=== PATIENT | male | born 1955 | race Caucasian/White ===

== ENCOUNTER → 2016-11-04 | Outpatient (CLI) | payer OTHER ==
--- NOTE | 2016-11-04 07:26 | REP ---
Clinical: Pain. Technique: AP, lateral, bilateral oblique views of the right knee. Findings: Age-related degenerative changes include cortical irregularity to the femoral condyles along with increased sclerosis to the medial tibial surface with medial joint space narrowing. Lateral view demonstrates subtle spurring along the inferior margin of the posterior patella. No acute fracture dislocation. Impression: Mild arthritic degenerative changes. Signed by Tamir Ingram MD 11/04/2016 07:17 A
== END ==
LOC: M RAD 06:11
PROVIDERS: ATTEND Nurse Practitioner Family
DX: M17.9 Osteoarthritis of knee, unspecified (principal)

== ENCOUNTER → 2016-11-04 | Outpatient (REF) | payer OTHER ==
[2016-11-04 19:32] LABS: ANION GAP 10 MEQ/L (8-16); BLOOD UREA NITROGEN 14 MG/DL (7-18); CALCIUM LEVEL 8.8 MG/DL (8.8-10.2); CARBON DIOXIDE LEVEL 26 MEQ/L (21-32); CHLORIDE LEVEL 101 MEQ/L (98-107); CREATININE FOR GFR 0.76 MG/DL (0.70-1.30); GLOMERULAR FILTRATION RATE > 60.0 (>49); GLUCOSE, FASTING 383 MG/DL (80-110); POTASSIUM SERUM 4.1 MEQ/L (3.5-5.1); SODIUM LEVEL 137 MEQ/L (136-145)
== END ==
LOC: M SFHCPLAZ 14:50
PROVIDERS: ATTEND Nurse Practitioner Family
DX: I10 Essential (primary) hypertension (principal)

== ENCOUNTER → 2017-01-31 | Outpatient (REF) | payer OTHER ==
[2017-01-31 16:35] LABS: ALBUMIN 3.4 GM/DL (3.2-5.2); ALBUMIN/GLOBULIN RATIO 0.97 (1.00-1.93); ALKALINE PHOSPHATASE 100 U/L (45-117); ALT/SGPT 25 U/L (12-78); ANION GAP 10 MEQ/L (8-16); AST/SGOT 12 U/L (15-37); BILIRUBIN,TOTAL 0.6 MG/DL (0.2-1.0); BLOOD UREA NITROGEN 15 MG/DL (7-18); CALCIUM LEVEL 8.3 MG/DL (8.8-10.2); CARBON DIOXIDE LEVEL 24 MEQ/L (21-32); CHLORIDE LEVEL 100 MEQ/L (98-107); CREATININE FOR GFR 0.68 MG/DL (0.70-1.30); GLOMERULAR FILTRATION RATE > 60.0 (>49); GLUCOSE, FASTING 259 MG/DL (80-110); SODIUM LEVEL 134 MEQ/L (136-145); TOTAL PROTEIN 6.9 GM/DL (6.4-8.2)
== END ==
LOC: M SFHCPLAZ 14:08
PROVIDERS: ATTEND Nurse Practitioner Family
DX: E11.65 Type 2 diabetes mellitus with hyperglycemia (principal)

== ENCOUNTER → 2017-05-23 | Outpatient (CLI) | payer OTHER ==
[2017-05-23 14:18] LABS: ALBUMIN 3.1 GM/DL (3.2-5.2); ALBUMIN/GLOBULIN RATIO 0.86 (1.00-1.93); ALKALINE PHOSPHATASE 91 U/L (45-117); ALT/SGPT 22 U/L (12-78); ANION GAP 8 MEQ/L (8-16); AST/SGOT 8 U/L (15-37); BILIRUBIN,TOTAL 0.5 MG/DL (0.2-1.0); BLOOD UREA NITROGEN 18 MG/DL (7-18); CALCIUM LEVEL 8.9 MG/DL (8.8-10.2); CARBON DIOXIDE LEVEL 27 MEQ/L (21-32); CHLORIDE LEVEL 100 MEQ/L (98-107); GLOMERULAR FILTRATION RATE > 60.0 (>49); GLUCOSE, FASTING 255 MG/DL (80-110); POTASSIUM SERUM 4.2 MEQ/L (3.5-5.1); SODIUM LEVEL 135 MEQ/L (136-145); TOTAL PROTEIN 6.7 GM/DL (6.4-8.2)
== END ==
LOC: M WUC 11:16
PROVIDERS: ATTEND Nurse Practitioner Family
DX: E11.9 Type 2 diabetes mellitus without complications (principal)

== ENCOUNTER → 2017-11-23 | Outpatient (REF) | payer OTHER | LOC: M SFHCPLAZ 08:01 | DX: E11.65 Type 2 diabetes mellitus with hyperglycemia (principal); E78.2 Mixed hyperlipidemia ==

== ENCOUNTER 2018-01-17 08:43 | Inpatient (IN) | payer OTHER ==
[2018-01-17] MEDS: NS 1,000 ML IV ×2 (10:08→18:05)
[2018-01-17] MEDS: MORPHINE 4 MG/ML 1ML VIAL/SYRINGE (J2270) IV ×2 (10:08→15:42)
[2018-01-17] MEDS: ONDANSETRON 4MG/2ML VIAL (J2405) IV (10:09)
[2018-01-17 10:14] LABS: BASO % 0.2 % (0.0-1.0); HEMATOCRIT 43.3 % (42.0-52.0); HEMOGLOBIN 14.7 g/dl (13.5-17.5); IMMATURE GRANULOCYTE % 0.6 % (0-3.0); LYMPH % 4.9 % (24.0-44.0); MEAN CORPUSCULAR HEMOGLOBIN 27.6 pg (27.0-33.0); MEAN CORPUSCULAR HGB CONC 33.9 g/dl (32.0-36.5); MEAN CORPUSCULAR VOLUME 81.4 fl (80.0-96.0); MONO # 1.7 10^3/uL (0.0-0.8); MONO % 8.2 % (0.0-5.0); NEUTROPHILS # 17.8 10^3/uL (1.8-7.7); NEUTROPHILS % 86.1 % (36.0-66.0); PLATELET COUNT, AUTOMATED 251 10^3/uL (150-450); RED BLOOD COUNT 5.32 10^6/uL (4.30-6.10); RED CELL DISTRIBUTION WIDTH 13.2 % (11.5-14.5); WHITE BLOOD COUNT 20.7 10^3/uL (4.0-10.0)
[2018-01-17 10:34] LABS: ALBUMIN 2.4 GM/DL (3.2-5.2); ALBUMIN/GLOBULIN RATIO 0.62 (1.00-1.93); ALKALINE PHOSPHATASE 78 U/L (45-117); ALT/SGPT 14 U/L (12-78); ANION GAP 9 MEQ/L (8-16); AST/SGOT 17 U/L (7-37); BILIRUBIN,DIRECT 0.3 MG/DL (0.0-0.2); BILIRUBIN,TOTAL 0.9 MG/DL (0.2-1.0); BLOOD UREA NITROGEN 29 MG/DL (7-18); CALCIUM LEVEL 7.5 MG/DL (8.8-10.2); CARBON DIOXIDE LEVEL 24 MEQ/L (21-32); CHLORIDE LEVEL 97 MEQ/L (98-107); GLOMERULAR FILTRATION RATE > 60.0 (>49); GLUCOSE, FASTING 246 MG/DL (70-100); SODIUM LEVEL 130 MEQ/L (136-145); TOTAL PROTEIN 6.3 GM/DL (6.4-8.2)
[2018-01-17] MEDS ORDERED: ISOVUE-370 76% 100ML VIAL (Q9967) As Ordered (10:47)
[2018-01-17] MEDS: CEFTAROLINE FOSAMIL 600 MG in D5W MINI-BAG PLUS 50 ML IV (12:18)
[2018-01-17] MEDS ORDERED: PIPERACILLIN As Ordered (13:15)
[2018-01-17] MEDS ORDERED: TAZOBACTAM As Ordered (13:15)
[2018-01-17] MEDS: SODIUM CHLORIDE 0.9% 1000 ML IV (13:15)
[2018-01-17] MEDS ORDERED: ONDANSETRON 4MG/2ML VIAL (J2405) IV (14:30)
[2018-01-17] MEDS ORDERED: GLUCOSE 4 GM CHEW TABLET PO (14:45)
[2018-01-17] MEDS ORDERED: DEXTROSE 50% 50 ML SYRINGE IV (14:45)
[2018-01-17] MEDS ORDERED: GLUCAGON FOR INJ 1 MG VIAL (J1610) SC (14:45)
[2018-01-17 15:21] LABS: INR 1.49; PROTHROMBIN TIME 18.3 SECONDS (12.4-14.5)
[2018-01-17 15:26] LABS: APPEARANCE, URINE CLEAR (CLEAR); BACTERIA, URINE AUTO NEGATIVE (NEGATIVE); BILIRUBIN, URINE AUTO NEGATIVE (NEGATIVE); BLOOD, URINE BLOOD NEGATIVE (NEGATIVE); COLOR, URINE YELLOW (YELLOW); GLUCOSE, URINE (UA) AUTO 2+ mg/dL (NEGATIVE); KETONE, URINE AUTO TRACE mg/dL (NEGATIVE); LEUKOCYTE ESTERASE, URINE AUTO NEGATIVE (NEGATIVE); NITRITE, URINE AUTO NEGATIVE (NEGATIVE); PROTEIN, URINE AUTO 2+ mg/dL (NEGATIVE); RBC, URINE AUTO 3 /HPF (0-3); SPECIFIC GRAVITY URINE AUTO 1.054 (1.002-1.035); SQUAMOUS EPITHELIAL CELL UR AU 0 /HPF (0-6); UROBILINOGEN, URINE AUTO 0.2 mg/dL (0.0-2.0); WBC, URINE AUTO 1 /HPF (0-3)
[2018-01-17] MEDS: VANCOMYCIN HCL 1,000 MG, VIAL MATE ADAPTER 1 EACH in D5W 250 ML IV ×3 (15:41→22:58)
[2018-01-17] MEDS ORDERED: NICOTINE 14 MG/24 HR TRANSDERMAL TD (17:15)
[2018-01-17] MEDS: NICOTINE 14 MG/24 HR TRANSDERMAL TD (18:05)
[2018-01-17] MEDS: HumaLOG INSULIN (NovoLOG) PER UNIT SC ×2 (18:05→21:00)
[2018-01-17] MEDS: PIPERACILLIN/TAZOBACTAM SOD 3.375 GM in APPROPRIATE DILUENT 1 EA IV (19:47)
[2018-01-17] MEDS: LEVEMIR (INSULIN DETEMIR) 1 UNITS/0.01ML SC (21:00)
[2018-01-17] MEDS: ACETAMINOPHEN TAB 650MG DOSE (2X325MG) PO (21:17)
[2018-01-17] MEDS: SIMVASTATIN 40 MG TAB PO (21:17)
[2018-01-17 21:29] LABS: BEDSIDE GLUCOSE 182 MG/DL (80-115)
[2018-01-17] MEDS ORDERED: VANCOMYCIN 1000 MG/20 ML VIAL (J3370) As Ordered (22:40)
[2018-01-18] MEDS: PIPERACILLIN/TAZOBACTAM SOD 3.375 GM in APPROPRIATE DILUENT 1 EA IV ×4 (00:58→17:50)
[2018-01-18] MEDS: VANCOMYCIN HCL 1,000 MG, VIAL MATE ADAPTER 1 EACH in D5W 250 ML IV ×4 (04:32→23:17)
[2018-01-18] MEDS: MORPHINE 4 MG/ML 1ML VIAL/SYRINGE (J2270) IV ×2 (04:58→20:02)
[2018-01-18 06:23] LABS: BASO # 0.1 10^3/uL (0.0-0.2); BASO % 0.2 % (0.0-1.0); EOS % 0.1 % (0.0-3.0); HEMATOCRIT 37.9 % (42.0-52.0); IMMATURE GRANULOCYTE % 1.3 % (0-3.0); LYMPH # 0.9 10^3/uL (1.5-4.5); LYMPH % 3.7 % (24.0-44.0); MEAN CORPUSCULAR HGB CONC 34.3 g/dl (32.0-36.5); MEAN CORPUSCULAR VOLUME 81.7 fl (80.0-96.0); MONO % 9.9 % (0.0-5.0); NEUTROPHILS # 20.9 10^3/uL (1.8-7.7); NEUTROPHILS % 84.8 % (36.0-66.0); PLATELET COUNT, AUTOMATED 244 10^3/uL (150-450); RED BLOOD COUNT 4.64 10^6/uL (4.30-6.10); RED CELL DISTRIBUTION WIDTH 13.5 % (11.5-14.5); WHITE BLOOD COUNT 24.7 10^3/uL (4.0-10.0)
[2018-01-18 06:46] LABS: MONO # 2.4 10^3/uL (0.0-0.8); POSITIVE DIFF POS FLAG
[2018-01-18 06:54] LABS: ANION GAP 9 MEQ/L (8-16); BLOOD UREA NITROGEN 31 MG/DL (7-18); CARBON DIOXIDE LEVEL 22 MEQ/L (21-32); CHLORIDE LEVEL 101 MEQ/L (98-107); CREATININE FOR GFR 1.07 MG/DL (0.70-1.30); GLOMERULAR FILTRATION RATE > 60.0 (>49); GLUCOSE, FASTING 224 MG/DL (70-100); POTASSIUM SERUM 3.4 MEQ/L (3.5-5.1); SODIUM LEVEL 132 MEQ/L (136-145)
[2018-01-18] MEDS: NICOTINE 14 MG/24 HR TRANSDERMAL TD (07:50)
[2018-01-18] MEDS: LEVEMIR (INSULIN DETEMIR) 1 UNITS/0.01ML SC ×2 (07:51→21:05)
[2018-01-18] MEDS: HumaLOG INSULIN (NovoLOG) PER UNIT SC ×5 (07:51→21:06)
[2018-01-18] MEDS: MULTIVITAMINS/MINERALS THERAP 1 TAB PO (09:00)
[2018-01-18] MEDS: D5W/0.9% SODIUM CHLORIDE 1,000 ML IV ×2 (09:44→17:06)
[2018-01-18] MEDS: LIDOCAINE W/EPINEPHRINE 1% 20ML VIAL As Ordered (11:34)
[2018-01-18] MEDS: LIDOCAINE 1% SDV INJ 30 ML VIAL As Ordered (11:34)
[2018-01-18] MEDS: BUPIVACAINE HCL 0.25% 30 ML VIAL As Ordered (12:28)
[2018-01-18] MEDS: ZOSYN 3.375 GM VIAL (J2543) As Ordered (12:30)
[2018-01-18] MEDS ORDERED: ROCURONIUM BROMIDE 50 MG/5 ML VIAL As Ordered (12:39)
[2018-01-18] MEDS ORDERED: METOCLOPRAMIDE INJ 10MG/2ML VIAL (J2765) As Ordered (12:39)
[2018-01-18] MEDS ORDERED: PROPOFOL 200 MG/20 ML VIAL As Ordered (12:39)
[2018-01-18] MEDS ORDERED: ONDANSETRON 4MG/2ML VIAL (J2405) As Ordered (12:39)
[2018-01-18] MEDS ORDERED: LIDOCAINE 2% INJ 100 MG/5 ML SDV (FOR ANES.) As Ordered (12:39)
[2018-01-18] MEDS ORDERED: fentaNYL 250 MCG/5 ML INJECTION (J3010) As Ordered (12:39)
[2018-01-18] MEDS ORDERED: MIDAZOLAM INJ 2 MG/2 ML VIAL (J2250) As Ordered (12:39)
[2018-01-18] MEDS ORDERED: PHENYLephrine HCL 500 MCG/5 ML (100MCG/ML) SYRINGE (J2370) As Ordered ×2 (12:42)
[2018-01-18] MEDS ORDERED: SUGAMMADEX SODIUM 500 MG/5 ML VIAL (BRIDION) As Ordered (12:45)
[2018-01-18 13:17] LABS: BEDSIDE GLUCOSE 137 MG/DL (80-115)
[2018-01-18 13:17] LABS: BEDSIDE GLUCOSE 240 MG/DL (80-115)
[2018-01-18] MEDS ORDERED: PERCOCET 5MG/325MG TAB As Ordered ×2 (13:31→14:04)
[2018-01-18] MEDS ORDERED: fentaNYL 100 MCG/2 ML INJECTION (J3010) As Ordered (13:31)
[2018-01-18] MEDS ORDERED: HumaLOG INSULIN (NovoLOG) PER UNIT As Ordered (13:32)
[2018-01-18] MEDS: fentaNYL 100 MCG/2 ML INJECTION (J3010) IV ×4 (13:40→13:55)
[2018-01-18] MEDS: PERCOCET 5MG/325MG TAB PO ×2 (13:40→14:11)
[2018-01-18] MEDS ORDERED: HYDROmorphone HCL 1 MG/ML SYRINGE (J1170) IV (14:00)
[2018-01-18] MEDS: LR 1,000 ML IV (14:00)
[2018-01-18] MEDS ORDERED: ONDANSETRON 4MG/2ML VIAL (J2405) IV (14:00)
[2018-01-18 14:02] LABS: BEDSIDE GLUCOSE 253 MG/DL (80-115)
[2018-01-18 16:11] LABS: INR 1.28; PROTHROMBIN TIME 16.2 SECONDS (12.4-14.5)
[2018-01-18 16:22] LABS: VANCOMYCIN LEVEL TROUGH 17.4 UG/ML (10.0-20.0)
[2018-01-18 17:22] LABS: BEDSIDE GLUCOSE 188 MG/DL (80-115)
[2018-01-18] MEDS: metFORMIN 850 MG TAB PO (17:50)
[2018-01-18] MEDS: DOCUSATE SODIUM 100 MG CAP PO (21:05)
[2018-01-18] MEDS: OMEGA-3 1050MG CAPSULE PO (21:05)
[2018-01-18 21:09] LABS: BEDSIDE GLUCOSE 256 MG/DL (80-115)
[2018-01-19] MEDS: PIPERACILLIN/TAZOBACTAM SOD 3.375 GM in APPROPRIATE DILUENT 1 EA IV ×5 (00:24→23:38)
[2018-01-19] MEDS: D5W/0.9% SODIUM CHLORIDE 1,000 ML IV ×2 (00:25→08:58)
[2018-01-19] MEDS: VANCOMYCIN HCL 1,000 MG, VIAL MATE ADAPTER 1 EACH in D5W 250 ML IV ×2 (04:40→17:20)
[2018-01-19 06:45] LABS: BASO # 0.1 10^3/uL (0.0-0.2); BASO % 0.4 % (0.0-1.0); EOS # 0.1 10^3/uL (0.0-0.50); EOS % 0.6 % (0.0-3.0); HEMATOCRIT 37.3 % (42.0-52.0); HEMOGLOBIN 12.6 g/dl (13.5-17.5); IMMATURE GRANULOCYTE % 0.8 % (0-3.0); LYMPH # 1.1 10^3/uL (1.5-4.5); LYMPH % 5.3 % (24.0-44.0); MEAN CORPUSCULAR HEMOGLOBIN 27.8 pg (27.0-33.0); MEAN CORPUSCULAR HGB CONC 33.8 g/dl (32.0-36.5); MEAN CORPUSCULAR VOLUME 82.3 fl (80.0-96.0); NEUTROPHILS # 16.6 10^3/uL (1.8-7.7); NEUTROPHILS % 82.9 % (36.0-66.0); PLATELET COUNT, AUTOMATED 257 10^3/uL (150-450); RED BLOOD COUNT 4.53 10^6/uL (4.30-6.10); RED CELL DISTRIBUTION WIDTH 13.5 % (11.5-14.5)
[2018-01-19 07:21] LABS: ANION GAP 5 MEQ/L (8-16); BLOOD UREA NITROGEN 35 MG/DL (7-18); CALCIUM LEVEL 6.9 MG/DL (8.8-10.2); CARBON DIOXIDE LEVEL 23 MEQ/L (21-32); CHLORIDE LEVEL 101 MEQ/L (98-107); CREATININE FOR GFR 1.64 MG/DL (0.70-1.30); GLOMERULAR FILTRATION RATE 45.4 (>49); GLUCOSE, FASTING 238 MG/DL (70-100); MAGNESIUM LEVEL 1.9 MG/DL (1.8-2.4); POTASSIUM SERUM 3.6 MEQ/L (3.5-5.1); SODIUM LEVEL 129 MEQ/L (136-145)
[2018-01-19] MEDS: MULTIVITAMINS/MINERALS THERAP 1 TAB PO (08:55)
[2018-01-19] MEDS: SITagliptin 50 MG TAB (JANUVIA) PO (08:55)
[2018-01-19] MEDS: MORPHINE 4 MG/ML 1ML VIAL/SYRINGE (J2270) IV (08:55)
[2018-01-19] MEDS: OMEGA-3 1050MG CAPSULE PO ×2 (08:55→20:39)
[2018-01-19] MEDS: SENOKOT S TAB PO ×2 (08:55→20:39)
[2018-01-19] MEDS: DOCUSATE SODIUM 100 MG CAP PO ×2 (08:55→20:39)
[2018-01-19] MEDS: metFORMIN 850 MG TAB PO (08:56)
[2018-01-19] MEDS: POTASSIUM CHLORIDE 10 MEQ SR TABLET PO (08:56)
[2018-01-19] MEDS: ENOXAPARIN 40 MG/0.4 ML SYRINGE (J1650) SC (08:56)
[2018-01-19] MEDS: NICOTINE 14 MG/24 HR TRANSDERMAL TD (08:57)
[2018-01-19] MEDS: LEVEMIR (INSULIN DETEMIR) 1 UNITS/0.01ML SC ×2 (08:57→20:39)
[2018-01-19] MEDS: MIRALAX *UNIT DOSE* 17GM PACKET PO ×2 (08:57→20:42)
[2018-01-19] MEDS: HumaLOG INSULIN (NovoLOG) PER UNIT SC ×4 (08:58→21:00)
[2018-01-19] MEDS ORDERED: NORCO, ANEXSIA 5/325MG TABLET (HYDROcodone/ACETAMINOPHEN) PO (09:15)
[2018-01-19 10:42] LABS: VANCOMYCIN LEVEL TROUGH 25.6 UG/ML (10.0-20.0)
[2018-01-19 12:56] LABS: BEDSIDE GLUCOSE 215 MG/DL (80-115)
[2018-01-19] MEDS: NS 1,000 ML IV ×2 (12:57→23:39)
[2018-01-19 15:28] LABS: INR 1.22; PROTHROMBIN TIME 15.7 SECONDS (12.4-14.5)
[2018-01-19] MEDS: NORCO, ANEXSIA 5/325MG TABLET (HYDROcodone/ACETAMINOPHEN) PO (17:21)
[2018-01-19 17:38] LABS: BEDSIDE GLUCOSE 163 MG/DL (80-115)
[2018-01-19] MEDS: SIMVASTATIN 40 MG TAB PO (20:39)
[2018-01-19 21:06] LABS: BEDSIDE GLUCOSE 192 MG/DL (80-115)
[2018-01-20] MEDS ORDERED: FUROSEMIDE 20 MG/2 ML VIAL (J1940) As Ordered (04:49)
[2018-01-20] MEDS: FUROSEMIDE 20 MG/2 ML VIAL (J1940) IV (04:50)
[2018-01-20] MEDS: MORPHINE 4 MG/ML 1ML VIAL/SYRINGE (J2270) IV ×4 (06:37→22:11)
[2018-01-20] MEDS: VANCOMYCIN HCL 1,000 MG, VIAL MATE ADAPTER 1 EACH in D5W 250 ML IV ×2 (06:53→18:07)
[2018-01-20 06:54] LABS: ANION GAP 8 MEQ/L (8-16); BLOOD UREA NITROGEN 26 MG/DL (7-18); CALCIUM LEVEL 7.3 MG/DL (8.8-10.2); CARBON DIOXIDE LEVEL 22 MEQ/L (21-32); CHLORIDE LEVEL 106 MEQ/L (98-107); CREATININE FOR GFR 1.36 MG/DL (0.70-1.30); GLOMERULAR FILTRATION RATE 56.3 (>49); GLUCOSE, FASTING 192 MG/DL (70-100); MAGNESIUM LEVEL 2.1 MG/DL (1.8-2.4); POTASSIUM SERUM 3.6 MEQ/L (3.5-5.1); SODIUM LEVEL 136 MEQ/L (136-145); VANCOMYCIN LEVEL TROUGH 18.5 UG/ML (10.0-20.0)
[2018-01-20 06:56] LABS: BASO # 0.1 10^3/uL (0.0-0.2); BASO % 0.6 % (0.0-1.0); EOS # 0.2 10^3/uL (0.0-0.50); EOS % 0.9 % (0.0-3.0); HEMATOCRIT 37.8 % (42.0-52.0); HEMOGLOBIN 12.6 g/dl (13.5-17.5); IMMATURE GRANULOCYTE % 1.1 % (0-3.0); LYMPH # 0.9 10^3/uL (1.5-4.5); MEAN CORPUSCULAR HEMOGLOBIN 27.2 pg (27.0-33.0); MEAN CORPUSCULAR HGB CONC 33.3 g/dl (32.0-36.5); MEAN CORPUSCULAR VOLUME 81.6 fl (80.0-96.0); MONO # 1.6 10^3/uL (0.0-0.8); MONO % 8.5 % (0.0-5.0); NEUTROPHILS # 15.5 10^3/uL (1.8-7.7); NEUTROPHILS % 83.9 % (36.0-66.0); PLATELET COUNT, AUTOMATED 300 10^3/uL (150-450); RED BLOOD COUNT 4.63 10^6/uL (4.30-6.10); RED CELL DISTRIBUTION WIDTH 13.6 % (11.5-14.5); WHITE BLOOD COUNT 18.5 10^3/uL (4.0-10.0)
[2018-01-20] MEDS: MIRALAX *UNIT DOSE* 17GM PACKET PO ×2 (09:00→20:26)
[2018-01-20] MEDS: PIPERACILLIN/TAZOBACTAM SOD 3.375 GM in APPROPRIATE DILUENT 1 EA IV ×3 (09:23→19:30)
[2018-01-20] MEDS: ENOXAPARIN 40 MG/0.4 ML SYRINGE (J1650) SC (09:24)
[2018-01-20] MEDS: NICOTINE 14 MG/24 HR TRANSDERMAL TD (09:25)
[2018-01-20] MEDS: LEVEMIR (INSULIN DETEMIR) 1 UNITS/0.01ML SC ×2 (09:27→20:26)
[2018-01-20] MEDS: HumaLOG INSULIN (NovoLOG) PER UNIT SC ×4 (09:27→21:00)
[2018-01-20] MEDS: MULTIVITAMINS/MINERALS THERAP 1 TAB PO (09:28)
[2018-01-20] MEDS: SENOKOT S TAB PO ×2 (09:28→20:25)
[2018-01-20] MEDS: OMEGA-3 1050MG CAPSULE PO ×2 (09:28→20:25)
[2018-01-20] MEDS: DOCUSATE SODIUM 100 MG CAP PO ×2 (09:28→20:25)
[2018-01-20] MEDS: POTASSIUM CHLORIDE 10 MEQ SR TABLET PO (09:29)
[2018-01-20] MEDS: ALBUTEROL SULFATE 2.5 MG/0.5 ML INH NEB SOLN NEB (11:38)
[2018-01-20 12:22] LABS: BEDSIDE GLUCOSE 214 MG/DL (80-115)
[2018-01-20 12:48] LABS: ANION GAP 7 MEQ/L (8-16); BLOOD UREA NITROGEN 26 MG/DL (7-18); CALCIUM LEVEL 7.1 MG/DL (8.8-10.2); CARBON DIOXIDE LEVEL 25 MEQ/L (21-32); CHLORIDE LEVEL 106 MEQ/L (98-107); CREATININE FOR GFR 1.34 MG/DL (0.70-1.30); GLOMERULAR FILTRATION RATE 57.3 (>49); GLUCOSE, FASTING 201 MG/DL (70-100); MAGNESIUM LEVEL 2.3 MG/DL (1.8-2.4); NT-PRO BNP 677 PG/ML (<125); PHOSPHORUS LEVEL 2.4 MG/DL (2.5-4.9); POTASSIUM SERUM 4.1 MEQ/L (3.5-5.1); SODIUM LEVEL 138 MEQ/L (136-145); TROPONIN I < 0.02 NG/ML (< 0.10)
[2018-01-20] MEDS: BISACODYL 10 MG SUPP PR (15:49)
[2018-01-21] MEDS: SENNA 8.6 MG TAB (SENOKOT) PO (00:09)
[2018-01-21] MEDS: PIPERACILLIN/TAZOBACTAM SOD 3.375 GM in APPROPRIATE DILUENT 1 EA IV ×5 (00:09→23:57)
[2018-01-21] MEDS: FLEET ENEMA PR (00:09)
[2018-01-21] MEDS: ALBUTEROL SULFATE 2.5 MG/0.5 ML INH NEB SOLN NEB (01:24)
[2018-01-21] MEDS: MORPHINE 4 MG/ML 1ML VIAL/SYRINGE (J2270) IV (05:14)
[2018-01-21] MEDS: VANCOMYCIN HCL 1,000 MG, VIAL MATE ADAPTER 1 EACH in D5W 250 ML IV ×2 (05:14→17:20)
[2018-01-21 05:40] LABS: BASO # 0.1 10^3/uL (0.0-0.2); BASO % 0.6 % (0.0-1.0); EOS # 0.2 10^3/uL (0.0-0.50); EOS % 1.2 % (0.0-3.0); HEMATOCRIT 38.6 % (42.0-52.0); HEMOGLOBIN 12.8 g/dl (13.5-17.5); IMMATURE GRANULOCYTE % 1.1 % (0-3.0); LYMPH % 6.1 % (24.0-44.0); MEAN CORPUSCULAR HEMOGLOBIN 27.4 pg (27.0-33.0); MEAN CORPUSCULAR HGB CONC 33.2 g/dl (32.0-36.5); MEAN CORPUSCULAR VOLUME 82.7 fl (80.0-96.0); MONO # 1.7 10^3/uL (0.0-0.8); MONO % 11.2 % (0.0-5.0); NEUTROPHILS # 12.4 10^3/uL (1.8-7.7); NEUTROPHILS % 79.8 % (36.0-66.0); PLATELET COUNT, AUTOMATED 298 10^3/uL (150-450); RED BLOOD COUNT 4.67 10^6/uL (4.30-6.10); RED CELL DISTRIBUTION WIDTH 13.7 % (11.5-14.5); WHITE BLOOD COUNT 15.6 10^3/uL (4.0-10.0)
[2018-01-21 05:58] LABS: ANION GAP 7 MEQ/L (8-16); BLOOD UREA NITROGEN 21 MG/DL (7-18); CALCIUM LEVEL 7.5 MG/DL (8.8-10.2); CARBON DIOXIDE LEVEL 26 MEQ/L (21-32); CHLORIDE LEVEL 105 MEQ/L (98-107); CREATININE FOR GFR 1.27 MG/DL (0.70-1.30); GLOMERULAR FILTRATION RATE > 60.0 (>49); GLUCOSE, FASTING 209 MG/DL (70-100); MAGNESIUM LEVEL 2.3 MG/DL (1.8-2.4); SODIUM LEVEL 138 MEQ/L (136-145)
[2018-01-21] MEDS: NICOTINE 14 MG/24 HR TRANSDERMAL TD (08:28)
[2018-01-21] MEDS: SENOKOT S TAB PO ×3 (08:29→21:42)
[2018-01-21] MEDS: DOCUSATE SODIUM 100 MG CAP PO ×2 (08:29→21:43)
[2018-01-21] MEDS: POTASSIUM CHLORIDE 10 MEQ SR TABLET PO (08:29)
[2018-01-21] MEDS: MULTIVITAMINS/MINERALS THERAP 1 TAB PO (08:29)
[2018-01-21] MEDS: OMEGA-3 1050MG CAPSULE PO ×2 (08:29→21:43)
[2018-01-21] MEDS: HumaLOG INSULIN (NovoLOG) PER UNIT SC ×4 (08:30→21:00)
[2018-01-21] MEDS: LEVEMIR (INSULIN DETEMIR) 1 UNITS/0.01ML SC ×2 (08:31→21:43)
[2018-01-21] MEDS: MIRALAX *UNIT DOSE* 17GM PACKET PO ×2 (08:32→21:42)
[2018-01-21] MEDS: BISACODYL 10 MG SUPP PR (08:32)
[2018-01-21] MEDS: ENOXAPARIN 40 MG/0.4 ML SYRINGE (J1650) SC (08:32)
[2018-01-21] MEDS: TORSEMIDE 20 MG TAB PO (15:59)
[2018-01-21] MEDS: SIMVASTATIN 40 MG TAB PO (21:42)
[2018-01-21] MEDS: ENOXAPARIN 150 MG/ML SYR (J1650) SC (21:44)
[2018-01-22] MEDS: MORPHINE 4 MG/ML 1ML VIAL/SYRINGE (J2270) IV ×2 (02:57→15:33)
[2018-01-22 04:10] LABS: BASO # 0.1 10^3/uL (0.0-0.2); EOS # 0.2 10^3/uL (0.0-0.50); EOS % 1.7 % (0.0-3.0); HEMATOCRIT 37.7 % (42.0-52.0); HEMOGLOBIN 12.7 g/dl (13.5-17.5); IMMATURE GRANULOCYTE % 2.1 % (0-3.0); LYMPH # 1.2 10^3/uL (1.5-4.5); LYMPH % 8.6 % (24.0-44.0); MEAN CORPUSCULAR HEMOGLOBIN 27.8 pg (27.0-33.0); MEAN CORPUSCULAR HGB CONC 33.7 g/dl (32.0-36.5); MEAN CORPUSCULAR VOLUME 82.5 fl (80.0-96.0); MONO # 1.7 10^3/uL (0.0-0.8); MONO % 12.3 % (0.0-5.0); NEUTROPHILS # 10.2 10^3/uL (1.8-7.7); NEUTROPHILS % 74.3 % (36.0-66.0); PLATELET COUNT, AUTOMATED 309 10^3/uL (150-450); RED BLOOD COUNT 4.57 10^6/uL (4.30-6.10); RED CELL DISTRIBUTION WIDTH 13.7 % (11.5-14.5); WHITE BLOOD COUNT 13.8 10^3/uL (4.0-10.0)
[2018-01-22 04:35] LABS: ANION GAP 5 MEQ/L (8-16); BLOOD UREA NITROGEN 17 MG/DL (7-18); CALCIUM LEVEL 7.4 MG/DL (8.8-10.2); CARBON DIOXIDE LEVEL 27 MEQ/L (21-32); CHLORIDE LEVEL 106 MEQ/L (98-107); GLOMERULAR FILTRATION RATE > 60.0 (>49); GLUCOSE, FASTING 189 MG/DL (70-100); MAGNESIUM LEVEL 2.2 MG/DL (1.8-2.4); SODIUM LEVEL 138 MEQ/L (136-145); VANCOMYCIN LEVEL TROUGH 15.5 UG/ML (10.0-20.0)
[2018-01-22] MEDS: VANCOMYCIN HCL 1,000 MG, VIAL MATE ADAPTER 1 EACH in D5W 250 ML IV (04:55)
[2018-01-22] MEDS: PIPERACILLIN/TAZOBACTAM SOD 3.375 GM in APPROPRIATE DILUENT 1 EA IV ×3 (06:23→23:31)
[2018-01-22] MEDS: OMEGA-3 1050MG CAPSULE PO ×2 (08:51→22:33)
[2018-01-22] MEDS: NICOTINE 14 MG/24 HR TRANSDERMAL TD (08:51)
[2018-01-22] MEDS: HumaLOG INSULIN (NovoLOG) PER UNIT SC ×4 (08:53→22:08)
[2018-01-22] MEDS: LEVEMIR (INSULIN DETEMIR) 1 UNITS/0.01ML SC ×2 (08:54→22:33)
[2018-01-22] MEDS: SENOKOT S TAB PO ×3 (08:55→22:33)
[2018-01-22] MEDS: TORSEMIDE 20 MG TAB PO (08:55)
[2018-01-22] MEDS: DOCUSATE SODIUM 100 MG CAP PO (08:55)
[2018-01-22] MEDS: MULTIVITAMINS/MINERALS THERAP 1 TAB PO (08:55)
[2018-01-22] MEDS: BISACODYL 10 MG SUPP PR (08:56)
[2018-01-22] MEDS: MIRALAX *UNIT DOSE* 17GM PACKET PO ×2 (08:56→22:31)
[2018-01-22] MEDS: POTASSIUM CHLORIDE 10 MEQ SR TABLET PO (08:56)
[2018-01-22 11:51] LABS: BEDSIDE GLUCOSE 188 MG/DL (80-115)
[2018-01-22 11:51] LABS: BEDSIDE GLUCOSE 185 MG/DL (80-115)
[2018-01-22 11:52] LABS: BEDSIDE GLUCOSE 179 MG/DL (80-115)
[2018-01-22 11:52] LABS: BEDSIDE GLUCOSE 184 MG/DL (80-115)
[2018-01-22 11:52] LABS: BEDSIDE GLUCOSE 192 MG/DL (80-115)
[2018-01-22 11:52] LABS: BEDSIDE GLUCOSE 200 MG/DL (80-115)
[2018-01-22] MEDS ORDERED: BISACODYL ENEMA 10 MG/30 ML PR (18:30)
[2018-01-22] MEDS ORDERED: AUGMENTIN 875 MG TAB PO (21:00)
[2018-01-22] MEDS: ENOXAPARIN 150 MG/ML SYR (J1650) SC (22:34)
[2018-01-23 00:05] LABS: BEDSIDE GLUCOSE 129 MG/DL (80-115)
[2018-01-23 00:05] LABS: BEDSIDE GLUCOSE 114 MG/DL (80-115)
[2018-01-23] MEDS: MORPHINE 4 MG/ML 1ML VIAL/SYRINGE (J2270) IV (03:00)
[2018-01-23 05:54] LABS: BASO # 0.2 10^3/uL (0.0-0.2); BASO % 1.3 % (0.0-1.0); EOS # 0.3 10^3/uL (0.0-0.50); EOS % 1.9 % (0.0-3.0); HEMATOCRIT 39.9 % (42.0-52.0); HEMOGLOBIN 13.3 g/dl (13.5-17.5); IMMATURE GRANULOCYTE % 3.4 % (0-3.0); LYMPH # 1.3 10^3/uL (1.5-4.5); LYMPH % 9.5 % (24.0-44.0); MEAN CORPUSCULAR HEMOGLOBIN 27.5 pg (27.0-33.0); MEAN CORPUSCULAR HGB CONC 33.3 g/dl (32.0-36.5); MEAN CORPUSCULAR VOLUME 82.6 fl (80.0-96.0); MONO # 1.6 10^3/uL (0.0-0.8); MONO % 11.6 % (0.0-5.0); NEUTROPHILS # 10.2 10^3/uL (1.8-7.7); NEUTROPHILS % 72.3 % (36.0-66.0); PLATELET COUNT, AUTOMATED 312 10^3/uL (150-450); RED BLOOD COUNT 4.83 10^6/uL (4.30-6.10); RED CELL DISTRIBUTION WIDTH 13.5 % (11.5-14.5); WHITE BLOOD COUNT 14.1 10^3/uL (4.0-10.0)
[2018-01-23 06:10] LABS: ANION GAP 6 MEQ/L (8-16); BLOOD UREA NITROGEN 14 MG/DL (7-18); CALCIUM LEVEL 7.8 MG/DL (8.8-10.2); CARBON DIOXIDE LEVEL 29 MEQ/L (21-32); CHLORIDE LEVEL 104 MEQ/L (98-107); CREATININE FOR GFR 1.11 MG/DL (0.70-1.30); GLOMERULAR FILTRATION RATE > 60.0 (>49); GLUCOSE, FASTING 155 MG/DL (70-100); MAGNESIUM LEVEL 1.9 MG/DL (1.8-2.4); SODIUM LEVEL 139 MEQ/L (136-145)
[2018-01-23] MEDS: PIPERACILLIN/TAZOBACTAM SOD 3.375 GM in APPROPRIATE DILUENT 1 EA IV ×3 (06:24→18:02)
[2018-01-23 07:06] LABS: C REACTIVE PROTEIN QUANTITATIV 9.26 MG/DL (0.00-0.30)
[2018-01-23] MEDS: HumaLOG INSULIN (NovoLOG) PER UNIT SC ×4 (07:55→20:44)
[2018-01-23] MEDS: NICOTINE 14 MG/24 HR TRANSDERMAL TD (10:21)
[2018-01-23] MEDS: SENOKOT S TAB PO ×3 (10:21→21:08)
[2018-01-23] MEDS: POTASSIUM CHLORIDE 10 MEQ SR TABLET PO (10:21)
[2018-01-23] MEDS: OMEGA-3 1050MG CAPSULE PO ×2 (10:22→21:08)
[2018-01-23] MEDS: TORSEMIDE 20 MG TAB PO (10:22)
[2018-01-23] MEDS: MULTIVITAMINS/MINERALS THERAP 1 TAB PO (10:22)
[2018-01-23] MEDS: MIRALAX *UNIT DOSE* 17GM PACKET PO (10:22)
[2018-01-23] MEDS: LEVEMIR (INSULIN DETEMIR) 1 UNITS/0.01ML SC ×2 (10:23→21:09)
[2018-01-23] MEDS: BISACODYL 10 MG SUPP PR ×2 (10:23→14:12)
[2018-01-23 11:53] LABS: BEDSIDE GLUCOSE 246 MG/DL (80-115)
[2018-01-23] MEDS: BISACODYL 5 MG TAB PO (13:14)
[2018-01-23] MEDS: MAGNESIUM CITRATE 300 ML BTL PO (13:15)
[2018-01-23] MEDS: RIVAROXABAN 20 MG TAB (XARELTO) PO (18:03)
[2018-01-23] MEDS: NORCO, ANEXSIA 5/325MG TABLET (HYDROcodone/ACETAMINOPHEN) PO (18:04)
[2018-01-23] MEDS: SIMVASTATIN 40 MG TAB PO (21:08)
[2018-01-24] MEDS: PIPERACILLIN/TAZOBACTAM SOD 3.375 GM in APPROPRIATE DILUENT 1 EA IV ×5 (00:49→23:04)
[2018-01-24] MEDS: MORPHINE 4 MG/ML 1ML VIAL/SYRINGE (J2270) IV ×2 (06:06→22:08)
[2018-01-24 06:25] LABS: BASO # 0.2 10^3/uL (0.0-0.2); BASO % 1.4 % (0.0-1.0); EOS # 0.3 10^3/uL (0.0-0.50); EOS % 1.9 % (0.0-3.0); HEMATOCRIT 41.5 % (42.0-52.0); HEMOGLOBIN 13.9 g/dl (13.5-17.5); IMMATURE GRANULOCYTE % 4.4 % (0-3.0); LYMPH # 1.2 10^3/uL (1.5-4.5); LYMPH % 7.7 % (24.0-44.0); MEAN CORPUSCULAR HEMOGLOBIN 27.2 pg (27.0-33.0); MEAN CORPUSCULAR HGB CONC 33.5 g/dl (32.0-36.5); MEAN CORPUSCULAR VOLUME 81.2 fl (80.0-96.0); MONO # 1.4 10^3/uL (0.0-0.8); NEUTROPHILS # 12.2 10^3/uL (1.8-7.7); NEUTROPHILS % 75.6 % (36.0-66.0); PLATELET COUNT, AUTOMATED 316 10^3/uL (150-450); RED BLOOD COUNT 5.11 10^6/uL (4.30-6.10); RED CELL DISTRIBUTION WIDTH 13.3 % (11.5-14.5); WHITE BLOOD COUNT 16.1 10^3/uL (4.0-10.0)
[2018-01-24 06:46] LABS: ANION GAP 5 MEQ/L (8-16); BLOOD UREA NITROGEN 16 MG/DL (7-18); CALCIUM LEVEL 8.2 MG/DL (8.8-10.2); CARBON DIOXIDE LEVEL 30 MEQ/L (21-32); CHLORIDE LEVEL 103 MEQ/L (98-107); GLOMERULAR FILTRATION RATE > 60.0 (>49); GLUCOSE, FASTING 158 MG/DL (70-100); MAGNESIUM LEVEL 2.2 MG/DL (1.8-2.4); POTASSIUM SERUM 4.1 MEQ/L (3.5-5.1); SODIUM LEVEL 138 MEQ/L (136-145)
[2018-01-24] MEDS: MULTIVITAMINS/MINERALS THERAP 1 TAB PO (08:18)
[2018-01-24] MEDS: TORSEMIDE 20 MG TAB PO (08:18)
[2018-01-24] MEDS: HumaLOG INSULIN (NovoLOG) PER UNIT SC ×4 (08:18→22:02)
[2018-01-24] MEDS: OMEGA-3 1050MG CAPSULE PO ×2 (08:18→22:00)
[2018-01-24] MEDS: LEVEMIR (INSULIN DETEMIR) 1 UNITS/0.01ML SC ×2 (08:18→22:01)
[2018-01-24] MEDS: POTASSIUM CHLORIDE 10 MEQ SR TABLET PO (08:19)
[2018-01-24] MEDS: NICOTINE 14 MG/24 HR TRANSDERMAL TD (08:19)
[2018-01-24] MEDS: BISACODYL 10 MG SUPP PR (08:19)
[2018-01-24] MEDS: SENOKOT S TAB PO ×3 (08:19→22:00)
[2018-01-24 08:25] LABS: BEDSIDE GLUCOSE 175 MG/DL (80-115)
[2018-01-24 08:25] LABS: BEDSIDE GLUCOSE 183 MG/DL (80-115)
[2018-01-24] MEDS: RIVAROXABAN 20 MG TAB (XARELTO) PO (18:02)
[2018-01-24 20:46] LABS: BEDSIDE GLUCOSE 243 MG/DL (80-115)
[2018-01-24 20:47] LABS: BEDSIDE GLUCOSE 275 MG/DL (80-115)
[2018-01-24 20:47] LABS: BEDSIDE GLUCOSE 254 MG/DL (80-115)
[2018-01-24] MEDS: ALBUTEROL SULFATE 2.5 MG/0.5 ML INH NEB SOLN NEB (21:52)
[2018-01-25] MEDS: PIPERACILLIN/TAZOBACTAM SOD 3.375 GM in APPROPRIATE DILUENT 1 EA IV ×3 (05:09→17:18)
[2018-01-25 06:24] LABS: BEDSIDE GLUCOSE 226 MG/DL (80-115)
[2018-01-25 08:22] LABS: BASO # 0.2 10^3/uL (0.0-0.2); BASO % 1.2 % (0.0-1.0); EOS # 0.3 10^3/uL (0.0-0.50); EOS % 1.8 % (0.0-3.0); HEMATOCRIT 38.2 % (42.0-52.0); HEMOGLOBIN 12.7 g/dl (13.5-17.5); LYMPH # 1.3 10^3/uL (1.5-4.5); LYMPH % 8.5 % (24.0-44.0); MEAN CORPUSCULAR HEMOGLOBIN 27.5 pg (27.0-33.0); MEAN CORPUSCULAR HGB CONC 33.2 g/dl (32.0-36.5); MEAN CORPUSCULAR VOLUME 82.7 fl (80.0-96.0); MONO # 1.3 10^3/uL (0.0-0.8); MONO % 8.1 % (0.0-5.0); NEUTROPHILS # 11.8 10^3/uL (1.8-7.7); NEUTROPHILS % 76.4 % (36.0-66.0); PLATELET COUNT, AUTOMATED 282 10^3/uL (150-450); RED BLOOD COUNT 4.62 10^6/uL (4.30-6.10); RED CELL DISTRIBUTION WIDTH 13.5 % (11.5-14.5); WHITE BLOOD COUNT 15.4 10^3/uL (4.0-10.0)
[2018-01-25] MEDS: POTASSIUM CHLORIDE 10 MEQ SR TABLET PO (08:34)
[2018-01-25] MEDS: HumaLOG INSULIN (NovoLOG) PER UNIT SC ×4 (08:34→21:55)
[2018-01-25] MEDS: SENOKOT S TAB PO ×3 (08:35→21:54)
[2018-01-25] MEDS: LEVEMIR (INSULIN DETEMIR) 1 UNITS/0.01ML SC ×2 (08:35→21:55)
[2018-01-25] MEDS: OMEGA-3 1050MG CAPSULE PO ×2 (08:35→21:54)
[2018-01-25] MEDS: NICOTINE 14 MG/24 HR TRANSDERMAL TD (08:35)
[2018-01-25] MEDS: MULTIVITAMINS/MINERALS THERAP 1 TAB PO (08:35)
[2018-01-25] MEDS: BISACODYL 10 MG SUPP PR (08:36)
[2018-01-25] MEDS: TORSEMIDE 20 MG TAB PO (08:36)
[2018-01-25] MEDS: NORCO, ANEXSIA 5/325MG TABLET (HYDROcodone/ACETAMINOPHEN) PO ×3 (08:37→21:55)
[2018-01-25 08:43] LABS: ANION GAP 8 MEQ/L (8-16); BLOOD UREA NITROGEN 16 MG/DL (7-18); C REACTIVE PROTEIN QUANTITATIV 5.29 MG/DL (0.00-0.30); CALCIUM LEVEL 7.8 MG/DL (8.8-10.2); CARBON DIOXIDE LEVEL 29 MEQ/L (21-32); CHLORIDE LEVEL 103 MEQ/L (98-107); GLOMERULAR FILTRATION RATE > 60.0 (>49); GLUCOSE, FASTING 183 MG/DL (70-100); POTASSIUM SERUM 4.2 MEQ/L (3.5-5.1); SODIUM LEVEL 140 MEQ/L (136-145)
[2018-01-25] MEDS: ALBUTEROL SULFATE 2.5 MG/0.5 ML INH NEB SOLN NEB ×3 (08:55→20:36)
[2018-01-25 12:29] LABS: BEDSIDE GLUCOSE 232 MG/DL (80-115)
[2018-01-25 16:55] LABS: BEDSIDE GLUCOSE 348 MG/DL (80-115)
[2018-01-25] MEDS: RIVAROXABAN 20 MG TAB (XARELTO) PO (17:18)
[2018-01-25 20:53] LABS: BEDSIDE GLUCOSE 272 MG/DL (80-115)
[2018-01-25] MEDS: SIMVASTATIN 40 MG TAB PO (21:54)
[2018-01-26] MEDS: PIPERACILLIN/TAZOBACTAM SOD 3.375 GM in APPROPRIATE DILUENT 1 EA IV ×3 (00:04→13:06)
[2018-01-26] MEDS: FLEET OIL RETENTION ENEMA PR (03:43)
[2018-01-26] MEDS: ALBUTEROL SULFATE 2.5 MG/0.5 ML INH NEB SOLN NEB ×2 (04:22→09:47)
[2018-01-26 06:38] LABS: BEDSIDE GLUCOSE 234 MG/DL (80-115)
[2018-01-26] MEDS: HumaLOG INSULIN (NovoLOG) PER UNIT SC ×2 (08:44→13:06)
[2018-01-26] MEDS: TORSEMIDE 20 MG TAB PO (08:45)
[2018-01-26] MEDS: OMEGA-3 1050MG CAPSULE PO (08:46)
[2018-01-26] MEDS: MULTIVITAMINS/MINERALS THERAP 1 TAB PO (08:46)
[2018-01-26] MEDS: LEVEMIR (INSULIN DETEMIR) 1 UNITS/0.01ML SC (08:46)
[2018-01-26] MEDS: SENOKOT S TAB PO (08:46)
[2018-01-26] MEDS: POTASSIUM CHLORIDE 10 MEQ SR TABLET PO (08:46)
[2018-01-26] MEDS: NICOTINE 14 MG/24 HR TRANSDERMAL TD (08:47)
[2018-01-26] MEDS: BISACODYL 10 MG SUPP PR (09:00)
[2018-01-26 12:37] LABS: BEDSIDE GLUCOSE 201 MG/DL (80-115)
== END 2018-01-26 14:15 | disposition home health service (06) | DRG 571 ==
LOC: M ED 08:43 → M ED INP 14:29 → M MSPAV 17:15
PROC: 0JBC0ZZ Excision of Pelvic Region Subcutaneous Tissue and Fascia, Open Approach (ICD-10-PCS; principal; 2018-01-18 12:07)
DX: L02.214 Cutaneous abscess of groin (principal); D68.2 Hereditary deficiency of other clotting factors; Z68.41 Body mass index [BMI] 40.0-44.9, adult; N17.9 Acute kidney failure, unspecified; L03.314 Cellulitis of groin; E11.9 Type 2 diabetes mellitus without complications; I50.9 Heart failure, unspecified; F17.210 Nicotine dependence, cigarettes, uncomplicated; E66.01 Morbid (severe) obesity due to excess calories; K59.00 Constipation, unspecified; E78.5 Hyperlipidemia, unspecified; Z86.718 Personal history of other venous thrombosis and embolism; Z79.01 Long term (current) use of anticoagulants; Z79.4 Long term (current) use of insulin; Z79.899 Other long term (current) drug therapy; Z88.1 Allergy status to other antibiotic agents

== ENCOUNTER → 2018-01-30 | Outpatient (CLI) | payer OTHER | LOC: M LAB 16:14 | DX: R19.7 Diarrhea, unspecified (principal) | CPT/HCPCS: 87493 ==

== ENCOUNTER → 2018-03-01 | Outpatient (REF) | payer OTHER ==
[2018-03-01 16:30] LABS: ALBUMIN 3.1 GM/DL (3.2-5.2); ALBUMIN/GLOBULIN RATIO 0.74 (1.00-1.93); ALKALINE PHOSPHATASE 88 U/L (45-117); ALT/SGPT 16 U/L (12-78); ANION GAP 7 MEQ/L (8-16); AST/SGOT 9 U/L (7-37); BILIRUBIN,TOTAL 0.4 MG/DL (0.2-1.0); BLOOD UREA NITROGEN 21 MG/DL (7-18); CALCIUM LEVEL 8.5 MG/DL (8.8-10.2); CARBON DIOXIDE LEVEL 27 MEQ/L (21-32); CHLORIDE LEVEL 105 MEQ/L (98-107); CHOLESTEROL LEVEL 137 MG/DL (<200); CHOLESTEROL RISK RATIO 3.341 (<5); CREATININE FOR GFR 1.07 MG/DL (0.70-1.30); GLOMERULAR FILTRATION RATE > 60.0 (>49); GLUCOSE, FASTING 195 MG/DL (70-100); HDL CHOLESTEROL 41 MG/DL (>40); NON-HDL-C 96 MG/DL; POTASSIUM SERUM 4.5 MEQ/L (3.5-5.1); SODIUM LEVEL 139 MEQ/L (136-145); TOTAL PROTEIN 7.3 GM/DL (6.4-8.2); TRIGLYCERIDES LEVEL 95 MG/DL (<150)
[2018-03-01 17:20] LABS: ESTIMATED AVERAGE GLUCOSE 197 MG/DL (60-110); HEMOGLOBIN A1c 8.5 %
[2018-03-01 19:25] LABS: CREATININE, URINE 61.5 MG/DL; MAU/CREAT RATIO 2894.3 MCG/MG (0.0-30.0)
== END ==
LOC: M SFHCPLAZ 12:17
DX: I10 Essential (primary) hypertension (principal); E11.65 Type 2 diabetes mellitus with hyperglycemia; E78.2 Mixed hyperlipidemia

== ENCOUNTER → 2018-04-26 | Outpatient (REF) | payer OTHER ==
[2018-04-26 14:32] LABS: COMPLEMENT C4 24.7 MG/DL (10-40)
[2018-04-26 14:32] LABS: COMPLEMENT C3 112 MG/DL (90-180)
[2018-04-26 14:36] LABS: CREATININE,RANDOM URINE 40.2 MG/DL
[2018-04-27 10:47] LABS: HEPATITIS B SURFACE ANTIGEN NEGATIVE (NEGATIVE)
[2018-04-27 12:02] LABS: HEPATITIS B SURFACE ANTIBODY NEGATIVE (POSITIVE)
[2018-04-30 14:51] LABS: ALBUMIN 3.28 GM/DL (3.29-5.55); ALBUMIN % 46.8 % (55.8-66.1); ALPHA-1-GLOBULINS 0.35 GM/DL (0.17-0.41); ALPHA-2-GLOBULINS 0.97 GM/DL (0.42-0.99); ALPHA-2-GLOBULINS % 13.9 % (7.1-11.8); BETA-1-GLOBULINS 0.53 GM/DL (0.28-0.60); BETA-1-GLOBULINS % 7.6 % (4.7-7.2); BETA-2-GLOBULINS 0.53 GM/DL (0.19-0.55); BETA-2-GLOBULINS % 7.6 % (3.2-6.5); GAMMA GLOBULIN % 19.1 % (11.1-18.8)
[2018-04-30 14:52] LABS: GAMMA GLOBULINS 1.34 GM/DL (0.65-1.58)
[2018-04-30 14:57] LABS: URINE VOLUME RANDOM ML
[2018-05-02 15:05] LABS: UPEP INTERPRETATION NO M-SPIKE NOTED
[2018-05-03 00:20] LABS: ANCA-ATYPICAL <1:20 titer (Neg:<1:20); ANTI DOUBLE STRAND-DNA AB 1 IU/mL (0-9); ANTINUCLEAR ANTIBODIES DIRECT Negative (Negative); CYTOPLASMIC NEUTROP AB ANCA-C <1:20 titer (Neg:<1:20); FREE KAPPA LIGHT CHAINS SERUM 81.8 mg/L (3.3-19.4); FREE LAMBDA LIGHT CHAINS SERUM 54.9 mg/L (5.7-26.3); KAPPA/LAMBDA RATIO SERUM 1.49 (0.26-1.65); PERINUCLEAR AB ANCA-P <1:20 titer (Neg:<1:20)
== END ==
LOC: M LAB REF 13:25
DX: R80.1 Persistent proteinuria, unspecified (principal)

== ENCOUNTER 2018-07-25 06:35 | Day surgery (SDC) | payer OTHER ==
[2018-07-25] MEDS: NS 1,000 ML IV (07:00)
[2018-07-25] MEDS ORDERED: PROPOFOL 200 MG/20 ML VIAL As Ordered (07:03)
== END 2018-07-25 08:37 | disposition home or self-care (01) ==
LOC: M OPP 06:35
DX: Z12.11 Encounter for screening for malignant neoplasm of colon (principal); D12.5 Benign neoplasm of sigmoid colon; K64.8 Other hemorrhoids; K57.30 Diverticulosis of large intestine without perforation or abscess without bleeding; K59.00 Constipation, unspecified; I12.9 Hypertensive chronic kidney disease with stage 1 through stage 4 chronic kidney disease, or unspecified chronic kidney disease; E78.5 Hyperlipidemia, unspecified; R01.1 Cardiac murmur, unspecified; D68.51 Activated protein C resistance; E11.9 Type 2 diabetes mellitus without complications; K21.9 Gastro-esophageal reflux disease without esophagitis; R12 Heartburn; Z86.718 Personal history of other venous thrombosis and embolism; M19.90 Unspecified osteoarthritis, unspecified site; M54.89 Other dorsalgia; M54.2 Cervicalgia; J45.909 Unspecified asthma, uncomplicated; R06.83 Snoring; N18.9 Chronic kidney disease, unspecified; E66.9 Obesity, unspecified; F17.210 Nicotine dependence, cigarettes, uncomplicated; Z88.1 Allergy status to other antibiotic agents; Z79.899 Other long term (current) drug therapy; Z79.4 Long term (current) use of insulin; Z79.01 Long term (current) use of anticoagulants
CPT/HCPCS: 45380

== ENCOUNTER → 2018-07-27 | Outpatient (REF) | payer OTHER ==
[2018-07-27 13:52] LABS: TOTAL PROTEIN,RANDOM URINE 351.1 MG/DL (0.0-12.0)
[2018-07-27 13:52] LABS: CREATININE,RANDOM URINE 25.3 MG/DL
[2018-07-27 13:57] LABS: FERRITIN 55 NG/ML (26-388); IRON (FE) 51 UG/DL (65-175); PERCENT SATURATION 16.6 % (19.7-50.0); TOTAL IRON BINDING CAPACITY 308 UG/DL (250-450)
== END ==
LOC: M LAB REF 12:47
DX: R80.9 Proteinuria, unspecified (principal); D63.1 Anemia in chronic kidney disease
CPT/HCPCS: 83550

== ENCOUNTER → 2018-09-18 | Outpatient (REF) | payer OTHER | LOC: M SFHCPLAZ 18:51 | DX: L02.416 Cutaneous abscess of left lower limb (principal) | CPT/HCPCS: 87186 ==

== ENCOUNTER → 2018-12-06 | Outpatient (REF) | payer OTHER ==
[~2018-12-06] MED LIST: AMOX875T2 PO; COLA100C5 PO; ENTR1TAB4; FISH100049 PO; FURO20TA2 PO; HYDR-2808 PO; INSULANT SC; INVO100T; JANU100T PO; LISI20TA3 PO; METF850T4 PO; NICO14PA TD; OMEP40CA2 PO; SIMV40TA2 PO; SPIR-10 PO; TRUL0.5I; VITMTA PO; XARE20TA PO
[2018-12-06 19:06] LABS: BACTERIA, URINE AUTO NEGATIVE (NEGATIVE); MUCUS, URINE SMALL (NEGATIVE); RBC, URINE AUTO 7 /HPF (0-3); SQUAMOUS EPITHELIAL CELL UR AU 0 /HPF (0-6); WBC, URINE AUTO 0 /HPF (0-3)
== END ==
LOC: M LAB REF 17:09
PROVIDERS: ATTEND Internal Medicine Nephrology
DX: R31.29 Other microscopic hematuria (principal)

== ENCOUNTER → 2019-04-05 | Outpatient (REF) | payer OTHER ==
[2019-04-05 15:21] LABS: CREATININE 24 HOUR, URINE 2584.2 MG/24HR (950-2500); CREATININE, URINE 47.9 MG/DL; TOTAL PROTEIN 24 HOUR URINE 30422.4 MG/24HR (50-150); URINE TOTAL PROTEIN 563.9 MG/DL (0-12)
== END ==
LOC: M LAB REF 13:17
PROVIDERS: ATTEND Internal Medicine Nephrology
DX: E11.22 Type 2 diabetes mellitus with diabetic chronic kidney disease (principal)

== ENCOUNTER → 2019-05-13 | Outpatient (CLI) | payer MEDICARE, OTHER ==
[~2019-05-13] MED LIST changes: +JARD1TAB3 PO; +KEFL250C11 PO; +METO1TAB7 PO; +TRES1INJ SC; +[UNRECOGNIZED DRUG - CODE] PO
--- NOTE | 2019-05-13 12:09 | REP ---
Clinical: Proteinuria. Technique: Real time aguilar scale and color evaluation using curved array transducer. Findings: The bladder is incompletely evaluated although wall thickening to approximately 10 mm is suggested and may warrant cystoscopy for further investigation. The right kidney is normal in reniform shape and echogenicity without hydronephrosis, nephrolithiasis, or significant mass lesion. A 2.5 cm exophytic simple cyst noted along the upper pole along with 1.7 cm simple peripelvic cyst. The left kidney is normal in reniform shape and echogenicity without hydronephrosis, nephrolithiasis, or significant mass lesion and measures 16.1 x 8.4 x 8.6 cm. A 2.0 cm exophytic simple cyst suggested along the posterior midpole cortex. Impression: Somewhat limited examination due to body habitus. Kidneys demonstrate suspected simple cysts without hydronephrosis. Bladder wall thickening is suggested. These findings appear relatively similar to CT examination dated 01/17/2018. Electronically Signed by Tamir Ingarm MD 05/13/2019 12:00 P
== END ==
LOC: M RAD 10:58
PROVIDERS: ATTEND Internal Medicine Hematology & Oncology
DX: R80.9 Proteinuria, unspecified (principal)

== ENCOUNTER → 2019-06-20 | Outpatient (REF) | payer MEDICARE, OTHER ==
[~2019-06-20] MED LIST changes: +ACET1TAB55 PO; +ALDA25TA2 PO; +AMBI5TAB PO; +AMLO10TA5 PO; +APAP325T4 PO; +DILA2TAB6 PO; -ENTR1TAB4; +ENTR1TAB4 PO; +FISH1CAP26 PO; +FURO40TA2 PO; +GABA-1171 PO; +GLUC1000 PO; +HEPA500011 SQ; +HYDR-3910 PO; +HYDR25TA PO; +INSUDET SC; +INSUHUMDS SC; +ISOS10TA PO; +ISOS1TAB13 PO; +LEVA12INH INH; +LISI20TA20 PO; -LISI20TA3 PO; +MERO1INJ IV; +METF-415 PO; +METO1TAB33 PO; +MUCI600T31 PO; -OMEP40CA2 PO; +OMEP40CA97 PO; +PANT-23 PO; +PANT40TA3 PO; +PEG1POW PO; +PRED10TA2 PO; +PRED5TA PO; +SIMV20TA22 PO; -SIMV40TA2 PO; +SIMV40TA20 PO; +VANI1CRE5 TOP; +VITA100054 PO
[2019-06-20 13:52] LABS: INR 1.34; PARTIAL THROMBOPLASTIN TIME 33.8 SECONDS (25.0-38.4); PROTHROMBIN TIME 16.3 SECONDS (11.8-14.0)
== END ==
LOC: M LAB REF 12:48
PROVIDERS: ATTEND Internal Medicine Nephrology
DX: R31.9 Hematuria, unspecified (principal)

== ENCOUNTER 2019-09-04 09:21 | Inpatient (IN) | payer MEDICARE, OTHER ==
[~2019-09-04] VITALS: Ht 185.4 cm; Wt 168.2 kg
[~2019-09-04 09:21] MED LIST changes: -SIMV40TA2 PO; +SIMV40TA20 PO
[2019-09-04 13:10] VITALS: BP 134/80
[2019-09-04 14:02] LABS: BASO # 0.1 10^3/uL (0.0-0.2); BASO % 0.7 % (0.0-1.0); EOS # 0.1 10^3/uL (0.0-0.5); EOS % 0.7 % (0.0-3.0); HEMATOCRIT 44.9 % (42.0-52.0); HEMOGLOBIN 14.4 g/dl (13.5-17.5); LYMPH # 1.3 10^3/uL (1.5-5.0); LYMPH % 11.3 % (24.0-44.0); MEAN CORPUSCULAR HEMOGLOBIN 27.2 pg (27.0-33.0); MEAN CORPUSCULAR HGB CONC 32.1 g/dl (32.0-36.5); MEAN CORPUSCULAR VOLUME 84.9 fl (80.0-96.0); MONO # 1.1 10^3/uL (0.0-0.8); NEUTROPHILS # 9.1 10^3/uL (1.5-8.5); PLATELET COUNT, AUTOMATED 272 10^3/uL (150-450); RED BLOOD COUNT 5.29 10^6/uL (4.30-6.10); WHITE BLOOD COUNT 11.7 10^3/uL (4.0-10.0)
--- NOTE | 2019-09-04 14:08 | CR.PDOC ---
General Date of Consultation: Sep 04, [address] Dsouza. HPI: 64 year old M who states he has had a sore on the medial aspect of the right foot at the base of the great toe for approximately the past month. The patient states he got new shoes approximately 1 month ago. He states he put them on and went into town and when he got home he had a blister on his foot that subsequently broke open and the skin sloughed off. The wound has continued to worsen and he was seen at his primary care provider's office on 08/30/19 with urgent referral placed to Dr. Sterling, wound management. The patient was seen at wound management and recommended for admission for vascular evaluation. The patient's direct admission was facilitated through the hospitalist service today. The patient states he has pain on the dorsal aspect of the right foot. Otherwise he is not complaining of pain. States he's had no swelling in lower extremities. No recent illnesses. He is on Xarelto for history of left lower extremity DVT. Denies any fevers, chills, weakness, fatigue, Headache, Chest Pain, Shortness of breath, cough, palpitations, abdominal pain, N/V/D or changes in bowel or bladder habits. Past medical history Diabetes Peripheral neuropathy Hypertension Dyslipidemia Allergic rhinitis Factor V Leiden heterozygote, on chronic anticoagulation, Xarelto. History of DVT with chronic left lower extremity edema Diabetic retinopathy Tobacco use Chronic systolic and diastolic heart failure Chronic back pain/degenerative disc disease Obesity monoclonal gammopathy, light chains. Following with hematology, Dr. Pierre. Past surgical history Tonsillectomy Cholecystectomy Colonoscopy Right groin abscess SOCHX: Tobacco use: One pack per day FAMHX: Father from lymphoma. Mother from complications from CVA. ROS: As noted in HPI, otherwise 11pt ROS of systems reviewed and unremarkable. PE: Admission vital signs are pending. GEN: 64 yo M, appears stated age. No acute distress. Alert and oriented x 3. Pleasant. Sitting in a recliner. HEENT: Normocephalic, atraumatic. Moist mucous membranes. Dentition fair. CHEST: Regular rate and rhythm, +S1, +S2 LUNGS: Clear to auscultation bilaterally. No wheezes, rales, or rhonchi. ABD: Round, protuberant soft, non-tender, non-distended. +Bowel sounds throughout. EXT: Pulses are not palpable bilaterally. There is erythema diffusely of the right foot extending to the mid pretibial area. There is a 4.5 x 3 cm open wound noted at the medial aspect of the right foot at the base of the right toe. Bloody drainage is noted. There is also maceration of the skin between the first and second toes as well as between the fourth and fifth toes with dark discoloration at the base of the fourth toe. The great toe is diffusely dark in color. Poor capillary refill of the toes. A faint monophasic DP pulses able to be obtained on the right, monophasic PT is noted. The left foot with Biphasic PT, monophasic DP. There are no wounds noted on the left foot. No discoloration of the left foot. NEURO: Alert and oriented x 3. Cranial nerves III-XII are intact. No focal deficits appreciated. Admission laboratory studies are pending. Blood cultures and wound cultures pending. Admission x-ray of the right foot is pending. A&P: 1. Right foot wound Admission vital signs are pending. Admission labs are pending at this time. Admission x-ray of the right foot is pending at this time. I do not see any previous arterial studies of bilateral lower extremities. The patient is noted to have monophasic pulses bilaterally. Would recommend continued wound care as per Dr. Sterling. The patient follows with Dr. Tenorio as an outpatient for podiatry treatment. Request bilateral lower extremity arterial ultrasound to further assess. Further recommendations from Dr. Dsouza pending these results. Possibly consider arteriogram of right lower extremity pending results. 2, history of left lower extremity DVT/ Factor V Leiden heterozygote on chronic anticoagulation. The patient is currently on Xarelto, last dose is reportedly 09/03/19 at 2000 hrs. 3. Obesity. BMI is 50.18. Complicates care. 4. Chronic low back pain/degenerative disc disease. Patient states he has chronic low back pain and has difficulty lying flat for long periods of time. Thank you for your consultation. We will continue to follow along with you. Vital Signs/I&O Admission vital signs are pending. Laboratory Data Labs 24H Admission labs are pending at this time. Laboratory Tests 2 09/04/19 13:29: Bedside Glucose (Misc Panel) 185H 09/04/19 13:30: CBC/BMP Microbiology Microbiology 09/04/19 Blood Culture, Received Pending 09/04/19 Blood Culture, Received Pending Allergies Coded Allergies: erythromycin base (Verified Adverse Reaction, Mild, N/V, 09/04/19) Home Medications Scheduled Empagliflozin (Jardiance) 25 Mg Tablet, 25 MG PO DAILY, (Reported) Furosemide (Furosemide) 40 Mg Tablet, 40 MG PO DAILY, (Reported) Insulin Degludec (Tresiba Flextouch U-200) 200 Unit/1 Ml Insuln.pen, 96 UNIT SC DAILY, (Reported) Metoprolol Succinate (Metoprolol Succinate) 50 Mg Tab.er.24h, 50 MG PO DAILY, (Reported) Multivitamins (Thera M Plus Tablet) 1 Tab Tab, 1 TAB PO DAILY, (Reported) [place]-3 Fatty Acids/Fish Oil (Fish Oil 1,000 mg Softgel) 1 Each Capsule, 1 EACH PO 3XW, (Reported) Rivaroxaban (Xarelto) 20 Mg Tab, 20 MG PO QHS, (Reported) Sacubitril/Valsartan (Entresto 97 mg-103 mg Tablet) 1 Tab Tab, 1 TAB PO BID, (Reported) Simvastatin (Simvastatin) 40 Mg Tab, 40 MG PO DAILY, (Reported) Spironolactone (Spironolactone) 25 Mg Tab, 25 MG PO DAILY, (Reported) Scheduled PRN Docusate Sodium (Colace) 100 Mg Cap, 100 MG PO BID PRN for CONSTIPATION, (Reported) Jeannie Yang Sep 04, 2019 14:08
[2019-09-04 14:12] LABS: INR 1.22; PROTHROMBIN TIME 15.1 SECONDS (11.8-14.0)
[2019-09-04 14:22] LABS: HEMOGLOBIN A1c 8.6 %
[2019-09-04 14:29] LABS: ALT/SGPT 13 U/L (12-78); BILIRUBIN,TOTAL 0.5 MG/DL (0.2-1.0); BLOOD UREA NITROGEN 22 MG/DL (7-18); C REACTIVE PROTEIN QUANTITATIV 5.96 MG/DL (0.00-0.30); CALCIUM LEVEL 7.7 MG/DL (8.8-10.2); CARBON DIOXIDE LEVEL 26 MEQ/L (21-32); CHLORIDE LEVEL 102 MEQ/L (98-107); CREATININE FOR GFR 1.25 MG/DL (0.70-1.30); GLOMERULAR FILTRATION RATE > 60.0 (>49); GLUCOSE, FASTING 182 MG/DL (70-100); NT-PRO BNP 617 PG/ML (<125); POTASSIUM SERUM 4.6 MEQ/L (3.5-5.1); SODIUM LEVEL 135 MEQ/L (136-145); TOTAL PROTEIN 6.7 GM/DL (6.4-8.2)
[2019-09-04 14:38] LABS: ERYTHROCYTE SEDIMENTATION RATE 43 mm/hr (0-20)
--- NOTE | 2019-09-04 16:05 | REP ---
Bilateral lower extremity arterial Doppler ultrasound: History: Foot wound. Findings: Ankle brachial indices could not be accomplished due to lower extremity pain. Exam is inhibited by a shadowing from calcifications and severe soft tissue edema bilaterally. In general there is increased flow throughout the left leg. The proximal anterior tibial and the proximal posterior tibial arteries could not be seen due to edema in the left lower extremity. Biphasic and triphasic waveforms are noted in the left lower extremity. In general monophasic waveforms are noted on the right distal to the proximal superficial femoral artery segment. The right proximal femoral artery stenosis is suspected. Velocity chart right lower extremity arteries: CF A 100 cm/S Profunda 94 Proximal SFA 289 Mid SFA 55 Distal SFA 38 Popliteal 36 Proximal AT A 29 Tibioperoneal trunk 52 Proximal ACCOUNTS PAYABLE SPECIALIST 48 Distal ACCOUNTS PAYABLE SPECIALIST 21 Distal AT A 47 Velocity chart left lower extremity arteries: CF A 220 cm/S Profunda 53 Proximal SFA 156 Mid SFA 132 Distal SFA 83 Popliteal 99 Proximal AT A not seen Tibioperoneal trunk 59 Proximal ACCOUNTS PAYABLE SPECIALIST not seen Distal ACCOUNTS PAYABLE SPECIALIST 91 Distal AT A 47 Electronically Signed by Bar Ulrich MD 09/04/2019 03:56 P
--- NOTE | 2019-09-04 16:16 | REP ---
Four views right foot: 09/04/2019. Indication: Right foot ulcerative lesion. Comparison: None. Findings: Soft tissue erosive changes are noted involving the great toe most pronounced at the MTP joint with erosive changes of the distal first metatarsal medially. There is also questionable erosion of the distal phalanx as well. There is no evidence of acute fracture. No subluxation or dislocation is detected. Please note that the artifact on the images is the technical issue for which radiology IT is aware. Impression: Right great toe ulceration and minimal erosion of the distal first metatarsal. Possible distal phalanx erosion as well as described. Electronically Signed by Ko Kunz DO 09/04/2019 04:07 P
--- NOTE | 2019-09-04 17:43 | HPEPDOC ---
[facility] Medical History & Physical Date of Admission Sep 04, 2019 Date of Service: Sep 04, 2019 History and Physical CHIEF COMPLAINT: RLE infection HISTORY OF PRESENT ILLNESS: Patient is a 59yoM with PMH of history of left lower extremity DVT with a known history of factor V Leiden currently on xarelto, current smoker of one pack per day, history of monoclonal gammopathy light chains followed by Dr. Pierre, hematology, insulin-dependent diabetes complicated by diabetic retinopathy, HTN, HLD, chronic systolic and diastolic heart failure, chronic back pain with DJD, morbid obesity with a BMI of 48.9 , presented as a direct admission due to septic presentation secondary to dorsal right foot. She reports getting his shoes approximately a month ago. He subsequently had a blister which ruptured and was positive for skin sloughing. This wound had worsened and upon evaluation with his primary care physician on 08/30/2019, was sent to Dr. Goodman office for wound management, where he underwent wound debridement and cultures were taken 09/04/19. With evaluation, patient is recommended for vascular evaluation and direct admission. He denies any fevers, chills, chest pain, shortness of breath, nausea, vomiting, abdominal pain, on average, lower extremity pain is a 6, he takes Aleve and which reduces the pain to 4/10. Labs ordered include close eye ptosis of 11.7 with a neutrophil percentage of 78, ESR 43, CRP 5.96, pending pro-calcitonin, lactic acid of 1.1, A1c is 8.6 with a glucose of 200, creatinine 1.25, GFR greater than 60, TSH 0.89, proBNP 617. Right foot x-ray reveals right hallux ulceration with minimal erosion of the distal wrist metatarsal, possible erosion on the distal phalanx. Bilateral lower extremity arterial Doppler was limited due to pain and shadowing from calcifications and severe soft tissue edema, with suspicion of stenosis of the right proximal femoral artery, monophasic waves present from the right distal to proximal superficial femoral artery. Left lower extremity had increased flow in comparison. ROS: 10 point review of systems are negative except per above. PMH: See above. PSH: see above, tonsillectomy, cholecystectomy, colonoscopy, right groin abscess Family Hx: Reviewed with patient and noncontributory to current hospitalization Social History: 1PPD tobacco use, denies alcohol and illicits. 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 GENERAL: No distress, pleasant, obese male in no acute distress HEENT: Normocephalic, atraumatic, moist mucous membranes, Mallampati score 4 NECK: Supple CARDIOVASCULAR EXAMINATION: S1, S2 RESPIRATORY EXAMINATION: CTAB ABDOMINAL EXAMINATION: Soft, nontender, nondistended, positive bowel sounds EXTREMITIES: 1+ edema, R lower extremity wrapped SKIN: No rash NEUROLOGICAL EXAMINATION: Alert and oriented 3, no focal deficits PSYCHIATRIC EXAMINATION: Calm and cooperative, appropriate affect, has capacity Patient is a 59yoM with PMH of history of left lower extremity DVT with a known history of factor V Leiden currently on xarelto, current smoker of one pack per day, history of monoclonal gammopathy light chains followed by Dr. Pierre, hematology, insulin-dependent diabetes complicated by diabetic retinopathy, HTN, HLD, chronic systolic and diastolic heart failure, chronic back pain with DJD, morbid obesity with a BMI of 48.9 , presented as a direct admission for RLE infection and vasculopathy. #RLE cellulitis and osteomyelitis: Follow-up cultures, start antibiotics, surgical consult, ID consult, wound care with Dr. Sterling, spoke with vascular surgery, cardiac risk index class II, clear for surgery NPO after lucita akfast 09/05 #left lower extremity DVT with a known history of factor V Leiden: Hold rivaroxaban, start heparin for DVT prophylaxis, NS 30cc/hr #tobacco use: nicotine patch, educated on smoking cessation #history of monoclonal gammopathy light chains followed by Dr. Pierre, monitor #insulin-dependent diabetes complicated by diabetic retinopathy: ISS, Dm management, goal glu 70-250/300 #HTN: cont home meds #HLD: cont home meds #chronic systolic and diastolic heart failure: cont home meds #chronic back pain with DJD: cont home meds #morbid obesity with a BMI of 48.9: advise weight loss, outpt management DVT ppx: SCD, heparin Full code Vital Signs Vital Signs Date Time Temp Pulse Resp B/P (MAP) Pulse Ox O2 Delivery O2 Flow Rate FiO2 09/04/19 13:10 97.1 87 19 134/80 (98) 95 Room Air Laboratory Data Labs 24H Laboratory Tests 2 09/04/19 13:29: Bedside Glucose (Misc Panel) 185H 09/04/19 13:30: Immature Granulocyte % (Auto) 0.3, Neutrophils (%) (Auto) 78.0H, Lymphocytes (%) (Auto) 11.3L, Monocytes (%) (Auto) 9.0H, Eosinophils (%) (Auto) 0.7, Basophils (%) (Auto) 0.7, Neutrophils # (Auto) 9.1H, Lymphocytes # (Auto) 1.3L, Monocytes # (Auto) 1.1H, Eosinophils # (Auto) 0.1, Basophils # (Auto) 0.1, Nucleated Red Blood Cells % (auto) 0.0, Erythrocyte Sedimentation Rate 43H, Prothrombin Time 15.1H, Prothromb Time International Ratio 1.22, Activated Partial Thromboplast Time 30.0, Anion Gap 7L, Glomerular Filtration Rate > 60.0, Estimated Mean Plasm a Glucose 200H, Hemoglobin A1c 8.6, Lactic Acid Level 1.1, Calcium Level 7.7L, Magnesium Level 2.0, Total Bilirubin 0.5, Aspartate Amino Transf (AST/SGOT) 10, Alanine Aminotransferase (ALT/SGPT) 13, Alkaline Phosphatase 80, C-Reactive Protein, Quantitative 5.96H, EE-Fpj-W-Type Natriuretic Peptide 617H, Total Protein 6.7, Albumin 2.0L, Albumin/Globulin Ratio 0.43L, Thyroid Stimulating Hormone (TSH) 0.890 09/04/19 16:58: Bedside Glucose (Misc Panel) 111 CBC/BMP Laboratory Tests 09/04/19 13:30 Microbiology Microbiology 09/04/19 Blood Culture, Received Pending 09/04/19 Blood Culture, Received Pending Home Medications Scheduled Empagliflozin (Jardiance) 25 Mg Tablet, 25 MG PO DAILY Furosemide (Furosemide) 40 Mg Tablet, 40 MG PO DAILY Insulin Degludec (Tresiba Flextouch U-200) 200 Unit/1 Ml Insuln.pen, 96 UNIT SC DAILY Metoprolol Succinate (Metoprolol Succinate) 50 Mg Tab.er.24h, 50 MG PO DAILY Multivitamins (Thera M Plus Tablet) 1 Tab Tab, 1 TAB PO DAILY [place]-3 Fatty Acids/Fish Oil (Fish Oil 1,000 mg Softgel) 1 Each Capsule, 1 EACH PO 3XW Rivaroxaban (Xarelto) 20 Mg Tab, 20 MG PO QHS Sacubitril/Valsartan (Entresto 97 mg-103 mg Tablet) 1 Tab Tab, 1 TAB PO BID Simvastatin (Simvastatin) 40 Mg Tab, 40 MG PO DAILY Spironolactone (Spironolactone) 25 Mg Tab, 25 MG PO DAILY Scheduled PRN Docusate Sodium (Colace) 100 Mg Cap, 100 MG PO BID PRN for CONSTIPATION Allergies Coded Allergies: erythromycin base (Verified Adverse Reaction, Mild, N/V, 09/04/19) A-FIB/CHADSVASC A-FIB History Current/History of A-Fib/PAF?: No WILLIE APPIAH MD Sep 04, 2019 17:43
[2019-09-04] MEDS: HumaLOG INSULIN (NovoLOG) PER UNIT SC SCH (18:00)
[2019-09-04] MEDS ORDERED: DEXTROSE 50% 50 ML SYRINGE IV PRN (18:15)
[2019-09-04] MEDS ORDERED: GLUCOSE 4 GM CHEW TABLET PO PRN (18:15)
[2019-09-04] MEDS ORDERED: GLUCAGON FOR INJ 1 MG VIAL (J1610) SC PRN (18:15)
--- NOTE | 2019-09-04 18:26 | IPNPDOC ---
Date Seen The patient was seen on 09/04/19. Progress Note Patient seen and examined regarding right lower extremity arterial insufficiency and nonhealing right foot gangrene status post debridement. Please see Jeannie MADSEN full consult note. The patient was admitted to the hospitalist service at the request of Dr. Talbot in order that we might attempt revascularization of the right leg to help with wound healing. This is an extremely challenging patient. He is a heavy smoker and his room has a strong smell of tobacco, he is morbidly obese at 370 pounds-- but thankfully this is just barely under the weight limit for our angio suite table. He has stage II renal insufficiency, diabetes, congestive heart failure, COPD, hypercoagulable state with heterozygous factor V leiden, and end-stage right lower extremity vascular disease. I have reviewed his arterial duplex from today. On the left lower extremity, the patient has mild SFA and tibial insufficiency, but overall pretty good flow all the way to the foot. However, on the right lower extremity, the patient has severe arterial insufficiency. It is difficult to see exactly how much stenosis he has in the popliteal and tibials due to calcified shadowing with plaque, but he definitely has a very tight near occlusive stenosis at the origin of the right superficial femoral artery. It appears he also has some diffuse lack of flow throughout the SFA distal to this. This may be due to stenosis versus trickle flow through the origin. I think it is important that we try to give him a revascularization option endovascular. To say he is high risk for open surgery is an understatement. His cardiopulmonary risk factors are high along with his other comorbidities, but his obesity is one of the biggest impediments to a successful open revascularization. If we can avoid having to do open surgery we would definitely like to do so. I discussed with the patient that he is at risk for limb loss. This is a very important reality for him to understand. He has made very poor lifestyle choices that have caught up with him, and we will do our best to revascularize, but we cannot promise limb salvage. After this discussion, the patient swears he is going to quit smoking if we are able to save his leg. I told him he needs to quit smoking whether we can save his leg or not so he can save the rest of his body. It is important that he quit smoking starting today, as his quality of life on a go forward basis desperately depends on it. This was a very serious conversation we had tonight, and the patient expressed understanding. We discussed the risks benefits and alternatives to an arteriogram, including the higher risk in this particular patient of cardiopulmonary failure with any type of sedation, the higher risk of contrast- induced nephropathy due to renal insufficiency and our limited ability to hydrate him camryn-procedure due to CHF. The patient understands the risks and is agreeable to proceed. Informed consent was obtained. Our plan will be to add the patient on for tomorrow. Unfortunately, this will be late in the afternoon or early evening. He can have something small to eat before 6 AM, but then nothing by mouth. It is okay for him to take his morning medications with a sip of water. We should continue to hold the Xarelto and would recommend heparin subcutaneous 3 times a day for DVT prophylaxis. He held his Xarelto today, and we'll hold it again tomorrow, with the awareness that he is factor V Leiden and we do not want to hold the anticoagulation longer than necessary due to increased risk of DVT with his hypercoagulable state. We will gently hydrate him with normal saline overnight for renal protection, 30 mL an hour or so we do not overload him in light of his congestive heart failure. Our hospitalist team is kindly trying to optimize his blood glucose and his antibiotic coverage for his right foot gangrene. They plan to consult infectious disease for assistance with antibiotics, Dr. Sterling for assistance with his wound care on the right foot, and possibly our podiatry colleagues if needed. Further recommendations to follow as appropriate. VS, I&O, 24H, Fishbone Vital Signs/I&O Vital Signs Date Time Temp Pulse Resp B/P (MAP) Pulse Ox O2 Delivery O2 Flow Rate FiO2 09/04/19 13:10 97.1 87 19 134/80 (98) 95 Room Air Laboratory Data 24H LABS Laboratory Tests 2 09/04/19 13:29: Bedside Glucose (Misc Panel) 185H 09/04/19 13:30: Immature Granulocyte % (Auto) 0.3, Neutrophils (%) (Auto) 78.0H, Lymphocytes (%) (Auto) 11.3L, Monocytes (%) (Auto) 9.0H, Eosinophils (%) (Auto) 0.7, Basophils (%) (Auto) 0.7, Neutrophils # (Auto) 9.1H, Lymphocytes # (Auto) 1.3L, Monocytes # (Auto) 1.1H, Eosinophils # (Auto) 0.1, Basophils # (Auto) 0.1, Nucleated Red Blood Cells % (auto) 0.0, Erythrocyte Sedimentation Rate 43H, Prothrombin Time 15.1H, Prothromb Time International Ratio 1.22, Activated Partial Thromboplast Time 30.0, Anion Gap 7L, Glomerular Filtration Rate > 60.0, Estimated Mean Plasma Glucose 200H, Hemoglobin A1c 8.6, Lactic Acid Level 1.1, Calcium Level 7.7L, Magnesium Level 2.0, Total Bilirubin 0.5, Aspartate Amino Transf (AST/SGOT) 10, Alanine Aminotransferase (ALT/SGPT) 13, Alkaline Phosphatase 80, C-Reactive Protein, Quantitative 5.96H, HK-Cvn-V-Type Natriuretic Peptide 617H, Total Protein 6.7, Albumin 2.0L, Albumin/Globulin Ratio 0.43L, Thyroid Stimulating Hormone (TSH) 0.890 09/04/19 16:58: Bedside Glucose (Misc Panel) 111 CBC/BMP Laboratory Tests 09/04/19 13:30 Microbiology Microbiology 09/04/19 Blood Culture, Received Pending 09/04/19 Blood Culture, Received Pending BERNADINE MÉNDEZ MD Sep 04, 2019 18:26
[2019-09-04] MEDS ORDERED: ACETAMINOPHEN TAB 650MG DOSE (2X325MG) PO PRN (18:30)
[2019-09-04] MEDS: NS 1,000 ML IV SCH (18:42)
[2019-09-04] MEDS ORDERED: zolPIDEM TARTRATE 5 MG TAB PO PRN (20:00)
[2019-09-04] MEDS ORDERED: PILL CUTTER 1 EACH XX PRN (20:00)
[2019-09-04] MEDS: HEPARIN SOD (PORCINE) 5000 UNITS/ML VIAL SQ SCH (20:21)
[2019-09-04] MEDS: ceFAZolin SOD 2 GM in IV 1 EA IV SCH (20:21)
[2019-09-04] MEDS: ENTRESTO 97-103MG TABLET (SACUBITRIL/VALSARTAN) PO SCH (20:21)
[2019-09-04 22:00] VITALS: BP 147/75
[2019-09-05] VITALS (7 sets, daily range): BP systolic 133–170; BP diastolic 63–72
[2019-09-05] MEDS: ceFAZolin SOD 2 GM in IV 1 EA IV SCH ×3 (04:16→20:48)
[2019-09-05 05:59] LABS: HEMOGLOBIN 12.5 g/dl (13.5-17.5); MEAN CORPUSCULAR HEMOGLOBIN 27.2 pg (27.0-33.0); MEAN CORPUSCULAR HGB CONC 32.1 g/dl (32.0-36.5); MEAN CORPUSCULAR VOLUME 84.8 fl (80.0-96.0); PLATELET COUNT, AUTOMATED 240 10^3/uL (150-450); WHITE BLOOD COUNT 11.3 10^3/uL (4.0-10.0)
[2019-09-05] MEDS: HumaLOG INSULIN (NovoLOG) PER UNIT SC SCH ×4 (06:00→17:22)
[2019-09-05] MEDS: HEPARIN SOD (PORCINE) 5000 UNITS/ML VIAL SQ SCH ×3 (06:08→21:02)
[2019-09-05] MEDS: IBUPROFEN 600 MG TAB PO PRN ×2 (06:09→22:31)
[2019-09-05 06:25] LABS: CALCIUM LEVEL 7.6 MG/DL (8.8-10.2); CREATININE FOR GFR 1.3 MG/DL (0.70-1.30); POTASSIUM SERUM 3.9 MEQ/L (3.5-5.1)
--- NOTE | 2019-09-05 07:43 | IPNPDOC ---
Date Seen The patient was seen on 09/05/19. Progress Note SUBJECTIVE: No overnight events. OBJECTIVE PHYSICAL EXAMINATION: VITAL SIGNS: Please see below. GENERAL: No distress, pleasant, obese male in no acute distress HEENT: Normocephalic, atraumatic, moist mucous membranes, Mallampati score 4 NECK: Supple CARDIOVASCULAR EXAMINATION: S1, S2 RESPIRATORY EXAMINATION: CTAB ABDOMINAL EXAMINATION: Soft, nontender, nondistended, positive bowel sounds EXTREMITIES: 1+ edema, R lower extremity wrapped SKIN: No rash NEUROLOGICAL EXAMINATION: Alert and oriented 3, no focal deficits PSYCHIATRIC EXAMINATION: Calm and cooperative, appropriate affect, has capacity LABORATORY DATA, IMAGING STUDIES, MICROBIOLOGY: Please see below. Patient is a 59yoM with PMH of history of left lower extremity DVT with a known history of factor V Leiden currently on xarelto, current smoker of one pack per day, history of monoclonal gammopathy light chains followed by Dr. Pierre, hematology, insulin-dependent diabetes complicated by diabetic retinopathy, HTN, HLD, chronic systolic and diastolic heart failure, chronic back pain with DJD, morbid obesity with a BMI of 48.9, presented as a direct admission for RLE in fection/gangrene, and vasculopathy. #RLE cellulitis and osteomyelitis: Follow-up cultures, start antibiotics, surgical consult, d/w ID, discussed wound care with Dr. Sterling, spoke with vascular surgery, cardiac risk index class II, clear for surgery NPO after breakfast 09/05 #left lower extremity DVT with a known history of factor V Leiden: Hold rivaroxaban, start heparin for DVT prophylaxis, NS 30cc/hr #tobacco use: nicotine patch, educated on smoking cessation #history of monoclonal gammopathy light chains followed by Dr. Pierre, monitor #insulin-dependent diabetes complicated by diabetic retinopathy: ISS, Dm management, goal glu 70-250/300 #HTN: cont home meds #HLD: cont home meds #chronic systolic and diastolic heart failure: cont home meds #chronic back pain with DJD: cont home meds #morbid obesity with a BMI of 48.9: advise weight loss, outpt management DVT ppx: SCD, heparin Full code VS, I&O, 24H, Fishbone Vital Signs/I&O Vital Signs Date Time Temp Pulse Resp B/P (MAP) Pulse Ox O2 Delivery O2 Flow Rate FiO2 09/05/19 06:00 98.6 82 20 140/63 (88) 96 09/04/19 13:10 Room Air I&O- Last 24 Hours up to 6 AM 09/05/19 06:00 Intake Total 1460 ml Output Total 1000 ml Balance 460 ml Laboratory Data 24H LABS Laboratory Tests 2 09/04/19 13:29: Bedside Glucose (Misc Panel) 185H 09/04/19 13:30: Immature Granulocyte % (Auto) 0.3, Neutrophils (%) (Auto) 78.0H, Lymphocytes (%) (Auto) 11.3L, Monocytes (%) (Auto) 9.0H, Eosinophils (%) (Auto) 0.7, Basophils (%) (Auto) 0.7, Neutrophils # (Auto) 9.1H, Lymphocytes # (Auto) 1.3L, Monocytes # (Auto) 1.1H, Eosinophils # (Auto) 0.1, Basophils # (Auto) 0.1, Nucleated Red Blood Cells % (auto) 0.0, Erythrocyte Sedimentation Rate 43H, Prothrombin Time 15.1H, Prothromb Time International Ratio 1.22, Activated Partial Thromboplast Time 30.0, Anion Gap 7L, Glomerular Filtration Rate > 60.0, Estimated Mean Plasma Glucose 200H, Hemoglobin A1c 8.6, Lactic Acid Level 1.1, Calcium Level 7.7L, Magnesium Level 2.0, Total Bilirubin 0.5, Aspartate Amino Transf (AST/SGOT) 10, Alanine Aminotransferase (ALT/SGPT) 13, Alkaline Phosphatase 80, C-Reactive Protein, Quantitative 5.96H, FE-Ohj-S-Type Natriuretic Peptide 617H, Total Protein 6.7, Albumin 2.0L, Albumin/Globulin Ratio 0.43L, Thyroid Stimulating Hormone (TSH) 0.890 09/04/19 16:58: Bedside Glucose (Misc Panel) 111 09/05/19 00:04: Bedside Glucose (Misc Panel) 110 09/05/19 05:27: Nucleated Red Blood Cells % (auto) 0.0, Anion Gap 7L, Glomerular Filtration Rate 59.0, Calcium Level 7.6L 09/05/19 05:37: Bedside Glucose (Misc Panel) 103 CBC/BMP Laboratory Tests 09/04/19 13:30 09/05/19 05:27 Microbiology Microbiology 09/04/19 Blood Culture, Received Pending 09/04/19 Blood Culture, Received Pending WILLIE APPIAH MD Sep 05, 2019 07:43
[2019-09-05] MEDS: MULTIVITAMINS/MINERALS THERAP 1 TAB PO SCH (08:56)
[2019-09-05] MEDS: ENTRESTO 97-103MG TABLET (SACUBITRIL/VALSARTAN) PO SCH ×2 (08:56→20:47)
[2019-09-05] MEDS: FUROSEMIDE 40 MG TAB PO SCH (08:56)
[2019-09-05] MEDS: SIMVASTATIN 40 MG TAB PO SCH (08:56)
[2019-09-05] MEDS: SPIRONOLACTONE 25 MG TAB PO SCH (08:57)
[2019-09-05] MEDS: METOPROLOL SUCC (TopROL XL) 50MG **XL** TAB PO SCH (08:57)
[2019-09-05] MEDS ORDERED: NICOTINE 21MG/24HR 1 EA TRANSDERMAL TD SCH (09:00)
[2019-09-05] MEDS: LEVEMIR (INSULIN DETEMIR) 1 UNITS/0.01ML SC SCH (09:00)
--- NOTE | 2019-09-05 12:20 | IPNPDOC ---
Text Note Date of Service The patient was seen on 09/05/19. NOTE Vascular surgery. Dr. Dsouza Patient seen and examined regarding right lower extremity arterial insufficiency and nonhealing right foot gangrene status post debridement. Arterial ultrasound has been reviewed as per Dr. Dsouza. On the left lower extremity, the patient has mild SFA and tibial insufficiency, but overall good flow all the way to the foot. In the right lower extremity, the patient is noted to have severe arterial insufficiency with plan for angiogram this afternoon as per Dr Dsouza. As previously discussed plan is to attempt endovascular re vascularization as the patient is noted to have multiple comorbidities, the patient would be high risk for any open procedure. The patient remains nothing by mouth. Continue to hold the Xarelto and would recommend heparin subcutaneous 3 times a day for DVT prophylaxis. Pt with factor V Leiden and we do not want to hold the anticoagulation longer than necessary due to increased risk of DVT with his hypercoagulable state. Continue gentle hydration, normal saline 30 mL an hour, avoid fluid overload in patient with history of congestive heart failure. Continue antibiotic coverage as per hospitalist for his right foot gangrene. Consults pending for infectious disease for assistance with antibiotics, Dr. Sterling for assistance with his wound care on the right foot, Possibly consider podiatry colleagues if needed. Smoking cessation has been strongly advised. Further recommendations to follow as appropriate. VS,Fishbone, I+O VS, Fishbone, I+O Laboratory Tests 09/04/19 13:30 09/05/19 05:27 Vital Signs Date Time Temp Pulse Resp B/P (MAP) Pulse Ox O2 Delivery O2 Flow Rate FiO2 09/05/19 08:57 80 113/62 09/05/19 06:00 98.6 20 96 09/04/19 13:10 Room Air I&O- Last 24 Hours up to 6 AM 09/05/19 06:00 Intake Total 1460 ml Output Total 1000 ml Balance 460 ml Jeannie Yang Sep 05, 2019 12:20
[2019-09-05] MEDS: HYDROmorphone 2 MG TAB PO PRN ×2 (15:55→20:47)
[2019-09-05] MEDS ORDERED: LIDOCAINE 1% MDV 20ML VIAL As Ordered ONE (16:43)
[2019-09-05] MEDS ORDERED: ISOVUE-300 61% 50ML VIAL (Q9967) As Ordered ONE ×3 (16:43→19:01)
[2019-09-05] MEDS ORDERED: fentaNYL 100 MCG/2 ML INJECTION (J3010) As Ordered ONE ×2 (16:49→18:42)
[2019-09-05] MEDS ORDERED: diphenhydrAMINE INJ 50MG/ML VIAL (J1200) As Ordered ONE (16:49)
[2019-09-05] MEDS ORDERED: HEPARIN 1,000 UNITS/ML 10ML VIAL (FOR RADIOLOGY& DIALYSIS ONLY) As Ordered ONE (16:50)
[2019-09-05] MEDS ORDERED: MIDAZOLAM INJ 2 MG/2 ML VIAL (J2250) As Ordered ONE (16:50)
[2019-09-05] MEDS: NS 1,000 ML IV SCH (17:22)
[2019-09-05] MEDS ORDERED: NITROGLYCERIN IN D5W 25MG/250ML (100MCG/ML) As Ordered ONE (17:49)
--- NOTE | 2019-09-05 20:57 | ROOPDOC ---
[facility] Report Of Operation Report of Operation DATE OF PROCEDURE: 09/05/19 PREPROCEDURE DIAGNOSES: Atherosclerosis the tonto apache vessels with nonhealing wound right foot. POSTPROCEDURE DIAGNOSES: Same. PROCEDURE: 1. Ultrasound-guided access left common femoral artery 2. Aortoiliofemoral arteriogram and right lower extremity runoff with selection of right common femoral artery, superficial femoral artery, anterior tibial artery. 3. Angioplasty origin right superficial femoral artery with 6 x 100 Ovid balloon 4. Angioplasty right posterior tibial artery with 3 x 220 Rickey balloon 5. Angioplasty right peroneal artery with 3 x 220 Rickey balloon 6. Repeat angioplasty of right posterior tibial artery with 3 x 220 Rickey balloon 7. Angioplasty right anterior tibial artery with 3 x 220 Rickey balloon 8. Completion arteriograms 9. Mynx closure of left common femoral artery SURGEON: Bernadine Dsouza MD ANESTHESIA: Local anesthesia 7 mL lidocaine. Monitored intravenous conscious sedation was supervised by Dr. Dsouza. The patient was independently monitored by a registered nurse and the department of radiology using automated blood pressure, EKG, and pulse oximetry. The detailed sedation record is permanently housed in the hospital information system. The following is a brief sedation record: Start time 17:24, stop time 19:50, fentanyl 150 g IV, Versed 2 mg IV, heparin 8000 units IV. CONTRAST: 102 mL Isovue-300 INDICATION FOR PROCEDURE: Mr. Boyce is a 64-year-old patient with extensive medical issues including congestive heart failure, COPD, chronic back pain, tobacco abuse, factor V laden hypercoagulable state, diabetes poorly controlled, morbid obesity, renal insufficiency, peripheral vascular disease who developed gangrene of the right foot recently debrided by Dr. Sterling, who subsequently admitted the patient for medical management and vascular surgery evaluation. The patient and I had a lengthy discussion about his extensive comorbidities and the significantly increased risks associated with even a minimally invasive endovascular procedure to try and revascularize his right lower extremity and give him enough blood flow to help with wound healing. After a lengthy discussion the patient was agreeable to proceed and informed consent was obtained. INTERPRETATION: 1. There is good flow through the aortoiliac segments. The iliac vessels are bit tortuous but widely patent. No significant stenosis is noted although they are calcified. 2. The right common femoral artery is widely patent with good flow into a widely patent profunda. The origin of the SFA has a 70% focal stenosis, but the rest of the superficial femoral artery is calcified but widely patent. There is also good flow through the popliteal artery. 3. The main issue and the patient's perfusion is below the knee. The distal popliteal artery has no direct in-line flow to the posterior tibial artery, peroneal artery, or anterior tibial artery. There is proximal occlusion of all 3 vessels from their origin to mid calf. There are extensive chronic collaterals around the occlusions down to the vessels distally indicating that this occlusion of the tibials proximally has been present for an extended period of time. Limited runoff to the foot was noted. 4. After angioplasty of the origin of the superficial femoral artery, there was widely patent flow with no dissection embolization or extravasation and less than 10% residual stenosis. This provided dramatic improvement in the patient inflow to the right lower extremity. 5. Regarding the patient's outflow, we struggled to provide in-line flow. After angioplasty of the posterior tibial artery twice the peroneal artery and anterior tibial artery once, all for three-minute inflations, we did improve flow to the right lower extremity, but the stenoses at the origin repeatedly recurred due to severe heavy plaque and chronic vascular damage. Despite this, there was a marked improvement in flow after angioplasty of each of the tibial vessels compared to her original arteriogram. No extravasation or embolization was noted. There were 3 vessel runoff to the foot, as the distal tibials are all open from the mid calf to the foot, but proximally the flow is still somewhat limited despite improvement from angioplasty. REPORT OF OPERATION: The patient was brought to the angiographic suite in stable condition and placed supine on the fluoroscopic table. He immediately began complaining of back pain and trouble breathing. I explained to him that we would have to stop the procedure if he was not comfortable enough to tolerate it or if he felt he could not breathe. He did have a bit of concern about tolerating procedure but he said he would be able to do so. I assured him we would try to make him as comfortable as possible. His oxygen saturations remained good throughout the case. He did complain of his back pain continuously, but he did make it through the entire procedure. His bilateral groins were prepped and draped in a sterile fashion. Due to extreme obesity, before prepping with ChloraPrep prep, we did wash his groins and camryn-area with Hibiclens, and then carefully rinsed and dried. He was then prepped in our usual sterile fashion with ChloraPrep and draped. A timeout was performed sedation was administered without complication. Local anesthesia was administered to the skin and subcutaneous tissue over the left common femoral artery and a microneedle was used to access the artery under ultrasound guidance. A wire was passed through this access and the needle was removed. A glide sheath was placed and through this access the Glidewire was advanced into the order under fluoroscopic guidance. The sheath was exchanged for 6 [place] each with which flushed with saline. Following this, an Omni flushed catheter was advanced into the distal aorta and in aortoiliofemoral arteriogram was performed. See interpretation above. We then went up and over the bifurcation with Omni flushed catheter in the Glidewire and selected the right common femoral artery and an arteriogram was performed. Please see interpretation above. We then navigated R wire into the superficial femoral artery and exchange the sheath for a 70 cm 6 [place] sheath. We advanced the tip to the common femoral artery and then through this access over the Glidewire we angioplasty the proximal superficial femoral artery with a 6 x 100 Ovid balloon for three-minute inflation. Following this, there was widely patent flow through superficial femoral artery with no extravasation embolization or dissection. No stent was required. Less than 10% residual stenosis remained. This dramatically improved the patient's inflow. Next, we advanced the sheath with a dilator into the mid SFA. The sheath was again flushed with saline. We turned our attention to the tibial vessels. The patient was hypertensive during the case at this point, with systolic blood pressure 200 mmHg, and thus I obtained nitroglycerin to administer intra-arterial through the right lower extremity. I felt this would help with our tibial outflow with increased vasodilation as well as help with his blood pressure. We utilize our Glidewire and a glide cath to access the posterior tibial artery. It took a while to cross through the occlusion, but eventually we were able to cross it and we exchanged for an O18 Glidewire. A 3 x 220 Rickey balloon was advanced over the wire and angioplasty of the entire posterior tibial was performed for three-minute inflations. Following this there was widely patent inflow through to the foot. We then spent a considerable amount of time, close to 30 minutes ac cessing the peroneal artery. This was also very challenging. Eventually we were able to cross through to the ankle and angioplastied again with a 3 x 220 Rickey balloon for three-minute inflation across the proximal occlusion. Following this, there was widely patent flow through the peroneal artery but limited flow through the posterior tibial artery. Unfortunately, I felt the po sterior tibial artery was more important than the peroneal and therefore we again spent some time accessing the posterior tibial artery and crossed through to the tonto apache vessel patent below and angioplastied a second time for three- minute inflation and also angioplasty all the way down across the ankle as well. Following this, there was excellent flow through the posterior tibial artery. We noted that there was about half a centimeter of the anterior tibial artery patent at the origin. Unfortunately, it was surrounded by an extensive network of collaterals. In the process of trying to access that tiny patent origin of the AT, we struggled to stay out of the collaterals. Eventually, I was able to get into the anterior tibial artery itself, confirm this with an arteriogram, and then utilized a torque device to gently spin the wire down through the occlusion. This was extremely challenging because it was difficult to keep the wire from buckling out back into the popliteal artery. Eventually, I was able to cross into the distal anterior tibial artery and confirmed with a quick contrast injection that we were in the true lumen. We then performed several angioplasties across the origin of the anterior tibial artery to improve flow across the chronic total occlusion. Initially, we had great flow through the anterior tibial artery but the flow through the posterior tibial artery looked a little worse for wear at that point. I thought it might be worth trying to go down and cross the posterior tibial one more time for angioplasty, but unfortunately we spent 20 minutes trying to do so and the wire seemed to only be able to select various collaterals. The anterior tibial artery had some proximal areas of reocclusion during this process as well. I think that there is heavy plaque in these small vessels that is resistant to angioplasty. On our completion imaging there was still somewhat limited flow through the origin of all 3 vessels, however it was definitely improved from preprocedure, with excellent 3 vessel runoff to the foot through the tonto apache proximal vessels as well as collaterals that are chronic. We had angioplastied multiple times across all of the origins for three-minute inflations with 3 x 220 Rickey balloon, and I felt we had improved flow as much as possible with his chronic dense plaque in these small vessels. I did not want to give additional contrast due to the patient's renal insufficiency and limited ability for hydration due to congestive heart failure. He had been as patient as he could be for this lengthy endovascular procedure, but that is a substantial amount of time to attempt a revascularization in the interventional suite. We had maximized our efforts by that point. Hopefully we have improved his flow enough to help with healing of his foot. We exchanged the sheath for short 6 [place] sheath over the wire and flushed the sheath with saline. A mynx closure device was deployed with good hemostasis and pressure was held for 20 minutes. The patient was then taken back to his hospital room in stable condition. ESTIMATED BLOOD LOSS: Approximately 6 mL. COMPLICATIONS: None. PLAN: No nicotine patches or other nicotine replacement products for the patient. He needs all vasodilation that he can get to help with wound healing, and the chronic vasoconstriction associated with nicotine patches is extremely detrimental to his perfusion. Resume diabetic diet. Resume Xarelto tomorrow. An algesia when necessary. Local wound care as instructed by Dr. Sterling. BERNADINE DSOUZA MD Sep 05, 2019 20:57
[2019-09-06 00:48] VITALS: BP 115/46
[2019-09-06] MEDS: ceFAZolin SOD 2 GM in IV 1 EA IV SCH (03:41)
[2019-09-06 06:00] VITALS: BP 113/54
[2019-09-06] MEDS: HEPARIN SOD (PORCINE) 5000 UNITS/ML VIAL SQ SCH ×3 (06:12→21:25)
[2019-09-06 06:16] LABS: HEMATOCRIT 37.4 % (42.0-52.0); HEMOGLOBIN 12.2 g/dl (13.5-17.5); MEAN CORPUSCULAR HEMOGLOBIN 27.8 pg (27.0-33.0); MEAN CORPUSCULAR HGB CONC 32.6 g/dl (32.0-36.5); MEAN CORPUSCULAR VOLUME 85.2 fl (80.0-96.0); PLATELET COUNT, AUTOMATED 241 10^3/uL (150-450); RED BLOOD COUNT 4.39 10^6/uL (4.30-6.10); WHITE BLOOD COUNT 13.2 10^3/uL (4.0-10.0)
[2019-09-06 06:40] LABS: CALCIUM LEVEL 7.4 MG/DL (8.8-10.2); CREATININE FOR GFR 1.41 MG/DL (0.70-1.30); GLOMERULAR FILTRATION RATE 53.7 (>49); POTASSIUM SERUM 3.5 MEQ/L (3.5-5.1)
[2019-09-06] MEDS: HumaLOG INSULIN (NovoLOG) PER UNIT SC SCH ×5 (07:30→21:00)
--- NOTE | 2019-09-06 07:51 | IPNPDOC ---
Date Seen The patient was seen on 09/06/19. Progress Note Pt seen and examined POD #1 s/p lengthy endovascular procedure to try to restore flow to the RLE. Inflow improved with R SFA origin angioplasty, and tibial flow somewhat improved with inline flow through the R PT artery, and partially successful angioplasty of the origins of the R AT and peroneal. 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 The PT signal is strong and biphasic, the AT still monophasic. His wounds are R medial lower calf venous ulcer, R medialposterior heel, R medial aspect of the first metatarsal head. Wound cleaned and redressed per Dr Sterling's orders for wound care and the heel protector boot was reapplied. The calf ulcer is small and should heal, the heel is stable for now but still worrisome, the medial 1st metatarsal wound is necrotic, debrided bone exposed, foul smelling, with surrounding cellulitis--however, there was some bleeding from the wound overnight, and this is likely to to increase perfusion which we are honestly happy to see. The wounds are all in the angiosome of the PT artery, so it is great that this is the tibial of the three that we were able to do the best revascularization. However, his tibial disease proximally is severe, chronic, and resistant to intervention. Additional attempt for endovascular re-intervention should be approached with caution, as hydration is limited due to CHF and Cr is up a bit this admission from admit 1.2 to 1.4 today. Pt is still at risk for limb loss. Will see what Dr Franco with ID can offer regarding gangrene R foot and ongoing infection, and I would also consult podiatry as he will likely need more than just local wound care and dressing changes to try to heal the 1st metatarsal head wound- unclear if he gets every amputation of the first toe if he will have enough perfusion to heal, but I am hopeful the restored flow through the posterior tibial will help with this. No nicotine supplementation- pt needs all the perfusion he can get to help with healing. Tight glucose control is imperative. High protein diet recommended to help with healing. Would restart Xarelto- he takes it at night but I would really like him to be on full anticoagulation again this morning. Further recommendations to follow. VS, I&O, 24H, Fishbone Vital Signs/I&O Vital Signs Date Time Temp Pulse Resp B/P (MAP) Pulse Ox O2 Delivery O2 Flow Rate FiO2 09/06/19 06:00 96.8 75 18 113/54 (73) 96 Room Air 09/05/19 19:32 4 I&O- Last 24 Hours up to 6 AM 09/06/19 06:00 Intake Total 950 ml Output Total 250 ml Balance 700 ml Laboratory Data 24H LABS Laboratory Tests 2 09/05/19 11:28: Bedside Glucose (Misc Panel) 154H 09/05/19 20:30: Bedside Glucose (Misc Panel) 66L 09/06/19 00:34: Bedside Glucose (Misc Panel) 100 09/06/19 05:33: Nucleated Red Blood Cells % (auto) 0.0, Anion Gap 5L, Glomerular Filtration Rate 53.7, Calcium Level 7.4L CBC/BMP Laboratory Tests 09/06/19 05:33 Microbiology Microbiology 09/04/19 Blood Culture - Preliminary, Resulted No growth after 24 hours . All specim... 09/04/19 Blood Culture - Preliminary, Resulted No growth after 24 hours . All specim... BERNADINE MÉNDEZ MD Sep 06, 2019 07:51
[2019-09-06] MEDS ORDERED: RIVAROXABAN 15 MG TAB (XARELTO) PO SCH (08:00)
--- NOTE | 2019-09-06 08:42 | IPNPDOC ---
Date Seen The patient was seen on 09/06/19. Progress Note SUBJECTIVE: Patient's pain is controlled, postop day 1 (09/05/19) status post angioplasty of the LLE by Dr. Dsouza. . Discussed plan with vascular surgeon, podiatry and infectious disease. Antibiotics to Zosyn and vancomycin. OBJECTIVE PHYSICAL EXAMINATION: VITAL SIGNS: Please see below. GENERAL: No distress, pleasant, obese male in no acute distress HEENT: Normocephalic, atraumatic, moist mucous membranes, Mallampati score 4 NECK: Supple CARDIOVASCULAR EXAMINATION: S1, S2 RESPIRATORY EXAMINATION: CTAB ABDOMINAL EXAMINATION: Soft, nontender, nondistended, positive bowel sounds EXTREMITIES: 1+ edema, R lower extremity: Exposed bone and necrotic/odorous lesion on the hallux side of his right foot, capillary refill less than 3 seconds, however, palpable pulses Not detected SKIN: No rash NEUROLOGICAL EXAMINATION: Alert and oriented 3, no focal deficits PSYCHIATRIC EXAMINATION: Calm and cooperative, appropriate affect, has capacity LABORATORY DATA, IMAGING STUDIES, MICROBIOLOGY: Please see below. DVT prophylaxis ordered?: Heparin ASSESSMENT AND PLAN: Patient is a 59yoM with PMH of history of left lower extremity DVT with a known history of factor V Leiden currently on xarelto, current smoker of one pack per day, history of monoclonal gammopathy light chains followed by Dr. Pierre, hematology, insulin-dependent diabetes complicated by diabetic retinopathy, HTN, HLD, chronic systolic and diastolic heart failure, chronic back pain with DJD, morbid obesity with a BMI of 48.9, presented as a direct admission for RLE infection/gangrene, and vasculopathy. #RLE cellulitis and osteomyelitis: Postop day 1 status post angioplasty, discussed with vascular surgeon, patient will likely need amputation, consult to podiatry, plan for amputation on Sunday 09/09, continue heparin for DVT prophylaxis, discussed case with ID, optimize antibiotic coverage #HIWOT: Likely secondary to pain meds and procedure, to be careful on IV hydration due to history of CHF, change pain medications, patient's shortness of breath worsens, we'll consider CT angiogram chest is VQ scan, currently not tachycardic #left lower extremity DVT with a known history of factor V Leiden: Hold rivaroxaban, heparin for DVT prophylaxis, dc IV fluids due to shortness of breath, administered lasix #tobacco use: nicotine patch, educated on smoking cessation #history of monoclonal gammopathy light chains followed by Dr. Pierre, monitor #insulin-dependent diabetes complicated by diabetic retinopathy: ISS, Dm management, goal glu 70-250/300, continue insulin sliding scale, hold long- acting insulin due to low glucose levels #HTN: cont home meds #HLD: cont home meds #chronic systolic and diastolic heart failure: cont home meds #chronic back pain with DJD: cont home meds #morbid obesity with a BMI of 48.9: advise weight loss, outpt management DVT ppx: SCD, heparin Full code Disposition: Rehabilitation VS, I&O, 24H, Fishbone Vital Signs/I&O Vital Signs Date Time Temp Pulse Resp B/P (MAP) Pulse Ox O2 Delivery O2 Flow Rate FiO2 09/06/19 06:00 96.8 75 18 113/54 (73) 96 Room Air 09/05/19 19:32 4 I&O- Last 24 Hours up to 6 AM 09/06/19 06:00 Intake Total 950 ml Output Total 250 ml Balance 700 ml Laboratory Data 24H LABS Laboratory Tests 2 09/05/19 11:28: Bedside Glucose (Misc Panel) 154H 09/05/19 20:30: Bedside Glucose (Misc Panel) 66L 09/06/19 00:34: Bedside Glucose (Misc Panel) 100 09/06/19 05:33: Nucleated Red Blood Cells % (auto) 0.0, Anion Gap 5L, Glomerular Filtration Rate 53.7, Calcium Level 7.4L CBC/BMP Laboratory Tests 09/06/19 05:33 Microbiology Microbiology 09/04/19 Blood Culture - Preliminary, Resulted No growth after 24 hours . All specim... 09/04/19 Blood Culture - Preliminary, Resulted No growth after 24 hours . All specim... WILLIE APPIAH MD Sep 06, 2019 08:42
[2019-09-06] MEDS: LEVEMIR (INSULIN DETEMIR) 1 UNITS/0.01ML SC SCH (09:00)
[2019-09-06] MEDS: SIMVASTATIN 40 MG TAB PO SCH (09:11)
[2019-09-06] MEDS: MULTIVITAMINS/MINERALS THERAP 1 TAB PO SCH (09:11)
[2019-09-06] MEDS: FUROSEMIDE 40 MG TAB PO SCH (09:12)
[2019-09-06] MEDS: METOPROLOL SUCC (TopROL XL) 50MG **XL** TAB PO SCH (09:20)
[2019-09-06] MEDS: SPIRONOLACTONE 25 MG TAB PO SCH (09:22)
[2019-09-06] MEDS: ENTRESTO 97-103MG TABLET (SACUBITRIL/VALSARTAN) PO SCH ×2 (09:23→21:25)
[2019-09-06 10:00] VITALS: BP 124/66
[2019-09-06] MEDS ORDERED: MEROPENEM INJ 2 GM in NS 100 ML IV SCH ×2 (10:15→12:00)
--- NOTE | 2019-09-06 12:51 | PHACANCOPD ---
PHARMACY VANCOMYCIN DOSING Pt Demographics Demographics Patient Age:64 , Weight:168.200 , Gender: male Adjusted Body Weight Date: 09/06/19, Adjusted Body Weight: Kg Events Past 24 Hours Events Past 24 Hours: YES: Change in CrCl, Elevation in WBC; NO: Dialysis, Diuretic Therapy, Fever, Pending Diagnostics, Pending Procedures, Other Vancomycin Vancomycin Target Ranges: 15-20 mcg/ml Vancomycin Load Y/N: Yes Load Dose Date Time Vancomycin Load Dose: 2G Date: 09/06 Time: 1300 Vancomycin Dose Date: 09/06/19. Current Vancomycin Dose: Intermittent Dosing?: No Labs Labs Vital Signs Label Value Date Time Patient Temperature 97.7 degrees F 09/06/19 1000 Temperature Source Temporal 09/06/19 1000 Patient Temperature 96.8 degrees F 09/06/19 0600 Temperature Source Temporal 09/06/19 0600 Patient Temperature 99.6 degrees F 09/06/19 0048 Temperature Source Temporal 09/06/19 0048 Item Value Date Time White Blood Count 13.2 10^3/uL H 09/06/19 0533 White Blood Count 11.3 10^3/uL H 09/05/19 0527 White Blood Count 11.7 10^3/uL H 09/04/19 1330 Creatinine 1.41 MG/DL H 09/06/19 0533 Creatinine 1.30 MG/DL 09/05/19 0527 Creatinine 1.25 MG/DL 09/04/19 1330 Micro Microbiology 09/04/19 Blood Culture - Preliminary, Resulted No growth after 24 hours . All specim... 09/04/19 Blood Culture - Preliminary, Resulted No growth after 24 hours . All specim... Creatinine Clearance Date:09/06/19. Creatinine Clearance: . Assessment and Plan Maintaining Current Dose?: Yes Reason for dose change: No Dose Change Pharmacist Note Pharmacist Note Date: 09/06/19. Pharmacist note: Pt. is a 64 year old male started on Vancomycin and Meropenem for osteo/wound infection. Of note the patient weighs 168kg. I have loaded the patient with Vanco 2G IV x1 at 1300 followed by Vanco 1G IV Q12H per the last consult. The patient's SCr is trending up at the moment and should be monitored.I have ordered a trough before 4th dose. We will continue to monitor and adjust dose as needed. DARNELL GODDARD PHARMACY Sep 06, 2019 12:51
[2019-09-06] MEDS: MEROPENEM INJ 1 GM in IV 1 EA IV SCH ×2 (12:59→21:25)
[2019-09-06] MEDS: VANCOMYCIN HCL 1,000 MG, VIAL MATE ADAPTER 1 EACH in D5W 250 ML IV SCH ×3 (13:56→22:15)
[2019-09-06 14:00] VITALS: BP 150/84
[2019-09-06] MEDS: ACETAMINOPHEN TAB 650MG DOSE (2X325MG) PO PRN (14:59)
[2019-09-06] MEDS ORDERED: FUROSEMIDE 40 MG/4 ML VIAL (J1940) IV ONE (15:00)
--- NOTE | 2019-09-06 16:55 | CR ---
DATE OF CONSULTATION: 09/05/2019 ADVANCED WOUND CARE CONSULTATION VIA TELEMEDICINE REASON FOR CONSULTATION: Treatment of ischemic right great toe. CONSULTATION REQUESTED BY: Dr. Marissa Fuller HISTORY: 64-year-old morbidly obese, diabetic male who smokes heavily, has been treated in the recent past by another office for an ischemic wound involving the right great toe. The patient has advanced neuropathy and his last hemoglobin A1c was 7.5. According to the patient, he was told to soak his toe twice a day in Epsom salts and then cover the wound with Silvadene. The patient was initially seen 48 hours ago in our clinic with an advanced, ischemic wet gangrenous right great toe. The wound was extensively debrided removing all of the eschar and nonviable tissue revealing underlying periosteum and bone. The outer cortex of the exposed bone was then excised using a rongeur. Bleeding cancellous bone was noted which was the intention of the debridement. A wound culture was then obtained. A Hydrofera Blue dressing was then applied. At this point it was discussed with the patient and his the need for hospitalization and a vascular workup. I spoke with Dr. Dsouza, our vascular surgeon, indicating that the patient had an ZOYA of 0.4, which is consistent with critical limb ischemia and places the patient at a high risk for potential limb loss The patient was therefore admitted the following day as there were no beds available on 09/03/2019. A vascular consult was obtained and Dr. Dsouza has scheduled the patient for an arteriogram and possible angioplasty if applicable on today, 09/05/2019. The patient is aware that he may lose his right great toe but no surgery is to be performed until he is revascularized. When seen on 09/03/2019 in our clinic, the medial aspect of his right great toe showed a black eschar measuring 4.1 cm. x 2.8 cm. with a wound depth of 0.1 cm. There was purulent material draining from the eschar, which was completely removed. In comparison, when seen today on telemedicine, the wound is slightly enlarged with ischemic changes involving the periwound on the distal portion of the wound from the 5 o'clock to the 7 o'clock position. This wound now measures 4.5 cm x 3.1 cm with a depth of 0.2 cm. There is palpable bone involving the wound base. As mentioned, the patient is at high risk for loss of the great toe, however, it would be prudent to see if revascularization can be obtained and what the result of this would be as the toe may still potentially salvageable. The patient also has a fissure involving the right heel, which was also debrided. This is superficial however heel float boot was recommended to offload his heel as well, along with diabetic control and coverage with any appropriate antibiotic. In our clinic, we did a wound culture and a bone biopsy. Therefore a CT scan or an MRI is not indicated to rule out osteomyelitis.. Both of these results are on E-Clinical and E-Clinical should be accessed to obtain the results as they may not be on the hospital labs and pathology report. Dressing changes at this time with Hydrofera blue to the wound, loosely secured with a Kerlix and/or Mike. Heel float boots are indicated and should be utilized. MTDD
--- NOTE | 2019-09-06 17:48 | REP ---
PORTABLE CHEST: Two AP portable views of the chest are performed and compared to prior study 01/24/2018 as well as other prior exams. There is diffuse interstitial fibrosis which appears unchanged. Heart is upper limits of normal in size. Mediastinal silhouette is unchanged. IMPRESSION: Stable chronic changes without evidence of acute infiltrate. Electronically Signed by Elpidio Mckeon MD 09/09/2019 10:13 A
[2019-09-06 18:00] VITALS: BP 102/52
[2019-09-06 22:00] VITALS: BP 106/59
[2019-09-07 02:00] VITALS: BP 123/62
[2019-09-07] MEDS: MEROPENEM INJ 1 GM in IV 1 EA IV SCH ×3 (04:03→20:44)
[2019-09-07] MEDS: HEPARIN SOD (PORCINE) 5000 UNITS/ML VIAL SQ SCH ×3 (05:18→20:45)
[2019-09-07 06:00] VITALS: BP 115/69
[2019-09-07 06:08] LABS: HEMOGLOBIN 11.6 g/dl (13.5-17.5); MEAN CORPUSCULAR HEMOGLOBIN 26.8 pg (27.0-33.0); MEAN CORPUSCULAR HGB CONC 31.4 g/dl (32.0-36.5); MEAN CORPUSCULAR VOLUME 85.5 fl (80.0-96.0); PLATELET COUNT, AUTOMATED 240 10^3/uL (150-450); RED BLOOD COUNT 4.33 10^6/uL (4.30-6.10); WHITE BLOOD COUNT 15.7 10^3/uL (4.0-10.0)
[2019-09-07 06:25] LABS: CALCIUM LEVEL 7.7 MG/DL (8.8-10.2); CREATININE FOR GFR 1.65 MG/DL (0.70-1.30); GLOMERULAR FILTRATION RATE 44.8 (>49); POTASSIUM SERUM 3.9 MEQ/L (3.5-5.1)
[2019-09-07] MEDS ORDERED: RIVAROXABAN 20 MG TAB (XARELTO) PO SCH (08:00)
--- NOTE | 2019-09-07 08:32 | CR ---
DATE OF CONSULTATION: 09/06/2019 REQUESTING PHYSICIAN: Dr. Alvarez REASON FOR CONSULTATION: Evaluation of right foot diabetic ulcer with necrosis. HISTORY OF PRESENT ILLNESS: Mr. Boyce is a 59-year-old gentleman with diabetic foot ulcers that developed about 1 month ago when he got some new shoes. The patient was seen by his primary care provider about a week ago and was referred to Dr. Sterling on 09/03/2019. He had debridement and wound culture was sent out. The patient was advised to go to the hospital for IV antibiotics and vascular evaluation through direct admission. He denied having any fever, chills, chest pain, shortness of breath, nausea, vomiting, or diarrhea. No abdominal pain. He had some lower extremity pain, 6/10, for which he took Aleve. He was seen in consultation by Dr. Dsouza, who had done an angiogram and angioplasty to his right lower extremity last night. He was started on IV cefazolin on admission. PAST MEDICAL HISTORY: Significant for: 1. Diabetes with diabetic neuropathy. 2. Hypertension. 3. Dyslipidemia. 4. Allergic rhinitis. 5. Factor V Leiden heterozygote on Xarelto anticoagulation. 6. History of deep vein thrombosis (DVT) of the left lower extremity with chronic edema. 7. Diabetic retinopathy. 8. Tobacco abuse. 9. Chronic systolic and diastolic heart failure. 10. Degenerative disc disease of the lumbar spine. 11. Obesity. 12. Monoclonal gammopathy, followed by Dr. Pierre. PAST SURGICAL HISTORY: 1. Tonsillectomy. 2. Cholecystectomy. 3. Colonoscopy. 4. Right groin abscess incision and drainage. SOCIAL HISTORY: He smokes one pack of cigarettes a day. He is a FULL CODE. ALLERGIES: ERYTHROMYCIN. MEDICATIONS: - Xarelto 15 mg daily - insulin sliding scale - Cefazolin 2 gram intravenous every 8 hours - torsemide 40 mg daily - metoprolol 50 mg by mouth daily - multivitamin one tablet daily - Zocor 40 mg by mouth daily - aldactone 25 mg by mouth daily - Entresto one tablet by mouth twice a day - Zolpidem 2.5 mg by mouth at night as needed - Colace 100 mg by mouth as needed - Dilaudid as needed LABORATORIES: White count on admission was 11.7, today was 13.2. Hemoglobin 12.2, hematocrit 37.4, platelets 241, ESR 43. Sodium 135, potassium 3.5, chloride 104, bicarbonate 26, BUN 28, creatinine 1.4, glucose 93, calcium 7.4, TSH 0.89, C-reactive protein 5.96, BNP 617, PT 15.1, INR 1.22, PTT 30. Blood cultures two sets are no growth after 24 hours. Would culture outpatient has Proteus and Staphylococcus aureus. Susceptibilities are still pending. Arterial studies show right distal to proximal superficial femoral artery stenosis suspected. Review of Dr. Dsouza note shows that the patient had angiogram and angioplasty last night. He had angioplasty done to his right posterior tibial artery, peroneal artery and anterior tibial artery. PHYSICAL EXAMINATION: He is a healthy-looking gentleman in no acute distress. Temperature 97.7, pulse 83, respirations 18, blood pressure 124/66, oxygen saturation 95% on room air. HEART: Normal S1, S2. No murmurs, rubs or gallops. ABDOMEN: Obese. Soft, nontender. No hepatosplenomegaly. LUNGS: Diminished breath sounds at the bases but clear. BACK: No costovertebral angle or lumbosacral tenderness. EXTREMITIES: Left leg has trace edema. Right leg has +1 pitting edema with diminished pulses bilaterally. I could not appreciate dorsalis pedis or posterior tibialis pulses. Right foot has necrotic ulcer at first metatarsophalangeal joint. First MTP joint ulcer measures about 4 x 3 cm with necrotic base, foul smelling. Between the first and the second toe there is an ulceration in the web space with black eschar. Between the fourth and fifth toe there is an ulceration with a black eschar measuring about 1 cm. The heel has a longitudinal ulcer with a necrotic base measuring about 3 cm x 0.5 cm. There is no purulence. There is mild erythema around that wound. IMPRESSION: This is a 64-year-old gentleman with insulin-dependent diabetes, peripheral vascular disease, admitted with necrotic diabetic foot ulcer with poor circulation. The patient underwent angioplasty today. He needs to have surgical intervention with podiatry for debridement of those ulcers and possibly a ray amputation of the first toe versus just removal of the head of the metatarsal. PLAN: Consult Dr. Tenorio for evaluation. The patient will also be scheduled for surgical intervention and toe amputation Discontinue IV cefazolin. The patient needs anaerobic coverage and has Proteus and staph aureus on his wound culture. We will switch him to IV meropenem and vancomycin,susceptibility is still pending. Case has been discussed with Dr. Tenorio, who has seen the patient in consultation and Dr. Alvarez, hospitalist. [place]
[2019-09-07] MEDS: DOCUSATE SODIUM 100 MG CAP PO PRN (08:53)
[2019-09-07] MEDS: LEVEMIR (INSULIN DETEMIR) 1 UNITS/0.01ML SC SCH (08:54)
[2019-09-07] MEDS: SPIRONOLACTONE 25 MG TAB PO SCH (08:54)
[2019-09-07] MEDS: SIMVASTATIN 40 MG TAB PO SCH (08:54)
[2019-09-07] MEDS: FUROSEMIDE 40 MG TAB PO SCH (08:54)
[2019-09-07] MEDS: MULTIVITAMINS/MINERALS THERAP 1 TAB PO SCH (08:54)
[2019-09-07] MEDS: ENTRESTO 97-103MG TABLET (SACUBITRIL/VALSARTAN) PO SCH ×2 (08:54→20:45)
[2019-09-07] MEDS: HumaLOG INSULIN (NovoLOG) PER UNIT SC SCH ×4 (08:55→21:01)
--- NOTE | 2019-09-07 08:55 | IPN ---
DATE: 09/06/2019 CHIEF COMPLAINT: The patient is seen for evaluation of an ulceration on his right lower extremity. The patient states that he recently had some vascular intervention of his right side to increase blood flow. The patient states that approximately 2 months ago he noticed a blister on his foot, it has gotten worse over the last few weeks with skin sloughing. He went to Dr. Sterling's office for wound management and underwent debridement and cultures. He is seen now for evaluation. MEDICATIONS: - Jardiance 25 mg daily - furosemide 40 mg daily - insulin - metoprolol 50 mg daily - Xarelto 20 mg by mouth at night - Entresto 97 mg one tablet by mouth twice a day - simvastatin 40 mg daily - spironolactone 25 mg daily ALLERGIES: ERYTHROMYCIN PHYSICAL EXAMINATION: Reveals an alert, well oriented 59-year-old male who is in no acute distress. Evaluation of his foot, his left foot displays no ulcerations. His right foot reveals an ulceration present on the medial surface down to the first metatarsal head, which is easily visible. The ulcer measures 5 cm x 3.5 cm straight to bone. The skin is lichenified with no elastic recoil. Pedal pulses cannot be palpated. The hallux itself is not ulcerated. ASSESSMENT: 1. Osteomyelitis with stage IV ulceration of the right foot. PLAN: We discussed with the patient a first ray amputation. We discussed trying to salvage as much of his foot as possible and fillet the hallux for flap advancement. His questions were answered. We discussed with the patient doing this on Monday. The patient is presently on Xarelto, we will stop this for 2 days prior to the surgery. His questions were answered.
[2019-09-07] MEDS: METOPROLOL SUCC (TopROL XL) 50MG **XL** TAB PO SCH (08:57)
[2019-09-07 10:00] VITALS: BP 135/53
[2019-09-07] MEDS ORDERED: methylPREDNISolone INJ 125 MG/2 ML VIAL (J2930) IV ONE (10:00)
[2019-09-07] MEDS ORDERED: FUROSEMIDE 20 MG/2 ML VIAL (J1940) IV ONE (10:00)
[2019-09-07] MEDS ORDERED: LEVALBUTEROL 1.25 MG/0.5 ML CONCENTRATE NEB INH PRN (10:00)
[2019-09-07] MEDS: VANCOMYCIN HCL 1,000 MG, VIAL MATE ADAPTER 1 EACH in D5W 250 ML IV SCH (10:22)
[2019-09-07] MEDS: guaiFENesin ER 600 MG TAB PO SCH ×2 (10:22→20:44)
--- NOTE | 2019-09-07 11:15 | REP ---
REASON FOR EXAM: Pain and swelling with poor vascularity. Assess for infection. The lack of intravenous gadolinium administration decreases the sensitivity of the exam. There is T2 hypersignal seen throughout the plantar soft tissues deep to the plantar aponeurosis. There is no abnormal peritendinous fluid surrounding any of the plantar tendons. There is diffuse T2 hypersignal seen in the anterior subcutaneous tissues. All imaged flexor and extensor tendons appear to be intact and with normal appearing low signal throughout. There is no joint effusion. There is no evidence of mass. The marrow signal is within normal limits with slight T2 hyper signal seen in the medial aspect of the head of the 1st metatarsal which is nonspecific. IMPRESSION: 1. There is diffuse plantar subcutaneous edema, as describe above, of uncertain etiology. This needs clinical correlation and followup if necessary. 2. There is mild edema in the marrow of the head of the 1st metatarsal as described above. The etiology of this is uncertain and followup is recommended with clinical correlation. 3. Other findings as described above. If necessary obtain followup gadolinium enhanced exam. Electronically Signed by Deuce Malcolm DO 09/07/2019 12:22 P
[2019-09-07 14:00] VITALS: BP 123/45
--- NOTE | 2019-09-07 14:29 | IPNPDOC ---
Date Seen The patient was seen on 09/07/19. Progress Note SUBJECTIVE: Patient's pain is controlled, postop day 2 (09/05/19) status post angioplasty of the LLE by Dr. Dsouza. Patient requests for nicotine patch due to nicotine withdrawal, discussed with vascular surgeon, hold off on nicotine due to worsening vasoconstriction, okay to use Ativan prn. Discussed plan with vascular surgeon, podiatry and infectious disease. Plan on R hallux amputation on 09/09/2019. Antibiotics to Zosyn and vancomycin. Complains of cough, white to clear sputum, chest x-ray does not reveal any infiltrates, BNP was slightly elevated at 753, IVF dc, Cr 1.65. OBJECTIVE PHYSICAL EXAMINATION: VITAL SIGNS: Please see below. GENERAL: No distress, pleasant, obese male in no acute distress HEENT: Normocephalic, atraumatic, moist mucous membranes, Mallampati score 4 NECK: Supple CARDIOVASCULAR EXAMINATION: S1, S2 RESPIRATORY EXAMINATION: Diminished, patient coughing ABDOMINAL EXAMINATION: Soft, nontender, nondistended, positive bowel sounds EXTREMITIES: 1+ edema, R lower extremity: Exposed bone and necrotic/odorous lesion on the hallux side of his right foot, capillary refill less than 3 seconds, however, palpable pulses Not detected SKIN: No rash NEUROLOGICAL EXAMINATION: Alert and oriented 3, no focal deficits PSYCHIATRIC EXAMINATION: Calm and cooperative, appropriate affect, has capacity LABORATORY DATA, IMAGING STUDIES, MICROBIOLOGY: Please see below. DVT prophylaxis ordered?: Heparin ASSESSMENT AND PLAN: Patient is a 59yoM with PMH of history of left lower extremity DVT with a known history of factor V Leiden currently on xarelto, current smoker of one pack per day, history of monoclonal gammopathy light chains followed by Dr. Pierre, hematology, insulin-dependent diabetes complicated by diabetic retinopathy, HTN, HLD, chronic systolic and diastolic heart failure, chronic back pain with DJD, morbid obesity with a BMI of 48.9, presented as a direct admission for RLE infection/gangrene, and vasculopathy. #RLE osteomyelitis: Postop day 2 status post angioplasty, discussed with vascular surgeon, and podiatry, plan for amputation on Sunday 09/09, continue heparin for DVT prophylaxis, discussed case with ID, optimize antibiotic coverage meropenem and vanco (cx 09/04 growing proteus mirabilis and staph aureus), hold xarelto for surgery, will f/u with podiatry with restart on xarelto #SOB, consider COPD exacerbation versus CHF exacerbation, start patient on steroids, and diuretics. Continue to monitor with neb treatments and symptomatic treatment. #HIWOT: Likely secondary to pain meds and procedure, to be careful on IV hydration due to history of CHF, change pain medications, patient's shortness of breath worsens, we'll consider CT angiogram chest is VQ scan, currently not tachycardic #left lower extremity DVT with a known history of factor V Leiden: Hold rivaroxaban, heparin for DVT prophylaxis, dc IV fluids due to shortness of breath, administered lasix #tobacco use: dc nicotine patch, educated on smoking cessation, ativan prn #history of monoclonal gammopathy light chains followed by Dr. Pierre, monitor #insulin-dependent diabetes complicated by diabetic retinopathy: ISS, Dm management, goal glu 70-250/300, continue insulin sliding scale, hold long- acting insulin due to low glucose levels #HTN: cont home meds #HLD: cont home meds #chronic systolic and diastolic heart failure: cont home meds #chronic back pain with DJD: cont home meds #morbid obesity with a BMI of 48.9: advise weight loss, outpt management DVT ppx: SCD, heparin Full code Disposition: R hallux amputation with Dr. Tenorio 09/09, Rehabilitation VS, I&O, 24H, Fishbone Vital Signs/I&O Vital Signs Date Time Temp Pulse Resp B/P (MAP) Pulse Ox O2 Delivery O2 Flow Rate FiO2 09/07/19 10:00 97.6 83 18 135/53 (80) 96 Room Air 09/06/19 14:00 3.0 I&O- Last 24 Hours up to 6 AM 09/07/19 06:00 Intake Total 2100 ml Output Total 1470 ml Balance 630 ml Laboratory Data 24H LABS Laboratory Tests 2 09/06/19 15:52: PB-Cqc-O-Type Natriuretic Peptide 753H 09/06/19 16:28: Bedside Glucose (Misc Panel) 136H 09/06/19 21:34: Bedside Glucose (Misc Panel) 225H 09/07/19 05:27: Nucleated Red Blood Cells % (auto) 0.0, Anion Gap 9, Glomerular Filtration Rate 44.8L, Calcium Level 7.7L 09/07/19 11:27: Bedside Glucose (Misc Panel) 269H CBC/BMP Laboratory Tests 09/07/19 05:27 Microbiology Microbiology 09/06/19 Blood Culture, Received Pending 09/04/19 Blood Culture - Preliminary, Resulted No Growth after 72 hours. All specime... 09/04/19 Blood Culture - Preliminary, Resulted No Growth after 72 hours. All specime... WILLIE APPIAH MD Sep 07, 2019 14:29
[2019-09-07] MEDS ORDERED: LORazepam 2 MG/ML VIAL (J2060) IV PRN (14:30)
[2019-09-07] MEDS: MIRALAX *UNIT DOSE* 17GM PACKET PO SCH (15:00)
[2019-09-07] MEDS: methylPREDNISolone INJ 40 MG/1 ML VIAL (J2920) IV SCH ×2 (15:00→21:36)
[2019-09-07 18:00] VITALS: BP 115/62
[2019-09-07] MEDS: IPRATROPIUM 0.5MG/ALBUTEROL 2.5MG INH SOL UD 3ML (DUONEB)(J7620) NEB PRN (19:47)
--- NOTE | 2019-09-07 21:47 | PHACANCOPD ---
PHARMACY VANCOMYCIN DOSING Pt Demographics Demographics Patient Age:64 , Weight:168.200 , Gender: male Adjusted Body Weight Date: 09/06/19, Adjusted Body Weight: Kg Events Past 24 Hours Events Past 24 Hours: NO: Dialysis, Diuretic Therapy, Change in CrCl, Fever, Elevation in WBC, Pending Diagnostics, Pending Procedures, Other Vancomycin Vancomycin Target Ranges: 15-20 mcg/ml Vancomycin Load Y/N: Yes Load Dose Date Time Vancomycin Load Dose: 2G Date: 09/06 Time: 1300 Vancomycin Dose Date: 09/07/19. Current Vancomycin Dose: [1000mg q18h] Intermittent Dosing?: No Labs Labs Item Value Date Time White Blood Count 15.7 10^3/uL H 09/07/19526 Glomerular Filtration Rate 44.8 L 09/07/19526 Creatinine 1.65 MG/DL H 09/07/19526 Blood Urea Nitrogen 39 MG/DL H 09/07/19526 Vancomycin Level Trough 23.4 UG/ML H 09/07/192040 Vital Signs Label Value Date Time Patient Temperature 98.0 degrees F 09/07/19 1800 Temperature Source Oral 09/07/19 1800 Micro Microbiology 09/06/19 Blood Culture - Preliminary, Resulted No growth after 24 hours . All specim... 09/04/19 Blood Culture - Preliminary, Resulted No Growth after 72 hours. All specime... 09/04/19 Blood Culture - Preliminary, Resulted No Growth after 72 hours. All specime... Creatinine Clearance Date:09/07/19. Creatinine Clearance: [~50]. Pending Labs Trough 11- @2100 Assessment and Plan Maintaining Current Dose?: No Reason for dose change: Trough too high Pharmacist Note Pharmacist Note Date: 09/07/19. Pharmacist note: Trough of 23.4 is above target range. Dosing reduced to 1000mg q18h. Will continue to monitor and make adjustments as needed. DIDIER TERAN PHARMACY Sep 07, 2019 21:47
[2019-09-07 22:00] VITALS: BP 142/72
[2019-09-08] MEDS: VANCOMYCIN HCL 1,000 MG, VIAL MATE ADAPTER 1 EACH in D5W 250 ML IV SCH ×2 (03:37→22:17)
[2019-09-08] MEDS: MEROPENEM INJ 1 GM in IV 1 EA IV SCH ×3 (04:46→20:03)
[2019-09-08] MEDS: HEPARIN SOD (PORCINE) 5000 UNITS/ML VIAL SQ SCH ×3 (05:24→20:04)
[2019-09-08] MEDS: methylPREDNISolone INJ 40 MG/1 ML VIAL (J2920) IV SCH (05:41)
[2019-09-08 06:00] VITALS: BP 118/49
[2019-09-08 06:43] LABS: HEMATOCRIT 36.2 % (42.0-52.0); HEMOGLOBIN 11.9 g/dl (13.5-17.5); MEAN CORPUSCULAR HEMOGLOBIN 27.4 pg (27.0-33.0); MEAN CORPUSCULAR HGB CONC 32.9 g/dl (32.0-36.5); MEAN CORPUSCULAR VOLUME 83.4 fl (80.0-96.0); PLATELET COUNT, AUTOMATED 260 10^3/uL (150-450); RED BLOOD COUNT 4.34 10^6/uL (4.30-6.10); WHITE BLOOD COUNT 15.1 10^3/uL (4.0-10.0)
[2019-09-08 07:03] LABS: CALCIUM LEVEL 7.4 MG/DL (8.8-10.2); CREATININE FOR GFR 1.7 MG/DL (0.70-1.30); GLOMERULAR FILTRATION RATE 43.3 (>49); POTASSIUM SERUM 4.4 MEQ/L (3.5-5.1)
--- NOTE | 2019-09-08 08:15 | IPNPDOC ---
Date Seen The patient was seen on 09/08/19. Progress Note SUBJECTIVE: Patient's pain is controlled, postop day 3 (09/05/19) status post angioplasty of the LLE by Dr. Dsouza. Patient requests for nicotine patch due to nicotine withdrawal, discussed with vascular surgeon, hold off on nicotine due to worsening vasoconstriction, okay to use Ativan prn. Discussed plan with vascular surgeon, podiatry and infectious disease. Plan on R hallux amputation on 09/09/2019. Antibiotics to Zosyn and vancomycin. Resume IVF for gentle hydration, Cr increasing. taper steroids for COPD exacerbation, increase insulin, continue diuretics for CHF. Pain controlled. OBJECTIVE PHYSICAL EXAMINATION: VITAL SIGNS: Please see below. GENERAL: No distress, pleasant, obese male in no acute distress HEENT: Normocephalic, atraumatic, moist mucous membranes, Mallampati score 4 NECK: Supple CARDIOVASCULAR EXAMINATION: S1, S2 RESPIRATORY EXAMINATION: Diminished, patient coughing ABDOMINAL EXAMINATION: Soft, nontender, nondistended, positive bowel sounds EXTREMITIES: 1+ edema, R lower extremity: Exposed bone and necrotic/odorous lesion on the hallux side of his right foot, capillary refill less than 3 seconds, however, palpable pulses Not detected SKIN: No rash NEUROLOGICAL EXAMINATION: Alert and oriented 3, no focal deficits PSYCHIATRIC EXAMINATION: Calm and cooperative, appropriate affect, has capacity LABORATORY DATA, IMAGING STUDIES, MICROBIOLOGY: Please see below. DVT prophylaxis ordered?: Heparin ASSESSMENT AND PLAN: Patient is a 59yoM with PMH of history of left lower extremity DVT with a known history of factor V Leiden currently on xarelto, current smoker of one pack per day, history of monoclonal gammopathy light chains followed by Dr. Pierre, hematology, insulin-dependent diabetes complicated by diabetic retinopathy, HTN, HLD, chronic systolic and diastolic heart failure, chronic back pain with DJD, morbid obesity with a BMI of 48.9, presented as a direct admission for RLE infection/gangrene, and vasculopathy. #RLE osteomyelitis: Postop day 3 (09/05/19) status post angioplasty, discussed with vascular surgeon, and podiatry, plan for amputation on Sunday 09/09, continue heparin for DVT prophylaxis, discussed case with ID, optimize antibiotic coverage meropenem and vanco (cx 09/04 growing proteus mirabilis and staph aureus), hold xarelto for surgery, will f/u with podiatry with restart on xarelto #SOB, consider COPD exacerbation versus CHF exacerbation, start patient on steroids, and diuretics. Continue to monitor with neb treatments and symptomatic treatment. #HIWOT: Likely secondary to pain meds and procedure, to be careful on IV hydration due to history of CHF, change pain medications, patient's shortness of breath worsens, we'll consider CT angiogram chest is VQ scan, currently not tachycardic #insulin-dependent diabetes complicated by diabetic retinopathy: increased ISS and increase long-acting, Dm management, goal glu 70-250/300, hold long-acting insulin due to low glucose levels #left lower extremity DVT with a known history of factor V Leiden: Hold rivaroxaban, heparin for DVT prophylaxis, dc IV fluids due to shortness of breath, administered lasix #tobacco use: dc nicotine patch, educated on smoking cessation, ativan prn #history of monoclonal gammopathy light chains followed by Dr. Pierre, monitor #HTN: cont home meds #HLD: cont home meds #chronic systolic and diastolic heart failure: cont home meds #chronic back pain with DJD: cont home meds #morbid obesity with a BMI of 48.9: advise weight loss, outpt management DVT ppx: SCD, heparin Full code Disposition: R hallux amputation with Dr. Tenorio 09/09, Rehabilitation VS, I&O, 24H, [facility] Vital Signs/I&O Vital Signs Date Time Temp Pulse Resp B/P (MAP) Pulse Ox O2 Delivery O2 Flow Rate FiO2 09/08/19 06:00 97.9 76 22 118/49 (72) 93 Room Air 09/06/19 14:00 3.0 I&O- Last 24 Hours up to 6 AM 09/08/19 06:00 Intake Total 2230 ml Output Total 2600 ml Balance -370 ml Laboratory Data 24H LABS Laboratory Tests 2 09/07/19 11:27: Bedside Glucose (Misc Panel) 269H 09/07/19 17:09: Bedside Glucose (Misc Panel) 246H 09/07/19 20:41: Vancomycin Level Trough 23.4H 09/07/19 20:43: Bedside Glucose (Misc Panel) 328H 09/08/19 06:22: Nucleated Red Blood Cells % (auto) 0.0, Anion Gap 8, Glomerular Filtration Rate 43.3L, Calcium Level 7.4L CBC/BMP Laboratory Tests 09/08/19 06:22 Microbiology Microbiology 09/06/19 Blood Culture - Preliminary, Resulted No growth after 24 hours . All specim... 09/04/19 Blood Culture - Preliminary, Resulted No Growth after 72 hours. All specime... 09/04/19 Blood Culture - Preliminary, Resulted No Growth after 72 hours. All specime... WILLIE APPIAH MD Sep 08, 2019 08:15
[2019-09-08] MEDS: guaiFENesin ER 600 MG TAB PO SCH ×2 (08:23→20:03)
[2019-09-08] MEDS: SIMVASTATIN 40 MG TAB PO SCH (08:23)
[2019-09-08] MEDS: LEVEMIR (INSULIN DETEMIR) 1 UNITS/0.01ML SC SCH (08:23)
[2019-09-08] MEDS: SPIRONOLACTONE 25 MG TAB PO SCH ×2 (08:23→09:15)
[2019-09-08] MEDS: MULTIVITAMINS/MINERALS THERAP 1 TAB PO SCH (08:23)
[2019-09-08] MEDS: FUROSEMIDE 40 MG TAB PO SCH ×2 (08:24→09:15)
[2019-09-08] MEDS: METOPROLOL SUCC (TopROL XL) 50MG **XL** TAB PO SCH (08:24)
[2019-09-08] MEDS: DOCUSATE SODIUM 100 MG CAP PO PRN (08:27)
[2019-09-08] MEDS: MIRALAX *UNIT DOSE* 17GM PACKET PO SCH (08:27)
[2019-09-08] MEDS: ENTRESTO 97-103MG TABLET (SACUBITRIL/VALSARTAN) PO SCH ×2 (08:28→20:03)
[2019-09-08] MEDS: HumaLOG INSULIN (NovoLOG) PER UNIT SC SCH ×4 (08:42→22:17)
[2019-09-08] MEDS: NS 1,000 ML IV SCH (08:42)
[2019-09-08 14:00] VITALS: BP 120/60
[2019-09-08] MEDS ORDERED: VANICREAM MOISTURIZING SKIN CREAM 113GM TUBE TOP PRN (16:30)
[2019-09-08] MEDS: IPRATROPIUM 0.5MG/ALBUTEROL 2.5MG INH SOL UD 3ML (DUONEB)(J7620) NEB PRN (20:29)
[2019-09-08] MEDS ORDERED: HumaLOG INSULIN (NovoLOG) PER UNIT SC SCH (21:00)
[2019-09-08 22:00] VITALS: BP 162/76
--- NOTE | 2019-09-08 22:39 | PHACANCOPD ---
PHARMACY VANCOMYCIN DOSING Pt Demographics Demographics Patient Age:64 , Weight:168.200 , Gender: male Adjusted Body Weight Date: 09/06/19, Adjusted Body Weight: Kg Events Past 24 Hours Events Past 24 Hours: NO: Dialysis, Diuretic Therapy, Change in CrCl, Fever, Elevation in WBC, Pending Diagnostics, Pending Procedures, Other Vancomycin Vancomycin Target Ranges: 15-20 mcg/ml Vancomycin Load Y/N: Yes Load Dose Date Time Vancomycin Load Dose: 2G Date: 09/06 Time: 1300 Vancomycin Dose Date: 09/08/19. Current Vancomycin Dose: [1000mg q18h] Intermittent Dosing?: No Labs Labs Item Value Date Time White Blood Count 15.1 10^3/uL H 09/08/1922 Glomerular Filtration Rate 43.3 L 09/08/19621 Creatinine 1.70 MG/DL H 09/08/19621 Blood Urea Nitrogen 44 MG/DL H 09/08/19621 Vancomycin Level Trough 18.3 UG/ML 09/08/192116 Vital Signs Label Value Date Time Patient Temperature 98.0 degrees F 09/08/19 1400 Temperature Source Oral 09/08/19 1400 Micro Microbiology 09/06/19 Blood Culture - Preliminary, Resulted No Growth after 48 hours. All Specime... 09/04/19 Blood Culture - Preliminary, Resulted No Growth after 72 hours. All specime... 09/04/19 Blood Culture - Preliminary, Resulted No Growth after 72 hours. All specime... Creatinine Clearance Date:09/07/19. Creatinine Clearance: [~50]. Assessment and Plan Maintaining Current Dose?: Yes Reason for dose change: No Dose Change Pharmacist Note Pharmacist Note Date: 09/08/19. Pharmacist note: Trough of 23.4 is within target range. Will continue current dosing. Will continue to monitor and make adjustments as needed. DIDIER TERAN PHARMACY Sep 08, 2019 22:39
[2019-09-09] VITALS (7 sets, daily range): BP systolic 134–166; BP diastolic 61–79
[2019-09-09] MEDS: HEPARIN SOD (PORCINE) 5000 UNITS/ML VIAL SQ SCH ×3 (00:07→20:13)
[2019-09-09] MEDS: MEROPENEM INJ 1 GM in IV 1 EA IV SCH ×3 (04:02→20:13)
[2019-09-09] MEDS: HumaLOG INSULIN (NovoLOG) PER UNIT SC SCH ×4 (07:30→21:00)
[2019-09-09 08:22] LABS: CALCIUM LEVEL 7.6 MG/DL (8.8-10.2); CREATININE FOR GFR 1.29 MG/DL (0.70-1.30); GLOMERULAR FILTRATION RATE 59.5 (>49); POTASSIUM SERUM 4.4 MEQ/L (3.5-5.1)
[2019-09-09 08:31] LABS: HEMATOCRIT 38.5 % (42.0-52.0); HEMOGLOBIN 12.1 g/dl (13.5-17.5); MEAN CORPUSCULAR HEMOGLOBIN 27.1 pg (27.0-33.0); MEAN CORPUSCULAR HGB CONC 31.4 g/dl (32.0-36.5); MEAN CORPUSCULAR VOLUME 86.3 fl (80.0-96.0); PLATELET COUNT, AUTOMATED 301 10^3/uL (150-450); RED BLOOD COUNT 4.46 10^6/uL (4.30-6.10); WHITE BLOOD COUNT 15.9 10^3/uL (4.0-10.0)
[2019-09-09] MEDS: MIRALAX *UNIT DOSE* 17GM PACKET PO SCH (09:00)
[2019-09-09] MEDS ORDERED: LEVEMIR (INSULIN DETEMIR) 1 UNITS/0.01ML SC SCH ×2 (09:00)
[2019-09-09] MEDS: predniSONE 10 MG TAB PO SCH (10:32)
[2019-09-09] MEDS: SIMVASTATIN 40 MG TAB PO SCH (10:33)
[2019-09-09] MEDS: FUROSEMIDE 40 MG TAB PO SCH (10:36)
[2019-09-09] MEDS: guaiFENesin ER 600 MG TAB PO SCH ×2 (10:36→20:13)
[2019-09-09] MEDS: ENTRESTO 97-103MG TABLET (SACUBITRIL/VALSARTAN) PO SCH ×2 (10:36→20:14)
[2019-09-09] MEDS: METOPROLOL SUCC (TopROL XL) 50MG **XL** TAB PO SCH (10:36)
[2019-09-09] MEDS: SPIRONOLACTONE 25 MG TAB PO SCH (10:36)
[2019-09-09] MEDS: ACETAMINOPHEN TAB 650MG DOSE (2X325MG) PO PRN (10:37)
[2019-09-09] MEDS: MULTIVITAMINS/MINERALS THERAP 1 TAB PO SCH (10:37)
[2019-09-09 10:58] LABS: VANCOMYCIN RANDOM 18.2 UG/ML
[2019-09-09] MEDS ORDERED: LEVEMIR (INSULIN DETEMIR) 1 UNITS/0.01ML SC ONE (11:15)
--- NOTE | 2019-09-09 12:17 | IPNPDOC ---
Date Seen The patient was seen on 09/09/19. Progress Note SUBJECTIVE: -Has overnight apneic episodes requiring oxygen, reports headache this morning -Patient's pain is controlled, postop day 4 (09/05/19) status post angioplasty of the LLE by Dr. Dsouza. -Plan on R hallux amputation on 09/09/2019 -taper steroids for COPD exacerbation, increase insulin, continue diuretics for CHF. Pain controlled. OBJECTIVE PHYSICAL EXAMINATION: VITAL SIGNS: Please see below. GENERAL: No distress, pleasant, obese male in no acute distress HEENT: Normocephalic, atraumatic, moist mucous membranes, Mallampati score 4 NECK: Supple CARDIOVASCULAR EXAMINATION: S1, S2 RESPIRATORY EXAMINATION: Diminished, patient coughing ABDOMINAL EXAMINATION: Soft, nontender, nondistended, positive bowel sounds EXTREMITIES: 1+ edema, R lower extremity: Exposed bone and necrotic/odorous lesion on the hallux side of his right foot, capillary refill less than 3 seconds, however, palpable pulses Not detected SKIN: No rash NEUROLOGICAL EXAMINATION: Alert and oriented 3, no focal deficits PSYCHIATRIC EXAMINATION: Calm and cooperative, appropriate affect, has capacity LABORATORY DATA, IMAGING STUDIES, MICROBIOLOGY: Please see below. DVT prophylaxis ordered?: Heparin ASSESSMENT AND PLAN: Patient is a 59yoM with PMH of history of left lower extremity DVT with a known history of factor V Leiden currently on xarelto, curr ent smoker of one pack per day, history of monoclonal gammopathy light chains followed by Dr. Pierre, hematology, insulin-dependent diabetes complicated by diabetic retinopathy, HTN, HLD, chronic systolic and diastolic heart failure, chronic back pain with DJD, morbid obesity with a BMI of 48.9, presented as a direct admission for RLE infection/gangrene, and vasculopathy. #RLE osteomyelitis: Postop day 4 (09/05/19) status post angioplasty, discussed with vascular surgeon, Dr. Dsouza, and podiatry, plan for amputation on Sunday 09/09, continue heparin for DVT prophylaxis, discussed case with ID, Dr. Franco, optimize antibiotic coverage meropenem and vanco (cx 09/04 growing proteus mirabilis and staph aureus), hold xarelto for surgery, will f/u with podiatry, Dr. Tenorio, on when to restart home xarelto #SOB, consider COPD exacerbation versus CHF exacerbation, start patient on steroids, and diuretics. Continue to monitor with neb treatments and symptomatic treatment. #HIWOT: improved with IV hydration NS 30cc/hr #insulin-dependent diabetes complicated by diabetic retinopathy: increased ISS and increase long-acting, Dm management, goal glu 70-250/300, hold long-acting insulin prn due to low glucose levels #Apnea episodes, discussed with Dr. Wilde, pulm, obtain baseline ABG, follow-up with EV questionnaire, and scheduled for outpatient sleep study upon DC #left lower extremity DVT with a known history of factor V Leiden: Hold rivaroxaban, heparin for DVT prophylaxis, dc IV fluids due to shortness of breath, administered lasix #tobacco use: no nicotine patch d/t worsening VC, educated on smoking cessation, ativan prn #history of monoclonal gammopathy light chains followed by Dr. Pierre, monitor #HTN: cont home meds #HLD: cont home meds #chronic systolic and diastolic heart failure: cont home meds #chronic back pain with DJD: cont home meds #morbid obesity with a BMI of 48.9: advise weight loss, outpt management DVT ppx: SCD, heparin Full code Disposition: R hallux amputation with Dr. Tenorio 09/09, Rehabilitation [facility], I&O, [facility] Vital Signs/I&O Vital Signs Date Time Temp Pulse Resp B/P (MAP) Pulse Ox O2 Delivery O2 Flow Rate FiO2 09/09/19 10:36 66 164/69 09/09/19 06:00 97.8 18 98 Room Air 09/06/19 14:00 3.0 I&O- Last 24 Hours up to 6 AM 09/09/19 05:59 Intake Total 1940 ml Output Total 2525 ml Balance -585 ml Laboratory Data 24H LABS Laboratory Tests 2 09/08/19 16:14: Bedside Glucose (Misc Panel) 336H 09/08/19 21:17: Vancomycin Level Trough 18.3 09/08/19 21:44: Bedside Glucose (Misc Panel) 295H 09/09/19 06:33: Nucleated Red Blood Cells % (auto) 0.0, Anion Gap 8, Glomerular Filtration Rate 59.5, Calcium Level 7.6L, Random Vancomycin Level 18.2 09/09/19 11:36: Bedside Glucose (Misc Panel) 80 09/09/19 11:39: Bedside Glucose (Misc Panel) 85 CBC/BMP Laboratory Tests 09/09/19 06:33 Microbiology Microbiology 09/06/19 Blood Culture - Preliminary, Resulted No Growth after 48 hours. All Specime... 09/04/19 Blood Culture - Preliminary, Resulted No Growth after 72 hours. All specime... 09/04/19 Blood Culture - Preliminary, Resulted No Growth after 72 hours. All specime... WILLIE APPIAH MD Sep 09, 2019 12:17
[2019-09-09 16:30] LABS: ABG BASE EXCESS -0.8 (-2.0-2.0); ABG O2 SATURATION 97.8 % (95.0-99.0); ABG PARTIAL PRESSURE CO2 45.8 mmHg (35.0-45.0); ABG STANDARD HCO3 23.8 MEQ/L (22.0-26.0); ABG TOTAL CO2 26.4 MEQ/L (23.0-31.0); ABG pH (ARTERIAL) 7.355 UNITS (7.350-7.450)
[2019-09-09] MEDS ORDERED: fentaNYL 100 MCG/2 ML INJECTION (J3010) As Ordered ONE (17:04)
[2019-09-09] MEDS ORDERED: MIDAZOLAM INJ 2 MG/2 ML VIAL (J2250) As Ordered ONE (17:05)
[2019-09-09] MEDS ORDERED: LIDOCAINE 2% INJ 100 MG/5 ML SDV (FOR ANES.) As Ordered ONE (17:06)
[2019-09-09] MEDS: NS 1,000 ML IV SCH (17:16)
[2019-09-09] MEDS ORDERED: BUPIVACAINE HCL 0.5% 30 ML VIAL As Ordered ONE (17:27)
[2019-09-09] MEDS ORDERED: LIDOCAINE 2% MDV 20 ML VIAL As Ordered ONE (17:27)
[2019-09-09] MEDS ORDERED: KETAMINE HCL 200 MG/20 ML VIAL As Ordered ONE (17:28)
[2019-09-09] MEDS ORDERED: GENTAMICIN SULF INJ 80MG/2ML VIAL (J1580) As Ordered ONE (17:36)
[2019-09-09] MEDS ORDERED: ONDANSETRON 4MG/2ML VIAL (J2405) IV PRN (19:30)
[2019-09-09] MEDS ORDERED: oxyCODONE 5MG TAB PO PRN (19:30)
[2019-09-09] MEDS ORDERED: LR 1,000 ML IV SCH (19:30)
--- NOTE | 2019-09-09 19:35 | REP ---
Clinical: Postoperative baseline examination. Technique: AP, lateral, oblique views of the right foot. Findings: The patient is status post partial amputation through the mid first metatarsal shaft. Overlying postsurgical changes to the soft tissues noted. Impression: Status post partial surgical amputation through the first metatarsal bone. Electronically Signed by Tamir Ingram MD 09/09/2019 07:27 P
[2019-09-09] MEDS: HYDROmorphone 2 MG TAB PO PRN (23:00)
[2019-09-10] VITALS (7 sets, daily range): BP systolic 139–149; BP diastolic 60–83
[2019-09-10] MEDS: HEPARIN SOD (PORCINE) 5000 UNITS/ML VIAL SQ SCH ×2 (04:26→13:19)
[2019-09-10] MEDS: MEROPENEM INJ 1 GM in IV 1 EA IV SCH ×2 (04:26→12:57)
[2019-09-10 06:06] LABS: HEMATOCRIT 40.4 % (42.0-52.0); HEMOGLOBIN 12.5 g/dl (13.5-17.5); MEAN CORPUSCULAR HEMOGLOBIN 26.5 pg (27.0-33.0); MEAN CORPUSCULAR HGB CONC 30.9 g/dl (32.0-36.5); MEAN CORPUSCULAR VOLUME 85.8 fl (80.0-96.0); PLATELET COUNT, AUTOMATED 298 10^3/uL (150-450); RED BLOOD COUNT 4.71 10^6/uL (4.30-6.10); WHITE BLOOD COUNT 10.8 10^3/uL (4.0-10.0)
[2019-09-10 06:31] LABS: BLOOD UREA NITROGEN 42 MG/DL (7-18); CALCIUM LEVEL 7.4 MG/DL (8.8-10.2); CARBON DIOXIDE LEVEL 26 MEQ/L (21-32); CHLORIDE LEVEL 107 MEQ/L (98-107); CREATININE FOR GFR 1.03 MG/DL (0.70-1.30); GLOMERULAR FILTRATION RATE > 60.0 (>49); GLUCOSE, FASTING 159 MG/DL (70-100); POTASSIUM SERUM 4.5 MEQ/L (3.5-5.1); SODIUM LEVEL 138 MEQ/L (136-145)
[2019-09-10] MEDS: HumaLOG INSULIN (NovoLOG) PER UNIT SC SCH ×3 (08:29→17:46)
[2019-09-10] MEDS ORDERED: LEVEMIR (INSULIN DETEMIR) 1 UNITS/0.01ML SC SCH ×2 (09:00)
[2019-09-10] MEDS: MIRALAX *UNIT DOSE* 17GM PACKET PO SCH (09:00)
[2019-09-10] MEDS: SPIRONOLACTONE 25 MG TAB PO SCH (10:21)
[2019-09-10] MEDS: guaiFENesin ER 600 MG TAB PO SCH (10:21)
[2019-09-10] MEDS: MULTIVITAMINS/MINERALS THERAP 1 TAB PO SCH (10:22)
[2019-09-10] MEDS: predniSONE 10 MG TAB PO SCH (10:22)
[2019-09-10] MEDS: ENTRESTO 97-103MG TABLET (SACUBITRIL/VALSARTAN) PO SCH (10:23)
[2019-09-10] MEDS: METOPROLOL SUCC (TopROL XL) 50MG **XL** TAB PO SCH (10:23)
[2019-09-10] MEDS: FUROSEMIDE 40 MG TAB PO SCH (10:24)
[2019-09-10] MEDS: SIMVASTATIN 40 MG TAB PO SCH (10:24)
[2019-09-10] MEDS ORDERED: HYDROmorphone 2 MG TAB PO ONE (12:00)
[2019-09-10] MEDS ORDERED: MUCI600T31 PO (14:58)
[2019-09-10] MEDS ORDERED: LEVA12INH INH (14:58)
[2019-09-10] MEDS ORDERED: PEG1POW PO (14:58)
[2019-09-10] MEDS ORDERED: ACET1TAB55 PO (14:58)
[2019-09-10] MEDS ORDERED: DILA2TAB6 PO (14:58)
[2019-09-10] MEDS ORDERED: VANI1CRE5 TOP (14:58)
[2019-09-10] MEDS ORDERED: MERO1INJ IV (14:58)
[2019-09-10] MEDS ORDERED: INSUHUMDS SC ×2 (14:58)
[2019-09-10] MEDS ORDERED: HEPA500011 SQ (14:58)
[2019-09-10] MEDS ORDERED: AMBI5TAB PO (14:58)
[2019-09-10] MEDS ORDERED: INSUDET SC (14:58)
[2019-09-10] MEDS ORDERED: PRED10TA2 PO (15:00)
[2019-09-10] MEDS: NS 1,000 ML IV SCH (17:45)
--- NOTE | 2019-09-11 07:37 | RO ---
DATE OF PROCEDURE: 09/09/2019 PREOPERATIVE DIAGNOSIS: Osteomyelitis right first metatarsal with stage IV infected ulcer. POSTOPERATIVE DIAGNOSIS: Osteomyelitis right first metatarsal with stage IV infected ulcer. PROCEDURE: First ray amputation with flap closure right foot. SURGEON: GIOVANNY Burgos ASSISTANT: None. ANESTHESIA: Local MAC HEMOSTASIS: None. ESTIMATED BLOOD LOSS: 20 mL. IRRIGATION: 3 liters of dilute gentamicin solution with the low pressure pulse lavage system. DRAINS UTILIZED: 1/4-inch iodoform gauze. DESCRIPTION OF OPERATION: On 09/09/2019 this 64-year-old male was taken from his hospital room to the operating room and placed on the operating room table in supine position. Following the induction of IV sedation, local and regional anesthesia, the right lower extremity was prepped and draped in the usual aseptic manner. Attention was directed to the patient's right foot where there was noted to be a large stage IV ulceration with necrotic wound margins and necrosis of bone, first metatarsal. The hallux appeared viable. At this time, a rectangular was placed fully encompassing this ulceration. The incision was then lengthened on the proximal and distal arm to include the medial nail fold. A square incision was then placed around the nail removing the nail margins. The toe was then filleted out at the distal and proximal phalanx. Utilizing a Hohmann retractor, osteotomy was performed at the proximal first metatarsal in a slightly biased position, dorsally and medially and the first metatarsal and sesamoids were removed. All bleeders as encountered were electrocoagulated. The extensor tendons and flexor tendons were then cut in line with the proximal incision. The wound was then copiously lavage with 3 liters of dilute gentamicin solution with the low pressure pulse lavage system. Electrocautery was utilized to Bovie any remaining bleeders. The wound hallux flap was then rotated in a proximal direction. Unfortunately, the ulcer was of such a large size that total flap closure could not be obtained and a defect was noted, 1.5 cm from distal to proximal and 3 cm from dorsal to plantar. This was packed with 1/4-inch iodoform gauze. #3-0 nylon suture was then utilized in a simple interrupted position. A small dog ear was noted dorsally, which was removed to create good proximal closure. The hallux flap was viable with minimal tension. Dressing was applied consisting of Adaptic, 4 x 4's, 4 x 4 splints and Kerlix. We discussed with the patient postoperatively to decrease weight, but may put weight on his heel for pivot and transfer. The patient, having apparently tolerated the surgical procedure well, was taken from the OR to the recovery room for further monitoring by the anesthesia department. DALTON
--- NOTE | 2019-09-11 14:03 | IPN ---
DATE: 09/10/2019 Xavier is going to acute rehab today. He denies any fever or chills. No nausea, vomiting or diarrhea. He has a cough mostly productive of whitish phlegm. He has been afebrile. Temperature is 96.3, pulse 77, respirations 16, blood pressure 147/71, O2 sat 93% on room air. Heart: Normal S1-S2. No murmurs. Lungs: Diminished breath sounds but clear. Abdomen: Morbidly obese, soft, nontender. Extremities: +1 pitting edema. Right leg had a ray amputation of the first toe with a skin flap from the toe to cover the metatarsal head. There is an open wound that still measures about 3 cm x 2 cm around the mid medial foot. There is a drain in place. The flap has a slightly dusky color. There is no evidence of necrosis. No tenderness. He has an ulcer on the fourth toe laterally and the fifth toe medially measuring about 2 x 1 cm each that have been cleaned. There is no purulent discharge. There is another crack of the heel measuring about 3 cm with skin necrosis. That ulcer probed down to 1/2 cm. There is no purulence. Foot MRI was done without contrast showed marrow edema at the first metatarsal head from osteomyelitis and there is soft tissue edema diffusely in the plantar soft tissues, no joint effusion. LABORATORY DATA: White count 10.8, hemoglobin 12.5, hematocrit 40.4, platelets 298. Sodium 138, potassium 4.5, chloride 107, bicarb 26, BUN 42, creatinine 1.03, glucose 159, calcium 7.4. Intraoperative cultures are still pending, aerobic and anaerobic. Gram stain had moderate red cells, no organisms seen. Blood cultures from 09/04 are negative after five days. IMPRESSION: 1. Acute osteomyelitis with necrosis of the right big toe status post ray amputation. Outpatient patient cultures were positive for Staphylococcus Aureus, methicillin-sensitive Staphylococcus aureus (MSSA) and Proteus, patient is on IV meropenem status post ray amputation with skin flap. Vancomycin was discontinued. He will remain on IV meropenem until intraoperative cultures are available. 2. Peripheral vascular disease status post angioplasty. The patient has ischemic ulcer between his fourth toe and fifth toe and the heel at this point they do not look infected. 3. Acute kidney injury has resolved, creatinine 1.03. 4. Chronic obstructive pulmonary disease (COPD) exacerbation on prednisone 40 mg, tapering down. PLAN: Continue IV meropenem. The patient is being transferred to acute rehab. The case was discussed with Dr. Tenorio who had done the surgery yesterday. The patient should be offloading off the foot. I am not sure how much acute rehab he will benefit from. The case needs to be discussed between Dr. Silveira and Dr. Tenorio, who wants the patient to offload until the skin graft takes.
--- NOTE | 2019-09-12 21:01 | DSES ---
DATE OF ADMISSION: 09/04/2019 DATE OF DISCHARGE: 09/10/2019 CONSULTANTS DURING THIS ADMISSION: Infectious disease specialist, Dr. Wily Franco; vascular surgeon, Dr. Aleah Dsouza; wound care surgeon, Dr. Dyllan Sterling; surveillance specialist, Dr. Dyllan Tenorio. PROCEDURES DURING THIS ADMISSION: First ray amputation of the toe, right foot, 09/09/2019. Partially successful angioplasty of the origins of the right anterior tibial (AT) and peroneal artery. PRIMARY DISCHARGE DIAGNOSES: 1. Gangrene of the right foot with chronic 1st metatarsal head wound due to poor perfusion and peripheral arterial disease. 2. Necrotic diabetic foot ulcer with poor circulation status post amputation of the 1st toe on the right with wound culture showing Proteus and Staphylococcus aureus infection. 3. Advanced ischemic wet gangrenous right great toe. 4. Chronic obstructive pulmonary disease (COPD) exacerbation. 5. Congestive heart failure (CHF) exacerbation, diastolic dysfunction. 6. Acute kidney injury. 7. Insulin dependent diabetes with diabetic retinopathy. 8. Obstructive sleep apnea. 9. Left lower extremity deep venous thrombosis (DVT) with known history of Factor V Leiden on chronic anticoagulation with rivaroxaban which had been held due to recent amputation. 10. History of monoclonal gammopathy light chain followed by Dr. Amee Pierre. 11. Hypertension. 12. Hyperlipidemia. 13. Chronic back pain with degenerative joint disease. 14. Morbid obesity with body mass index (BMI) of 48.9. Patient is discharged to the acute rehabilitation unit to continue all medical therapy. DISCHARGE MEDICATIONS: - acetaminophen 650 every 4 hours - emollient base one topically three times a day for dry skin - Mucinex 600 twice a day - heparin subcutaneous every 8 hours - hydromorphone 0.5 every 4 hours as needed for pain - Levemir insulin 60 units daily - Lispro sliding scale before food and nightly - Xopenex 125 every 2 hours as needed - meropenem 1 gram IV every 8 hours - prednisone taper - polyethylene glycol - Ambien 2.5 nightly as needed - Colace 100 twice a day - Jardiance 25 daily - Lasix 40 daily - metoprolol 50 daily - multivitamin one tablet daily - omeprazole one tablet three times weekly - Entresto one tablet twice a day - simvastatin 40 mg daily - spironolactone 25 mg daily HOSPITAL COURSE: This is a 64-year-old male sent by Dr. Sterling for right toe gangrene for IV antibiotics and amputation with revascularization. Dr. Dsouza was consulted. Patient underwent ultrasound guided left common femoral artery access with aortoiliofemoral arteriogram and right lower extremity runoff with selection of right common femoral artery, superficial femoral artery, and anterior tibial artery. Patient underwent angioplasty of the right posterior tibial artery with a 3 x 220 Rickey balloon right peroneal artery, repeat angioplasty of the right posterior tibial artery, angioplasty right anterior tibial artery, completion of arteriogram and Mynx closure of the left common femoral artery on 09/05/2019. He was initially started on intravenous cephazolin every 8 hours changed over to meropenem and vancomycin for broader spectrum coverage. Dr. Wily Franco was consulted. Previous wound culture from Dr. Sterling's office grew Proteus and Staphylococcus aureus. Patient was kept on meropenem. White count decreased from a peak of 11.7 to 10.6 currently. He remains without any fevers. Dr. Tenorio was consulted and patient underwent amputation of the 1st toe on the right with irrigation, 3 liters of dilute gentamicin solution with low pressure pulse lavage system with flap closure of the right foot. Patient's insulin was adjusted due to episodes of hypoglycemia to 72, stable currently at 60 units daily. Patient is transferred to acute rehabilitation unit to be followed by the medical team. LABORATORY DATA: On discharge: White count 10.6, hemoglobin 13, hematocrit 41, platelet count 302, sodium 141, potassium 4.5, chloride 110, bicarbonate 29, BUN 37, creatinine 0.96, glucose of 67. Wound culture Proteus and Staphylococcus aureus. Blood cultures negative on 09/04/2019, no growth after 5 days. IMAGING STUDIES: Foot MRI 09/06/2019, mild edema on the 1st metatarsal correlates with clinical exam. Diffuse plantar subcutaneous edema of uncertain etiology. TIME SPENT ON DISCHARGE: 30 minutes
== END 2019-09-10 17:57 | DRG 253 ==
LOC: M MSPAV 12:52
PROVIDERS: ADMIT General Practice; ATTEND General Practice
PROC: 047 Lower Arteries, Dilation (ICD-10-PCS; 2019-09-05)
PROC: 047T3D1 Dilation of Right Peroneal Artery with Intraluminal Device, using Drug-Coated Balloon, Percutaneous Approach (ICD-10-PCS; 2019-09-05)
PROC: 047P3D1 Dilation of Right Anterior Tibial Artery with Intraluminal Device, using Drug-Coated Balloon, Percutaneous Approach (ICD-10-PCS; 2019-09-05)
PROC: B40FYZZ Plain Radiography of Right Lower Extremity Arteries using Other Contrast (ICD-10-PCS; 2019-09-05)
PROC: 047K3D1 Dilation of Right Femoral Artery with Intraluminal Device, using Drug-Coated Balloon, Percutaneous Approach (ICD-10-PCS; principal; 2019-09-05 16:30)
PROC: 0Y6P0Z0 Detachment at Right 1st Toe, Complete, Open Approach (ICD-10-PCS; 2019-09-09)
DX: E11.52 Type 2 diabetes mellitus with diabetic peripheral angiopathy with gangrene (principal); D68.2 Hereditary deficiency of other clotting factors; I50.42 Chronic combined systolic (congestive) and diastolic (congestive) heart failure; Z68.42 Body mass index [BMI] 45.0-49.9, adult; L03.115 Cellulitis of right lower limb; I13.0 Hypertensive heart and chronic kidney disease with heart failure and stage 1 through stage 4 chronic kidney disease, or unspecified chronic kidney disease; N17.9 Acute kidney failure, unspecified; M86.171 Other acute osteomyelitis, right ankle and foot; J44.1 Chronic obstructive pulmonary disease with (acute) exacerbation; I70.261 Atherosclerosis of native arteries of extremities with gangrene, right leg; E11.69 Type 2 diabetes mellitus with other specified complication; Y92.009 Unspecified place in unspecified non-institutional (private) residence as the place of occurrence of the external cause; T14.8XXA Other injury of unspecified body region, initial encounter; F17.210 Nicotine dependence, cigarettes, uncomplicated; E11.22 Type 2 diabetes mellitus with diabetic chronic kidney disease; N18.2 Chronic kidney disease, stage 2 (mild); D47.2 Monoclonal gammopathy; E11.319 Type 2 diabetes mellitus with unspecified diabetic retinopathy without macular edema; E11.65 Type 2 diabetes mellitus with hyperglycemia; B96.4 Proteus (mirabilis) (morganii) as the cause of diseases classified elsewhere; B95.61 Methicillin susceptible Staphylococcus aureus infection as the cause of diseases classified elsewhere; M51.36 Other intervertebral disc degeneration, lumbar region; E11.21 Type 2 diabetes mellitus with diabetic nephropathy; G47.33 Obstructive sleep apnea (adult) (pediatric); L97.514 Non-pressure chronic ulcer of other part of right foot with necrosis of bone; M54.5 Low back pain; E11.42 Type 2 diabetes mellitus with diabetic polyneuropathy; E78.5 Hyperlipidemia, unspecified; E66.01 Morbid (severe) obesity due to excess calories; Z79.01 Long term (current) use of anticoagulants; Z86.718 Personal history of other venous thrombosis and embolism; Z79.4 Long term (current) use of insulin; Z79.899 Other long term (current) drug therapy; Z88.1 Allergy status to other antibiotic agents

== ENCOUNTER → 2019-09-04 | Outpatient (REF) | payer MEDICARE, OTHER ==
[~2019-09-04] MED LIST changes: -ACET1TAB55 PO; -ALDA25TA2 PO; -AMBI5TAB PO; -AMLO10TA5 PO; -APAP325T4 PO; -DILA2TAB6 PO; -FISH1CAP26 PO; -GABA-1171 PO; -GLUC1000 PO; -HEPA500011 SQ; -HYDR-3910 PO; -HYDR25TA PO; -INSUDET SC; -INSUHUMDS SC; -ISOS10TA PO; -ISOS1TAB13 PO; -LEVA12INH INH; -MERO1INJ IV; -METF-415 PO; -METO1TAB33 PO; -MUCI600T31 PO; -PANT-23 PO; -PANT40TA3 PO; -PEG1POW PO; -PRED10TA2 PO; -PRED5TA PO; -SIMV20TA22 PO; +SIMV40TA2 PO; -SIMV40TA20 PO; -VANI1CRE5 TOP; -VITA100054 PO
== END ==
LOC: M SFHCPLAZ 12:36
PROVIDERS: ATTEND Surgery
DX: T14.8XXA Other injury of unspecified body region, initial encounter (principal); W18.30XA Fall on same level, unspecified, initial encounter; Y92.009 Unspecified place in unspecified non-institutional (private) residence as the place of occurrence of the external cause

== ENCOUNTER 2019-09-10 16:21 | Inpatient (IN) | payer MEDICARE, OTHER ==
[~2019-09-10] VITALS: Ht 185.4 cm; Wt 178.8 kg
[~2019-09-10 16:21] MED LIST changes: +ACET1TAB55 PO; +AMBI5TAB PO; +DILA2TAB6 PO; +HEPA500011 SQ; +INSUDET SC; +INSUHUMDS SC; +LEVA12INH INH; +MERO1INJ IV; +MUCI600T31 PO; +PEG1POW PO; +PRED10TA2 PO; +VANI1CRE5 TOP
[2019-09-10 18:00] VITALS: BP 142/78
[2019-09-10] MEDS ORDERED: MOM 30ML SUSPENSION UDC PO PRN (19:15)
[2019-09-10] MEDS ORDERED: GLUCOSE 4 GM CHEW TABLET PO PRN (19:15)
[2019-09-10] MEDS ORDERED: GLUCAGON FOR INJ 1 MG VIAL (J1610) SC PRN (19:15)
[2019-09-10] MEDS ORDERED: HEPARIN SOD (PORCINE) 5000 UNITS/ML VIAL SC SCH (19:15)
[2019-09-10] MEDS ORDERED: LEVALBUTEROL 1.25 MG/0.5 ML CONCENTRATE NEB INH PRN (19:15)
[2019-09-10] MEDS ORDERED: DEXTROSE 50% 50 ML SYRINGE IV PRN (19:15)
[2019-09-10 20:00] VITALS: BP 140/62
[2019-09-10] MEDS: RIVAROXABAN 20 MG TAB (XARELTO) PO SCH (21:20)
[2019-09-10] MEDS: PANTOPRAZOLE 40MG TAB (PROTONIX) PO SCH (21:20)
[2019-09-10] MEDS: guaiFENesin ER 600 MG TAB PO SCH (21:20)
[2019-09-10] MEDS: DOCUSATE SODIUM 100 MG CAP PO SCH (21:21)
[2019-09-10] MEDS: SENNA 8.6 MG TAB (SENOKOT) PO SCH (21:21)
[2019-09-10] MEDS: ENTRESTO 97-103MG TABLET (SACUBITRIL/VALSARTAN) PO SCH (21:22)
[2019-09-10] MEDS: HYDROmorphone 2 MG TAB PO PRN (21:25)
[2019-09-10] MEDS: zolPIDEM TARTRATE 5 MG TAB PO SCH (21:26)
[2019-09-10] MEDS: VANICREAM MOISTURIZING SKIN CREAM 113GM TUBE TOP SCH (21:34)
[2019-09-10] MEDS: MEROPENEM INJ 1 GM in IV 1 EA IV SCH (21:34)
[2019-09-10] MEDS: HumaLOG INSULIN (NovoLOG) PER UNIT SC SCH (22:31)
[2019-09-11] MEDS ORDERED: SLF 3 ML SYR IV PRN (01:30)
[2019-09-11] MEDS: MEROPENEM INJ 1 GM in IV 1 EA IV SCH ×3 (05:12→21:16)
[2019-09-11] MEDS: SLF 3 ML SYR IV SCH ×3 (05:13→21:18)
[2019-09-11 06:00] VITALS: BP 150/82
[2019-09-11 06:59] LABS: BASO # 0.1 10^3/uL (0.0-0.2); BASO % 0.6 % (0.0-1.0); EOS # 0.1 10^3/uL (0.0-0.5); EOS % 0.7 % (0.0-3.0); HEMATOCRIT 41.6 % (42.0-52.0); LYMPH # 1.5 10^3/uL (1.5-5.0); LYMPH % 13.9 % (24.0-44.0); MEAN CORPUSCULAR HEMOGLOBIN 26.9 pg (27.0-33.0); MEAN CORPUSCULAR HGB CONC 31.3 g/dl (32.0-36.5); MONO # 1.2 10^3/uL (0.0-0.8); MONO % 10.8 % (0.0-5.0); NEUTROPHILS # 7.7 10^3/uL (1.5-8.5); PLATELET COUNT, AUTOMATED 302 10^3/uL (150-450); RED BLOOD COUNT 4.84 10^6/uL (4.30-6.10); WHITE BLOOD COUNT 10.6 10^3/uL (4.0-10.0)
[2019-09-11 07:30] LABS: ALBUMIN 1.7 GM/DL (3.2-5.2); ALT/SGPT 19 U/L (12-78); BILIRUBIN,TOTAL 0.2 MG/DL (0.2-1.0); BLOOD UREA NITROGEN 37 MG/DL (7-18); CALCIUM LEVEL 7.7 MG/DL (8.8-10.2); CARBON DIOXIDE LEVEL 29 MEQ/L (21-32); CHLORIDE LEVEL 110 MEQ/L (98-107); CREATININE FOR GFR 0.96 MG/DL (0.70-1.30); GLOMERULAR FILTRATION RATE > 60.0 (>49); GLUCOSE, FASTING 67 MG/DL (70-100); POTASSIUM SERUM 4.5 MEQ/L (3.5-5.1); SODIUM LEVEL 141 MEQ/L (136-145); TOTAL PROTEIN 6.5 GM/DL (6.4-8.2)
[2019-09-11] MEDS: HumaLOG INSULIN (NovoLOG) PER UNIT SC SCH ×4 (07:30→21:16)
[2019-09-11] MEDS: MULTIVITAMINS/MINERALS THERAP 1 TAB PO SCH (08:20)
[2019-09-11] MEDS: SPIRONOLACTONE 25 MG TAB PO SCH (08:20)
[2019-09-11] MEDS: FUROSEMIDE 40 MG TAB PO SCH (08:20)
[2019-09-11] MEDS: OMEGA-3 1000MG CAPSULE PO SCH (08:20)
[2019-09-11] MEDS: PANTOPRAZOLE 40MG TAB (PROTONIX) PO SCH ×2 (08:20→21:17)
[2019-09-11] MEDS: guaiFENesin ER 600 MG TAB PO SCH ×2 (08:20→21:17)
[2019-09-11] MEDS: SIMVASTATIN 40 MG TAB PO SCH (08:20)
[2019-09-11] MEDS: ENTRESTO 97-103MG TABLET (SACUBITRIL/VALSARTAN) PO SCH ×2 (08:21→21:17)
[2019-09-11] MEDS: DOCUSATE SODIUM 100 MG CAP PO SCH ×2 (08:21→21:17)
[2019-09-11] MEDS: predniSONE 10 MG TAB PO SCH (08:21)
[2019-09-11] MEDS: VANICREAM MOISTURIZING SKIN CREAM 113GM TUBE TOP SCH ×2 (08:23→21:17)
[2019-09-11] MEDS ORDERED: LEVEMIR (INSULIN DETEMIR) 1 UNITS/0.01ML SC SCH (09:00)
[2019-09-11] MEDS ORDERED: METOPROLOL SUCC (TopROL XL) 50MG **XL** TAB PO SCH (09:00)
[2019-09-11 14:00] VITALS: BP 176/79
[2019-09-11] MEDS: HYDROmorphone 2 MG TAB PO PRN (14:24)
--- NOTE | 2019-09-11 16:11 | IPN ---
DATE: 09/10/2019 The patient complains of 6 out of 10 pain at the right lower extremity at the foot. He was told that he could bear weight on his heel. He states that the small pill that he has been given is not adequate. Noted to have Dilaudid as needed for pain. The patient has had no fever. No chills. White count is decreasing. No other complaints. The patient complains of increased bleeding in the foot with multiple dressing changes into the night, but hemoglobin and hematocrit remained stable at 12 hemoglobin and 40 hematocrit. PHYSICAL EXAMINATION: VITAL SIGNS: Temperature 96.7, pulse 74, respiratory rate 16, blood pressure 149/83, 95% on room air. GENERAL: The patient is an obese male, thick neck, unable to assess for jugular venous distention (JVD). No thyromegaly or cervical lymphadenopathy. LUNGS: Clear to auscultation. No wheezing or rales. HEART: S1, S2. Sinus. ABDOMEN: Obese, soft, nontender. EXTREMITIES: Right lower extremity is bandaged with 1+ pitting edema. LABORATORY DATA: White count 10, hemoglobin 12.5, hematocrit 40, platelet count 298. Sodium 138, potassium 4.5, chloride 107, BUN 42, creatinine 1.03, glucose of 159. ASSESSMENT AND PLAN: This is a 64-year-old obese male with Body Mass Index (BMI) of 48.9, history of deep vein thrombosis (DVT), factor V Leiden heterozygote, diabetes, hypertension, dyslipidemia, allergic rhinitis, diabetic retinopathy, peripheral arterial disease with monoclonal gammopathy, seen by Dr. Pierre, who presented to the emergency room with nonhealing foot ulcer, seen by Dr. Sterling on 09/03/2019, status post debridement. The patient had an angiogram and angioplasty of the right lower extremity, was started on IV cefazolin. CURRENT ISSUES: 1. Peripheral vascular disease with necrotic diabetic foot ulcer, status post angioplasty and debridement of the ulcers. On IV meropenem and vancomycin. Cultures are still pending. The patient had a first ray amputation of the right toe by Dr. Tenorio on 09/09/2019. Postoperative management per podiatry. 2. Chronic obstructive pulmonary disease (COPD) exacerbation. On tapering dose of prednisone, nebulizer treatments. 3. Hypertension. On metoprolol, valsartan, Entresto. 4. Congestive heart failure (CHF). On Entresto, Lasix and spironolactone. 5. Bowel regimen with MiraLAX. 6. Type 2 diabetes. On Levemir insulin, consistent carbohydrate diet, hypoglycemic protocol, insulin sliding scale with coverage. Stable with a glucose of 119 to 165. MTDD
--- NOTE | 2019-09-11 17:14 | HPE ---
DATE OF ADMISSION: 09/11/2019 The patient has been admitted to acute rehabilitation unit with known history of right toe gangrene, status post ray amputation of the first toe. HISTORY OF PRESENT ILLNESS: This is a 64-year-old male admitted to the medical service from 09/04 to 09/10/2019 due to peripheral vascular disease, status post angioplasty by vascular surgery and ray amputation by podiatry due to wet gangrene of the right big toe due to chronic diabetic foot infection. Despite debridement as an outpatient, Dr. Sterling recommended the patient to come into the hospital for intravenous antibiotics, revascularization and possible amputation due to the nonhealing nature of his right foot wet gangrene, particularly the right first big toe. The patient's oral anticoagulation was held due to planned revascularization. He has a known history of factor V Leiden hypercoagulable state and was placed on heparin. He underwent, on 09/05/2019, ultrasound guided angioplasty of the right superficial femoral artery, right posterior tibial artery, right perineal artery, and repeat angioplasty of right posterior tibial artery, right anterior tibial artery completion arteriogram with Mynx closure of left common femoral artery. He was initially started on intravenous Unasyn, but was changed to vancomycin and meropenem. Cultures from outpatient with Dr. Sterling grew out Staphylococcus aureus and Proteus. Dr. Wily Franco was consulted, who agreed with continued meropenem use. Due to severe gangrenous toe, the patient underwent a first ray amputation with flap closure of the right foot due to osteomyelitis of the right first metatarsal with stage IV infected ulcer. He also underwent irrigation with 3 liters of diluted gentamicin solution with low pressure pulse lavage system by Dr. Tenorio. Postoperatively, he did develop episodes of low glucose, for which is long- acting insulin was adjusted to 60 units daily. The patient continued to have shortness of breath and was initially found to be in chronic obstructive pulmonary disease (COPD) exacerbation and was treated with steroids, nebulizer treatments, as well as diuresis for possible congestive heart failure (CHF) exacerbation. The patient was then discharged from the medical floor and currently admitted to the acute rehabilitation unit, managed by Dr. Selena Silveira with continued medical consultation. PAST MEDICAL HISTORY: 1. Osteomyelitis of the right first metatarsal with stage IV infected ulcer. 2. Peripheral vascular disease, status post angioplasty by Dr. Dsouza of the right superficial femoral, right posterior tibial, right peroneal, right posterior tibial and right anterior tibial arteries with Mynx closure of the left common femoral artery. 3. Dyslipidemia. 4. Diabetes with diabetic neuropathy. 5. Hypertension. 6. Allergic rhinitis. 7. Factor V Leiden mutation on Xarelto. 8. History of deep vein thrombosis (DVT) in the left lower extremity with chronic edema. 9. Diabetic retinopathy. 10. Tobacco abuse. 11. Chronic systolic and diastolic heart failure on Entresto. 12. Degenerative joint disease of the lumbar spine. 13. Monoclonal gammopathy followed by Dr. Pierre. 14. Obesity. PAST SURGICAL HISTORY: 1. Right ray amputation of the first metatarsal on the right. 2. Angioplasty, as mentioned previously. 3. Cholecystectomy. 4. Colonoscopy . 5. Right groin abscess incision and drainage. SOCIAL HISTORY: Continues to smoke one pack per day. FULL CODE. 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 Lives at home with his . FAMILY HISTORY: Noncontributory. ALLERGIES: ERYTHROMYCIN. ACTIVE MEDICATIONS: In the hospital: - Xopenex - Levemir - prednisone - metoprolol - multivitamin - fish oil - Lasix - Zocor - spironolactone - insulin sliding scale - Protonix - Colace - Senokot - meropenem - Mucinex - emollient cream - Ambien - Entresto - Xarelto - milk of magnesia - Tylenol - Dilaudid - hypoglycemic protocol REVIEW OF SYSTEMS: No new complaints. As per history of present illness. PHYSICAL EXAMINATION: VITAL SIGNS: Temperature 96.6, pulse 66, respiratory rate 17, blood pressure 150/82, 95% on 2 liters nasal cannula. GENERAL: The patient is awake, alert, oriented times three. Answering questions appropriately. HEENT: No jugular venous distention (JVD) or thyromegaly. Moist mucous membranes. Appears stated age. LUNGS: Clear to auscultation. No wheezing or rales. HEART: S1, S2. Sinus rhythm. ABDOMEN: Soft, nontender. Positive bowel sounds. Obese abdomen. EXTREMITIES: 1+ pitting edema. Right lower extremity bandaged, blood-tinged. LABORATORY DATA: White count 10.6, hemoglobin 13, hematocrit 41, platelet count 302. Sodium 141, potassium 4.5, chloride 110, bicarbonate 29, BUN 37, creatinine 0.96, glucose 67, calcium 7.7. ASSESSMENT AND PLAN: This is a 64-year-old male with chronic medical problems with osteomyelitis of the first metatarsal, wet gangrene status post first ray amputation of the first metatarsal on the right foot, status post revascularization of the right lower extremity, currently still on intravenous antibiotics. ACTIVE ISSUES: 1. Gangrene, status post first ray amputation with flap closure of the first metatarsal due to a stage IV infected ulcer. Managed by Dr. Tenorio and Dr. Wily Franco, still on intravenous meropenem. Afebrile with decreasing white count, pain control and bowel regimen. 2. Chronic obstructive pulmonary disease (COPD) exacerbation. Improved currently on tapering dose of prednisone. 3. Acute kidney injury, resolved. 4. Congestive heart failure (CHF) exacerbation, resolved. Systolic and diastolic dysfunction, currently euvolemic on his home dose of Entresto and Lasix. 5. Hypertension. Continued on home medications. 6. Hyperlipidemia. On home medications. 7. Type 2 diabetes. Currently on lower dose of his long-acting insulin due to episodes of hypoglycemia. 8. Morbid obesity. Body Mass Index (BMI) is 48, complicating his care. [facility]
--- NOTE | 2019-09-11 17:30 | HPEPDOC ---
Compliance Auditor Note DATE OF ADMISSION: 09-10-19 SOURCE OF ADMISSION INFORMATION: [facility] records and patient CHIEF COMPLAINT: s/p right first ray amputation in setting of osteomyelitis and peripheral polyneuropathy HISTORY OF PRESENT ILLNESS: 64M pmh morbid obesity, diastolic CHF, COPD, monoclonal gammopathy light chains followed by Dr. Harmon, chronic low back pain tobacco use, factor V Leiden with hx of LLE DVT, poorly controlled DM with peripheral polyneuropathy, CKD, PVD with gangrene of his right toe that was debrided by podiatry admitted directly for vascular surgical evaluation. He was seen seen by vascular surgery who on 09-06-19 performed a right aortofemoral arteriogram with angioplasty of the right superficial femoral artery, posterior tibial artery, anterior tibial artery, and peroneal artery. He underwent a right sided 1st ray amputation on 09-09-19 for osteomyelitis of the right first metatarsal with flap closure. He was also evaluated by infectious disease who recommended IV Meropenem and Vancomycin for +proteus and staph aureus wound culture. He later presented with worsening shortness of breath thought to be due to either a COPD exacerbation or CHF exacerbation so was placed on oral steroids. His Xarelto was held prior to his amputation and he was maintained on prophylactic heparin. He was evaluated by therapy and deemed medically appropriate for discharge to ARU with new deficits in mobility and ADL management. REVIEW OF SYSTEMS: The following is a completed review of systems and has been reviewed. Review of systems otherwise unremarkable. PAIN: Patient self reports no pain EYES: No recent vision changes EARS, NOSE, & THROAT: No throat pain, or dysphagia, or rhinorrhea CARDIOVASCULAR: Denies chest pain or palpitations PULMONARY: Denies shortness of breath GASTROINTESTINAL: Denies constipation/diarrhea GENITOURINARY: denies dysuria MUSCULOSKELETAL: low back pain (not at present) NEUROLOGICAL:peripheral polyneuropathy HEMATOLOGICAL: +hypercoagulable SKIN: right 2st ray amputation PSYCHIATRIC: Unremarkable All other review of systems found to be negative. PAST MEDICAL HISTORY: as per HPI PAST SURGICAL HISTORY: Cholecystectomy, tonsillectomy ALLERGIES: Please see below. MEDICATIONS: Please see below. SOCIAL HISTORY: 1ppd smoker, no etoh/illicit drugs use DIET: low salt, consistent carb, fluid restrict PHYSICAL EXAMINATION: VITAL SIGNS: Please see below. GENERAL: Pleasant and cooperative. No acute distress. morbidly obese HEENT: PERRL. Extraocular movements intact. Clear conjunctiva CARDIOVASCULAR: Regular rate and rhythm. No murmurs, rubs, or gallops LUNGS: Clear to auscultation bilaterally. No wheezes. No rhonchi ABDOMEN: Soft, nontender, nondistended. Positive bowel sounds. Normal active bowel sounds NEUROLOGICAL: Alert and oriented times three. Cranial nerves II through XII gr ossly intact. Sensation diminished to light touch left LE in stocking pattern EXTREMITIES: 5\5 strength bilateral upper extremities. 5-\5 strength right hip flexion/knee extension (limited due to recent sugery), 5-/5 strength in left hip flexors, knee extensors, ankle DF, 4/5 EHL extension (+) edema LLE (-) Deepa's bilat SKIN: hyperpigmentation and scaling skin bilat calves, right foot surgical wound with medial deep area with visualized osseous structures and granulation tissue (no foul odor or drainage), flap dull and purple LABORATORY DATA: Please see below. IMAGING: Imaging documentation personally reviewed by record FUNCTIONAL STATUS: Premorbid: Independent with all activities of daily life as well as mobility On Admission: Contact Guard with heel down 50 feet with RW and for assistance for bathing, upper body dressing, bed chair and wheelchair transfers, toilet transfers, ambulation. GOALS: Modified independent with ambulation household distances maintaining NWB to the RLE (this may change depending on how wound heals), functional transfers, toileting, bathing, dressing, assess for DME needs, medical optimization ASSESSMENT:64-year-old M with past medical history of PVD and peripheral polyneuropathy who presents status post right first ray amputation in setting of osteomyelitis. PLAN: 1. Rehab: PT- advance gait training NWB to RLE, forefoot offloaded ordered, c/u to wear surgical shoe for protection -OT advance ADl management, strengthen bilat UE, teach scapular stabilization exercises 2. Neuro: hx of poorly controlled DM with peripheral polyneuropathy with gait impairment -c/u good gylcemic control 3. cardiac: hx of grade 1 diastolic CHF on 2018 ECHO, c/u spironolactone, and fluid restrict to 1800cc, daily weights -HTN c/u Metoprolol , medicine consulted to assist in management HLD- statin 4. Resp: hx of COPD c/u oral steroids and Xopenex, monitor for infection -Guaifenesin ordered 5. Endo: pmh DM c/u levemir and ISS, adjust prn 5. Vasc: hx of factor V Leiden deficiency with hx of LLE DVT, will restart home XArelto 20mg daily dosing 6. GI ppx: Protonix BID while on prednisone 7. ID: ostemyelitis of 1st metatarsal s/p resection, intra-op cultures pending, Dr. Franco consulted, recs appreciated 8. DVT ppx: on therapeutic Xarelto 9. Skin: surgical site care per Dr. Tenorio who has been consulted 10. Pain: Dilaudid prn and Tylenol 11. Dispo: TBD POST ADMISSION PHYSICIAN EVALUATION: Medical and functional status: Description of medical status, medical assessm ent: As above. Rehabilitation diagnosis and current and prior cold morbid medical conditions as above. Risk of complications and plans to mitigate them as above. Description of functional status current status is as above. Prior status as above. Status compared to preadmission: There are no clinically significant differences between the patient's current status and the information described on the preadmission screening document. Treatment plan anticipated: Treatment plan is as described above. Required disciplines including physical therapy, occupational therapy, others as noted above Intensity of services: 3 hours a day, 6 days a week. Special considerations: There are no specific special or safety considerations that would likely preclude immediate implementation of an intensive rehabi litation program or subsequently influence the plan of care ATTESTATION: Considering all the information above, it is my best judgment that this patient requires intensive rehabilitation therapy as described above and an inpatient hospital environment due to the complexity of nursing, medical, and rehabilitation needs required by the patient. Furthermore, this patient can reasonably be expected to participate in an benefit from an inpatient rehabilitation stay with an interdisciplinary team approach to the delivery of rehabilitation care under the direction and supervision of andry john PROGNOSIS: Good ESTIMATED LENGTH OF STAY:12-14 days. PROJECTED DISCHARGE DESTINATION: Home with family support and any durable medical equipment required to increase functional safety and mobility TIME SPENT COUNSELING AND COORDINATING INITIAL CARE: Greater than 70 minutes. Vital Signs Vital Sign - Last 24 Hours 09/10/19 09/10/19 09/10/19 09/10/19 18:00 20:00 21:25 21:30 Temp 98.4 98.1 Pulse 75 74 Resp 18 17 18 B/P (MAP) 142/78 (99) 140/62 (88) Pulse Ox 94 93 O2 Delivery Room Air Room Air O2 Flow Rate 2.0 09/10/19 09/11/19 09/11/19 09/11/19 22:31 06:00 08:21 14:00 Temp 96.6 97.4 Pulse 66 66 73 Resp 18 17 18 B/P (MAP) 150/82 (104) 150/82 176/79 (111) Pulse Ox 95 96 O2 Delivery Nasal Cannula Room Air O2 Flow Rate 2.0 09/11/19 14:24 Resp 18 Laboratory Data CBC/BMP Laboratory Tests 09/11/19 06:37 Labs 24H Laboratory Tests 2 09/11/19 06:16: Bedside Glucose (Misc Panel) 72L 09/11/19 06:37: Immature Granulocyte % (Auto) 1.0, Neutrophils (%) (Auto) 73.0H, Lymphocytes (%) (Auto) 13.9L, Monocytes (%) (Auto) 10.8H, Eosinophils (%) (Auto) 0.7, Basophils (%) (Auto) 0.6, Neutrophils # (Auto) 7.7, Lymphocytes # (Auto) 1.5, Monocytes # (Auto) 1.2H, Eosinophils # (Auto) 0.1, Basophils # (Auto) 0.1, Nucleated Red Blood Cells % (auto) 0.0, Anion Gap 2L, Glomerular Filtration Rate > 60.0, Calcium Level 7.7L, Total Bilirubin 0.2, Aspartate Amino Transf (AST/SGOT) 14, Alanine Aminotransferase (ALT/SGPT) 19, Alkaline Phosphatase 69, Total Protein 6.5, Albumin 1.7L, Albumin/Globulin Ratio 0.35L 09/11/19 11:36: Bedside Glucose (Misc Panel) 108 09/11/19 16:18: Bedside Glucose (Misc Panel) 204H FSBS Laboratory Tests Test 09/11/19 06:16 09/11/19 11:36 09/11/19 16:18 Range/Units Bedside Glucose (Misc Panel) 72 108 204 80-115 MG/DL Home Medications Scheduled Empagliflozin (Jardiance) 25 Mg Tablet, 25 MG PO DAILY, (Reported) Furosemide (Furosemide) 40 Mg Tablet, 40 MG PO DAILY, (Reported) Guaifenesin (Mucinex) 600 Mg Tab.er.12h, 600 MG PO BID Heparin Sodium,Porcine (Heparin Sodium) 5,000 Unit/1 Ml Vial, 5,000 UNITS SQ Q8H Insulin Detemir (Levemir) 100 Unit/1 Ml Vial, 60 UNITS SC DAILY Insulin Human Lispro (Humalog) 100 Unit/1 Ml Vial, 0 UNITS SC AC Insulin Human Lispro (Humalog) 100 Unit/1 Ml Vial, 0 UNITS SC QHS Meropenem (Meropenem) 1 Gm Vial, 1 GM IV Q8H Metoprolol Succinate (Metoprolol Succinate) 50 Mg Tab.er.24h, 50 MG PO DAILY, (Reported) Multivitamins (Thera M Plus Tablet) 1 Tab Tab, 1 TAB PO DAILY, (Reported) [place]-3 Fatty Acids/Fish Oil (Fish Oil 1,000 mg Softgel) 1 Each Capsule, 1 EACH PO 3XW, (Reported) Polyethylene Glycol 3350 (Polyethylene Glycol 3350) 17 Gm Powd.pack, 1 PKT PO DAILY Prednisone (Prednisone) 10 Mg Tablet, 10 MG PO TAPER Take 4 tabs daily x 3 days, then 3 tabs daily x 3 days, then 2 tabs daily x 3 days, then 1 tab daily x 3 days and stop Sacubitril/Valsartan (Entresto 97 mg-103 mg Tablet) 1 Tab Tab, 1 TAB PO BID, (Reported) Simvastatin (Simvastatin) 40 Mg Tab, 40 MG PO DAILY, (Reported) Spironolactone (Spironolactone) 25 Mg Tab, 25 MG PO DAILY, (Reported) Scheduled PRN Acetaminophen (Acetaminophen) 325 Mg Tablet, 650 MG PO Q4H PRN for PAIN OR FEVER, pain 1-7 Docusate Sodium (Colace) 100 Mg Cap, 100 MG PO BID PRN for CONSTIPATION, (Reported) Emollient Base (Vanicream) 453 Gm Cream..g., 1 DOSE TOP TIDP PRN for DRY SKIN Hydromorphone HCl (Dilaudid) 2 Mg Tablet, 0.5 MG PO Q4HP PRN for MODERATE/SEVERE PAIN (PS 8-10) Levalbuterol Hydrochloride (Xopenex Concentrate) 1.25 Mg/0.5 Ml Vial.neb, 1.25 MG INH Q2HP PRN for SOB/WHEEZING Zolpidem Tartrate (Ambien) 5 Mg Tablet, 2.5 MG PO QHS PRN for insomnia Allergies Coded Allergies: erythromycin base (Verified Adverse Reaction, Mild, N/V, 09/04/19) A-FIB/CHADSVASC A-FIB History Current/History of A-Fib/PAF?: No Current PO Anticoag Therapy: Yes CHANELLE CASEY MD Sep 11, 2019 17:30
--- NOTE | 2019-09-11 17:35 | IPNPDOC ---
PM&R Progress Note DATE OF SERVICE: Sep 11, 2019 [employer] Instructor Progress Note Subjective: Patient reports therapy is going well and he understands the importance of maintaining NWB to ensure his wound heals. He is wondering why he is on a fluid restriction. He denies fevers, chills, or worsening pain. REVIEW OF SYSTEMS: The following is a completed review of systems and has been reviewed. Review of systems otherwise unremarkable. PAIN: Patient self reports no pain EYES: No recent vision changes EARS, NOSE, & THROAT: No throat pain, or dysphagia, or rhinorrhea CARDIOVASCULAR: Denies chest pain or palpitations PULMONARY: Denies shortness of breath, + cough GASTROINTESTINAL: Denies constipation/diarrhea GENITOURINARY: denies dysuria MUSCULOSKELETAL: low back pain (not at present) NEUROLOGICAL:peripheral polyneuropathy HEMATOLOGICAL: +hypercoagulable SKIN: right 2st ray amputation PSYCHIATRIC: Unremarkable All other review of systems found to be negative. PHYSICAL EXAMINATION: VITAL SIGNS: Please see below. GENERAL: Pleasant and cooperative. No acute distress. morbidly obese HEENT: PERRL. Extraocular movements intact. Clear conjunctiva CARDIOVASCULAR: Regular rate and rhythm. No murmurs, rubs, or gallops LUNGS: Clear to auscultation bilaterally. No wheezes. No rhonchi ABDOMEN: Soft, nontender, nondistended. Positive bowel sounds. Normal active bowel sounds NEUROLOGICAL: Alert and oriented times three. Cranial nerves II through XII grossly intact. Sensation diminished to light touch left LE in stocking pattern EXTREMITIES: 5\5 strength bilateral upper extremities. 5-\5 strength right hip flexion/knee extension (limited due to recent sugery), 5-/5 strength in left hip flexors, knee extensors, ankle DF, 4/5 EHL extension (+) edema LLE (-) Deepa's bilat SKIN: hyperpigmentation and scaling skin bilat calves, right foot surgical wound with medial deep area with visualized osseous structures and granulation tissue (no foul odor or drainage), flap dull and purple -unstageble ulcer (black) on right heel and 4-5th interdigital space (present on admission) ASSESSMENT:64-year-old M with past medical history of PVD and peripheral polyneuropathy who presents status post right first ray amputation in setting of osteomyelitis. PLAN: 1. Rehab: PT- advance gait training NWB to RLE, forefoot offloaded ordered, c/u to wear surgical shoe for protection -OT advance ADl management, strengthen bilat UE, teach scapular stabilization exercises 2. Neuro: hx of poorly controlled DM with peripheral polyneuropathy with gait impairment -c/u good gylcemic control 3. cardiac: hx of grade 1 diastolic CHF on 2018 ECHO, c/u spironolactone, and fluid restrict to 1800cc, daily weights -HTN c/u Metoprolol , medicine consulted to assist in management HLD- statin 4. Resp: hx of COPD c/u oral steroids and Xopenex, monitor for infection -Guaifenesin ordered 5. Endo: pmh DM c/u levemir and ISS, adjust prn 5. Vasc: hx of factor V Leiden deficiency with hx of LLE DVT, c/u XArelto 20mg daily 6. GI ppx: Protonix BID while on prednisone 7. ID: ostemyelitis of 1st metatarsal s/p resection, intra-op cultures pending, Dr. Franco consulted, recs appreciated 8. DVT ppx: on therapeutic Xarelto 9. Skin: surgical site care per Dr. Tenorio who has been consulted, c/u heel float to RLE 10. Pain: Dilaudid prn and Tylenol 11. Dispo: TBD Allergies Coded Allergies: erythromycin base (Verified Adverse Reaction, Mild, N/V, 09/04/19) Vital Signs Vital Signs Date Time Temp Pulse Resp B/P (MAP) Pulse Ox O2 Delivery O2 Flow Rate FiO2 09/11/19 14:24 18 09/11/19 14:00 97.4 73 176/79 (111) 96 Room Air 09/11/19 06:00 2.0 Laboratory Data CBC/BMP Laboratory Tests 09/11/19 06:37 Labs 24H Laboratory Tests 2 09/11/19 06:16: Bedside Glucose (Misc Panel) 72L 09/11/19 06:37: Immature Granulocyte % (Auto) 1.0, Neutrophils (%) (Auto) 73.0H, Lymphocytes (%) (Auto) 13.9L, Monocytes (%) (Auto) 10.8H, Eosinophils (%) (Auto) 0.7, Basophils (%) (Auto) 0.6, Neutrophils # (Auto) 7.7, Lymphocytes # (Auto) 1.5, Monocytes # (Auto) 1.2H, Eosinophils # (Auto) 0.1, Basophils # (Auto) 0.1, Nucleated Red Blood Cells % (auto) 0.0, Anion Gap 2L, Glomerular Filtration Rate > 60.0, Calcium Level 7.7L, Total Bilirubin 0.2, Aspartate Amino Transf (AST/SGOT) 14, Alanine Aminotransferase (ALT/SGPT) 19, Alkaline Phosphatase 69, Total Protein 6.5, Albumin 1.7L, Albumin/Globulin Ratio 0.35L 09/11/19 11:36: Bedside Glucose (Misc Panel) 108 09/11/19 16:18: Bedside Glucose (Misc Panel) 204H Current Medications Current Medications Current Medications Medications (Trade) Dose Ordered Sig/Jolene Route PRN Reason Start Time Stop Time Status Last Admin Dose Admin Acetaminophen (Tylenol Tab) 650 mg Q4HP PRN PO MILD PAIN (PS 1-4) 09/10/19 19:15 Dextrose (Dextrose 50%) 25 ml ASDIRECTED PRN IV SEE LABEL COMMENTS 09/10/19 19:15 Docusate Sodium (Colace) 100 mg BID PO 09/10/19 21:00 09/11/19 08:21 Emollient Cream (Vanicream) apply to dry skin BID TOP 09/10/19 21:00 09/11/19 08:23 Fish Oil ([place]-3 (1000mg)) 1 cap DAILY PO 09/11/19 09:00 09/11/19 08:20 Furosemide (Lasix) 40 mg DAILY PO 09/11/19 09:00 09/11/19 08:20 Glucagon (Glucagon) 1 mg ASDIRECTED PRN SC SEE LABEL COMMENTS 09/10/19 19:15 Glucose (Glucose) 16 GM ASDIRECTED PRN PO SEE LABEL COMMENTS 09/10/19 19:15 Guaifenesin (Mucinex Tab Er) 600 mg BID PO 09/10/19 21:00 09/11/19 08:20 Heparin Sodium (Porcine) (Heparin) 5,000 units Q8H SC 09/10/19 19:15 09/10/19 19:21 DC Hydromorphone HCl (Dilaudid) 0.5 mg Q4HP PRN PO MODERATE/SEVERE PAIN (PS 5-10) 09/10/19 19:15 09/11/19 14:24 Insulin Detemir (Levemir Insulin) 40 units DAILY SC 09/12/19 09:00 Insulin Detemir (Levemir Insulin) 60 units DAILY SC 09/11/19 09:00 09/11/19 16:04 DC Insulin Human Lispro (HumaLOG INSULIN) SEE PROTOCOL TABLE AC SC 09/11/19 07:30 09/11/19 12:59 Insulin Human Lispro (HumaLOG INSULIN) SEE PROTOCOL TABLE QHS SC 09/10/19 21:00 09/10/19 22:31 Levalbuterol HCl (Xopenex Neb) 1.25 mg Q2HP PRN INH SOB/WHEEZING 09/10/19 19:15 09/10/19 20:05 DC Levalbuterol HCl (Xopenex Neb) 1.25 mg RTID INH 09/11/19 20:00 Magnesium Hydroxide (Milk Of Magnesia) 30 ml DAILYPRN PRN PO CONSTIPATION 09/10/19 19:15 Meropenem 1 gm/IV Miscellaneous Supplies 50 ml @ 100 mls/hr Q8H IV 09/10/19 21:00 09/24/19 20:59 09/11/19 12:59 Metoprolol Succinate (TopROL XL) 50 mg DAILY PO 09/11/19 09:00 09/11/19 16:05 DC 09/11/19 08:21 Metoprolol Succinate (TopROL XL) 75 mg DAILY PO 09/12/19 09:00 Multivitamins (Theragram-M) 1 tab DAILY PO 09/11/19 09:00 09/11/19 08:20 Pantoprazole Sodium (Protonix) 40 mg BID PO 09/10/19 21:00 09/11/19 08:20 Prednisone (Deltasone) 30 mg DAILY PO 09/11/19 09:00 09/11/19 08:21 Rivaroxaban (Xarelto) 20 mg DAILY@18 PO 09/10/19 20:00 09/10/19 21:20 Sacubitril/ Valsartan (Entresto 97-103 Mg) 1 tab BID PO 09/10/19 21:00 09/11/19 08:21 Senna (Senokot) 1 tab QHS PO 09/10/19 21:00 09/10/19 21:21 Simvastatin (Zocor) 40 mg DAILY PO 09/11/19 09:00 09/11/19 08:20 Sodium Chloride (Saline Lock Flush) 2 ml ASDIRECTED PRN IV SEE LABEL COMMENTS 09/11/19 01:30 Sodium Chloride (Saline Lock Flush) 2 ml SLF IV 09/11/19 06:00 09/11/19 13:00 Spironolactone (Aldactone) 25 mg QAM PO 09/11/19 09:00 09/11/19 08:20 Zolpidem Tartrate (Ambien) 2.5 mg QHS PO 09/10/19 21:00 09/10/19 21:26 CHANELLE CASEY MD Sep 11, 2019 17:35
[2019-09-11] MEDS: RIVAROXABAN 20 MG TAB (XARELTO) PO SCH (18:16)
[2019-09-11 20:12] VITALS: BP 168/70
[2019-09-11] MEDS: LEVALBUTEROL 1.25 MG/0.5 ML CONCENTRATE NEB INH SCH (20:18)
[2019-09-11] MEDS: MIRALAX *UNIT DOSE* 17GM PACKET PO PRN (21:15)
[2019-09-11] MEDS: LEVEMIR (INSULIN DETEMIR) 1 UNITS/0.01ML SC SCH (21:16)
[2019-09-11] MEDS: zolPIDEM TARTRATE 5 MG TAB PO SCH (21:16)
[2019-09-11] MEDS: SENNA 8.6 MG TAB (SENOKOT) PO SCH (21:16)
[2019-09-12] MEDS: HYDROmorphone 2 MG TAB PO PRN ×2 (05:07→11:20)
[2019-09-12] MEDS: MEROPENEM INJ 1 GM in IV 1 EA IV SCH ×3 (05:07→21:37)
[2019-09-12] MEDS: SLF 3 ML SYR IV SCH ×3 (05:13→21:37)
[2019-09-12 05:56] LABS: BASO # 0.1 10^3/uL (0.0-0.2); BASO % 0.7 % (0.0-1.0); EOS # 0.2 10^3/uL (0.0-0.5); HEMATOCRIT 40.9 % (42.0-52.0); HEMOGLOBIN 12.9 g/dl (13.5-17.5); LYMPH # 1.6 10^3/uL (1.5-5.0); LYMPH % 15.7 % (24.0-44.0); MEAN CORPUSCULAR HEMOGLOBIN 26.6 pg (27.0-33.0); MEAN CORPUSCULAR HGB CONC 31.5 g/dl (32.0-36.5); MEAN CORPUSCULAR VOLUME 84.3 fl (80.0-96.0); MONO # 1.1 10^3/uL (0.0-0.8); MONO % 10.8 % (0.0-5.0); NEUTROPHILS % 68.8 % (36.0-66.0); PLATELET COUNT, AUTOMATED 301 10^3/uL (150-450); RED BLOOD COUNT 4.85 10^6/uL (4.30-6.10); WHITE BLOOD COUNT 10.1 10^3/uL (4.0-10.0)
[2019-09-12 06:00] VITALS: BP 157/71
[2019-09-12 06:19] LABS: BLOOD UREA NITROGEN 32 MG/DL (7-18); CALCIUM LEVEL 7.9 MG/DL (8.8-10.2); CARBON DIOXIDE LEVEL 28 MEQ/L (21-32); CHLORIDE LEVEL 105 MEQ/L (98-107); CREATININE FOR GFR 0.91 MG/DL (0.70-1.30); GLOMERULAR FILTRATION RATE > 60.0 (>49); GLUCOSE, FASTING 149 MG/DL (70-100); POTASSIUM SERUM 4.2 MEQ/L (3.5-5.1); SODIUM LEVEL 138 MEQ/L (136-145)
[2019-09-12] MEDS: LEVALBUTEROL 1.25 MG/0.5 ML CONCENTRATE NEB INH SCH ×3 (07:34→20:00)
[2019-09-12] MEDS: predniSONE 10 MG TAB PO SCH (08:14)
[2019-09-12] MEDS: HumaLOG INSULIN (NovoLOG) PER UNIT SC SCH ×4 (08:14→21:36)
[2019-09-12] MEDS: FUROSEMIDE 40 MG TAB PO SCH (08:15)
[2019-09-12] MEDS: SIMVASTATIN 40 MG TAB PO SCH (08:15)
[2019-09-12] MEDS: ENTRESTO 97-103MG TABLET (SACUBITRIL/VALSARTAN) PO SCH ×2 (08:15→21:36)
[2019-09-12] MEDS: OMEGA-3 1000MG CAPSULE PO SCH (08:15)
[2019-09-12] MEDS: DOCUSATE SODIUM 100 MG CAP PO SCH ×2 (08:15→21:35)
[2019-09-12] MEDS: PANTOPRAZOLE 40MG TAB (PROTONIX) PO SCH ×2 (08:15→21:36)
[2019-09-12] MEDS: MULTIVITAMINS/MINERALS THERAP 1 TAB PO SCH (08:15)
[2019-09-12] MEDS: SPIRONOLACTONE 25 MG TAB PO SCH (08:15)
[2019-09-12] MEDS: guaiFENesin ER 600 MG TAB PO SCH ×2 (08:15→21:36)
[2019-09-12] MEDS: METOPROLOL SUCC *XL* 25MG TAB (TopROL *XL*) PO SCH (08:17)
[2019-09-12] MEDS: VANICREAM MOISTURIZING SKIN CREAM 113GM TUBE TOP SCH ×2 (08:24→21:37)
[2019-09-12] MEDS ORDERED: LEVEMIR (INSULIN DETEMIR) 1 UNITS/0.01ML SC SCH (09:00)
--- NOTE | 2019-09-12 13:26 | IPN ---
DATE OF VISIT: 09/11/2019 CHIEF COMPLAINT: Patient seen at bedside for evaluation of his right foot. PHYSICAL EXAM: Bandage was removed today and the packing was removed from the proximal wound. The flap displays a somewhat cyanotic appearance. However, it is warm to the touch. There is some delay capillary filling time. The stitches are coapted and maintained. There is no purulent discharge. There is minimal erythema around the incision margin. X-rays were reviewed and reveal resection at the proximal first metatarsal of the first ray. His wound cultures are pending. ASSESSMENT: Status post first ray resection with partial flap closure right foot. PLAN: The patient is to offload his foot with a IPOs type shoe to offload the forefoot, place weight on heel. Orders written to cleanse wound with Vashe followed by Drawtex in the proximal wound and a sterile dressing twice a day. His questions were answered.
[2019-09-12 14:00] VITALS: BP 173/81
[2019-09-12 14:33] VITALS: BP 140/72
[2019-09-12] MEDS: RIVAROXABAN 20 MG TAB (XARELTO) PO SCH (17:22)
[2019-09-12 20:00] VITALS: BP 188/76
[2019-09-12 21:30] VITALS: BP 170/80
[2019-09-12] MEDS: zolPIDEM TARTRATE 5 MG TAB PO SCH (21:36)
[2019-09-12] MEDS: SENNA 8.6 MG TAB (SENOKOT) PO SCH (21:36)
[2019-09-12] MEDS: LEVEMIR (INSULIN DETEMIR) 1 UNITS/0.01ML SC SCH (21:36)
[2019-09-13] MEDS: HYDROmorphone 2 MG TAB PO PRN ×3 (00:40→15:07)
[2019-09-13] MEDS: MEROPENEM INJ 1 GM in IV 1 EA IV SCH ×3 (05:20→21:29)
[2019-09-13 06:06] VITALS: BP 180/80
[2019-09-13] MEDS: SLF 3 ML SYR IV SCH ×3 (06:06→22:00)
[2019-09-13] MEDS: LEVALBUTEROL 1.25 MG/0.5 ML CONCENTRATE NEB INH SCH ×3 (08:00→19:36)
[2019-09-13] MEDS: PANTOPRAZOLE 40MG TAB (PROTONIX) PO SCH ×2 (08:19→21:30)
[2019-09-13] MEDS: MULTIVITAMINS/MINERALS THERAP 1 TAB PO SCH (08:19)
[2019-09-13] MEDS: guaiFENesin ER 600 MG TAB PO SCH ×2 (08:24→21:30)
[2019-09-13] MEDS: SIMVASTATIN 40 MG TAB PO SCH (08:24)
[2019-09-13] MEDS: ENTRESTO 97-103MG TABLET (SACUBITRIL/VALSARTAN) PO SCH ×2 (08:24→21:30)
[2019-09-13] MEDS: METOPROLOL SUCC *XL* 25MG TAB (TopROL *XL*) PO SCH (08:24)
[2019-09-13] MEDS: DOCUSATE SODIUM 100 MG CAP PO SCH ×2 (08:25→21:30)
[2019-09-13] MEDS: OMEGA-3 1000MG CAPSULE PO SCH (08:25)
[2019-09-13] MEDS: FUROSEMIDE 40 MG TAB PO SCH (08:25)
[2019-09-13] MEDS: SPIRONOLACTONE 25 MG TAB PO SCH (08:25)
[2019-09-13] MEDS: predniSONE 10 MG TAB PO SCH (08:25)
[2019-09-13] MEDS: HumaLOG INSULIN (NovoLOG) PER UNIT SC SCH ×4 (08:26→21:30)
[2019-09-13] MEDS: MIRALAX *UNIT DOSE* 17GM PACKET PO PRN (08:38)
[2019-09-13] MEDS: VANICREAM MOISTURIZING SKIN CREAM 113GM TUBE TOP SCH ×2 (12:51→21:31)
[2019-09-13 14:00] VITALS: BP 178/80
[2019-09-13] MEDS: LEVEMIR (INSULIN DETEMIR) 1 UNITS/0.01ML SC SCH (14:50)
[2019-09-13] MEDS: RIVAROXABAN 20 MG TAB (XARELTO) PO SCH (17:27)
[2019-09-13 21:07] VITALS: BP 122/58
[2019-09-13] MEDS: SENNA 8.6 MG TAB (SENOKOT) PO SCH (21:30)
[2019-09-13] MEDS: zolPIDEM TARTRATE 5 MG TAB PO SCH (21:30)
[2019-09-14] MEDS: HYDROmorphone 2 MG TAB PO PRN ×2 (04:08→16:04)
[2019-09-14] MEDS: MEROPENEM INJ 1 GM in IV 1 EA IV SCH ×3 (04:47→21:31)
[2019-09-14 05:30] VITALS: BP 150/63
[2019-09-14] MEDS: SLF 3 ML SYR IV SCH ×3 (06:27→21:30)
[2019-09-14] MEDS: HumaLOG INSULIN (NovoLOG) PER UNIT SC SCH ×4 (07:45→21:31)
[2019-09-14] MEDS: LEVALBUTEROL 1.25 MG/0.5 ML CONCENTRATE NEB INH SCH ×3 (07:51→19:41)
[2019-09-14] MEDS: FUROSEMIDE 40 MG TAB PO SCH (08:21)
[2019-09-14] MEDS: OMEGA-3 1000MG CAPSULE PO SCH (08:21)
[2019-09-14] MEDS: DOCUSATE SODIUM 100 MG CAP PO SCH ×2 (08:21→21:32)
[2019-09-14] MEDS: PANTOPRAZOLE 40MG TAB (PROTONIX) PO SCH ×2 (08:21→21:32)
[2019-09-14] MEDS: guaiFENesin ER 600 MG TAB PO SCH ×2 (08:21→21:32)
[2019-09-14] MEDS: MULTIVITAMINS/MINERALS THERAP 1 TAB PO SCH (08:21)
[2019-09-14] MEDS: predniSONE 10 MG TAB PO SCH (08:22)
[2019-09-14] MEDS: SPIRONOLACTONE 25 MG TAB PO SCH (08:22)
[2019-09-14] MEDS: METOPROLOL SUCC (TopROL XL) 100MG *XL* TAB PO SCH (08:22)
[2019-09-14] MEDS: SIMVASTATIN 40 MG TAB PO SCH (08:22)
[2019-09-14] MEDS: ENTRESTO 97-103MG TABLET (SACUBITRIL/VALSARTAN) PO SCH ×2 (08:22→21:33)
[2019-09-14] MEDS: VANICREAM MOISTURIZING SKIN CREAM 113GM TUBE TOP SCH ×2 (08:23→21:33)
[2019-09-14] MEDS: LEVEMIR (INSULIN DETEMIR) 1 UNITS/0.01ML SC SCH (08:23)
[2019-09-14] MEDS: amLODIPine 5 MG TAB PO SCH ×2 (13:00→21:32)
[2019-09-14 14:00] VITALS: BP 138/62
[2019-09-14] MEDS: RIVAROXABAN 20 MG TAB (XARELTO) PO SCH (17:09)
[2019-09-14 19:20] VITALS: BP 136/54
[2019-09-14] MEDS ORDERED: LEVEMIR (INSULIN DETEMIR) 1 UNITS/0.01ML SC ONE (21:00)
[2019-09-14] MEDS ORDERED: HumaLOG INSULIN (NovoLOG) PER UNIT SC ONE (21:00)
[2019-09-14] MEDS: zolPIDEM TARTRATE 5 MG TAB PO SCH (21:32)
[2019-09-14] MEDS: SENNA 8.6 MG TAB (SENOKOT) PO SCH (21:33)
[2019-09-15] MEDS: HYDROmorphone 2 MG TAB PO PRN ×2 (04:03→14:41)
[2019-09-15] MEDS: MEROPENEM INJ 1 GM in IV 1 EA IV SCH ×3 (04:51→21:56)
[2019-09-15 06:05] VITALS: BP 150/62
[2019-09-15] MEDS: SLF 3 ML SYR IV SCH ×3 (06:13→21:57)
[2019-09-15] MEDS: HumaLOG INSULIN (NovoLOG) PER UNIT SC SCH ×4 (07:27→21:56)
[2019-09-15] MEDS: MULTIVITAMINS/MINERALS THERAP 1 TAB PO SCH (07:28)
[2019-09-15] MEDS: DOCUSATE SODIUM 100 MG CAP PO SCH ×2 (07:28→21:56)
[2019-09-15] MEDS: guaiFENesin ER 600 MG TAB PO SCH ×2 (07:28→21:55)
[2019-09-15] MEDS: OMEGA-3 1000MG CAPSULE PO SCH (07:28)
[2019-09-15] MEDS: FUROSEMIDE 40 MG TAB PO SCH (07:28)
[2019-09-15] MEDS: ENTRESTO 97-103MG TABLET (SACUBITRIL/VALSARTAN) PO SCH ×2 (07:29→21:55)
[2019-09-15] MEDS: predniSONE 10 MG TAB PO SCH (07:29)
[2019-09-15] MEDS: PANTOPRAZOLE 40MG TAB (PROTONIX) PO SCH ×2 (07:29→21:55)
[2019-09-15] MEDS: SIMVASTATIN 40 MG TAB PO SCH (07:29)
[2019-09-15] MEDS: METOPROLOL SUCC (TopROL XL) 100MG *XL* TAB PO SCH (07:29)
[2019-09-15] MEDS: SPIRONOLACTONE 25 MG TAB PO SCH (07:30)
[2019-09-15] MEDS: VANICREAM MOISTURIZING SKIN CREAM 113GM TUBE TOP SCH ×2 (07:30→21:57)
[2019-09-15] MEDS: amLODIPine 5 MG TAB PO SCH ×2 (07:37→21:56)
[2019-09-15] MEDS: LEVALBUTEROL 1.25 MG/0.5 ML CONCENTRATE NEB INH SCH ×3 (07:46→19:06)
[2019-09-15] MEDS ORDERED: LEVEMIR (INSULIN DETEMIR) 1 UNITS/0.01ML SC SCH ×2 (09:00)
--- NOTE | 2019-09-15 13:58 | IPN ---
DATE OF SERVICE: 09/15/2019 Despite pressure 140-150, the patient denies chest pain, pressure, tightness, headache, changes in vision, shortness of breath. Insulin is increased for better glycemic control. Glucose of 315, 326. No significant discharge in the right foot. Vital signs: Temperature 98, pulse 68, respiratory rate 18, blood pressure 150/62, 98% on room air. Generally, awake, alert, oriented times three, answering questions appropriately. Anicteric sclerae. No jaundice. No jugular venous distention (JVD), cervical lymphadenopathy, or thyromegaly. Lungs are clear to auscultation. No wheezing, rales, or rhonchi. Heart: S1, S2, sinus rhythm. Abdomen: Is obese, soft, nontender, nondistended. Positive bowel sounds. Extremities: Right foot 1st ray amputation. 1+ edema bilaterally. ASSESSMENT AND PLAN: A 64-year-old with osteomyelitis of the 1st metatarsal with gangrene, status post 1st ray amputation, 1st metatarsal right foot, revascularization right lower extremity. IMPRESSION: 1. Osteomyelitis, gangrene, 1st ray amputation with flap closure, 1st metatarsal due to stage IV infected ulcer. Wound management postoperatively per Dr. Tenorio, per Dr. Franco, on intravenous (IV) meropenem. Afebrile, currently on bowel regimen and pain control. 2. Chronic obstructive pulmonary disease (COPD) exacerbation. The patient on a tapering dose of prednisone. COPD is improved. Nebulizer treatment. 3. Acute kidney injury, resolved. 4. Congestive heart failure (CHF) exacerbation. Euvolemic. Continued on home dose of Entresto. 5. Type 2 diabetes. On increased dose of Levemir. Currently 190-326. Titrate for better glycemic control. 6. Hypertension. Currently on Norvasc 5 mg twice a day, Lasix, Entresto, and spironolactone. MTDD
[2019-09-15 14:00] VITALS: BP 152/78
[2019-09-15] MEDS ORDERED: HumaLOG INSULIN (NovoLOG) PER UNIT SC STA (16:40)
[2019-09-15] MEDS: RIVAROXABAN 20 MG TAB (XARELTO) PO SCH (17:02)
[2019-09-15 20:00] VITALS: BP 151/86
[2019-09-15] MEDS: zolPIDEM TARTRATE 5 MG TAB PO SCH (21:55)
[2019-09-15] MEDS: SENNA 8.6 MG TAB (SENOKOT) PO SCH (21:55)
[2019-09-16] MEDS: MEROPENEM INJ 1 GM in IV 1 EA IV SCH ×2 (05:20→13:10)
[2019-09-16] MEDS: SLF 3 ML SYR IV SCH ×3 (05:21→22:00)
[2019-09-16] MEDS: HYDROmorphone 2 MG TAB PO PRN (05:21)
[2019-09-16 06:00] VITALS: BP 147/79
[2019-09-16] MEDS: LEVALBUTEROL 1.25 MG/0.5 ML CONCENTRATE NEB INH SCH ×3 (07:30→20:16)
[2019-09-16] MEDS: SPIRONOLACTONE 25 MG TAB PO SCH (08:33)
[2019-09-16] MEDS: HumaLOG INSULIN (NovoLOG) PER UNIT SC SCH ×4 (08:33→22:27)
[2019-09-16] MEDS: guaiFENesin ER 600 MG TAB PO SCH ×2 (08:34→22:26)
[2019-09-16] MEDS: OMEGA-3 1000MG CAPSULE PO SCH (08:34)
[2019-09-16] MEDS: DOCUSATE SODIUM 100 MG CAP PO SCH ×2 (08:34→22:26)
[2019-09-16] MEDS: ENTRESTO 97-103MG TABLET (SACUBITRIL/VALSARTAN) PO SCH ×2 (08:34→22:26)
[2019-09-16] MEDS: predniSONE 10 MG TAB PO SCH (08:34)
[2019-09-16] MEDS: MULTIVITAMINS/MINERALS THERAP 1 TAB PO SCH (08:34)
[2019-09-16] MEDS: PANTOPRAZOLE 40MG TAB (PROTONIX) PO SCH ×2 (08:34→22:26)
[2019-09-16] MEDS: METOPROLOL SUCC (TopROL XL) 100MG *XL* TAB PO SCH (08:35)
[2019-09-16] MEDS: FUROSEMIDE 40 MG TAB PO SCH (08:35)
[2019-09-16] MEDS: LEVEMIR (INSULIN DETEMIR) 1 UNITS/0.01ML SC SCH (08:36)
[2019-09-16] MEDS: VANICREAM MOISTURIZING SKIN CREAM 113GM TUBE TOP SCH ×2 (08:36→22:28)
[2019-09-16] MEDS ORDERED: LEVEMIR (INSULIN DETEMIR) 1 UNITS/0.01ML SC SCH (09:00)
[2019-09-16] MEDS: ISOSORBIDE DIN (ISORDIL) 10 MG TAB PO SCH ×3 (10:00→17:29)
[2019-09-16 10:12] LABS: BASO # 0.1 10^3/uL (0.0-0.2); BASO % 0.7 % (0.0-1.0); EOS # 0.2 10^3/uL (0.0-0.5); EOS % 1.8 % (0.0-3.0); HEMOGLOBIN 13.4 g/dl (13.5-17.5); LYMPH # 2.1 10^3/uL (1.5-5.0); MEAN CORPUSCULAR HEMOGLOBIN 26.5 pg (27.0-33.0); MEAN CORPUSCULAR HGB CONC 31.2 g/dl (32.0-36.5); MEAN CORPUSCULAR VOLUME 85.1 fl (80.0-96.0); MONO # 0.8 10^3/uL (0.0-0.8); MONO % 7.7 % (0.0-5.0); NEUTROPHILS # 7.1 10^3/uL (1.5-8.5); NEUTROPHILS % 67.9 % (36.0-66.0); PLATELET COUNT, AUTOMATED 265 10^3/uL (150-450); RED BLOOD COUNT 5.05 10^6/uL (4.30-6.10); WHITE BLOOD COUNT 10.4 10^3/uL (4.0-10.0)
[2019-09-16 10:30] LABS: HEMOGLOBIN A1c 8.6 %
[2019-09-16 10:47] LABS: ALBUMIN 2.1 GM/DL (3.2-5.2); ALT/SGPT 25 U/L (12-78); BILIRUBIN,TOTAL 0.3 MG/DL (0.2-1.0); BLOOD UREA NITROGEN 36 MG/DL (7-18); C REACTIVE PROTEIN QUANTITATIV 0.36 MG/DL (0.00-0.30); CARBON DIOXIDE LEVEL 28 MEQ/L (21-32); CHLORIDE LEVEL 103 MEQ/L (98-107); CREATININE FOR GFR 1.07 MG/DL (0.70-1.30); GLOMERULAR FILTRATION RATE > 60.0 (>49); GLUCOSE, FASTING 214 MG/DL (70-100); POTASSIUM SERUM 4.9 MEQ/L (3.5-5.1); SODIUM LEVEL 138 MEQ/L (136-145); TOTAL PROTEIN 6.3 GM/DL (6.4-8.2)
[2019-09-16 11:16] LABS: ERYTHROCYTE SEDIMENTATION RATE 29 mm/hr (0-20)
--- NOTE | 2019-09-16 12:02 | IPNPDOC ---
PM&R Progress Note DATE OF SERVICE: Sep 16, 2019 Database Dba Progress Note Subjective: Patient reports he is unhappy with his diet stating he wants to eat sausage and degroot. He is worried about his surgical site and encouraged to maintain NWB to the RLE and work on upper body strengthening. REVIEW OF SYSTEMS: The following is a completed review of systems and has been reviewed. Review of systems otherwise unremarkable. PAIN: Patient self reports no pain EYES: No recent vision changes EARS, NOSE, & THROAT: No throat pain, or dysphagia, or rhinorrhea CARDIOVASCULAR: Denies chest pain or palpitations PULMONARY: Denies shortness of breath, + cough (improving) GASTROINTESTINAL: Denies constipation/diarrhea GENITOURINARY: denies dysuria MUSCULOSKELETAL: low back pain (not at present) NEUROLOGICAL:peripheral polyneuropathy HEMATOLOGICAL: +hypercoagulable SKIN: right 2st ray amputation PSYCHIATRIC: Unremarkable All other review of systems found to be negative. PHYSICAL EXAMINATION: VITAL SIGNS: Please see below. GENERAL: Pleasant and cooperative. No acute distress. morbidly obese HEENT: PERRL. Extraocular movements intact. Clear conjunctiva CARDIOVASCULAR: Regular rate and rhythm. No murmurs, rubs, or gallops LUNGS: Clear to auscultation bilaterally. No wheezes. No rhonchi ABDOMEN: Soft, nontender, nondistended. Positive bowel sounds. Normal active bowel sounds NEUROLOGICAL: Alert and oriented times three. Cranial nerves II through XII grossly intact. Sensation diminished to light touch left LE in stocking pattern EXTREMITIES: 5\5 strength bilateral upper extremities. 5-\5 strength right hip flexion/knee extension (limited due to recent sugery), 5-/5 strength in left hip flexors, knee extensors, ankle DF, 4/5 EHL extension (+) edema LLE (-) Deepa's bilat SKIN: hyperpigmentation and scaling skin bilat calves, right foot surgical wound with medial deep area with visualized osseous structures and granulation tissue with exudate, flap appears necrotic -unstageble ulcer (black) on right heel and 4-5th interdigital space (present on admission) ASSESSMENT:64-year-old M with past medical history of PVD and peripheral polyneuropathy who presents status post right first ray amputation in setting of osteomyelitis. PLAN: 1. Rehab: PT- advance gait training NWB to RLE, forefoot offloader to put weight through to prevent losses of balance only while wound heals -OT advance ADl management, strengthen bilat UE, teach scapular stabilization exercises 2. Neuro: hx of poorly controlled DM with peripheral polyneuropathy with gait impairment -aim for good gylcemic control 3. cardiac: hx of grade 1 diastolic CHF on 2018 ECHO, c/u spironolactone, and fluid restrict to 1800cc, daily weights -HTN c/u Metoprolol , medicine consulted to assist in management, recs appreciated HLD- statin 4. Resp: hx of COPD c/u oral steroids (will start to taper) and Xopenex, monitor for infection -c/u Guaifenesin, cough improving 5. Endo: pmh DM c/u levemir and ISS, adjust prn 5. Vasc: hx of factor V Leiden deficiency with hx of LLE DVT, c/u XArelto 20mg daily 6. GI ppx: Protonix BID while on prednisone 7. ID: osteomyelitis of 1st metatarsal s/p resection, intra-op cultures pending, Dr. Franco consulted, recs appreciated, c/u IV Meropenem 8. DVT ppx: on therapeutic Xarelto 9. Skin: surgical site care per Dr. Tenorio who has been consulted, c/u heel float to RLE 10. Pain: Dilaudid prn and Tylenol 11. Dispo: TBD Allergies Coded Allergies: erythromycin base (Verified Adverse Reaction, Mild, N/V, 09/04/19) Vital Signs Vital Signs Date Time Temp Pulse Resp B/P (MAP) Pulse Ox O2 Delivery O2 Flow Rate FiO2 09/16/19 09:00 2.0 09/16/19 08:35 68 147/79 09/16/19 06:15 18 09/16/19 06:00 97.5 97 Nasal Cannula Laboratory Data CBC/BMP Laboratory Tests 09/16/19 09:30 Labs 24H Laboratory Tests 2 09/15/19 16:29: Bedside Glucose (Misc Panel) 329H 09/15/19 19:29: Bedside Glucose (Misc Panel) 335H 09/15/19 23:05: Bedside Glucose (Misc Panel) 244H 09/16/19 05:20: Bedside Glucose (Misc Panel) 178H 09/16/19 09:30: Immature Granulocyte % (Auto) 1.9, Neutrophils (%) (Auto) 67.9H, Lymphocytes (%) (Auto) 20.0L, Monocytes (%) (Auto) 7.7H, Eosinophils (%) (Auto) 1.8, Basophils (%) (Auto) 0.7, Neutrophils # (Auto) 7.1, Lymphocytes # (Auto) 2.1, Monocytes # (Auto) 0.8, Eosinophils # (Auto) 0.2, Basophils # (Auto) 0.1, Nucleated Red Blood Cells % (auto) 0.0, Erythrocyte Sedimentation Rate 29H, Anion Gap 7L, Glomerular Filtration Rate > 60.0, Estimated Mean Plasma Glucose 200H, Hemoglobin A1c 8.6, Calcium Level 8.0L, Magnesium Level 2.0, Total Bilirubin 0.3, Aspartate Amino Transf (AST/SGOT) 17, Alanine Aminotransferase (ALT/SGPT) 25, Alkaline Phosphatase 94, C-Reactive Protein, Quantitative 0.36H, Total Protein 6.3L, Albumin 2.1L, Albumin/Globulin Ratio 0.50L 09/16/19 11:25: Bedside Glucose (Misc Panel) 183H Current Medications Current Medications Current Medications Medications (Trade) Dose Ordered Sig/Jolene Route PRN Reason Start Time Stop Time Status Last Admin Dose Admin Acetaminophen (Tylenol Tab) 650 mg Q4HP PRN PO MILD PAIN (PS 1-4) 09/10/19 19:15 Amlodipine Besylate (Norvasc) 5 mg BID PO 09/14/19 13:00 09/16/19 07:48 DC 09/15/19 21:56 Amlodipine Besylate (Norvasc) 10 mg QHS PO 09/16/19 21:00 Dextrose (Dextrose 50%) 25 ml ASDIRECTED PRN IV SEE LABEL COMMENTS 09/10/19 19:15 Docusate Sodium (Colace) 100 mg BID PO 09/10/19 21:00 09/16/19 08:34 Emollient Cream (Vanicream) apply to dry skin BID TOP 09/10/19 21:00 09/16/19 08:36 Fish Oil (Hampton-3 (1000mg)) 1 cap DAILY PO 09/11/19 09:00 09/16/19 08:34 Furosemide (Lasix) 40 mg DAILY PO 09/11/19 09:00 09/16/19 08:35 Glucagon (Glucagon) 1 mg ASDIRECTED PRN SC SEE LABEL COMMENTS 09/10/19 19:15 Glucose (Glucose) 16 GM ASDIRECTED PRN PO SEE LABEL COMMENTS 09/10/19 19:15 Guaifenesin (Mucinex Tab Er) 600 mg BID PO 09/10/19 21:00 09/16/19 08:34 Heparin Sodium (Porcine) (Heparin) 5,000 units Q8H SC 09/10/19 19:15 09/10/19 19:21 DC Hydromorphone HCl (Dilaudid) 0.5 mg Q4HP PRN PO MODERATE/SEVERE PAIN (PS 5-10) 09/10/19 19:15 09/16/19 05:21 Insulin Detemir (Levemir Insulin) 10 units QHS NM 09/11/19 21:00 09/13/19 13:48 DC 09/12/19 21:36 Insulin Detemir (Levemir Insulin) 15 units DAILY NM 09/13/19 09:00 09/14/19 13:04 DC Insulin Detemir (Levemir Insulin) 15 units DAILY NM 09/15/19 09:00 09/15/19 23:48 DC 09/15/19 07:27 Insulin Detemir (Levemir Insulin) 16 units DAILY NM 09/16/19 09:00 09/16/19 07:47 DC Insulin Detemir (Levemir Insulin) 18 units DAILY NM 09/16/19 09:00 Insulin Detemir (Levemir Insulin) 20 units DAILY NM 09/15/19 09:00 09/14/19 12:58 DC Insulin Detemir (Levemir Insulin) 40 units DAILY NM 09/12/19 09:00 09/11/19 17:34 DC Insulin Detemir (Levemir Insulin) 60 units DAILY SC 09/11/19 09:00 09/11/19 16:04 DC Insulin Human Lispro (HumaLOG INSULIN) 16 units STAT STAT NM 09/15/19 16:40 09/15/19 16:42 DC 09/15/19 17:02 Insulin Human Lispro (HumaLOG INSULIN) SEE PROTOCOL TABLE AC NM 09/11/19 07:30 09/16/19 08:33 Insulin Human Lispro (HumaLOG INSULIN) SEE PROTOCOL TABLE QHS NM 09/10/19 21:00 09/15/19 21:56 Isosorbide Dinitrate (Isordil) 10 mg TID@07,12,17 PO 09/16/19 09:00 Levalbuterol HCl (Xopenex Neb) 1.25 mg Q2HP PRN INH SOB/WHEEZING 09/10/19 19:15 09/10/19 20:05 DC Levalbuterol HCl (Xopenex Neb) 1.25 mg RTID INH 09/11/19 20:00 09/16/19 07:30 Magnesium Hydroxide (Milk Of Magnesia) 30 ml DAILYPRN PRN PO CONSTIPATION 09/10/19 19:15 Meropenem 1 gm/IV Miscellaneous Supplies 50 ml @ 100 mls/hr Q8H IV 09/10/19 21:00 09/24/19 20:59 09/16/19 05:20 Metoprolol Succinate (TopROL XL) 50 mg DAILY PO 09/11/19 09:00 09/11/19 16:05 DC 09/11/19 08:21 Metoprolol Succinate (TopROL XL) 75 mg DAILY PO 09/12/19 09:00 09/13/19 13:48 DC 09/13/19 08:24 Metoprolol Succinate (TopROL XL) 100 mg DAILY PO 09/14/19 09:00 09/16/19 08:35 Multivitamins (Theragram-M) 1 tab DAILY PO 09/11/19 09:00 09/16/19 08:34 Pantoprazole Sodium (Protonix) 40 mg BID PO 09/10/19 21:00 09/16/19 08:34 Polyethylene Glycol (Miralax) 1 pkt DAILYPRN PRN PO CONSTIPATION 09/11/19 20:15 09/13/19 08:38 Prednisone (Deltasone) 20 mg DAILY PO 09/18/19 09:00 Prednisone (Deltasone) 20 mg DAILY PO 09/19/19 09:00 09/16/19 10:59 DC Prednisone (Deltasone) 30 mg DAILY PO 09/11/19 09:00 09/17/19 10:00 09/16/19 08:34 Rivaroxaban (Xarelto) 20 mg DAILY@18 PO 09/10/19 20:00 09/15/19 17:02 Sacubitril/ Valsartan (Entresto 97-103 Mg) 1 tab BID PO 09/10/19 21:00 09/16/19 08:34 Senna (Senokot) 1 tab QHS PO 09/10/19 21:00 09/15/19 21:55 Simvastatin (Zocor) 20 mg QHS PO 09/16/19 21:00 Simvastatin (Zocor) 40 mg DAILY PO 09/11/19 09:00 09/16/19 08:36 DC 09/15/19 07:29 Sodium Chloride (Saline Lock Flush) 2 ml ASDIRECTED PRN IV SEE LABEL COMMENTS 09/11/19 01:30 Sodium Chloride (Saline Lock Flush) 2 ml SLF IV 09/11/19 06:00 09/16/19 05:21 Spironolactone (Aldactone) 25 mg QAM PO 09/11/19 09:00 09/16/19 08:33 Zolpidem Tartrate (Ambien) 2.5 mg QHS PO 09/10/19 21:00 09/15/19 21:55 CHANELLE CASEY MD Sep 16, 2019 12:02
[2019-09-16 14:00] VITALS: BP 146/74
[2019-09-16] MEDS: RIVAROXABAN 20 MG TAB (XARELTO) PO SCH (17:27)
--- NOTE | 2019-09-16 17:51 | IPN ---
DATE: 09/16/2019 Mr. Boyce seems to be doing well except that he is concerned about skin necrosis of the flap. He has no nausea, vomiting, diarrhea, abdominal pain, fever or chills. He has been and walking, doing physical therapy. PHYSICAL EXAMINATION: Temperature is 97.5, pulse 68, respirations 18, blood pressure 147/79, oxygen saturation 97% on two liters nasal cannula. HEART: Normal S1, S2. No murmurs. LUNGS: Few expiratory wheezes bilaterally, diminished. ABDOMEN: Morbidly obese, soft, nontender. EXTREMITIES: Trace edema, right foot with necrotic flap on the right big toe status post ray amputation. The wound is open mid foot has nice granulation tissue with serosanguineous drainage. There is an ischemic ulcer between the fourth and fifth toe that is now dry gangrenous. The ulcer measures about 2 cm each side. He has also a heel ulcer measuring about 3 cm with black eschar, slightly tender to touch and some serosanguineous discharge. LABORATORY DATA: White count 10.4, hemoglobin 13.4, hematocrit 43, platelets 265, 70% neutrophils, 20% lymphocytes, 8% monocytes. ESR 29. Hemoglobin A1c 8.6. Sodium 138, potassium 4.9, chloride 103, bicarbonate 28, BUN 36, creatinine 1.07, glucose 214, CRP 0.36. Wound culture had Proteus mirabilis, Staphylococcus aureus, Enterococcus faecalis, and anaerobic culture was final negative. MEDICATIONS: - prednisone 30 mg daily - meropenem 1 gram IV every eight hours since 09/04/2019, currently on day number 14 of IV antibiotics IMPRESSION: 1. Acute osteomyelitis with gangrene of the right toe status post ray amputation. 2. Peripheral vascular disease with ischemic ulcer of the fourth and fifth toe. Fourth and fifth toe healing better status post angioplasty. 3. Pressure ulcer of the right heel. 4. Necrosis of skin flap, right toe but no evidence of infection. PLAN: We will discontinue IV meropenem and switch him to oral antibiotics. Enterococcus (E) faecalis is resistant to tetracycline. Therefore, we will switch him to levofloxacin that should cover Proteus, E. faecalis and Staphylococcus aureus. I will call the laboratory for susceptibility on Staphylococcus aureus before switching to quinolones.
--- NOTE | 2019-09-16 19:29 | IPN ---
DATE: 09/16/2019 CHIEF COMPLAINT: The patient is seen today at 5:43 p.m. for evaluation of surgical amputation of the first ray with creation of a hallux flap to cover his wound on the right foot. PHYSICAL EXAMINATION: The open area, which is covered with Drawtex, shows good granulation tissue and no purulent discharge. There is no surrounding erythema. The flap covering the distal aspect of the ray amputation site is dark in color; however, it is somewhat soft to palpation; however, there is no fluid under the flap site and no signs of infection of the flap itself. The patient's laboratory studies were reviewed and revealing a sed rate of 29, C-reactive protein of 0.36. Mycobacteriology of Proteus mirabilis, Staphylococcus aureus and Enterococcus faecalis, presently on imipenem and can be switched to oral antibiotics. We will have infectious disease order this for the patient. Discussed with the patient local wound care consisting of Drawtex to the open wound followed by a foam dressing covering the distal flap. He can off load this with an ipos shoe. We discussed with the patient if the flap becomes infected or fluid is under the flap itself this could be debrided and switched to a wound vac. However, as long as the graft is not infected, healing rate could be increased by allowing the graft to be use as a dressing.. If we do switch to a wound vac, would recommend a white and black foam composite with a dorsal bridge on the lower leg. His questions were answered. [place]
[2019-09-16 20:00] VITALS: BP 157/58
[2019-09-16] MEDS: SENNA 8.6 MG TAB (SENOKOT) PO SCH (22:26)
[2019-09-16] MEDS: SIMVASTATIN 20 MG TAB PO SCH (22:27)
[2019-09-16] MEDS: amLODIPine 10 MG TAB PO SCH (22:27)
[2019-09-16] MEDS: zolPIDEM TARTRATE 5 MG TAB PO SCH (22:28)
[2019-09-17] MEDS: SLF 3 ML SYR IV SCH (06:00)
[2019-09-17] MEDS: LevoFLOXacin 500 MG TABLET PO SCH (06:53)
[2019-09-17] MEDS: ISOSORBIDE DIN (ISORDIL) 10 MG TAB PO SCH ×3 (06:53→18:02)
[2019-09-17 06:54] VITALS: BP 168/64
[2019-09-17] MEDS: LEVALBUTEROL 1.25 MG/0.5 ML CONCENTRATE NEB INH SCH ×3 (07:29→19:36)
[2019-09-17] MEDS: HumaLOG INSULIN (NovoLOG) PER UNIT SC SCH ×4 (08:24→20:45)
[2019-09-17] MEDS: LEVEMIR (INSULIN DETEMIR) 1 UNITS/0.01ML SC SCH ×2 (08:25→20:45)
[2019-09-17] MEDS: ENTRESTO 97-103MG TABLET (SACUBITRIL/VALSARTAN) PO SCH ×2 (08:25→20:44)
[2019-09-17] MEDS: OMEGA-3 1000MG CAPSULE PO SCH (08:25)
[2019-09-17] MEDS: FUROSEMIDE 40 MG TAB PO SCH (08:25)
[2019-09-17] MEDS: DOCUSATE SODIUM 100 MG CAP PO SCH ×2 (08:25→20:44)
[2019-09-17] MEDS: guaiFENesin ER 600 MG TAB PO SCH ×2 (08:25→20:44)
[2019-09-17] MEDS: MULTIVITAMINS/MINERALS THERAP 1 TAB PO SCH (08:25)
[2019-09-17] MEDS: PANTOPRAZOLE 40MG TAB (PROTONIX) PO SCH ×2 (08:25→20:44)
[2019-09-17] MEDS: predniSONE 10 MG TAB PO SCH (08:26)
[2019-09-17] MEDS: METOPROLOL SUCC (TopROL XL) 100MG *XL* TAB PO SCH (08:26)
[2019-09-17] MEDS: SPIRONOLACTONE 25 MG TAB PO SCH (08:26)
[2019-09-17] MEDS: VANICREAM MOISTURIZING SKIN CREAM 113GM TUBE TOP SCH ×2 (08:27→20:45)
[2019-09-17] MEDS: HYDROmorphone 2 MG TAB PO PRN (12:17)
--- NOTE | 2019-09-17 12:36 | IPNPDOC ---
PM&R Progress Note DATE OF SERVICE: Sep 17, 2019 Travel Specialist Progress Note Subjective: Patient reports he is starting to enjoy therapy and feels he is getting stronger. He reports a shooting pain in his right foot that happens several times a day. REVIEW OF SYSTEMS: The following is a completed review of systems and has been reviewed. Review of systems otherwise unremarkable. PAIN: Patient self reports no pain EYES: No recent vision changes EARS, NOSE, & THROAT: No throat pain, or dysphagia, or rhinorrhea CARDIOVASCULAR: Denies chest pain or palpitations PULMONARY: Denies shortness of breath, + cough (improving) GASTROINTESTINAL: Denies constipation/diarrhea GENITOURINARY: denies dysuria MUSCULOSKELETAL: low back pain (not at present) NEUROLOGICAL:peripheral polyneuropathy HEMATOLOGICAL: +hypercoagulable SKIN: right 2st ray amputation PSYCHIATRIC: Unremarkable All other review of systems found to be negative. PHYSICAL EXAMINATION: VITAL SIGNS: Please see below. GENERAL: Pleasant and cooperative. No acute distress. morbidly obese HEENT: PERRL. Extraocular movements intact. Clear conjunctiva CARDIOVASCULAR: Regular rate and rhythm. No murmurs, rubs, or gallops LUNGS: Clear to auscultation bilaterally. No wheezes. No rhonchi ABDOMEN: Soft, nontender, nondistended. Positive bowel sounds. Normal active bowel sounds NEUROLOGICAL: Alert and oriented times three. Cranial nerves II through XII grossly intact. Sensation diminished to light touch left LE in stocking pattern EXTREMITIES: 5\5 strength bilateral upper extremities. 5-\5 strength right hip flexion/knee extension (limited due to recent sugery), 5-/5 strength in left hip flexors, knee extensors, ankle DF, 4/5 EHL extension (+) edema LLE (-) Deepa's bilat SKIN: hyperpigmentation and scaling skin bilat calves, right foot surgical wound with medial deep area with visualized osseous structures and granulation tissue with adipose tissue, flap appears necrotic, but dry -unstageble ulcer (black) on right heel and 4-5th interdigital space (present on admission) ASSESSMENT:64-year-old M with past medical history of PVD and peripheral polyneuropathy who presents status post right first ray amputation in setting of osteomyelitis. PLAN: 1. Rehab: PT- advance gait training to short distance while using forefoot offloader-wound healing well -OT advance ADL management, strengthen bilat UE, teach scapular stabilization exercises 2. Neuro: hx of poorly controlled DM with peripheral polyneuropathy with gait impairment -aim for good gylcemic control 3. cardiac: hx of grade 1 diastolic CHF on 2018 ECHO, c/u spironolactone, and fluid restrict to 1800cc, daily weights -HTN c/u Metoprolol , medicine consulted to assist in management, recs appreciated HLD- statin 4. Resp: hx of COPD c/u oral steroids (tapering) and Xopenex, monitor for infection -c/u Guaifenesin, cough improving 5. Endo: pmh DM c/u levemir and ISS, adjust prn 5. Vasc: hx of factor V Leiden deficiency with hx of LLE DVT, c/u Xarelto 20mg daily 6. GI ppx: Protonix BID while on prednisone 7. ID: osteomyelitis of 1st metatarsal s/p resection, intra-op cultures pending, Dr. Franco consulted, recs appreciated, ESR/CRP low, foot does not appear to be infected, s/p IV Meropenem, c/u Levofloxacin 8. DVT ppx: on therapeutic Xarelto 9. Skin: surgical site care per Dr. Tenorio who has been consulted-recs appreciated, c/u heel float to RLE 10. Pain: Dilaudid prn and Tylenol, will start Gabapentin for neuropathic pain 11. Dispo: TBD Allergies Coded Allergies: erythromycin base (Verified Adverse Reaction, Mild, N/V, 09/04/19) Vital Signs Vital Signs Date Time Temp Pulse Resp B/P (MAP) Pulse Ox O2 Delivery O2 Flow Rate FiO2 09/17/19 12:17 166/74 09/17/19 12:17 18 09/17/19 09:00 2.0 09/17/19 08:26 76 09/17/19 06:54 98.0 98 Room Air Laboratory Data Labs 24H Laboratory Tests 2 09/16/19 16:45: Bedside Glucose (Misc Panel) 352H 09/16/19 20:06: Bedside Glucose (Misc Panel) 325H 09/17/19 06:52: Bedside Glucose (Misc Panel) 214H 09/17/19 11:58: Bedside Glucose (Misc Panel) 241H Current Medications Current Medications Current Medications Medications (Trade) Dose Ordered Sig/Jolene Route PRN Reason Start Time Stop Time Status Last Admin Dose Admin Acetaminophen (Tylenol Tab) 650 mg Q4HP PRN PO MILD PAIN (PS 1-4) 09/10/19 19:15 Amlodipine Besylate (Norvasc) 5 mg BID PO 09/14/19 13:00 09/16/19 07:48 DC 09/15/19 21:56 Amlodipine Besylate (Norvasc) 10 mg QHS PO 09/16/19 21:00 09/16/19 22:27 Dextrose (Dextrose 50%) 25 ml ASDIRECTED PRN IV SEE LABEL COMMENTS 09/10/19 19:15 Docusate Sodium (Colace) 100 mg BID PO 09/10/19 21:00 09/17/19 08:25 Emollient Cream (Vanicream) apply to dry skin BID TOP 09/10/19 21:00 09/17/19 08:27 Fish Oil ([place]-3 (1000mg)) 1 cap DAILY PO 09/11/19 09:00 09/17/19 08:25 Furosemide (Lasix) 40 mg DAILY PO 09/11/19 09:00 09/17/19 08:25 Glucagon (Glucagon) 1 mg ASDIRECTED PRN SC SEE LABEL COMMENTS 09/10/19 19:15 Glucose (Glucose) 16 GM ASDIRECTED PRN PO SEE LABEL COMMENTS 09/10/19 19:15 Guaifenesin (Mucinex Tab Er) 600 mg BID PO 09/10/19 21:00 09/17/19 08:25 Heparin Sodium (Porcine) (Heparin) 5,000 units Q8H SC 09/10/19 19:15 09/10/19 19:21 DC Hydromorphone HCl (Dilaudid) 0.5 mg Q4HP PRN PO MODERATE/SEVERE PAIN (PS 5-10) 09/10/19 19:15 09/17/19 12:17 Insulin Detemir (Levemir Insulin) 5 units QHS SC 09/17/19 21:00 Insulin Detemir (Levemir Insulin) 10 units QHS SC 09/11/19 21:00 09/13/19 13:48 DC 09/12/19 21:36 Insulin Detemir (Levemir Insulin) 15 units DAILY SC 09/13/19 09:00 09/14/19 13:04 DC Insulin Detemir (Levemir Insulin) 15 units DAILY [place] 09/15/19 09:00 09/15/19 23:48 DC 09/15/19 07:27 Insulin Detemir (Levemir Insulin) 16 units DAILY [place] 09/16/19 09:00 09/16/19 07:47 DC Insulin Detemir (Levemir Insulin) 18 units DAILY [place] 09/16/19 09:00 09/17/19 08:25 Insulin Detemir (Levemir Insulin) 20 units DAILY [place] 09/15/19 09:00 09/14/19 12:58 DC Insulin Detemir (Levemir Insulin) 40 units DAILY [place] 09/12/19 09:00 09/11/19 17:34 DC Insulin Detemir (Levemir Insulin) 60 units DAILY [place] 09/11/19 09:00 09/11/19 16:04 DC Insulin Human Lispro (HumaLOG INSULIN) 16 units STAT STAT [place] 09/15/19 16:40 09/15/19 16:42 DC 09/15/19 17:02 Insulin Human Lispro (HumaLOG INSULIN) SEE PROTOCOL TABLE AC [place] 09/11/19 07:30 09/17/19 12:17 Insulin Human Lispro (HumaLOG INSULIN) SEE PROTOCOL TABLE QHS [place] 09/10/19 21:00 09/16/19 22:27 Isosorbide Dinitrate (Isordil) 10 mg TID@07,12,17 PO 09/16/19 09:00 09/17/19 12:17 Levalbuterol HCl (Xopenex Neb) 1.25 mg Q2HP PRN INH SOB/WHEEZING 09/10/19 19:15 09/10/19 20:05 DC Levalbuterol HCl (Xopenex Neb) 1.25 mg RTID INH 09/11/19 20:00 09/17/19 07:29 Levofloxacin (Levaquin) 500 mg DAILY@06 PO 09/17/19 06:00 09/17/19 06:53 Magnesium Hydroxide (Milk Of Magnesia) 30 ml DAILYPRN PRN PO CONSTIPATION 09/10/19 19:15 Meropenem 1 gm/IV Miscellaneous Supplies 50 ml @ 100 mls/hr Q8H IV 09/10/19 21:00 09/16/19 17:37 DC 09/16/19 13:10 Metoprolol Succinate (TopROL XL) 50 mg DAILY PO 09/11/19 09:00 09/11/19 16:05 DC 09/11/19 08:21 Metoprolol Succinate (TopROL XL) 75 mg DAILY PO 09/12/19 09:00 09/13/19 13:48 DC 09/13/19 08:24 Metoprolol Succinate (TopROL XL) 100 mg DAILY PO 09/14/19 09:00 09/17/19 08:26 Multivitamins (Theragram-M) 1 tab DAILY PO 09/11/19 09:00 09/17/19 08:25 Pantoprazole Sodium (Protonix) 40 mg BID PO 09/10/19 21:00 09/17/19 08:25 Polyethylene Glycol (Miralax) 1 pkt DAILYPRN PRN PO CONSTIPATION 09/11/19 20:15 09/13/19 08:38 Prednisone (Deltasone) 20 mg DAILY PO 09/18/19 09:00 Prednisone (Deltasone) 20 mg DAILY PO 09/19/19 09:00 09/16/19 10:59 DC Prednisone (Deltasone) 30 mg DAILY PO 09/11/19 09:00 09/17/19 10:00 DC 09/17/19 08:26 Rivaroxaban (Xarelto) 20 mg DAILY@18 PO 09/10/19 20:00 09/16/19 17:27 Sacubitril/ Valsartan (Entresto 97-103 Mg) 1 tab BID PO 09/10/19 21:00 09/17/19 08:25 Senna (Senokot) 1 tab QHS PO 09/10/19 21:00 09/16/19 22:26 Simvastatin (Zocor) 20 mg QHS PO 09/16/19 21:00 09/16/19 22:27 Simvastatin (Zocor) 40 mg DAILY PO 09/11/19 09:00 09/16/19 08:36 DC 09/15/19 07:29 Sodium Chloride (Saline Lock Flush) 2 ml ASDIRECTED PRN IV SEE LABEL COMMENTS 09/11/19 01:30 Sodium Chloride (Saline Lock Flush) 2 ml SLF IV 09/11/19 06:00 09/16/19 13:11 Spironolactone (Aldactone) 25 mg QAM PO 09/11/19 09:00 09/17/19 08:26 Zolpidem Tartrate (Ambien) 2.5 mg QHS PO 09/10/19 21:00 09/16/19 22:28 CHANELLE CASEY MD Sep 17, 2019 12:36
[2019-09-17] MEDS: GABAPENTIN 100 MG CAP PO SCH ×3 (12:38→20:44)
[2019-09-17] MEDS: RIVAROXABAN 20 MG TAB (XARELTO) PO SCH (18:02)
[2019-09-17 20:00] VITALS: BP 144/70
[2019-09-17] MEDS: zolPIDEM TARTRATE 5 MG TAB PO SCH (20:44)
[2019-09-17] MEDS: SIMVASTATIN 20 MG TAB PO SCH (20:44)
[2019-09-17] MEDS: amLODIPine 10 MG TAB PO SCH (20:44)
[2019-09-17] MEDS: SENNA 8.6 MG TAB (SENOKOT) PO SCH (20:45)
[2019-09-18 06:00] VITALS: BP 145/65
[2019-09-18] MEDS: LevoFLOXacin 500 MG TABLET PO SCH (06:11)
[2019-09-18] MEDS: ISOSORBIDE DIN (ISORDIL) 10 MG TAB PO SCH ×3 (06:12→17:30)
[2019-09-18] MEDS: LEVALBUTEROL 1.25 MG/0.5 ML CONCENTRATE NEB INH SCH ×3 (07:29→20:20)
[2019-09-18] MEDS: ENTRESTO 97-103MG TABLET (SACUBITRIL/VALSARTAN) PO SCH ×2 (10:09→21:03)
[2019-09-18] MEDS: DOCUSATE SODIUM 100 MG CAP PO SCH ×2 (10:09→21:00)
[2019-09-18] MEDS: GABAPENTIN 100 MG CAP PO SCH ×3 (10:09→21:03)
[2019-09-18] MEDS: OMEGA-3 1000MG CAPSULE PO SCH (10:10)
[2019-09-18] MEDS: METOPROLOL SUCC (TopROL XL) 100MG *XL* TAB PO SCH (10:10)
[2019-09-18] MEDS: PANTOPRAZOLE 40MG TAB (PROTONIX) PO SCH ×2 (10:10→21:03)
[2019-09-18] MEDS: predniSONE 20 MG TAB PO SCH (10:10)
[2019-09-18] MEDS: FUROSEMIDE 40 MG TAB PO SCH (10:10)
[2019-09-18] MEDS: MULTIVITAMINS/MINERALS THERAP 1 TAB PO SCH (10:10)
[2019-09-18] MEDS: LEVEMIR (INSULIN DETEMIR) 1 UNITS/0.01ML SC SCH ×2 (10:11→21:04)
[2019-09-18] MEDS: guaiFENesin ER 600 MG TAB PO SCH ×2 (10:11→21:03)
[2019-09-18] MEDS: SPIRONOLACTONE 25 MG TAB PO SCH (10:11)
[2019-09-18] MEDS: VANICREAM MOISTURIZING SKIN CREAM 113GM TUBE TOP SCH ×2 (10:12→21:04)
[2019-09-18] MEDS: HumaLOG INSULIN (NovoLOG) PER UNIT SC SCH ×4 (10:12→21:04)
[2019-09-18 14:00] VITALS: BP 153/67
[2019-09-18] MEDS: RIVAROXABAN 20 MG TAB (XARELTO) PO SCH (17:30)
--- NOTE | 2019-09-18 18:51 | IPNPDOC ---
PM&R Progress Note DATE OF SERVICE: Sep 18, 2019 [employer] [facility] [employer] Progress Note Subjective: Patient reports he is in good spirits and enjoying therapy. REVIEW OF SYSTEMS: The following is a completed review of systems and has been reviewed. Review of systems otherwise unremarkable. PAIN: Patient self reports no pain EYES: No recent vision changes EARS, NOSE, & THROAT: No throat pain, or dysphagia, or rhinorrhea CARDIOVASCULAR: Denies chest pain or palpitations PULMONARY: Denies shortness of breath, + cough (improving) GASTROINTESTINAL: Denies constipation/diarrhea GENITOURINARY: denies dysuria MUSCULOSKELETAL: low back pain (not at present) NEUROLOGICAL:peripheral polyneuropathy HEMATOLOGICAL: +hypercoagulable SKIN: right 2st ray amputation PSYCHIATRIC: Unremarkable All other review of systems found to be negative. PHYSICAL EXAMINATION: VITAL SIGNS: Please see below. GENERAL: Pleasant and cooperative. No acute distress. morbidly obese HEENT: PERRL. Extraocular movements intact. Clear conjunctiva CARDIOVASCULAR: Regular rate and rhythm. No murmurs, rubs, or gallops LUNGS: Clear to auscultation bilaterally. No wheezes. No rhonchi ABDOMEN: Soft, nontender, nondistended. Positive bowel sounds. Normal active b owel sounds NEUROLOGICAL: Alert and oriented times three. Cranial nerves II through XII grossly intact. Sensation diminished to light touch left LE in stocking pattern EXTREMITIES: 5\5 strength bilateral upper extremities. 5-\5 strength right hip flexion/knee extension (limited due to recent sugery), 5-/5 strength in left hip flexors, knee extensors, ankle DF, 4/5 EHL extension (+) edema LLE (-) Deepa's bilat SKIN: hyperpigmentation and scaling skin bilat calves, right foot surgical wound with medial deep area with visualized osseous structures and granulation tissue with adipose tissue, flap appears necrotic and wet with camryn-wound maceration, right mid-foot more edematous -unstageble ulcer (black) on right heel and 4-5th interdigital space (present o n admission) macerated ASSESSMENT:64-year-old M with past medical history of PVD and peripheral polyneuropathy who presents status post right first ray amputation in setting of osteomyelitis. PLAN: 1. Rehab: PT- advance mobility from wheelchair level, goal is Mod-I for discharge, orders to staff reiterated for NWB to protect his wound and encourage healing, walking even short distances is causing wound breakdown and increasing risk of infection -OT advance ADL management, strengthen bilat UE, teach scapular stabilization exercises 2. Neuro: hx of poorly controlled DM with peripheral polyneuropathy with gait impairment -aim for good gylcemic control- 3. cardiac: hx of grade 1 diastolic CHF on 2018 ECHO, c/u spironolactone, and fluid restrict to 1800cc, daily weights -HTN c/u Metoprolol , medicine consulted to assist in management, recs appreciated HLD- statin 4. Resp: hx of COPD c/u oral steroids (tapering) and Xopenex, monitor for infection -c/u Guaifenesin, cough improving 5. Endo: pmh DM c/u levemir and ISS, adjust prn 5. Vasc: hx of factor V Leiden deficiency with hx of LLE DVT, c/u Xarelto 20mg daily 6. GI ppx: Protonix BID while on prednisone 7. ID: osteomyelitis of 1st metatarsal s/p resection, intra-op cultures pending, Dr. Franco consulted, recs appreciated, ESR/CRP low, s/p IV Meropenem, c/u Levofloxacin 8. DVT ppx: on therapeutic Xarelto 9. Skin: surgical site care adjusted today due to worsening maceration of periwound area and flap and worsening edema near surgical site, goal to keep i nterdigit ulcers dry and camryn-surgical site, orders to staff reiterated for NWB to protect his wound and encourage healing, c/u heel float to RLE 10. Pain: Dilaudid prn and Tylenol, c/u Gabapentin for neuropathic pain 11. Dispo: 09-24-19 to home, progressing towards goals Allergies Coded Allergies: erythromycin base (Verified Adverse Reaction, Mild, N/V, 09/04/19) Vital Signs Vital Signs Date Time Temp Pulse Resp B/P (MAP) Pulse Ox O2 Delivery O2 Flow Rate FiO2 09/18/19 17:30 153/67 09/18/19 14:00 97.1 78 18 95 Room Air 09/18/19 06:00 2.0 Laboratory Data Labs 24H Laboratory Tests 2 09/17/19 19:35: Bedside Glucose (Misc Panel) 344H 09/18/19 05:57: Bedside Glucose (Misc Panel) 203H 09/18/19 11:31: Bedside Glucose (Misc Panel) 213H 09/18/19 16:45: Bedside Glucose (Misc Panel) 174H Current Medications Current Medications Current Medications Medications (Trade) Dose Ordered Sig/Jolene Route PRN Reason Start Time Stop Time Status Last Admin Dose Admin Acetaminophen (Tylenol Tab) 650 mg Q4HP PRN PO MILD PAIN (PS 1-4) 09/10/19 19:15 Amlodipine Besylate (Norvasc) 5 mg BID PO 09/14/19 13:00 09/16/19 07:48 DC 09/15/19 21:56 Amlodipine Besylate (Norvasc) 10 mg QHS PO 09/16/19 21:00 09/17/19 20:44 Dextrose (Dextrose 50%) 25 ml ASDIRECTED PRN IV SEE LABEL COMMENTS 09/10/19 19:15 Docusate Sodium (Colace) 100 mg BID PO 09/10/19 21:00 09/18/19 10:09 Emollient Cream (Vanicream) apply to dry skin BID TOP 09/10/19 21:00 09/18/19 10:12 Fish Oil ([place]-3 (1000mg)) 1 cap DAILY PO 09/11/19 09:00 09/18/19 10:10 Furosemide (Lasix) 40 mg DAILY PO 09/11/19 09:00 09/18/19 10:10 Gabapentin (Neurontin) 100 mg TID PO 09/17/19 09:00 09/18/19 17:30 Glucagon (Glucagon) 1 mg ASDIRECTED PRN SC SEE LABEL COMMENTS 09/10/19 19:15 Glucose (Glucose) 16 GM ASDIRECTED PRN PO SEE LABEL COMMENTS 09/10/19 19:15 Guaifenesin (Mucinex Tab Er) 600 mg BID PO 09/10/19 21:00 09/18/19 10:11 Heparin Sodium (Porcine) (Heparin) 5,000 units Q8H SC 09/10/19 19:15 09/10/19 19:21 DC Hydromorphone HCl (Dilaudid) 0.5 mg Q4HP PRN PO MODERATE/SEVERE PAIN (PS 5-10) 09/10/19 19:15 09/17/19 12:17 Insulin Detemir (Levemir Insulin) 5 units QHS [place] 09/17/19 21:00 09/17/19 20:45 Insulin [facility] ([facility]) [facility] 09/11/[facility] 21:00 09/13/19 13:48 DC 09/12/19 21:36 Insulin Detemir (Levemir Insulin) 15 units DAILY [place] 09/13/19 09:00 09/14/19 13:04 DC Insulin Detemir (Levemir Insulin) 15 units DAILY [place] 09/15/19 09:00 09/15/19 23:48 DC 09/15/19 07:27 Insulin Detemir (Levemir Insulin) 16 units DAILY ND 09/16/19 09:00 09/16/19 07:47 DC Insulin Detemir (Levemir Insulin) 18 units DAILY ND 09/16/19 09:00 09/17/19 18:44 CO 09/17/19 08:25 Insulin Detemir (Levemir Insulin) 20 units DAILY ND 09/15/19 09:00 09/14/19 12:58 DC Insulin Detemir (Levemir Insulin) 20 units DAILY ND 09/18/19 09:00 09/18/19 10:11 Insulin Detemir (Levemir Insulin) 40 units DAILY ND 09/12/19 09:00 09/11/19 17:34 DC Insulin Detemir (Levemir Insulin) 60 units DAILY ND 09/11/19 09:00 09/11/19 16:04 DC Insulin Human Lispro (HumaLOG INSULIN) 16 units STAT STAT [place] 09/15/19 16:40 09/15/19 16:42 DC 09/15/19 17:02 Insulin Human Lispro (HumaLOG INSULIN) SEE PROTOCOL TABLE AC ND 09/11/19 07:30 09/18/19 17:30 Insulin Human Lispro (HumaLOG INSULIN) [facility]OCOL [facility] 09/10/19 21:00 09/17/19 20:45 Isosorbide Dinitrate (Isordil) 10 mg TID@07,12,17 PO 09/16/19 09:00 09/18/19 17:30 Levalbuterol HCl (Xopenex Neb) 1.25 mg Q2HP PRN INH SOB/WHEEZING 09/10/19 19:15 09/10/19 20:05 DC Levalbuterol HCl (Xopenex Neb) 1.25 mg RTID INH 09/11/19 20:00 09/17/19 19:36 Levofloxacin (Levaquin) 500 mg DAILY@06 PO 09/17/19 06:00 09/18/19 06:11 Magnesium Hydroxide (Milk Of Magnesia) 30 ml DAILYPRN PRN PO CONSTIPATION 09/10/19 19:15 Meropenem 1 gm/IV Miscellaneous Supplies 50 ml @ 100 mls/hr Q8H IV 09/10/19 21:00 09/16/19 17:37 DC 09/16/19 13:10 Metoprolol Succinate (TopROL XL) 50 mg DAILY PO 09/11/19 09:00 09/11/19 16:05 DC 09/11/19 08:21 Metoprolol Succinate (TopROL XL) 75 mg DAILY PO 09/12/19 09:00 09/13/19 13:48 DC 09/13/19 08:24 Metoprolol Succinate (TopROL XL) 100 mg DAILY PO 09/14/19 09:00 09/18/19 10:10 Multivitamins (Theragram-M) 1 tab DAILY PO 09/11/19 09:00 09/18/19 10:10 Pantoprazole Sodium (Protonix) 40 mg BID PO 09/10/19 21:00 09/18/19 10:10 Polyethylene Glycol (Miralax) 1 pkt DAILYPRN PRN PO CONSTIPATION 09/11/19 20:15 09/13/19 08:38 Prednisone (Deltasone) 20 mg DAILY PO 09/18/19 09:00 09/18/19 10:10 Prednisone (Deltasone) 20 mg DAILY PO 09/19/19 09:00 09/16/19 10:59 DC Prednisone (Deltasone) 30 mg DAILY PO 09/11/19 09:00 09/17/19 10:00 DC 09/17/19 08:26 Rivaroxaban (Xarelto) 20 mg DAILY@18 PO 09/10/19 20:00 09/18/19 17:30 Sacubitril/ Valsartan (Entresto 97-103 Mg) 1 tab BID PO 09/10/19 21:00 09/18/19 10:09 Senna (Senokot) 1 tab QHS PO 09/10/19 21:00 09/17/19 20:45 Simvastatin (Zocor) 20 mg QHS PO 09/16/19 21:00 09/17/19 20:44 Simvastatin (Zocor) 40 mg DAILY PO 09/11/19 09:00 09/16/19 08:36 DC 09/15/19 07:29 Sodium Chloride (Saline Lock Flush) 2 ml ASDIRECTED PRN IV SEE LABEL COMMENTS 09/11/19 01:30 Cancel Sodium Chloride (Saline Lock Flush) 2 ml SLF IV 09/11/19 06:00 09/17/19 12:36 DC 09/16/19 13:11 Spironolactone (Aldactone) 25 mg QAM PO 09/11/19 09:00 09/18/19 10:11 Zolpidem Tartrate (Ambien) 2.5 mg QHS PO 09/10/19 21:00 09/17/19 20:44 CHANELLE CASEY MD Sep 18, 2019 18:51
[2019-09-18 19:55] VITALS: BP_SYST 152; BP_SYST 186; BP_DIAS 60; BP_DIAS 81
[2019-09-18] MEDS: SENNA 8.6 MG TAB (SENOKOT) PO SCH (21:00)
[2019-09-18] MEDS: amLODIPine 10 MG TAB PO SCH (21:03)
[2019-09-18] MEDS: SIMVASTATIN 20 MG TAB PO SCH (21:03)
[2019-09-18] MEDS: zolPIDEM TARTRATE 5 MG TAB PO SCH (21:03)
[2019-09-19 05:30] VITALS: BP 150/60
[2019-09-19] MEDS: ISOSORBIDE DIN (ISORDIL) 10 MG TAB PO SCH ×3 (06:22→17:29)
[2019-09-19] MEDS: LevoFLOXacin 500 MG TABLET PO SCH (06:22)
[2019-09-19 07:03] LABS: BASO # 0.1 10^3/uL (0.0-0.2); BASO % 0.5 % (0.0-1.0); EOS # 0.1 10^3/uL (0.0-0.5); EOS % 1.3 % (0.0-3.0); HEMATOCRIT 38.4 % (42.0-52.0); HEMOGLOBIN 12.1 g/dl (13.5-17.5); LYMPH # 2.2 10^3/uL (1.5-5.0); LYMPH % 20.2 % (24.0-44.0); MEAN CORPUSCULAR HEMOGLOBIN 26.7 pg (27.0-33.0); MEAN CORPUSCULAR HGB CONC 31.5 g/dl (32.0-36.5); MEAN CORPUSCULAR VOLUME 84.8 fl (80.0-96.0); MONO # 0.7 10^3/uL (0.0-0.8); MONO % 6.8 % (0.0-5.0); NEUTROPHILS # 7.7 10^3/uL (1.5-8.5); PLATELET COUNT, AUTOMATED 229 10^3/uL (150-450); RED BLOOD COUNT 4.53 10^6/uL (4.30-6.10); WHITE BLOOD COUNT 10.9 10^3/uL (4.0-10.0)
[2019-09-19 07:31] LABS: BLOOD UREA NITROGEN 44 MG/DL (7-18); CALCIUM LEVEL 7.9 MG/DL (8.8-10.2); CARBON DIOXIDE LEVEL 29 MEQ/L (21-32); CHLORIDE LEVEL 105 MEQ/L (98-107); GLOMERULAR FILTRATION RATE > 60.0 (>49); GLUCOSE, FASTING 181 MG/DL (70-100); POTASSIUM SERUM 4.6 MEQ/L (3.5-5.1); SODIUM LEVEL 140 MEQ/L (136-145)
[2019-09-19] MEDS: LEVALBUTEROL 1.25 MG/0.5 ML CONCENTRATE NEB INH SCH ×2 (08:00→20:00)
[2019-09-19] MEDS: LEVEMIR (INSULIN DETEMIR) 1 UNITS/0.01ML SC SCH ×2 (08:21→22:39)
[2019-09-19] MEDS: HumaLOG INSULIN (NovoLOG) PER UNIT SC SCH ×4 (08:21→22:39)
[2019-09-19] MEDS: FUROSEMIDE 40 MG TAB PO SCH (08:22)
[2019-09-19] MEDS: predniSONE 20 MG TAB PO SCH (08:22)
[2019-09-19] MEDS: OMEGA-3 1000MG CAPSULE PO SCH (08:22)
[2019-09-19] MEDS: ENTRESTO 97-103MG TABLET (SACUBITRIL/VALSARTAN) PO SCH ×2 (08:22→22:36)
[2019-09-19] MEDS: METOPROLOL SUCC (TopROL XL) 100MG *XL* TAB PO SCH (08:22)
[2019-09-19] MEDS: SPIRONOLACTONE 25 MG TAB PO SCH (08:22)
[2019-09-19] MEDS: guaiFENesin ER 600 MG TAB PO SCH ×2 (08:22→22:38)
[2019-09-19] MEDS: DOCUSATE SODIUM 100 MG CAP PO SCH ×2 (08:23→21:00)
[2019-09-19] MEDS: MULTIVITAMINS/MINERALS THERAP 1 TAB PO SCH (08:23)
[2019-09-19] MEDS: PANTOPRAZOLE 40MG TAB (PROTONIX) PO SCH ×2 (08:23→22:36)
[2019-09-19] MEDS: GABAPENTIN 100 MG CAP PO SCH ×3 (08:23→22:38)
[2019-09-19] MEDS: VANICREAM MOISTURIZING SKIN CREAM 113GM TUBE TOP SCH ×2 (08:24→22:40)
[2019-09-19] MEDS ORDERED: predniSONE 20 MG TAB PO SCH (09:00)
--- NOTE | 2019-09-19 12:06 | IPNPDOC ---
PM&R Progress Note DATE OF SERVICE: Sep 19, 2019 [employer] Progress Note Subjective: Patient seen in therapy working on [id number], having difficulty with NWB, but gradually improving. He has agreed to continue aiming towards this goal and feels his endurance is getting stronger. REVIEW OF SYSTEMS: The following is a completed review of systems and has been reviewed. Review of systems otherwise unremarkable. PAIN: Patient self reports no pain EYES: No recent vision changes EARS, NOSE, & THROAT: No throat pain, or dysphagia, or rhinorrhea CARDIOVASCULAR: Denies chest pain or palpitations PULMONARY: Denies shortness of breath, + cough (improving) GASTROINTESTINAL: Denies constipation/diarrhea GENITOURINARY: denies dysuria MUSCULOSKELETAL: low back pain (not at present) NEUROLOGICAL:peripheral polyneuropathy HEMATOLOGICAL: +hypercoagulable SKIN: right 2st ray amputation PSYCHIATRIC: Unremarkable All other review of systems found to be negative. PHYSICAL EXAMINATION: VITAL SIGNS: Please see below. GENERAL: Pleasant and cooperative. No acute distress. morbidly obese HEENT: PERRL. Extraocular movements intact. Clear conjunctiva CARDIOVASCULAR: Regular rate and rhythm. No murmurs, rubs, or gallops LUNGS: Clear to auscultation bilaterally. No wheezes. No rhonchi ABDOMEN: Soft, nontender, nondistended. Positive bowel sounds. Normal active bowel sounds NEUROLOGICAL: Alert and oriented times three. Cranial nerves II through XII grossly intact. Sensation diminished to light touch left LE in stocking pattern EXTREMITIES: 5\5 strength bilateral upper extremities. 5-\5 strength right hip flexion/knee extension (limited due to recent sugery), 5-/5 strength in left hip flexors, knee extensors, ankle DF, 4/5 EHL extension (+) edema LLE (-) Deepa's bilat SKIN: hyperpigmentation and scaling skin bilat calves, right foot surgical wound with medial deep area with visualized osseous structures and granulation tissue with adipose tissue, flap appears necrotic, but dry, and periwound area also dry -unstageble ulcer (black) on right heel and 4-5th interdigital space (present on admission) dry now ASSESSMENT:64-year-old M with past medical history of PVD and peripheral polyneuropathy who presents status post right first ray amputation in setting of osteomyelitis. PLAN: 1. Rehab: PT- advance mobility from wheelchair level, goal is Mod-I for discharge, orders to staff reiterated for NWB to be goal of therapy to protect his wound and encourage healing, patient haaving difficulty with this limitation due to morbid obesity, but is striving towards this- platform walker being trialed today to assist with offloading -OT advance ADL management, strengthen bilat UE, teach scapular stabilization exercises 2. Neuro: hx of poorly controlled DM with peripheral polyneuropathy with gait impairment -aim for good gylcemic control-will c/u to adjust insulin and will start metformin today to aid in weight loss 3. cardiac: hx of grade 1 diastolic CHF on 2017 ECHO, c/u spironolactone, and fluid restrict to 1800cc, daily weights -HTN c/u Metoprolol , medicine consulted to assist in management, recs appreciated HLD- statin 4. Resp: hx of COPD c/u oral steroids (tapering) and Xopenex, monitor for infection -c/u Guaifenesin, cough improving 5. Endo: pmh DM c/u levemir and ISS, c/u to adjust prn, will start metformin 5. Vasc: hx of factor V Leiden deficiency with hx of LLE DVT, c/u Xarelto 20mg daily 6. GI ppx: Protonix BID while on prednisone 7. ID: osteomyelitis of 1st metatarsal s/p resection, intra-op cultures pending, Dr. Franco consulted, recs appreciated, ESR/CRP low, s/p IV Meropenem, c/u Levofloxacin 8. DVT ppx: on therapeutic Xarelto 9. Skin: c/u surgical site care per wound care instructions c/u heel float to RLE and NWB in therapy 10. Pain: Dilaudid prn and Tylenol, c/u Gabapentin for neuropathic pain 11. Dispo: 09-24-19 to home, progressing towards goals Allergies Coded Allergies: erythromycin base (Verified Adverse Reaction, Mild, N/V, 09/04/19) Vital Signs Vital Signs Date Time Temp Pulse Resp B/P (MAP) Pulse Ox O2 Delivery O2 Flow Rate FiO2 09/19/19 08:22 69 150/60 09/19/19 05:30 97.4 18 97 Room Air 09/18/19 20:30 2.0 Laboratory Data CBC/BMP Laboratory Tests 09/19/19 06:47 Labs 24H Laboratory Tests 2 09/18/19 16:45: Bedside Glucose (Misc Panel) 174H 09/18/19 19:58: Bedside Glucose (Misc Panel) 355H 09/19/19 05:45: Bedside Glucose (Misc Panel) 196H 09/19/19 06:47: Immature Granulocyte % (Auto) 1.2, Neutrophils (%) (Auto) 70.0H, Lymphocytes (%) (Auto) 20.2L, Monocytes (%) (Auto) 6.8H, Eosinophils (%) (Auto) 1.3, Basophils (%) (Auto) 0.5, Neutrophils # (Auto) 7.7, Lymphocytes # (Auto) 2.2, Monocytes # (Auto) 0.7, Eosinophils # (Auto) 0.1, Basophils # (Auto) 0.1, Nucleated Red Blood Cells % (auto) 0.0, Anion Gap 6L, Glomerular Filtration Rate > 60.0, Calcium Level 7.9L 09/19/19 11:40: Bedside Glucose (Misc Panel) 169H Current Medications Current Medications Current Medications Medications (Trade) Dose Ordered Sig/Jolene Route PRN Reason Start Time Stop Time Status Last Admin Dose Admin Acetaminophen (Tylenol Tab) 650 mg Q4HP PRN PO MILD PAIN (PS 1-4) 09/10/19 19:15 Amlodipine Besylate (Norvasc) 5 mg BID PO 09/14/19 13:00 09/16/19 07:48 DC 09/15/19 21:56 Amlodipine Besylate (Norvasc) 10 mg QHS PO 09/16/19 21:00 09/18/19 21:03 Dextrose (Dextrose 50%) 25 ml ASDIRECTED PRN IV SEE LABEL COMMENTS 09/10/19 19:15 Docusate Sodium (Colace) 100 mg BID PO 09/10/19 21:00 09/18/19 10:09 Emollient Cream (Vanicream) apply to dry skin BID TOP 09/10/19 21:00 09/19/19 08:24 Fish Oil ([place]-3 (1000mg)) 1 cap DAILY PO 09/11/19 09:00 09/19/19 08:22 Furosemide (Lasix) 40 mg DAILY PO 09/11/19 09:00 09/19/19 08:22 Gabapentin (Neurontin) 100 mg TID PO 09/17/19 09:00 09/19/19 08:23 Glucagon (Glucagon) 1 mg ASDIRECTED PRN SC SEE LABEL COMMENTS 09/10/19 19:15 Glucose (Glucose) 16 GM ASDIRECTED PRN PO SEE LABEL COMMENTS 09/10/19 19:15 Guaifenesin (Mucinex Tab Er) 600 mg BID PO 09/10/19 21:00 09/19/19 08:22 Heparin Sodium (Porcine) (Heparin) 5,000 units Q8H SC 09/10/19 19:15 09/10/19 19:21 DC Hydromorphone HCl (Dilaudid) 0.5 mg Q4HP PRN PO MODERATE/SEVERE PAIN (PS 5-10) 09/10/19 19:15 09/17/19 12:17 Insulin Detemir (Levemir Insulin) 5 units QHS SC 09/17/19 21:00 09/18/19 21:04 Insulin Detemir (Levemir Insulin) 10 units QHS SC 09/11/19 21:00 09/13/19 13:48 DC 09/12/19 21:36 Insulin Detemir (Levemir Insulin) 15 units DAILY SC 09/13/19 09:00 09/14/19 13:04 DC Insulin Detemir (Levemir Insulin) 15 units DAILY SC 09/15/19 09:00 09/15/19 23:48 DC 09/15/19 07:27 Insulin Detemir (Levemir Insulin) 16 units DAILY SC 09/16/19 09:00 09/16/19 07:47 DC Insulin Detemir (Levemir Insulin) 18 units DAILY SC 09/16/19 09:00 09/17/19 18:44 DC 09/17/19 08:25 Insulin Detemir (Levemir Insulin) 20 units DAILY SC 09/15/19 09:00 09/14/19 12:58 DC Insulin Detemir (Levemir Insulin) 20 units DAILY SC 09/18/19 09:00 09/19/19 08:21 Insulin Detemir (Levemir Insulin) 40 units DAILY SC 09/12/19 09:00 09/11/19 17:34 DC Insulin Detemir (Levemir Insulin) 60 units DAILY SC 09/11/19 09:00 09/11/19 16:04 DC Insulin Human Lispro (HumaLOG INSULIN) 16 units STAT STAT SC 09/15/19 16:40 09/15/19 16:42 DC 09/15/19 17:02 Insulin Human Lispro (HumaLOG INSULIN) SEE PROTOCOL TABLE AC SC 09/11/19 07:30 09/19/19 08:21 Insulin Human Lispro (HumaLOG INSULIN) SEE PROTOCOL TABLE QHS SC 09/10/19 21:00 09/18/19 21:04 Isosorbide Dinitrate (Isordil) 10 mg TID@07,12,17 PO 09/16/19 09:00 09/19/19 06:22 Levalbuterol HCl (Xopenex Neb) 1.25 mg Q2HP PRN INH /WHEEZING 09/10/19 19:15 09/10/19 20:05 DC Levalbuterol HCl (Xopenex Neb) 1.25 mg RTID INH 09/11/19 20:00 09/18/19 20:20 Levofloxacin (Levaquin) 500 mg DAILY@06 PO 09/17/19 06:00 09/19/19 06:22 Magnesium Hydroxide (Milk Of Magnesia) 30 ml DAILYPRN PRN PO CONSTIPATION 09/10/19 19:15 Meropenem 1 gm/IV Miscellaneous Supplies 50 ml @ 100 mls/hr Q8H IV 09/10/19 21:00 09/16/19 17:37 DC 09/16/19 13:10 Metoprolol Succinate (TopROL XL) 50 mg DAILY PO 09/11/19 09:00 09/11/19 16:05 DC 09/11/19 08:21 Metoprolol Succinate (TopROL XL) 75 mg DAILY PO 09/12/19 09:00 09/13/19 13:48 DC 09/13/19 08:24 Metoprolol Succinate (TopROL XL) 100 mg DAILY PO 09/14/19 09:00 09/19/19 08:22 Multivitamins (Theragram-M) 1 tab DAILY PO 09/11/19 09:00 09/19/19 08:23 Pantoprazole Sodium (Protonix) 40 mg BID PO 09/10/19 21:00 09/19/19 08:23 Polyethylene Glycol (Miralax) 1 pkt DAILYPRN PRN PO CONSTIPATION 09/11/19 20:15 09/13/19 08:38 Prednisone (Deltasone) 20 mg DAILY PO 09/18/19 09:00 09/19/19 08:22 Prednisone (Deltasone) 20 mg DAILY PO 09/19/19 09:00 09/16/19 10:59 DC Prednisone (Deltasone) 30 mg DAILY PO 09/11/19 09:00 09/17/19 10:00 DC 09/17/19 08:26 Rivaroxaban (Xarelto) 20 mg DAILY@18 PO 09/10/19 20:00 09/18/19 17:30 Sacubitril/ Valsartan (Entresto 97-103 Mg) 1 tab BID PO 09/10/19 21:00 09/19/19 08:22 Senna (Senokot) 1 tab QHS PO 09/10/19 21:00 09/17/19 20:45 Simvastatin (Zocor) 20 mg QHS PO 09/16/19 21:00 09/18/19 21:03 Simvastatin (Zocor) 40 mg DAILY PO 09/11/19 09:00 09/16/19 08:36 DC 09/15/19 07:29 Sodium Chloride (Saline Lock Flush) 2 ml ASDIRECTED PRN IV SEE LABEL COMMENTS 09/11/19 01:30 Cancel Sodium Chloride (Saline Lock Flush) 2 ml SLF IV 09/11/19 06:00 09/17/19 12:36 DC 09/16/19 13:11 Spironolactone (Aldactone) 25 mg QAM PO 09/11/19 09:00 09/19/19 08:22 Zolpidem Tartrate (Ambien) 2.5 mg QHS PO 09/10/19 21:00 09/18/19 21:03 CHANELLE CASEY MD Sep 19, 2019 12:06
[2019-09-19 12:22] LABS: C REACTIVE PROTEIN QUANTITATIV < 0.30 MG/DL (0.00-0.30)
[2019-09-19] MEDS: metFORMIN (GLUCOPHAGE) 1000 MG TABLET PO SCH (13:18)
[2019-09-19 14:00] VITALS: BP 162/68
--- NOTE | 2019-09-19 14:49 | IPNPDOC ---
Subjective Date Seen The patient was seen on 09/19/19. Subjective Chief Complaint/HPI Patient is a 64-year-old male who was seen this morning following admission to acute rehabilitation unit. Patient was seen in his room with nursing staff. Mr. Boyce denied having any medical issues at this time. He appreciates the progress he has made on the Rehab unit and will be ready to go home, possibly on Monday. We discussed lowering his carb allowance from 5 to 3 each meal as he reported his blood sugar 'shoots up to 300s' with the former allowance. Pain in the right toe is very well controlled at this time with current medications. General: Reports: Normal Appetite; Denies: Chills, Night Sweats, Fatigue, Malaise Constitutional: Denies: Chills, Fever Eyes: Denies: Pain ENT: Denies: Head Aches Skin: Denies: Rash Pulmonary: Denies: Dyspnea, Cough Cardiovascular: Denies: Chest Pain Gastrointestinal: Denies: Abdominal Pain Musculoskeletal: Reports: Foot Pain (1 or 2/); Denies: Neck Pain, Back Pain Neurological: Denies: Weakness Psych: Denies: Mood Normal Objective Physical Examination General Exam: Positive: Alert, No Acute Distress Eye Exam: Positive: PERRLA, Conjunctiva & lids normal, EOMI; Negative: Sclera icteric ENT Exam: Positive: Atraumatic, Mucous membr. moist/pink, Pharynx Normal Neck Exam: Positive: Supple; Negative: JVD, thyromegaly Chest Exam: Positive: Clear to auscultation, Normal air movement Heart Exam: Positive: Rate Normal, Regular Rhythm, Normal S1, Normal S2 Telemetry: Positive: No significant arrhythmia Abdomen Exam: Positive: Normal bowel sounds, Soft; Negative: Tenderness Extremity Exam: Positive: Edema (b/l lower extremities ); Negative: Clubbing, Cyanosis Skin Exam: Positive: Nl turgor and temperature Neuro Exam: Positive: Normal Speech Psych Exam: Positive: Mental status NL, Mood NL, Oriented x 3 Assessment /Plan Problems (1) HTN (hypertension) Status: Chronic Discussed With: Nurse Problem Text: BP was 184/81 this morning from an average 150/60. Nursing will re-check and document the BP, reporting any further abnormalities to the hospitalist (2) Gangrene of toe of right foot Status: Acute Response to Treatment: Stable Problem Text: Continue with current wound care regimen. (3) Diabetes mellitus Status: Chronic Response to Treatment: Stable Problem Text: Reduce carbohydrate servings from 5 to 3 servings per meal. Continue to monitor blood sugars daily. Plan/VTE VTE Prophylaxis Ordered?: Yes (Patient takes Xarelto 20mg qday ) Plan Diet: Continue Current Activity: Continue Current Therapy: PT Nursing staff concerned about patient's apparent hypocalcemia; in light of his hypoalbuminemia his corrected/calculated calcium is closer to 9.74mg/dL. Patient will be managed per rehab. Medical issues will continue to be managed by hospitalist group. VS, I&O, 24H, Fishbone Vital Signs/I&O Vital Signs Date Time Temp Pulse Resp B/P (MAP) Pulse Ox O2 Delivery O2 Flow Rate FiO2 09/19/19 13:22 184/81 09/19/19 08:22 69 09/19/19 05:30 97.4 18 97 Room Air 09/18/19 20:30 2.0 I&O- Last 24 Hours up to 6 AM 09/19/19 06:00 Intake Total 1040 ml Output Total 2150 ml Balance -1110 ml Laboratory Data 24H LABS Laboratory Tests 2 09/18/19 16:45: Bedside Glucose (Misc Panel) 174H 09/18/19 19:58: Bedside Glucose (Misc Panel) 355H 09/19/19 05:45: Bedside Glucose (Misc Panel) 196H 09/19/19 06:47: Immature Granulocyte % (Auto) 1.2, Neutrophils (%) (Auto) 70.0H, Lymphocytes (%) (Auto) 20.2L, Monocytes (%) (Auto) 6.8H, Eosinophils (%) (Auto) 1.3, Basophils (%) (Auto) 0.5, Neutrophils # (Auto) 7.7, Lymphocytes # (Auto) 2.2, Monocytes # (Auto) 0.7, Eosinophils # (Auto) 0.1, Basophils # (Auto) 0.1, Nucleated Red Blood Cells % (auto) 0.0, Anion Gap 6L, Glomerular Filtration Rate > 60.0, Calcium Level 7.9L, C-Reactive Protein, Quantitative < 0.30 09/19/19 11:40: Bedside Glucose (Misc Panel) 169H CBC/BMP Laboratory Tests 09/19/19 06:47 SYDNEE ROWE PA-C Sep 19, 2019 14:49
[2019-09-19 15:51] LABS: ERYTHROCYTE SEDIMENTATION RATE 32 mm/hr (0-20)
[2019-09-19] MEDS: RIVAROXABAN 20 MG TAB (XARELTO) PO SCH (17:31)
[2019-09-19 20:00] VITALS: BP 162/82
[2019-09-19] MEDS: SENNA 8.6 MG TAB (SENOKOT) PO SCH (21:00)
[2019-09-19] MEDS: zolPIDEM TARTRATE 5 MG TAB PO SCH (22:36)
[2019-09-19] MEDS: SIMVASTATIN 20 MG TAB PO SCH (22:36)
[2019-09-19] MEDS: ACETAMINOPHEN TAB 650MG DOSE (2X325MG) PO PRN (22:37)
[2019-09-19] MEDS: amLODIPine 10 MG TAB PO SCH (22:38)
--- NOTE | 2019-09-19 22:51 | IPN ---
DATE: 09/19/2019 Mr. Boyce feels good. He does not have any complaints except for a mild cough. He has been afebrile. He is anxious to go home. His scheduled day of discharge from rehab would be on Monday. Temperature is 98.3, pulse 70, respirations 20, blood pressure was 162/68, O2 sat 95% on room air. Heart: Normal S1, S2 with no murmurs, rubs or gallops. Abdomen: Morbidly obese, soft, nontender. Mild diminished breath sounds, but clear. Extremities: Trace edema right foot. The ray amputation first toe and ulcer between fourth and fifth toe with black eschar, dry. No exudate. An ulcer on the heel in the right heel measuring 3 cm with an eschar, tender to touch. IMPRESSION 1. Acute osteomyelitis and necrosis of the right first toe, status post ray amputation. Healing well except for a necrotic flap that has been used to cover the wound, but this is not infected and eventually it will fall off. The rest of the wound vac bed is doing well. The patient is day #9 of antibiotics since surgery; that was done on 09/10. Currently on by mouth (p.o.) Levaquin. Culture was positive for positive for Proteus MSSA an E faecalis all sensitive to Levaquin. 2. Peripheral vascular disease, status post angioplasty done by Dr. Dsouza, doing much better. 3. Necrotic flap on the first toe. This will eventually need to be removed or it will fall off from ischemia. Currently it is being used as a protective wound for the open wound underneath it. Eventually he may need wound vac. PLAN Continue by mouth Levaquin for total of 14 days from surgical date 09/10. End of therapy would be September 24. LABS: Labs reviewed. White count 10.9, hemoglobin 12.1, hematocrit 38.4, platelets 229, 70% neutrophils, 20% lymphocytes, 7% monocytes. ESR 32, CRP less than 0.3. Sodium 140, potassium 4.6, chloride 105, bicarb 29, BUN 44, creatinine 1.1, glucose 181.
[2019-09-19 23:43] VITALS: BP 148/64
[2019-09-20 06:00] VITALS: BP 144/62
[2019-09-20] MEDS: ISOSORBIDE DIN (ISORDIL) 10 MG TAB PO SCH ×3 (06:53→17:48)
[2019-09-20] MEDS: LevoFLOXacin 500 MG TABLET PO SCH (06:53)
[2019-09-20] MEDS: LEVALBUTEROL 1.25 MG/0.5 ML CONCENTRATE NEB INH SCH ×3 (07:35→20:15)
[2019-09-20] MEDS: HumaLOG INSULIN (NovoLOG) PER UNIT SC SCH ×4 (08:40→21:00)
[2019-09-20] MEDS: OMEGA-3 1000MG CAPSULE PO SCH (08:41)
[2019-09-20] MEDS: guaiFENesin ER 600 MG TAB PO SCH ×2 (08:41→21:06)
[2019-09-20] MEDS: MULTIVITAMINS/MINERALS THERAP 1 TAB PO SCH (08:41)
[2019-09-20] MEDS: LEVEMIR (INSULIN DETEMIR) 1 UNITS/0.01ML SC SCH ×2 (08:41→21:06)
[2019-09-20] MEDS: GABAPENTIN 100 MG CAP PO SCH ×3 (08:41→21:06)
[2019-09-20] MEDS: PANTOPRAZOLE 40MG TAB (PROTONIX) PO SCH ×2 (08:41→21:05)
[2019-09-20] MEDS: metFORMIN (GLUCOPHAGE) 1000 MG TABLET PO SCH (08:41)
[2019-09-20] MEDS: FUROSEMIDE 40 MG TAB PO SCH (08:41)
[2019-09-20] MEDS: predniSONE 20 MG TAB PO SCH (08:41)
[2019-09-20] MEDS: METOPROLOL SUCC (TopROL XL) 100MG *XL* TAB PO SCH (08:42)
[2019-09-20] MEDS: VANICREAM MOISTURIZING SKIN CREAM 113GM TUBE TOP SCH ×2 (08:42→21:08)
[2019-09-20] MEDS: SPIRONOLACTONE 25 MG TAB PO SCH (08:42)
[2019-09-20] MEDS: ENTRESTO 97-103MG TABLET (SACUBITRIL/VALSARTAN) PO SCH ×2 (08:42→21:06)
[2019-09-20] MEDS: DOCUSATE SODIUM 100 MG CAP PO SCH ×2 (08:43→21:00)
[2019-09-20 14:00] VITALS: BP 128/78
--- NOTE | 2019-09-20 16:46 | IPNPDOC ---
Subjective Date Seen The patient was seen on 09/20/19. Subjective Chief Complaint/HPI Mr. Boyce is a 64 year old man who was admitted to ARU due to amputation of the R great toe due to osteomyelitis and gangrene. His medical comorbidities are being managed by the hospitalist group. Mr Boyce has a past medical history of COPD, HIWOT, resolved, CHF, T2 Diabetes and Hypertension. Patient denied any new medical issues at this time. He continues to look forward to going home early next week. Objective Physical Examination General Exam: Positive: Alert, No Acute Distress Eye Exam: Positive: PERRLA, Conjunctiva & lids normal, EOMI; Negative: Sclera icteric ENT Exam: Positive: Atraumatic, Mucous membr. moist/pink, Pharynx Normal Neck Exam: Positive: Supple; Negative: JVD, thyromegaly Chest Exam: Positive: Clear to auscultation, Normal air movement Heart Exam: Positive: Rate Normal, Regular Rhythm, Normal S1, Normal S2 Telemetry: Positive: No significant arrhythmia Abdomen Exam: Positive: Normal bowel sounds, Soft; Negative: Tenderness Extremity Exam: Positive: Edema (b/l lower extremities ); Negative: Clubbing, Cyanosis Skin Exam: Positive: Nl turgor and temperature Neuro Exam: Positive: Normal Speech Psych Exam: Positive: Mental status NL, Mood NL, Oriented x 3 Assessment /Plan Assessment 64 year old male with PMH of morbid obesity, Possibly untreated EV ( hypoxia at night) currently on nocturnal oxygen, COPD, Peripheral vascular disease, status post angioplasty by Dr. Dsouza of the right superficial femoral, right posterior tibial, right peroneal, right posterior tibial and right anterior tibial arteries with Mynx closure of the left common femoral artery, Dyslipidemia, Diabetes with diabetic neuropathy, retinopathy, Hypertension, Allergic rhinitis. Factor V Leiden mutation with history of deep vein thrombosis (DVT) in the left lower extremity with chronic edema, tobacco abuse, Chronic systolic and diastolic heart failure on Entresto, Degenerative joint disease of the lumbar spine, Monoclonal gammopathy followed by Dr. Pierre was admitted to the medical service wet gangrene of the right great toe and chronic nonhealing diabetic foot amputation and peripheral vascular disease. He underwent revascularization status post angioplasty by vascular surgery and a first ray amputation with flap closure of the right foot due to wet gangrene and osteomyelitis of the right first metatarsal 1. Osteomyelitis, gangrene, 1st ray amputation with flap closure, 1st metatarsal due to stage IV infected ulcer. Wound management per Dr. Franco: patient is on day 07/29 Levaquin 500mg. Antibiotic regimen ends 09/24/19. He is currently afebrile and denies any pain. 2. Chronic obstructive pulmonary disease (COPD) exacerbation. Continue with tapering dose of prednisone and nebulizer prn. 3. HIWOT: Resolved. 4. Congestive heart failure (CHF) Continued Isordil, Spironolactone, Lasix, Entresto 5. Type 2 diabetes. Continue Levemir. Reduce carbs from 5 servings per meal to 3 servings per meal. 6. Hypertension. Continue Entresto, Metoprolol, Amlodipine. 7. PAD continue current meds 8. Factor V leiden with h/o dvt continue xarelto 9. Morbid obesity and possibly untreated EV. On nocturnal oxygen supplementation Plan/VTE VTE Prophylaxis Ordered?: Yes (Patient takes Xarelto 20mg qday ) VS, I&O, 24H, Fishbone Vital Signs/I&O Vital Signs Date Time Temp Pulse Resp B/P (MAP) Pulse Ox O2 Delivery O2 Flow Rate FiO2 09/20/19 14:00 97.8 74 20 128/78 (95) 96 Room Air 09/20/19 06:00 2.0 I&O- Last 24 Hours up to 6 AM 09/20/19 06:00 Intake Total 1260 ml Output Total 1525 ml Balance -265 ml Laboratory Data 24H LABS Laboratory Tests 2 09/19/19 20:20: Bedside Glucose (Misc Panel) 306H 09/20/19 05:53: Bedside Glucose (Misc Panel) 209H 09/20/19 12:13: Bedside Glucose (Misc Panel) 194H SYDNEE ROWE PA-C Sep 20, 2019 16:46 ALLI LOVING MD Sep 20, 2019 17:11
[2019-09-20] MEDS: RIVAROXABAN 20 MG TAB (XARELTO) PO SCH (17:47)
[2019-09-20 19:35] VITALS: BP 142/70
[2019-09-20] MEDS: SENNA 8.6 MG TAB (SENOKOT) PO SCH (21:00)
[2019-09-20] MEDS: zolPIDEM TARTRATE 5 MG TAB PO SCH (21:05)
[2019-09-20] MEDS: SIMVASTATIN 20 MG TAB PO SCH (21:05)
[2019-09-20] MEDS: amLODIPine 10 MG TAB PO SCH (21:05)
[2019-09-20] MEDS: ACETAMINOPHEN TAB 650MG DOSE (2X325MG) PO PRN (21:06)
[2019-09-21 05:45] VITALS: BP 148/60
[2019-09-21] MEDS: LevoFLOXacin 500 MG TABLET PO SCH (06:40)
[2019-09-21] MEDS: ISOSORBIDE DIN (ISORDIL) 10 MG TAB PO SCH ×3 (06:41→17:17)
[2019-09-21] MEDS: LEVALBUTEROL 1.25 MG/0.5 ML CONCENTRATE NEB INH SCH ×3 (08:00→19:59)
[2019-09-21] MEDS: LEVEMIR (INSULIN DETEMIR) 1 UNITS/0.01ML SC SCH ×2 (09:08→21:26)
[2019-09-21] MEDS: HumaLOG INSULIN (NovoLOG) PER UNIT SC SCH ×4 (09:09→21:26)
[2019-09-21] MEDS: DOCUSATE SODIUM 100 MG CAP PO SCH ×2 (09:10→21:00)
[2019-09-21] MEDS: ENTRESTO 97-103MG TABLET (SACUBITRIL/VALSARTAN) PO SCH ×2 (09:10→21:25)
[2019-09-21] MEDS: MULTIVITAMINS/MINERALS THERAP 1 TAB PO SCH (09:10)
[2019-09-21] MEDS: PANTOPRAZOLE 40MG TAB (PROTONIX) PO SCH ×2 (09:10→21:26)
[2019-09-21] MEDS: OMEGA-3 1000MG CAPSULE PO SCH (09:10)
[2019-09-21] MEDS: metFORMIN (GLUCOPHAGE) 1000 MG TABLET PO SCH (09:10)
[2019-09-21] MEDS: FUROSEMIDE 40 MG TAB PO SCH (09:10)
[2019-09-21] MEDS: GABAPENTIN 100 MG CAP PO SCH ×3 (09:10→21:25)
[2019-09-21] MEDS: predniSONE 20 MG TAB PO SCH (09:10)
[2019-09-21] MEDS: METOPROLOL SUCC (TopROL XL) 100MG *XL* TAB PO SCH (09:11)
[2019-09-21] MEDS: guaiFENesin ER 600 MG TAB PO SCH ×2 (09:11→21:25)
[2019-09-21] MEDS: SPIRONOLACTONE 25 MG TAB PO SCH (09:12)
[2019-09-21] MEDS: VANICREAM MOISTURIZING SKIN CREAM 113GM TUBE TOP SCH ×2 (09:12→21:28)
[2019-09-21 13:00] VITALS: BP 160/69
[2019-09-21 14:00] VITALS: BP 150/67
[2019-09-21] MEDS: RIVAROXABAN 20 MG TAB (XARELTO) PO SCH (17:08)
[2019-09-21] MEDS: **hydrALAZINE HCL** 25 MG TAB PO SCH ×2 (19:00→21:25)
[2019-09-21 19:20] VITALS: BP 130/50
[2019-09-21] MEDS: SENNA 8.6 MG TAB (SENOKOT) PO SCH (21:00)
[2019-09-21] MEDS: amLODIPine 10 MG TAB PO SCH (21:25)
[2019-09-21] MEDS: ACETAMINOPHEN TAB 650MG DOSE (2X325MG) PO PRN (21:26)
[2019-09-21] MEDS: zolPIDEM TARTRATE 5 MG TAB PO SCH (21:26)
[2019-09-21] MEDS: SIMVASTATIN 20 MG TAB PO SCH (21:26)
[2019-09-22 05:15] VITALS: BP 150/50
[2019-09-22] MEDS: LevoFLOXacin 500 MG TABLET PO SCH (06:23)
[2019-09-22] MEDS: ISOSORBIDE DIN (ISORDIL) 10 MG TAB PO SCH ×3 (06:23→16:43)
[2019-09-22] MEDS: LEVALBUTEROL 1.25 MG/0.5 ML CONCENTRATE NEB INH SCH ×3 (08:06→20:00)
[2019-09-22] MEDS: LEVEMIR (INSULIN DETEMIR) 1 UNITS/0.01ML SC SCH ×2 (08:15→20:30)
[2019-09-22] MEDS: HumaLOG INSULIN (NovoLOG) PER UNIT SC SCH ×4 (08:15→20:31)
[2019-09-22] MEDS: predniSONE 20 MG TAB PO SCH (08:21)
[2019-09-22] MEDS: PANTOPRAZOLE 40MG TAB (PROTONIX) PO SCH ×2 (08:22→20:30)
[2019-09-22] MEDS: GABAPENTIN 100 MG CAP PO SCH ×3 (08:22→20:30)
[2019-09-22] MEDS: guaiFENesin ER 600 MG TAB PO SCH ×2 (08:23→20:30)
[2019-09-22] MEDS: OMEGA-3 1000MG CAPSULE PO SCH (08:23)
[2019-09-22] MEDS: metFORMIN (GLUCOPHAGE) 1000 MG TABLET PO SCH (08:23)
[2019-09-22] MEDS: MULTIVITAMINS/MINERALS THERAP 1 TAB PO SCH (08:23)
[2019-09-22] MEDS: DOCUSATE SODIUM 100 MG CAP PO SCH ×2 (08:24→20:29)
[2019-09-22] MEDS: ACETAMINOPHEN TAB 650MG DOSE (2X325MG) PO PRN (08:35)
[2019-09-22] MEDS: FUROSEMIDE 40 MG TAB PO SCH (10:07)
[2019-09-22] MEDS: METOPROLOL SUCC (TopROL XL) 100MG *XL* TAB PO SCH (10:07)
[2019-09-22] MEDS: SPIRONOLACTONE 25 MG TAB PO SCH (10:07)
[2019-09-22] MEDS: ENTRESTO 97-103MG TABLET (SACUBITRIL/VALSARTAN) PO SCH ×2 (10:07→20:29)
[2019-09-22 10:08] VITALS: BP 106/60
[2019-09-22] MEDS: **hydrALAZINE HCL** 25 MG TAB PO SCH ×3 (10:08→20:30)
[2019-09-22] MEDS: VANICREAM MOISTURIZING SKIN CREAM 113GM TUBE TOP SCH ×2 (10:08→20:31)
[2019-09-22 14:00] VITALS: BP 144/62
[2019-09-22] MEDS: RIVAROXABAN 20 MG TAB (XARELTO) PO SCH (16:43)
[2019-09-22 20:00] VITALS: BP 145/61
[2019-09-22] MEDS: amLODIPine 10 MG TAB PO SCH (20:30)
[2019-09-22] MEDS: SIMVASTATIN 20 MG TAB PO SCH (20:30)
[2019-09-22] MEDS: SENNA 8.6 MG TAB (SENOKOT) PO SCH (20:30)
[2019-09-23] MEDS: zolPIDEM TARTRATE 5 MG TAB PO SCH (00:59)
[2019-09-23] MEDS: LevoFLOXacin 500 MG TABLET PO SCH (05:39)
[2019-09-23 06:00] VITALS: BP 147/64
[2019-09-23] MEDS: ISOSORBIDE DIN (ISORDIL) 10 MG TAB PO SCH ×3 (06:48→17:47)
[2019-09-23] MEDS: HumaLOG INSULIN (NovoLOG) PER UNIT SC SCH ×4 (07:51→20:13)
[2019-09-23] MEDS: LEVEMIR (INSULIN DETEMIR) 1 UNITS/0.01ML SC SCH (07:51)
[2019-09-23] MEDS: DOCUSATE SODIUM 100 MG CAP PO SCH ×2 (07:52→20:13)
[2019-09-23] MEDS: FUROSEMIDE 40 MG TAB PO SCH (07:53)
[2019-09-23] MEDS: MULTIVITAMINS/MINERALS THERAP 1 TAB PO SCH (07:53)
[2019-09-23] MEDS: OMEGA-3 1000MG CAPSULE PO SCH (07:53)
[2019-09-23] MEDS: GABAPENTIN 100 MG CAP PO SCH ×3 (07:53→20:13)
[2019-09-23] MEDS: predniSONE 20 MG TAB PO SCH (07:53)
[2019-09-23] MEDS: ENTRESTO 97-103MG TABLET (SACUBITRIL/VALSARTAN) PO SCH ×2 (07:54→20:13)
[2019-09-23] MEDS: **hydrALAZINE HCL** 25 MG TAB PO SCH ×3 (07:54→20:14)
[2019-09-23] MEDS: SPIRONOLACTONE 25 MG TAB PO SCH (07:54)
[2019-09-23] MEDS: metFORMIN (GLUCOPHAGE) 1000 MG TABLET PO SCH (07:54)
[2019-09-23] MEDS: PANTOPRAZOLE 40MG TAB (PROTONIX) PO SCH ×2 (07:54→20:13)
[2019-09-23] MEDS: guaiFENesin ER 600 MG TAB PO SCH ×2 (07:54→20:13)
[2019-09-23] MEDS: VANICREAM MOISTURIZING SKIN CREAM 113GM TUBE TOP SCH ×2 (07:55→20:14)
[2019-09-23] MEDS: METOPROLOL SUCC (TopROL XL) 100MG *XL* TAB PO SCH (07:55)
[2019-09-23] MEDS: LEVALBUTEROL 1.25 MG/0.5 ML CONCENTRATE NEB INH SCH ×4 (08:17→14:00)
[2019-09-23] MEDS ORDERED: PRED5TA PO (12:29)
[2019-09-23] MEDS ORDERED: FURO40TA2 PO (12:29)
[2019-09-23] MEDS ORDERED: XARE20TA PO (12:29)
[2019-09-23] MEDS ORDERED: INSUDET SC ×2 (12:29)
[2019-09-23] MEDS ORDERED: AMLO10TA5 PO (12:29)
[2019-09-23] MEDS ORDERED: GLUC1000 PO (12:29)
[2019-09-23] MEDS ORDERED: METO1TAB33 PO (12:29)
[2019-09-23] MEDS ORDERED: GABA-1171 PO (12:29)
[2019-09-23] MEDS ORDERED: ISOS10TA PO (12:29)
[2019-09-23] MEDS ORDERED: HYDR25TA PO (12:29)
[2019-09-23] MEDS ORDERED: ALDA25TA2 PO (12:29)
[2019-09-23] MEDS ORDERED: PANT40TA3 PO (12:29)
[2019-09-23] MEDS ORDERED: LEVA12INH INH (12:29)
[2019-09-23] MEDS ORDERED: ENTR1TAB4 PO (12:29)
[2019-09-23] MEDS ORDERED: FISH1CAP26 PO (12:29)
[2019-09-23] MEDS ORDERED: SIMV20TA22 PO (12:29)
[2019-09-23 13:05] LABS: BASO # 0.1 10^3/uL (0.0-0.2); BASO % 0.4 % (0.0-1.0); EOS # 0.2 10^3/uL (0.0-0.5); EOS % 1.1 % (0.0-3.0); HEMATOCRIT 40.9 % (42.0-52.0); LYMPH # 0.7 10^3/uL (1.5-5.0); LYMPH % 4.1 % (24.0-44.0); MEAN CORPUSCULAR HEMOGLOBIN 27.5 pg (27.0-33.0); MEAN CORPUSCULAR HGB CONC 31.8 g/dl (32.0-36.5); MEAN CORPUSCULAR VOLUME 86.5 fl (80.0-96.0); MONO # 0.5 10^3/uL (0.0-0.8); MONO % 3.2 % (0.0-5.0); NEUTROPHILS # 14.5 10^3/uL (1.5-8.5); NEUTROPHILS % 90.7 % (36.0-66.0); PLATELET COUNT, AUTOMATED 243 10^3/uL (150-450); RED BLOOD COUNT 4.73 10^6/uL (4.30-6.10)
[2019-09-23 13:31] LABS: CALCIUM LEVEL 8.3 MG/DL (8.8-10.2); CREATININE FOR GFR 1.36 MG/DL (0.70-1.30); POTASSIUM SERUM 4.9 MEQ/L (3.5-5.1)
[2019-09-23 14:00] VITALS: BP 126/78
--- NOTE | 2019-09-23 17:36 | IPNPDOC ---
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 His was present in the room for wound care and instructed on how to do it. REVIEW OF SYSTEMS: The following is a completed review of systems and has been reviewed. Review of systems otherwise unremarkable. PAIN: Patient self reports no pain EYES: No recent vision changes EARS, NOSE, & THROAT: No throat pain, or dysphagia, or rhinorrhea CARDIOVASCULAR: Denies chest pain or palpitations PULMONARY: Denies shortness of breath, + cough (improving) GASTROINTESTINAL: Denies constipation/diarrhea GENITOURINARY: denies dysuria MUSCULOSKELETAL: low back pain (not at present) NEUROLOGICAL:peripheral polyneuropathy HEMATOLOGICAL: +hypercoagulable SKIN: right 2st ray amputation PSYCHIATRIC: Unremarkable All other review of systems found to be negative. PHYSICAL EXAMINATION: VITAL SIGNS: Please see below. GENERAL: Pleasant and cooperative. No acute distress. morbidly obese HEENT: PERRL. Extraocular movements intact. Clear conjunctiva CARDIOVASCULAR: Regular rate and rhythm. No murmurs, rubs, or gallops LUNGS: Clear to auscultation bilaterally. No wheezes. No rhonchi ABDOMEN: Soft, nontender, nondistended. Positive bowel sounds. Normal active bowel sounds NEUROLOGICAL: Alert and oriented times three. Cranial nerves II through XII grossly intact. Sensation diminished to light touch left LE in stocking pattern EXTREMITIES: 5\5 strength bilateral upper extremities. 5-\5 strength right hip flexion/knee extension (limited due to recent sugery), 5-/5 strength in left hip flexors, knee extensors, ankle DF, 4/5 EHL extension (+) edema LLE (-) Deepa's bilat SKIN: hyperpigmentation and scaling skin bilat calves, right foot surgical wound with medial deep area with visualized osseous structures and granulation tissue with adipose tissue, flap appears necrotic, but dry, and periwound area also dry -unstageble ulcer (black) on right heel and 4-5th interdigital space (present on admission) dry now ASSESSMENT:64-year-old M with past medical history of PVD and peripheral polyneuropathy who presents status post right first ray amputation in setting of osteomyelitis. PLAN: 1. Rehab: PT- advance mobility from wheelchair level, goal is Mod-I for discharge, orders to staff reiterated for NWB to be goal of therapy to protect his wound and encourage healing, patient haaving difficulty with this limitation due to morbid obesity, but is striving towards this- platform walker being trialed today to assist with offloading -OT advance ADL management, strengthen bilat UE, teach scapular stabilization ex ercises 2. Neuro: hx of poorly controlled DM with peripheral polyneuropathy with gait impairment -aim for good gylcemic control-will c/u to adjust insulin and will start metformin today to aid in weight loss 3. cardiac: hx of grade 1 diastolic CHF on 2018 ECHO, c/u spironolactone, and fluid restrict to 1800cc, daily weights -HTN c/u Metoprolol , medicine consulted to assist in management, recs a ppreciated HLD- statin 4. Resp: hx of COPD c/u oral steroids (tapering) and Xopenex, monitor for inf ection -c/u Guaifenesin, cough improving 5. Endo: pmh DM c/u levemir and ISS, c/u to adjust prn, c/u metformin 5. Vasc: hx of factor V Leiden deficiency with hx of LLE DVT, c/u Xarelto 20mg daily 6. GI ppx: Protonix BID while on prednisone 7. ID: osteomyelitis of 1st metatarsal s/p resection, intra-op cultures pending, Dr. Franco consulted, recs appreciated, ESR/CRP low, s/p IV Meropenem, c/u Le vofloxacin 8. DVT ppx: on therapeutic Xarelto 9. Skin: c/u surgical site care per wound care instructions c/u heel float to RLE and NWB in therapy 10. Pain: Dilaudid prn and Tylenol, c/u Gabapentin for neuropathic pain 11. Dispo: 09-24-19 to home, progressing towards goals Allergies Coded Allergies: erythromycin base (Verified Adverse Reaction, Mild, N/V, 09/04/19) Vital Signs Vital Signs Date Time Temp Pulse Resp B/P (MAP) Pulse Ox O2 Delivery O2 Flow Rate FiO2 09/23/19 14:00 97.5 75 18 126/78 (94) 96 Room Air 09/23/19 06:00 2.0 Laboratory Data CBC/BMP Laboratory Tests 09/23/19 12:37 Labs 24H Laboratory Tests 2 09/22/19 19:37: Bedside Glucose (Misc Panel) 286H 09/23/19 05:38: Bedside Glucose (Misc Panel) 191H 09/23/19 11:34: Bedside Glucose (Misc Panel) 198H 09/23/19 12:37: Immature Granulocyte % (Auto) 0.5, Neutrophils (%) (Auto) 90.7H, Lymphocytes (%) (Auto) 4.1L, Monocytes (%) (Auto) 3.2, Eosinophils (%) (Auto) 1.1, Basophils (%) (Auto) 0.4, Neutrophils # (Auto) 14.5H, Lymphocytes # (Auto) 0.7L, Monocytes # (Auto) 0.5, Eosinophils # (Auto) 0.2, Basophils # (Auto) 0.1, Nucleated Red Blood Cells % (auto) 0.0, Anion Gap 5L, Glomerular Filtration Rate 56.0, Calcium Level 8.3L 09/23/19 17:01: Bedside Glucose (Misc Panel) 244H Current Medications Current Medications Current Medications Medications (Trade) Dose Ordered Sig/Jolene Route PRN Reason Start Time Stop Time Status Last Admin Dose Admin Acetaminophen (Tylenol Tab) 650 mg Q4HP PRN PO MILD PAIN (PS 1-4) 09/10/19 19:15 09/22/19 08:35 Amlodipine Besylate (Norvasc) 5 mg BID PO 09/14/19 13:00 09/16/19 07:48 DC 09/15/19 21:56 Amlodipine Besylate (Norvasc) 10 mg QHS PO 09/16/19 21:00 09/22/19 20:30 Dextrose (Dextrose 50%) 25 ml ASDIRECTED PRN IV SEE LABEL COMMENTS 09/10/19 19:15 Docusate Sodium (Colace) 100 mg BID PO 09/10/19 21:00 09/23/19 07:52 Emollient Cream (Vanicream) apply to dry skin BID TOP 09/10/19 21:00 09/23/19 07:55 Fish Oil ([place]-3 (1000mg)) 1 cap DAILY PO 09/11/19 09:00 09/23/19 07:53 Furosemide (Lasix) 40 mg DAILY PO 09/11/19 09:00 09/23/19 07:53 Gabapentin (Neurontin) 100 mg TID PO 09/17/19 09:00 09/23/19 07:53 Glucagon (Glucagon) 1 mg ASDIRECTED PRN SC SEE LABEL COMMENTS 09/10/19 19:15 Glucose (Glucose) 16 GM ASDIRECTED PRN PO SEE LABEL COMMENTS 09/10/19 19:15 Guaifenesin (Mucinex Tab Er) 600 mg BID PO 09/10/19 21:00 09/23/19 07:54 Heparin Sodium (Porcine) (Heparin) 5,000 units Q8H SC 09/10/19 19:15 09/10/19 19:21 DC Hydralazine HCl (Apresoline) 25 mg TID PO 09/21/19 16:00 09/23/19 07:54 Hydromorphone HCl (Dilaudid) 0.5 mg Q4HP PRN PO MODERATE/SEVERE PAIN (PS 5-10) 09/10/19 19:15 09/23/19 11:56 DC 09/17/19 12:17 Insulin Detemir (Levemir Insulin) 5 units QHS SC 09/17/19 21:00 09/19/19 12:01 DC 09/18/19 21:04 Insulin Detemir (Levemir Insulin) 8 units QHS SC 09/19/19 21:00 09/23/19 12:32 DC 09/22/19 20:30 Insulin Detemir (Levemir Insulin) 10 units QHS SC 09/11/19 21:00 09/13/19 13:48 DC 09/12/19 21:36 Insulin Detemir (Levemir Insulin) 10 units QHS SC 09/23/19 21:00 Insulin Detemir (Levemir Insulin) 15 units DAILY SC 09/13/19 09:00 09/14/19 13:04 DC Insulin Detemir (Levemir Insulin) 15 units DAILY SC 09/15/19 09:00 09/15/19 23:48 DC 09/15/19 07:27 Insulin Detemir (Levemir Insulin) 16 units DAILY SC 09/16/19 09:00 09/16/19 07:47 DC Insulin Detemir (Levemir Insulin) 18 units DAILY SC 09/16/19 09:00 09/17/19 18:44 DC 09/17/19 08:25 Insulin Detemir (Levemir Insulin) 20 units DAILY GA 09/15/19 09:00 09/14/19 12:58 DC Insulin Detemir (Levemir Insulin) 20 units DAILY GA 09/18/19 09:00 09/19/19 12:01 DC 09/19/19 08:21 Insulin Detemir (Levemir Insulin) 25 units DAILY GA 09/20/19 09:00 09/23/19 12:32 DC 09/23/19 07:51 Insulin Detemir (Levemir Insulin) 30 units DAILY GA 09/24/19 09:00 Insulin Detemir (Levemir Insulin) 40 units DAILY GA 09/12/19 09:00 09/11/19 17:34 DC Insulin Detemir (Levemir Insulin) 60 units DAILY GA 09/11/19 09:00 09/11/19 16:04 DC Insulin Human Lispro (HumaLOG INSULIN) 16 units STAT STAT GA 09/15/19 16:40 09/15/19 16:42 DC 09/15/19 17:02 Insulin Human Lispro (HumaLOG INSULIN) SEE PROTOCOL TABLE AC GA 09/11/19 07:30 09/23/19 13:07 Insulin Human Lispro (HumaLOG INSULIN) SEE PROTOCOL TABLE QHS SC 09/10/19 21:00 09/22/19 20:31 Isosorbide Dinitrate (Isordil) 10 mg TID@07,12,17 PO 09/16/19 09:00 09/22/19 16:43 Levalbuterol HCl (Xopenex Neb) 1.25 mg Q2HP PRN INH SOB/WHEEZING 09/10/19 19:15 09/10/19 20:05 DC Levalbuterol HCl (Xopenex Neb) 1.25 mg RTID INH 09/11/19 20:00 09/23/19 08:17 Levofloxacin (Levaquin) 500 mg DAILY@06 PO 09/17/19 06:00 09/23/19 05:39 Magnesium Hydroxide (Milk Of Magnesia) 30 ml DAILYPRN PRN PO CONSTIPATION 09/10/19 19:15 Meropenem 1 gm/IV Miscellaneous Supplies 50 ml @ 100 mls/hr Q8H IV 09/10/19 21:00 09/16/19 17:37 DC 09/16/19 13:10 Metformin HCl (Glucophage) 1,000 mg DAILY@08 PO 09/19/19 08:00 09/23/19 07:54 Metoprolol Succinate (TopROL XL) 50 mg DAILY PO 09/11/19 09:00 09/11/19 16:05 DC 09/11/19 08:21 Metoprolol Succinate (TopROL XL) 75 mg DAILY PO 09/12/19 09:00 09/13/19 13:48 DC 09/13/19 08:24 Metoprolol Succinate (TopROL XL) 100 mg DAILY PO 09/14/19 09:00 09/23/19 07:55 Miscellaneous (Unresolved Clarification Entry) SEE LABEL COMMENTS DAILY XX 09/22/19 09:00 09/23/19 07:16 DC Miscellaneous (Unresolved Clarification Entry) SEE LABEL COMMENTS DAILY XX 09/23/19 09:00 09/23/19 12:38 DC Multivitamins (Theragram-M) 1 tab DAILY PO 09/11/19 09:00 09/23/19 07:53 Pantoprazole Sodium (Protonix) 40 mg BID PO 09/10/19 21:00 09/23/19 07:54 Polyethylene Glycol (Miralax) 1 pkt DAILYPRN PRN PO CONSTIPATION 09/11/19 20:15 09/13/19 08:38 Prednisone (Deltasone) 20 mg DAILY PO 09/18/19 09:00 09/23/19 07:53 Prednisone (Deltasone) 20 mg DAILY PO 09/19/19 09:00 09/16/19 10:59 DC Prednisone (Deltasone) 30 mg DAILY PO 09/11/19 09:00 09/17/19 10:00 DC 09/17/19 08:26 Rivaroxaban (Xarelto) 20 mg DAILY@18 PO 09/10/19 20:00 09/22/19 16:43 Sacubitril/ Valsartan (Entresto 97-103 Mg) 1 tab BID PO 09/10/19 21:00 09/23/19 07:54 Senna (Senokot) 1 tab QHS PO 09/10/19 21:00 09/22/19 20:30 Simvastatin (Zocor) 20 mg QHS PO 09/16/19 21:00 09/22/19 20:30 Simvastatin (Zocor) 40 mg DAILY PO 09/11/19 09:00 09/16/19 08:36 DC 09/15/19 07:29 Sodium Chloride (Saline Lock Flush) 2 ml ASDIRECTED PRN IV SEE LABEL COMMENTS 09/11/19 01:30 Cancel Sodium Chloride (Saline Lock Flush) 2 ml SLF IV 09/11/19 06:00 09/17/19 12:36 DC 09/16/19 13:11 Spironolactone (Aldactone) 25 mg QAM PO 09/11/19 09:00 09/23/19 07:54 Zolpidem Tartrate (Ambien) 2.5 mg QHS PO 09/10/19 21:00 09/23/19 11:56 DC 09/21/19 21:26 CHANELLE CASEY MD Sep 23, 2019 17:36
[2019-09-23] MEDS ORDERED: NS 500 ML IV ONE (17:45)
[2019-09-23] MEDS: RIVAROXABAN 20 MG TAB (XARELTO) PO SCH (17:46)
--- NOTE | 2019-09-23 17:48 | IPN ---
DATE: 09/23/2019 Mr. Boyce is anxious to go home. He denies any complaint. No nausea, vomiting or diarrhea. No fever or chills. His foot does not bother him. He has been offloading more to decrease the drainage which has helped. He is being tapered from his steroid and is currently at a dose of 20 mg daily. LABORATORY DATA: White count is 16, hemoglobin 13, hematocrit 40.9, platelets 243, 90% neutrophils, 4% lymphocytes, 3% monocytes. Sodium 137, potassium 4.7, chloride 105, bicarbonate 27, BUN 44, creatinine 1.36, glucose 247, calcium 8.3, CRP on 09/19/2019 was less than 0.3. MEDICATIONS: Levofloxacin 500 mg by mouth daily. He is currently day number seven. PHYSICAL EXAMINATION: Temperature is 97.5, pulse 75, respirations 18, blood pressure 126/70, oxygen saturation 96% on room air. HEART: Normal S1, S2. No murmurs. LUNGS: Decreased breath sounds but distant. No wheezes, rales, or rhonchi. ABDOMEN: Morbidly obese, soft, nontender. EXTREMITIES: Trace edema bilaterally. Right foot with a ray amputation of the first toe. Skin flap is necrotic, dry. No purulent drainage. There is very minimal serosanguineous drainage on the dressing. There is no surrounding cellulitis and no evidence of infection of the wound. IMPRESSION: 1. Acute osteomyelitis with gangrene of the foot status post amputation, currently without any evidence of infection. The patient has received antibiotics for at least 20 days and he will be day number 14 from surgical date on 09/10/2019 tomorrow which would be his end of treatment date. 2. Leukocytosis, possibly related to steroids versus stress. 3. Peripheral vascular disease status post angioplasty by Dr. Dsouza. He will need to followup with her. 4. Necrotic flap of the first toe without evidence of infection. PLAN: Followup with Dr. Franco in 1-2 weeks. Follow up with Dr. Tenorio and Dr. Dsouza. We will repeat complete blood count (CBC), C-reactive protein (CRP), erythrocyte sedimentation rate (ESR). I would discontinue levofloxacin after tomorrow's dose.
--- NOTE | 2019-09-23 17:49 | IPNPDOC ---
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 REVIEW OF SYSTEMS: The following is a completed review of systems and has been reviewed. Review of systems otherwise unremarkable. PAIN: Patient self reports no pain EYES: No recent vision changes EARS, NOSE, & THROAT: No throat pain, or dysphagia, or rhinorrhea CARDIOVASCULAR: Denies chest pain or palpitations PULMONARY: Denies shortness of breath, + cough (improving) GASTROINTESTINAL: Denies constipation/diarrhea GENITOURINARY: denies dysuria MUSCULOSKELETAL: low back pain (not at present) NEUROLOGICAL:peripheral polyneuropathy HEMATOLOGICAL: +hypercoagulable SKIN: right 2st ray amputation PSYCHIATRIC: Unremarkable All other review of systems found to be negative. PHYSICAL EXAMINATION: VITAL SIGNS: Please see below. GENERAL: Pleasant and cooperative. No acute distress. morbidly obese HEENT: PERRL. Extraocular movements intact. Clear conjunctiva CARDIOVASCULAR: Regular rate and rhythm. No murmurs, rubs, or gallops LUNGS: Clear to auscultation bilaterally. No wheezes. No rhonchi ABDOMEN: Soft, nontender, nondistended. Positive bowel sounds. Normal active bowel sounds NEUROLOGICAL: Alert and oriented times three. Cranial nerves II through XII grossly intact. Sensation diminished to light touch left LE in stocking pattern EXTREMITIES: 5\5 strength bilateral upper extremities. 5-\5 strength right hip flexion/knee extension (limited due to recent sugery), 5-/5 strength in left hip flexors, knee extensors, ankle DF, 4/5 EHL extension (+) edema LLE (-) Deepa's bilat SKIN: hyperpigmentation and scaling skin bilat calves, right foot surgical wound with medial deep area with visualized osseous structures and granulation tissue with adipose tissue, flap appears necrotic, but dry, and periwound area also dry -unstageble ulcer (black) on right heel and 4-5th interdigital space (present on admission) dry now ASSESSMENT:64-year-old M with past medical history of PVD and peripheral polyneuropathy who presents status post right first ray amputation in setting of osteomyelitis. PLAN: 1. Rehab: PT- advance mobility from wheelchair level, goal is Mod-I for d ischarge, orders to staff reiterated for NWB to be goal of therapy to protect his wound and encourage healing, patient having difficulty with this limitation due to morbid obesity, but is striving towards this- platform walker being trialed today to assist with offloading -OT advance ADL management, strengthen bilat UE, teach scapular stabilization exercises 2. Neuro: hx of poorly controlled DM with peripheral polyneuropathy with gait impairment -aim for good gylcemic control-will c/u to adjust insulin and will start metformin today to aid in weight loss 3. cardiac: hx of grade 1 diastolic CHF on 2018 ECHO, c/u spironolactone, and fluid restrict to 1800cc, daily weights -HTN c/u Metoprolol , medicine consulted to assist in management, recs appreciated HLD- statin 4. Resp: hx of COPD c/u oral steroids (tapering) and Xopenex, monitor for infection -c/u Guaifenesin, cough improving 5. Endo: pmh DM c/u levemir and ISS, c/u to adjust prn, c/u metformin 5. Vasc: hx of factor V Leiden deficiency with hx of LLE DVT, c/u Xarelto 20mg daily 6. GI ppx: Protonix BID while on prednisone 7. ID: osteomyelitis of 1st metatarsal s/p resection, intra-op cultures pending, Dr. Franco consulted, recs appreciated, ESR/CRP low, s/p IV Meropenem, c/u Levofloxacin -leukocytosis probably due to steroid use 8. DVT ppx: on therapeutic Xarelto 9. Skin: c/u surgical site care per wound care instructions c/u heel float to RLE and NWB in therapy- wound healing well 10. Pain: Dilaudid prn and Tylenol, c/u Gabapentin for neuropathic pain 11. 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 Dispo: 09-24-19 to home, progressing towards goals Allergies Coded Allergies: erythromycin base (Verified Adverse Reaction, Mild, N/V, 09/04/19) Vital Signs Vital Signs Date Time Temp Pulse Resp B/P (MAP) Pulse Ox O2 Delivery O2 Flow Rate FiO2 09/23/19 14:00 97.5 75 18 126/78 (94) 96 Room Air 09/23/19 06:00 2.0 Laboratory Data CBC/BMP Laboratory Tests 09/23/19 12:37 Labs 24H Laboratory Tests 2 09/22/19 19:37: Bedside Glucose (Misc Panel) 286H 09/23/19 05:38: Bedside Glucose (Misc Panel) 191H 09/23/19 11:34: Bedside Glucose (Misc Panel) 198H 09/23/19 12:37: Immature Granulocyte % (Auto) 0.5, Neutrophils (%) (Auto) 90.7H, Lymphocytes (%) (Auto) 4.1L, Monocytes (%) (Auto) 3.2, Eosinophils (%) (Auto) 1.1, Basophils (%) (Auto) 0.4, Neutrophils # (Auto) 14.5H, Lymphocytes # (Auto) 0.7L, Monocytes # (Auto) 0.5, Eosinophils # (Auto) 0.2, Basophils # (Auto) 0.1, Nucleated Red Blood Cells % (auto) 0.0, Anion Gap 5L, Glomerular Filtration Rate 56.0, Calcium Level 8.3L 09/23/19 17:01: Bedside Glucose (Misc Panel) 244H Current Medications Current Medications Current Medications Medications (Trade) Dose Ordered Sig/Jolene Route PRN Reason Start Time Stop Time Status Last Admin Dose Admin Acetaminophen (Tylenol Tab) 650 mg Q4HP PRN PO MILD PAIN (PS 1-4) 09/10/19 19:15 09/22/19 08:35 Amlodipine Besylate (Norvasc) 5 mg BID PO 09/14/19 13:00 09/16/19 07:48 DC 09/15/19 21:56 Amlodipine Besylate (Norvasc) 10 mg QHS PO 09/16/19 21:00 09/22/19 20:30 Dextrose (Dextrose 50%) 25 ml ASDIRECTED PRN IV SEE LABEL COMMENTS 09/10/19 19:15 Docusate Sodium (Colace) 100 mg BID PO 09/10/19 21:00 09/23/19 07:52 Emollient Cream (Vanicream) apply to dry skin BID TOP 09/10/19 21:00 09/23/19 07:55 Fish Oil ([place]-3 (1000mg)) 1 cap DAILY PO 09/11/19 09:00 09/23/19 07:53 Furosemide (Lasix) 40 mg DAILY PO 09/11/19 09:00 09/23/19 07:53 Gabapentin (Neurontin) 100 mg TID PO 09/17/19 09:00 09/23/19 07:53 Glucagon (Glucagon) 1 mg ASDIRECTED PRN SC SEE LABEL COMMENTS 09/10/19 19:15 Glucose (Glucose) 16 GM ASDIRECTED PRN PO SEE LABEL COMMENTS 09/10/19 19:15 Guaifenesin (Mucinex Tab Er) 600 mg BID PO 09/10/19 21:00 09/23/19 07:54 Heparin Sodium (Porcine) (Heparin) 5,000 units Q8H SC 09/10/19 19:15 09/10/19 19:21 DC Hydralazine HCl (Apresoline) 25 mg TID PO 09/21/19 16:00 09/23/19 07:54 Hydromorphone HCl (Dilaudid) 0.5 mg Q4HP PRN PO MODERATE/SEVERE PAIN (PS 5-10) 09/10/19 19:15 09/23/19 11:56 DC 09/17/19 12:17 Insulin Detemir (Levemir Insulin) 5 units QHS SC 09/17/19 21:00 09/19/19 12:01 DC 09/18/19 21:04 Insulin Detemir (Levemir Insulin) 8 units QHS SC 09/19/19 21:00 09/23/19 12:32 DC 09/22/19 20:30 Insulin Detemir (Levemir Insulin) 10 units QHS SC 09/11/19 21:00 09/13/19 13:48 DC 09/12/19 21:36 Insulin Detemir (Levemir Insulin) 10 units QHS SC 09/23/19 21:00 Insulin Detemir (Levemir Insulin) 15 units DAILY SC 09/13/19 09:00 09/14/19 13:04 DC Insulin Detemir (Levemir Insulin) 15 units DAILY SC 09/15/19 09:00 09/15/19 23:48 DC 09/15/19 07:27 Insulin Detemir (Levemir Insulin) 16 units DAILY SC 09/16/19 09:00 09/16/19 07:47 DC Insulin Detemir (Levemir Insulin) 18 units DAILY MA 09/16/19 09:00 09/17/19 18:44 DC 09/17/19 08:25 Insulin Detemir (Levemir Insulin) 20 units DAILY MA 09/15/19 09:00 09/14/19 12:58 DC Insulin Detemir (Levemir Insulin) 20 units DAILY MA 09/18/19 09:00 09/19/19 12:01 DC 09/19/19 08:21 Insulin Detemir (Levemir Insulin) 25 units DAILY MA 09/20/19 09:00 09/23/19 12:32 DC 09/23/19 07:51 Insulin Detemir (Levemir Insulin) 30 units DAILY MA 09/24/19 09:00 Insulin Detemir (Levemir Insulin) 40 units DAILY MA 09/12/19 09:00 09/11/19 17:34 DC Insulin Detemir (Levemir Insulin) 60 units DAILY MA 09/11/19 09:00 09/11/19 16:04 DC Insulin Human Lispro (HumaLOG INSULIN) 16 units STAT STAT MA 09/15/19 16:40 09/15/19 16:42 DC 09/15/19 17:02 Insulin Human Lispro (HumaLOG INSULIN) SEE PROTOCOL TABLE AC MA 09/11/19 07:30 09/23/19 13:07 Insulin Human Lispro (HumaLOG INSULIN) [facility] 09[facility] 21:00 09/22/19 20:31 Isosorbide Dinitrate (Isordil) 10 mg TID@07,12,17 PO 09/16/19 09:00 09/22/19 16:43 Levalbuterol HCl (Xopenex Neb) 1.25 mg Q2HP PRN INH SOB/WHEEZING 09/10/19 19:15 09/10/19 20:05 DC Levalbuterol HCl (Xopenex Neb) 1.25 mg RTID INH 09/11/19 20:00 09/23/19 08:17 Levofloxacin (Levaquin) 500 mg DAILY@06 PO 09/17/19 06:00 09/23/19 05:39 Magnesium Hydroxide (Milk Of Magnesia) 30 ml DAILYPRN PRN PO CONSTIPATION 09/10/19 19:15 Meropenem 1 gm/IV Miscellaneous Supplies 50 ml @ 100 mls/hr Q8H IV 09/10/19 21:00 09/16/19 17:37 DC 09/16/19 13:10 Metformin HCl (Glucophage) 1,000 mg DAILY@08 PO 09/19/19 08:00 09/23/19 07:54 Metoprolol Succinate (TopROL XL) 50 mg DAILY PO 09/11/19 09:00 09/11/19 16:05 DC 09/11/19 08:21 Metoprolol Succinate (TopROL XL) 75 mg DAILY PO 09/12/19 09:00 09/13/19 13:48 DC 09/13/19 08:24 Metoprolol Succinate (TopROL XL) 100 mg DAILY PO 09/14/19 09:00 09/23/19 07:55 Miscellaneous (Unresolved Clarification Entry) SEE LABEL COMMENTS DAILY XX 09/22/19 09:00 09/23/19 07:16 DC Miscellaneous (Unresolved Clarification Entry) SEE LABEL COMMENTS DAILY XX 09/23/19 09:00 09/23/19 12:38 DC Multivitamins (Theragram-M) 1 tab DAILY PO 09/11/19 09:00 09/23/19 07:53 Pantoprazole Sodium (Protonix) 40 mg BID PO 09/10/19 21:00 09/23/19 07:54 Polyethylene Glycol (Miralax) 1 pkt DAILYPRN PRN PO CONSTIPATION 09/11/19 20:15 09/13/19 08:38 Prednisone (Deltasone) 20 mg DAILY PO 09/18/19 09:00 09/23/19 07:53 Prednisone (Deltasone) 20 mg DAILY PO 09/19/19 09:00 09/16/19 10:59 DC Prednisone (Deltasone) 30 mg DAILY PO 09/11/19 09:00 09/17/19 10:00 DC 09/17/19 08:26 Rivaroxaban (Xarelto) 20 mg DAILY@18 PO 09/10/19 20:00 09/22/19 16:43 Sacubitril/ Valsartan (Entresto 97-103 Mg) 1 tab BID PO 09/10/19 21:00 09/23/19 07:54 Senna (Senokot) 1 tab QHS PO 09/10/19 21:00 09/22/19 20:30 Simvastatin (Zocor) 20 mg QHS PO 09/16/19 21:00 09/22/19 20:30 Simvastatin (Zocor) 40 mg DAILY PO 09/11/19 09:00 09/16/19 08:36 DC 09/15/19 07:29 Sodium Chloride (Saline Lock Flush) 2 ml ASDIRECTED PRN IV SEE LABEL COMMENTS 09/11/19 01:30 Cancel Sodium Chloride (Saline Lock Flush) 2 ml SLF IV 09/11/19 06:00 09/17/19 12:36 DC 09/16/19 13:11 Spironolactone (Aldactone) 25 mg QAM PO 09/11/19 09:00 09/23/19 07:54 Zolpidem Tartrate (Ambien) 2.5 mg QHS PO 09/10/19 21:00 09/23/19 11:56 DC 09/21/19 21:26 CHANELLE CASEY MD Sep 23, 2019 17:49
[2019-09-23 20:00] VITALS: BP 142/62
[2019-09-23] MEDS: SIMVASTATIN 20 MG TAB PO SCH (20:13)
[2019-09-23] MEDS: amLODIPine 10 MG TAB PO SCH (20:14)
[2019-09-23] MEDS: SENNA 8.6 MG TAB (SENOKOT) PO SCH (20:14)
[2019-09-23] MEDS ORDERED: LEVEMIR (INSULIN DETEMIR) 1 UNITS/0.01ML SC SCH (21:00)
[2019-09-24] MEDS: LevoFLOXacin 500 MG TABLET PO SCH (05:39)
[2019-09-24] MEDS: ISOSORBIDE DIN (ISORDIL) 10 MG TAB PO SCH ×2 (05:39→12:00)
[2019-09-24 06:02] VITALS: BP 144/64
[2019-09-24 06:08] LABS: HEMATOCRIT 36.8 % (42.0-52.0); HEMOGLOBIN 11.2 g/dl (13.5-17.5); MEAN CORPUSCULAR HEMOGLOBIN 26.4 pg (27.0-33.0); MEAN CORPUSCULAR HGB CONC 30.4 g/dl (32.0-36.5); MEAN CORPUSCULAR VOLUME 86.8 fl (80.0-96.0); PLATELET COUNT, AUTOMATED 226 10^3/uL (150-450); RED BLOOD COUNT 4.24 10^6/uL (4.30-6.10); WHITE BLOOD COUNT 10.2 10^3/uL (4.0-10.0)
[2019-09-24 06:30] LABS: ERYTHROCYTE SEDIMENTATION RATE 25 mm/hr (0-20)
[2019-09-24 06:34] LABS: BLOOD UREA NITROGEN 47 MG/DL (7-18); C REACTIVE PROTEIN QUANTITATIV 0.39 MG/DL (0.00-0.30); CALCIUM LEVEL 8.2 MG/DL (8.8-10.2); CARBON DIOXIDE LEVEL 29 MEQ/L (21-32); CHLORIDE LEVEL 105 MEQ/L (98-107); CREATININE FOR GFR 1.22 MG/DL (0.70-1.30); GLOMERULAR FILTRATION RATE > 60.0 (>49); GLUCOSE, FASTING 201 MG/DL (70-100); SODIUM LEVEL 139 MEQ/L (136-145)
[2019-09-24] MEDS: LEVALBUTEROL 1.25 MG/0.5 ML CONCENTRATE NEB INH SCH ×2 (07:36→14:00)
[2019-09-24] MEDS: HumaLOG INSULIN (NovoLOG) PER UNIT SC SCH ×2 (08:14→12:27)
[2019-09-24] MEDS: OMEGA-3 1000MG CAPSULE PO SCH (08:15)
[2019-09-24] MEDS: GABAPENTIN 100 MG CAP PO SCH (08:15)
[2019-09-24] MEDS: MULTIVITAMINS/MINERALS THERAP 1 TAB PO SCH (08:15)
[2019-09-24] MEDS: metFORMIN (GLUCOPHAGE) 1000 MG TABLET PO SCH (08:15)
[2019-09-24] MEDS: DOCUSATE SODIUM 100 MG CAP PO SCH (08:15)
[2019-09-24] MEDS: PANTOPRAZOLE 40MG TAB (PROTONIX) PO SCH (08:15)
[2019-09-24] MEDS: ENTRESTO 97-103MG TABLET (SACUBITRIL/VALSARTAN) PO SCH (08:16)
[2019-09-24] MEDS: FUROSEMIDE 40 MG TAB PO SCH (08:16)
[2019-09-24] MEDS: guaiFENesin ER 600 MG TAB PO SCH (08:16)
[2019-09-24] MEDS: predniSONE 20 MG TAB PO SCH (08:16)
[2019-09-24] MEDS: **hydrALAZINE HCL** 25 MG TAB PO SCH (08:16)
[2019-09-24 08:17] VITALS: BP 144/64
[2019-09-24] MEDS: METOPROLOL SUCC (TopROL XL) 100MG *XL* TAB PO SCH (08:17)
[2019-09-24] MEDS: SPIRONOLACTONE 25 MG TAB PO SCH (08:17)
[2019-09-24] MEDS: VANICREAM MOISTURIZING SKIN CREAM 113GM TUBE TOP SCH (08:18)
[2019-09-24] MEDS ORDERED: LEVEMIR (INSULIN DETEMIR) 1 UNITS/0.01ML SC SCH (09:00)
--- NOTE | 2019-09-24 09:44 | PMRDS ---
DATE OF ADMISSION: 09/10/2019 DATE OF DISCHARGE: CHIEF COMPLAINT/DISCHARGE DIAGNOSIS: Status post first ray amputation in the setting of osteomyelitis. HISTORY OF PRESENT ILLNESS: A 64-year-old male with a past medical history of morbid obesity, diastolic congestive heart failure (CHF), chronic obstructive pulmonary disease (COPD), monoclonal gammopathy light chain followed by Dr. Pierre, chronic low back pain, tobacco use, factor V Leiden with history of left lower extremity deep venous thrombosis (DVT), poorly controlled diabetes with peripheral polyneuropathy, chronic kidney disease (CKD), peripheral vascular disease (PVD) with gangrene of his right toe that was debrided by podiatry, admitted directly for vascular surgical evaluation. He was seen by vascular surgery who on 09/06/2019 performed a right aortofemoral arteriogram with angioplasty of the right superficial femoral artery, posterior tibial artery, anterior tibial artery, and peroneal artery. He later underwent a right-sided first ray amputation on 09/09/2019 for osteomyelitis of the right 1st metatarsal with flap closure. He was also evaluated by infectious disease, who recommended intravenous (IV) meropenem and vancomycin for positive Proteus and Staphylococcus aureus wound culture. He later presented with worsening shortness of breath, thought to be due to either a COPD exacerbation or a CHF exacerbation. He was placed on oral steroids. Xarelto was held prior to his amputation. He was maintained on prophylactic heparin. He was evaluated by therapy and deemed medically appropriate for discharge to acute rehabilitation unit (ARU) with new deficits in mobility and activities of daily living (ADL) management. PAST MEDICAL HISTORY: As per history of present illness (HPI). HOSPITAL COURSE: The patient was admitted and enrolled in a comprehensive physical therapy (PT)/occupational therapy (OT) program. He received 24-hour nursing supervision, and weekly team meetings were held to discuss his progress. The patient presented with poorly controlled diabetes, for which his insulin doses were adjusted, and he was started on metformin to assist with weight loss. His steroids were gradually tapered during his hospital course. The patient had downward trending erythrocyte sedimentation rate (ESR), C-reactive protein (CRP) in the setting of his right foot surgical wound, and wound care orders were adjusted with gradual improvement in his surgical site. The patient was maintained on fluid restriction, was continued on diuretics, and continued on his Xarelto for his history of left lower extremity DVT. He was followed by infectious disease, who recommended switching from IV meropenem to levofloxacin. The patient made significant gains in therapy and was deemed medically and functionally stable to return home. DISCHARGE MEDICATIONS: As per instructions. FUNCTIONAL HISTORY ON DISCHARGE: The patient was modified independent from a wheelchair level and modified independent for lower body dressing, requiring some assistance with toileting and hygiene; caregiver was trained for this and for wound care. Thank you for this referral.
== END 2019-09-24 14:30 | disposition home health service (06) | DRG 300 ==
LOC: M PM&R 18:00
PROVIDERS: ADMIT Physical Medicine & Rehabilitation; ATTEND Physical Medicine & Rehabilitation
DX: E11.52 Type 2 diabetes mellitus with diabetic peripheral angiopathy with gangrene (principal); I50.42 Chronic combined systolic (congestive) and diastolic (congestive) heart failure; D68.2 Hereditary deficiency of other clotting factors; I13.0 Hypertensive heart and chronic kidney disease with heart failure and stage 1 through stage 4 chronic kidney disease, or unspecified chronic kidney disease; Z68.43 Body mass index [BMI] 50.0-59.9, adult; N17.9 Acute kidney failure, unspecified; L97.518 Non-pressure chronic ulcer of other part of right foot with other specified severity; M86.9 Osteomyelitis, unspecified; L89.610 Pressure ulcer of right heel, unstageable; E11.42 Type 2 diabetes mellitus with diabetic polyneuropathy; Z89.411 Acquired absence of right great toe; E66.01 Morbid (severe) obesity due to excess calories; J44.9 Chronic obstructive pulmonary disease, unspecified; D47.2 Monoclonal gammopathy; M54.5 Low back pain; Z86.718 Personal history of other venous thrombosis and embolism; E11.22 Type 2 diabetes mellitus with diabetic chronic kidney disease; N18.9 Chronic kidney disease, unspecified; F17.200 Nicotine dependence, unspecified, uncomplicated; R26.89 Other abnormalities of gait and mobility; E11.65 Type 2 diabetes mellitus with hyperglycemia; E78.5 Hyperlipidemia, unspecified; Z79.4 Long term (current) use of insulin; Z79.52 Long term (current) use of systemic steroids; Z79.899 Other long term (current) drug therapy; Z88.1 Allergy status to other antibiotic agents; J30.9 Allergic rhinitis, unspecified; E11.319 Type 2 diabetes mellitus with unspecified diabetic retinopathy without macular edema; Z98.62 Peripheral vascular angioplasty status; M51.36 Other intervertebral disc degeneration, lumbar region; Z90.49 Acquired absence of other specified parts of digestive tract; Z99.3 Dependence on wheelchair; E11.621 Type 2 diabetes mellitus with foot ulcer; G47.33 Obstructive sleep apnea (adult) (pediatric); E11.69 Type 2 diabetes mellitus with other specified complication

== ENCOUNTER 2019-11-03 00:43 | Inpatient (IN) | payer MEDICARE, OTHER ==
[~2019-11-03] VITALS: Ht 182.9 cm; Wt 190.6 kg
[~2019-11-03 00:43] MED LIST changes: +ALDA25TA2 PO; +AMLO10TA5 PO; +FISH1CAP26 PO; +GABA-1171 PO; +GLUC1000 PO; +HYDR25TA PO; +ISOS10TA PO; +METO1TAB33 PO; +PANT40TA3 PO; +PRED5TA PO; +SIMV20TA22 PO
[2019-11-03] MEDS ORDERED: VITA100054 PO (01:16)
[2019-11-03] MEDS ORDERED: FURO40TA2 PO (01:17)
[2019-11-03] MEDS ORDERED: TRES1INJ SC (01:19)
[2019-11-03 01:22] LABS: BASO # 0.1 10^3/uL (0.0-0.2); BASO % 1.1 % (0.0-1.0); EOS # 0.3 10^3/uL (0.0-0.5); EOS % 2.2 % (0.0-3.0); HEMATOCRIT 30.5 % (42.0-52.0); HEMOGLOBIN 9.2 g/dl (13.5-17.5); LYMPH # 1.4 10^3/uL (1.5-5.0); LYMPH % 11.7 % (24.0-44.0); MEAN CORPUSCULAR HEMOGLOBIN 25.8 pg (27.0-33.0); MEAN CORPUSCULAR HGB CONC 30.2 g/dl (32.0-36.5); MEAN CORPUSCULAR VOLUME 85.7 fl (80.0-96.0); MONO # 1.1 10^3/uL (0.0-0.8); MONO % 9.4 % (0.0-5.0); NEUTROPHILS # 8.5 10^3/uL (1.5-8.5); NEUTROPHILS % 73.3 % (36.0-66.0); PLATELET COUNT, AUTOMATED 324 10^3/uL (150-450); RED BLOOD COUNT 3.56 10^6/uL (4.30-6.10); WHITE BLOOD COUNT 11.5 10^3/uL (4.0-10.0)
[2019-11-03] MEDS ORDERED: FUROSEMIDE 100 MG/10 ML VIAL (J1940) IV ONE (01:30)
[2019-11-03 02:18] LABS: BLOOD UREA NITROGEN 21 MG/DL (7-18); CARBON DIOXIDE LEVEL 30 MEQ/L (21-32); CHLORIDE LEVEL 102 MEQ/L (98-107); CK-MB VALUE MASS 1.3 NG/ML (<3.6); CPK CREATINE PHOSPHOKINASE 53 U/L (39-308); CREATININE FOR GFR 1.25 MG/DL (0.70-1.30); GLOMERULAR FILTRATION RATE > 60.0 (>49); GLUCOSE, FASTING 248 MG/DL (70-100); MB/CK RELATIVE INDEX 2.45 (< OR =4); NT-PRO BNP 411 PG/ML (<125); POTASSIUM SERUM 4.1 MEQ/L (3.5-5.1); SODIUM LEVEL 138 MEQ/L (136-145); TROPONIN I < 0.02 NG/ML (< 0.10)
[2019-11-03] MEDS ORDERED: PANT-23 PO (02:49)
[2019-11-03] MEDS ORDERED: SPIR-10 PO (02:49)
[2019-11-03] MEDS ORDERED: XARE20TA PO (02:49)
[2019-11-03] MEDS ORDERED: AMLO10TA5 PO (02:49)
[2019-11-03] MEDS ORDERED: HYDR-3910 PO (02:49)
[2019-11-03] MEDS ORDERED: APAP325T4 PO (02:49)
[2019-11-03] MEDS ORDERED: METF-415 PO (02:49)
[2019-11-03] MEDS ORDERED: LEVA12INH INH (02:49)
[2019-11-03] MEDS ORDERED: SIMV20TA22 PO (02:49)
[2019-11-03] MEDS ORDERED: ISOS1TAB13 PO (02:49)
[2019-11-03] MEDS ORDERED: ACETAMINOPHEN TAB 650MG DOSE (2X325MG) PO PRN (03:15)
[2019-11-03] MEDS ORDERED: DEXTROSE 50% 50 ML SYRINGE IV PRN (03:15)
[2019-11-03] MEDS ORDERED: GLUCOSE 4 GM CHEW TABLET PO PRN (03:15)
[2019-11-03] MEDS ORDERED: GLUCAGON FOR INJ 1 MG VIAL (J1610) SC PRN (03:15)
--- NOTE | 2019-11-03 04:05 | HPEPDOC ---
General Date of Admission Nov 03, 2019 at 03:12 Date of Service: Nov 03, 2019 Chief Complaint The patient is a 64-year-old male Who presented to the ER with worsening lower extremity swelling, advancing to his scrotum History of Present Illness Patient is a 64-year-old male with a PMHx of HTN, Diastolic CHF, PVD (s/p R foot 1st digit amputation), LLE DVT 2/2 Factor V Leiden mutation (on Xarelto), Suspected COPD, DLP, IDDM2, MGUS (follows with Dr. Pierre), Chronic back pain 2/2 herniated disks / DJD, Morbid obesity, who presented to the emergency room with worsening lower extremity swelling. Patient has reported that since he has left the hospital on 09/24/2020 . He has had persistent lower extremity swelling. However, over the last 2 days he has noticed progression up to the point of his scrotum, as well as shortness of breath with exertion. Patient is also reported that he experiences worsening when laying flat. Patient denies any chest pain. Denies any shortness of breath at rest but does report worsening with exertion. He has reported a productive cough described as white thick mucus that is progressed to green/yellow color. He denies any fevers or chills while at home. Patient denies nausea, vomiting, abdominal pain, diarrhea, or urinary discomfort. Patient does experience chronic constipation and takes stool softeners at home. Patient was recently admitted to the hospital and was discharged from acute rehabilitation unit for osteomyelitis of his right foot involving amputation of his right foot first digit. Patient was seen by Dr. Tenorio on Monday and was advised that his wound was healing well. Patient is currently not on any antibiotics. Patient has reported that he has noted a weight increase. He reports his appetite is fairly normal. Home Medications Scheduled Amlodipine Besylate (Amlodipine Besylate) 10 Mg Tablet, 10 MG PO QHS, (Reported) Cholecalciferol (Vitamin D3) (Vitamin D3) 1,000 Unit Capsule, 1 CHEW PO DAILY, (Reported) Docusate Sodium (Colace) 100 Mg Cap, 100 MG PO BID, (Reported) Furosemide (Furosemide) 40 Mg Tablet, 40 MG PO BID, (Reported) Hydralazine HCl (Hydralazine HCl) 25 Mg Tablet, 25 MG PO TID, (Reported) Insulin Degludec (Tresiba Flextouch U-200) 200 Unit/1 Ml Insuln.pen, 90 UNIT SC DAILY, (Reported) Isosorbide Dinitrate (Isosorbide Dinitrate) 10 Mg Tablet, 10 MG PO TID, (Reported) Metformin HCl (Metformin ER Osmotic) 1,000 Mg Tab.er.24, 1,000 MG PO QPM, (Reported) Multivitamins (Thera M Plus Tablet) 1 Tab Tab, 1 TAB PO DAILY, (Reported) Pantoprazole Sodium (Pantoprazole Sodium) 40 Mg Tablet.dr, 40 MG PO BID, (Reported) Rivaroxaban (Xarelto) 20 Mg Tablet, 20 MG PO QPM, (Reported) Sacubitril/Valsartan (Entresto 97 mg-103 mg Tablet) 1 Tab Tab, 1 TAB PO BID, (Reported) Simvastatin (Simvastatin) 20 Mg Tablet, 20 MG PO QHS, (Reported) Spironolactone (Spironolactone) 25 Mg Tablet, 25 MG PO DAILY, (Reported) Scheduled PRN Acetaminophen (Acetaminophen) 325 Mg Tablet, 650 MG PO Q4H PRN for PAIN, (Reported) Levalbuterol Hydrochloride (Xopenex Concentrate) 1.25 Mg/0.5 Ml Vial.neb, 1.25 MG INH Q2H PRN for WHEEZING, (Reported) Allergies Coded Allergies: erythromycin base (Verified Adverse Reaction, Mild, N/V, 11/03/19) Past Medical History Medical History HTN, Diastolic CHF, PVD (s/p R foot 1st digit amputation), LLE DVT 2/2 Factor V Leiden mutation (on Xarelto), Suspected COPD, DLP, IDDM2, MGUS (follows with Dr. 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 Review of Systems Other systems 10 point review of systems complete, all negative otherwise stated in HPI Vital Signs - Vitals: BP 146/66, HR 99, RR 24, Sat 96%RA, Temp 97.4F - General: Lying in bed, Speaking in full sentences, AAOx3 - HEENT: NC, AT, PERRLA, EOMI - CVS: Tachycardic, but was regular, +S1S2 - Lungs: Diminished air sounds bilaterally, there was no appreciable wheezing / rales / rhonchi - Abdomen: Soft, Non-distended, Non-tender, +Pitting edema appreciated at lower abdomen - : Scrotal swelling / edema noted - hydrocele, +Dangelo catheter - Extremities: 2+ pitting edema bilaterally, No calf tenderness - Neuro: No focal motor or sensory deficit - Skin: No visible rashes Laboratory Data Labs 24H Laboratory Tests 2 11/03/19 01:12: Immature Granulocyte % (Auto) 2.3, Neutrophils (%) (Auto) 73.3H, Lymphocytes (%) (Auto) 11.7L, Monocytes (%) (Auto) 9.4H, Eosinophils (%) (Auto) 2.2, Basophils (%) (Auto) 1.1H, Neutrophils # (Auto) 8.5, Lymphocytes # (Auto) 1.4L, Monocytes # (Auto) 1.1H, Eosinophils # (Auto) 0.3, Basophils # (Auto) 0.1, Nucleated Red Blood Cells % (auto) 0.0, Anion Gap 6L, Glomerular Filtration Rate > 60.0, Lactic Acid Level 1.2, Calcium Level 8.0L, Total Creatine Kinase 53, Creatine Kinase MB 1.3, Creatine Kinase MB Relative Index 2.45, Troponin I < 0.02, MI-Oyx-G-Type Natriuretic Peptide 411H CBC/BMP Laboratory Tests 11/03/19 01:12 Microbiology Microbiology 11/03/19 Wound Culture, Received Pending 11/03/19 Respiratory Virus Panel (PCR) (DONI) - Final, Complete 11/03/19 Blood Culture, Received Pending 11/03/19 Blood Culture, Received Pending Plan / VTE VTE Prophylaxis Ordered?: Yes Plan Plan Edema / SOB exertion - likely 2/2 decompensated CHF, likely diastolic - Has described worsening lower extremity edema progressing to scrotum associated with shortness of breath with exertion - Physical does reveal significant pitting edema extending up to the abdomen with scrotal swelling - BNP is not significantly elevated - Echo reviewed from 2018 has revealed diastolic CHF - CXR 11/03: Has revealed the possibility of fluid overload / vascular congestion - Patient has had a Dangelo catheter placed while in the emergency room from critical care monitoring and given the fact that he has significant scrotal swelling - Will continue with strict ins and outs, daily weights, and head of bed elevation - Will check ECHO - Patient has received furosemide 60 IV in the emergency room; will continue with furosemide 60 IV BID Possible a. fib on EKG - unlikely - Patient denies chest pain or palpitations - Auto read of the EKG has shown the possibility of atrial fibrillation; however there does appear to be P waves - Prior EKGs have all shown normal sinus rhythm; telemetry during examination did reveal normal sinus rhythm - Will repeat EKG - Will trend troponin - Will c/w telemetry monitoring - At this point patient is already on full anticoagulation with Xarelto (re: Prior LLE DVT) Leukocytosis - Patient has a history of chronic leukocytosis. Looking back at the record from 2002 - Review of systems patient has reported productive cough; however, this can be attributed to congestive heart failure - Patient remains hemodynamically stable and afebrile - No lactic acidosis - Respiratory panel negative - Blood cultures pending - Will hold off on antibiotics at this time Normocytic anemia - Hemoglobin baseline of approximately 11-12; currently hemoglobin is at 9.2 - Its possible that this could represent hemodilution given fluid overload - Patient has denied any bleeding episodes - Will continue with diuresis and repeat CBC HTN - Blood pressure. Well controlled - c/w amlodipine, Isosorbide dinitrate, Hydralazine, Entresto with holding parameters PVD - s/p R foot 1st digit amputation LLE DVT 2/2 Factor V Leiden mutation - c/w full anticoagulation with Xarelto Suspected COPD - Appears to have poor inspiratory effort bilaterally; no appreciable wheezing - Not in respiratory distress - Will provide inhaled therapy at this time - If patients breathing fails to improve, will consider adding corticosteroids DLP - c/w Simvastatin IDDM2 - Will start ISS - Will c/w long acting insulin at adjusted dose MGUS - Patient was in the process of getting worked up. Dr. Amee Pierre at the cancer center - Patient has reported that he has had a bone biopsy and was advised that he unlikely has a malignancy - Patient would like follow-up in [place] Chronic back pain 2/2 herniated disks / DJD - Patient has reported that he follows with pain clinic. Dr. Pitts - Patient received joint injections and does not want to take any opiate medications Morbid obesity - BMI 53.3 - Complicating medical care GERD - c/w Protonix DVT prophylaxis - Will c/w full anticoagulation with PRINCE Aldana MD Nov 03, 2019 04:05
[2019-11-03 06:36] LABS: BASO # 0.1 10^3/uL (0.0-0.2); BASO % 0.8 % (0.0-1.0); EOS # 0.2 10^3/uL (0.0-0.5); EOS % 1.4 % (0.0-3.0); HEMATOCRIT 28.3 % (42.0-52.0); HEMOGLOBIN 8.9 g/dl (13.5-17.5); LYMPH # 1.1 10^3/uL (1.5-5.0); LYMPH % 9.4 % (24.0-44.0); MEAN CORPUSCULAR HEMOGLOBIN 26.6 pg (27.0-33.0); MEAN CORPUSCULAR HGB CONC 31.4 g/dl (32.0-36.5); MEAN CORPUSCULAR VOLUME 84.5 fl (80.0-96.0); MONO # 1.3 10^3/uL (0.0-0.8); MONO % 10.8 % (0.0-5.0); NEUTROPHILS # 8.9 10^3/uL (1.5-8.5); NEUTROPHILS % 76.2 % (36.0-66.0); PLATELET COUNT, AUTOMATED 307 10^3/uL (150-450); RED BLOOD COUNT 3.35 10^6/uL (4.30-6.10); WHITE BLOOD COUNT 11.6 10^3/uL (4.0-10.0)
[2019-11-03 07:14] LABS: BLOOD UREA NITROGEN 20 MG/DL (7-18); CALCIUM LEVEL 7.4 MG/DL (8.8-10.2); CARBON DIOXIDE LEVEL 32 MEQ/L (21-32); CHLORIDE LEVEL 104 MEQ/L (98-107); CK-MB VALUE MASS 1.5 NG/ML (<3.6); CPK CREATINE PHOSPHOKINASE 58 U/L (39-308); CREATININE FOR GFR 1.15 MG/DL (0.70-1.30); GLOMERULAR FILTRATION RATE > 60.0 (>49); GLUCOSE, FASTING 174 MG/DL (70-100); MAGNESIUM LEVEL 1.9 MG/DL (1.8-2.4); MB/CK RELATIVE INDEX 2.59 (< OR =4); POTASSIUM SERUM 4.1 MEQ/L (3.5-5.1); SODIUM LEVEL 141 MEQ/L (136-145); TROPONIN I < 0.02 NG/ML (< 0.10)
--- NOTE | 2019-11-03 08:23 | REP ---
Portable chest x-ray: Single view. History: Shortness of breath. Comparison chest x-ray: September 06, 2019. Findings: There is a linear opacity along the left heart border suggesting pleuroparenchymal fibrosis. This is unchanged from September 06 2019 and January 24, 2018 prior study. Pulmonary vasculature is cephalized and somewhat congested. Hazy opacity is seen in the right upper lobe which may reflect infiltrate or edema. Heart size is borderline. No juan pleural effusion is seen. Impression: Vascular cephalization and congestion borderline heart size may reflect CHF. There is pleuroparenchymal scarring along the left heart border. Electronically Signed by Bar Ulrich MD 11/03/2019 08:15 A
[2019-11-03] MEDS: LEVALBUTEROL 1.25 MG/0.5 ML CONCENTRATE NEB INH SCH ×4 (08:35→19:22)
[2019-11-03] MEDS: HumaLOG INSULIN (NovoLOG) PER UNIT SC SCH ×4 (08:54→20:20)
[2019-11-03] MEDS: FUROSEMIDE 100 MG/10 ML VIAL (J1940) IV SCH ×2 (09:22→17:14)
[2019-11-03] MEDS: NYSTATIN 100,000 UNITS/GM TOPICAL PWD 15 GM TOP SCH ×2 (09:22→21:00)
[2019-11-03] MEDS: DOCUSATE SODIUM 100 MG CAP PO SCH ×2 (09:23→20:24)
[2019-11-03] MEDS: ENTRESTO 97-103MG TABLET (SACUBITRIL/VALSARTAN) PO SCH ×2 (09:23→20:25)
[2019-11-03] MEDS: VITAMIN D 1,000 INTERNATIONAL UNITS TABLET PO SCH (09:23)
[2019-11-03] MEDS: PANTOPRAZOLE 40MG TAB (PROTONIX) PO SCH ×2 (09:23→20:24)
[2019-11-03] MEDS: MULTIVITAMINS/MINERALS THERAP 1 TAB PO SCH (09:23)
[2019-11-03] MEDS: **hydrALAZINE HCL** 25 MG TAB PO SCH ×3 (09:23→20:25)
[2019-11-03] MEDS: LEVEMIR (INSULIN DETEMIR) 1 UNITS/0.01ML SC SCH (09:24)
[2019-11-03] MEDS: ISOSORBIDE DIN (ISORDIL) 10 MG TAB PO SCH ×3 (09:24→20:25)
[2019-11-03 12:00] VITALS: BP 165/71
[2019-11-03 12:23] LABS: CK-MB VALUE MASS 1.5 NG/ML (<3.6); CPK CREATINE PHOSPHOKINASE 54 U/L (39-308); MB/CK RELATIVE INDEX 2.78 (< OR =4); TROPONIN I < 0.02 NG/ML (< 0.10)
--- NOTE | 2019-11-03 14:49 | IPNPDOC ---
Date Seen The patient was seen on 11/03/19. Progress Note SUBJECTIVE: Patient was admitted overnight, reported no significant change as of this mor jessica. Stated he still feels uncomfortable and swollen. Has been diuresing well. HR 90-100s. OBJECTIVE PHYSICAL EXAMINATION: VITAL SIGNS: Please see below. General: moderate distress, morbidly obese with limited mobility Eyes: Normal sclera, EOMI HENT: Atraumatic Cardiovascular: tachycardic. 2+ pitting edema b/l LE up to groin. Pulmonary: Decrease breath sounds and mild coarseness in b/l bases GI/: Soft, nontender, obese abdomen. Distended scrotum. Skin: Warm and dry Neuro: CN grossly intact. No focal deficits. Generalized weakness with difficulty moving extremities. Psych: oriented x 3 LABORATORY DATA, IMAGING STUDIES, MICROBIOLOGY: Please see below. DVT prophylaxis ordered?: Angie ASSESSMENT AND PLAN: 1. Acute on chronic HFpEF - worsening SOB and LE edema up to groin with scrotal swelling. - c/w IV diuresis. Fluid restriction and daily weights. - Obtain repeat ECHO. last ECHO 2017 with evidence of diastolic dysfunction. - CXR 11/03 with evidence of vascular congestion. - Troponin negative x3. 2. Leukocytosis - hx of chronic leukocytosis. - Productive cough but likely 2/2 HFpEF exacerbation. - No clear source of infection. Will monitor. - respiratory panel negative. f/u blood cultures. 3. Normocytic anemia - Anemic baseline 11-12. May be dilution 2/2 volume overload. - No evidence of bleed. can monitor H/H daily. 4. HTN - c/w home medications 5. PVD - s/p recent R. foot 1st digit amputation. 6. LLE DVT - factor V leiden mutation. - c/w Xarelto 7. HLD - c/w simvastatin 8. IDDM - c/w ISS and Levemir. - Monitor BS ACHS. 9. MGUS - Getting workup and monitor with Onc. - Has had bone biopsy and advised that it is unlikely to be malignant. - c/w f/u with onc post discharge. 10. Morbid obesity - BMI 53.3 - Complicating care. VS, I&O, 24H, Fishbone Vital Signs/I&O Vital Signs Date Time Temp Pulse Resp B/P (MAP) Pulse Ox O2 Delivery O2 Flow Rate FiO2 1/19/20 12:00 97.9 109 22 165/71 (102) 95 Nasal Cannula 2.0 Laboratory Data 24H LABS Laboratory Tests 2 11/03/19 01:12: Immature Granulocyte % (Auto) 2.3, Neutrophils (%) (Auto) 73.3H, Lymphocytes (%) (Auto) 11.7L, Monocytes (%) (Auto) 9.4H, Eosinophils (%) (Auto) 2.2, Basophils (%) (Auto) 1.1H, Neutrophils # (Auto) 8.5, Lymphocytes # (Auto) 1.4L, Monocytes # (Auto) 1.1H, Eosinophils # (Auto) 0.3, Basophils # (Auto) 0.1, Nucleated Red Blood Cells % (auto) 0.0, Anion Gap 6L, Glomerular Filtration Rate > 60.0, Lactic Acid Level 1.2, Calcium Level 8.0L, Total Creatine Kinase 53, Creatine Kinase MB 1.3, Creatine Kinase MB Relative Index 2.45, Troponin I < 0.02, JW-Faa-U-Type Natriuretic Peptide 411H 11/03/19 06:25: Immature Granulocyte % (Auto) 1.4, Neutrophils (%) (Auto) 76.2H, Lymphocytes (%) (Auto) 9.4L, Monocytes (%) (Auto) 10.8H, Eosinophils (%) (Auto) 1.4, Basophils (%) (Auto) 0.8, Neutrophils # (Auto) 8.9H, Lymphocytes # (Auto) 1.1L, Monocytes # (Auto) 1.3H, Eosinophils # (Auto) 0.2, Basophils # (Auto) 0.1, Nucleated Red Blood Cells % (auto) 0.0, Anion Gap 5L, Glomerular Filtration Rate > 60.0, Calcium Level 7.4L, Total Creatine Kinase 58, Creatine Kinase MB 1.5, Creatine Kinase MB Relative Index 2.59, Troponin I < 0.02, Magnesium Level 1.9 11/03/19 08:11: Bedside Glucose (Misc Panel) 172H 11/03/19 11:44: Bedside Glucose (Misc Panel) 178H 11/03/19 11:45: Total Creatine Kinase 54, Creatine Kinase MB 1.5, Creatine Kinase MB Relative Index 2.78, Troponin I < 0.02 CBC/BMP Laboratory Tests 11/03/19 01:12 11/03/19 06:25 Microbiology Microbiology 11/03/19 Wound Culture, Received Pending 11/03/19 Respiratory Virus Panel (PCR) (DONI) - Final, Complete 11/03/19 Blood Culture, Received Pending 11/03/19 Blood Culture, Received Pending LINDA SEGURA MD Nov 03, 2019 14:49
[2019-11-03 16:00] VITALS: BP 175/74
[2019-11-03] MEDS: RIVAROXABAN 20 MG TAB (XARELTO) PO SCH (17:13)
--- NOTE | 2019-11-03 17:23 | ECGEPIP ---
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
[2019-11-03 20:00] VITALS: BP 141/67
[2019-11-03] MEDS: amLODIPine 10 MG TAB PO SCH (20:24)
[2019-11-03] MEDS: SIMVASTATIN 20 MG TAB PO SCH (20:25)
[2019-11-03 23:59] VITALS: BP 154/82
[2019-11-04] VITALS (7 sets, daily range): BP systolic 136–194; BP diastolic 62–78
[2019-11-04] MEDS: LEVALBUTEROL 1.25 MG/0.5 ML CONCENTRATE NEB INH PRN ×2 (03:39→22:33)
[2019-11-04] MEDS: FUROSEMIDE 100 MG/10 ML VIAL (J1940) IV SCH ×3 (04:11→15:34)
[2019-11-04 05:37] LABS: BASO # 0.1 10^3/uL (0.0-0.2); BASO % 0.7 % (0.0-1.0); EOS # 0.2 10^3/uL (0.0-0.5); EOS % 1.8 % (0.0-3.0); HEMATOCRIT 27.9 % (42.0-52.0); HEMOGLOBIN 8.4 g/dl (13.5-17.5); LYMPH # 1.3 10^3/uL (1.5-5.0); LYMPH % 11.8 % (24.0-44.0); MEAN CORPUSCULAR HEMOGLOBIN 26.1 pg (27.0-33.0); MEAN CORPUSCULAR HGB CONC 30.1 g/dl (32.0-36.5); MEAN CORPUSCULAR VOLUME 86.6 fl (80.0-96.0); MONO # 1.1 10^3/uL (0.0-0.8); NEUTROPHILS # 8.2 10^3/uL (1.5-8.5); NEUTROPHILS % 74.5 % (36.0-66.0); PLATELET COUNT, AUTOMATED 273 10^3/uL (150-450); RED BLOOD COUNT 3.22 10^6/uL (4.30-6.10)
[2019-11-04 06:07] LABS: BLOOD UREA NITROGEN 21 MG/DL (7-18); CALCIUM LEVEL 7.8 MG/DL (8.8-10.2); CARBON DIOXIDE LEVEL 31 MEQ/L (21-32); CHLORIDE LEVEL 102 MEQ/L (98-107); CREATININE FOR GFR 1.21 MG/DL (0.70-1.30); GLOMERULAR FILTRATION RATE > 60.0 (>49); GLUCOSE, FASTING 118 MG/DL (70-100); MAGNESIUM LEVEL 1.8 MG/DL (1.8-2.4); POTASSIUM SERUM 4.1 MEQ/L (3.5-5.1); SODIUM LEVEL 138 MEQ/L (136-145)
[2019-11-04] MEDS: LEVALBUTEROL 1.25 MG/0.5 ML CONCENTRATE NEB INH SCH ×4 (07:05→18:18)
[2019-11-04] MEDS: HumaLOG INSULIN (NovoLOG) PER UNIT SC SCH ×4 (07:42→20:46)
[2019-11-04] MEDS: LEVEMIR (INSULIN DETEMIR) 1 UNITS/0.01ML SC SCH (08:30)
[2019-11-04] MEDS: VITAMIN D 1,000 INTERNATIONAL UNITS TABLET PO SCH (08:30)
[2019-11-04] MEDS: NYSTATIN 100,000 UNITS/GM TOPICAL PWD 15 GM TOP SCH ×2 (08:30→20:22)
[2019-11-04] MEDS: PANTOPRAZOLE 40MG TAB (PROTONIX) PO SCH ×2 (08:31→20:21)
[2019-11-04] MEDS: DOCUSATE SODIUM 100 MG CAP PO SCH ×2 (08:31→20:20)
[2019-11-04] MEDS: MULTIVITAMINS/MINERALS THERAP 1 TAB PO SCH (08:31)
[2019-11-04] MEDS: ISOSORBIDE DIN (ISORDIL) 10 MG TAB PO SCH ×3 (08:31→20:21)
[2019-11-04] MEDS: **hydrALAZINE HCL** 25 MG TAB PO SCH ×3 (08:31→20:22)
[2019-11-04] MEDS: ENTRESTO 97-103MG TABLET (SACUBITRIL/VALSARTAN) PO SCH ×2 (08:31→20:20)
[2019-11-04] MEDS ORDERED: **hydrALAZINE HCL** 25 MG TAB PO ONE (13:30)
--- NOTE | 2019-11-04 16:22 | IPNPDOC ---
Date Seen The patient was seen on 11/04/19. Progress Note SUBJECTIVE: Patient appear much more comfortable today and does not appeared to have labored breathing. LE and scrotal swelling persistent. Afebrile. Saturating well on 2L NC. -2.3L output OBJECTIVE PHYSICAL EXAMINATION: VITAL SIGNS: Please see below. General: moderate distress, morbidly obese with limited mobility Eyes: Normal sclera, EOMI HENT: Atraumatic Cardiovascular: tachycardic. 2-3+ pitting edema b/l LE. Pulmonary: Decrease breath sounds and mild coarseness in b/l bases GI/: Soft, nontender, obese abdomen. Distended scrotum. Skin: Warm and dry Neuro: CN grossly intact. No focal deficits. Generalized weakness with difficulty moving extremities. Psych: oriented x 3 LABORATORY DATA, IMAGING STUDIES, MICROBIOLOGY: Please see below. DVT prophylaxis ordered?: Angie ASSESSMENT AND PLAN: 1. Acute on chronic HFpEF - worsening SOB and LE edema up to groin with scrotal swelling. - c/w IV diuresis. Fluid restriction and daily weights. - Obtain repeat ECHO. last ECHO 2017 with evidence of diastolic dysfunction. - CXR 11/03 with evidence of vascular congestion. - Troponin negative x3. 2. Leukocytosis - hx of chronic leukocytosis. - Productive cough but likely 2/2 HFpEF exacerbation. - No clear source of infection. Will monitor. - respiratory panel negative. f/u blood cultures. 3. Normocytic anemia - Anemic baseline 11-12. May be dilution 2/2 volume overload. - No evidence of bleed. can monitor H/H daily. 4. HTN - c/w home medications 5. PVD - s/p recent R. foot 1st digit amputation. - Wound care changes. to change dressing today. - Consider Podiatry consult tomorrow for dressing assistance. 6. LLE DVT - factor V leiden mutation. - c/w Xarelto 7. HLD - c/w simvastatin 8. IDDM - c/w ISS and Levemir. - Monitor BS ACHS. 9. MGUS - Getting workup and monitor with Onc. - Has had bone biopsy and advised that it is unlikely to be malignant. - c/w f/u with onc post discharge. 10. Morbid obesity - BMI 53.3 - Complicating care. VS, I&O, 24H, Fishbone Vital Signs/I&O Vital Signs Date Time Temp Pulse Resp B/P (MAP) Pulse Ox O2 Delivery O2 Flow Rate FiO2 11/04/19 15:35 182/78 11/04/19 12:00 97.9 101 22 96 Nasal Cannula 2.0 I&O- Last 24 Hours up to 6 AM 11/04/19 06:00 Intake Total 1190 ml Output Total 3775 ml Balance -2585 ml Laboratory Data 24H LABS Laboratory Tests 2 11/03/19 16:23: Bedside Glucose (Misc Panel) 188H 11/03/19 20:14: Bedside Glucose (Misc Panel) 137H 11/04/19 05:21: Immature Granulocyte % (Auto) 1.2, Neutrophils (%) (Auto) 74.5H, Lymphocytes (%) (Auto) 11.8L, Monocytes (%) (Auto) 10.0H, Eosinophils (%) (Auto) 1.8, Basophils (%) (Auto) 0.7, Neutrophils # (Auto) 8.2, Lymphocytes # (Auto) 1.3L, Monocytes # (Auto) 1.1H, Eosinophils # (Auto) 0.2, Basophils # (Auto) 0.1, Nucleated Red Blood Cells % (auto) 0.0, Anion Gap 5L, Glomerular Filtration Rate > 60.0, Calci um Level 7.8L, Magnesium Level 1.8 11/04/19 11:38: Bedside Glucose (Misc Panel) 159H CBC/BMP Laboratory Tests 11/04/19 05:21 Microbiology Microbiology 11/03/19 Wound Culture, Received Pending 11/03/19 Respiratory Virus Panel (PCR) (DONI) - Final, Complete 11/03/19 Blood Culture - Preliminary, Resulted No growth after 24 hours . All specim... 11/03/19 Blood Culture - Preliminary, Resulted No growth after 24 hours . All specim... LINDA SEGURA MD Nov 04, 2019 16:22
[2019-11-04] MEDS: RIVAROXABAN 20 MG TAB (XARELTO) PO SCH (17:50)
[2019-11-04] MEDS: SIMVASTATIN 20 MG TAB PO SCH (20:21)
[2019-11-04] MEDS: amLODIPine 10 MG TAB PO SCH (20:21)
[2019-11-05] MEDS: FUROSEMIDE 100 MG/10 ML VIAL (J1940) IV SCH ×2 (00:56→09:17)
[2019-11-05] MEDS ORDERED: LIDOCAINE 2% 5ML JELLY UROJET TOP ONE (01:15)
[2019-11-05] MEDS ORDERED: LIDOCAINE 2% JELLY 6 ML SYRINGE TOP ONE (01:15)
[2019-11-05] MEDS: RAMELTEON 8 MG TAB (ROZEREM) PO SCH ×2 (01:36→21:51)
[2019-11-05] MEDS: LEVALBUTEROL 1.25 MG/0.5 ML CONCENTRATE NEB INH PRN ×4 (01:54→22:20)
[2019-11-05 04:00] VITALS: BP 140/65
[2019-11-05] MEDS ORDERED: FUROSEMIDE 40 MG/4 ML VIAL (J1940) IV ONE (04:00)
--- NOTE | 2019-11-05 05:48 | ECGEPIP ---
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
[2019-11-05] MEDS: LEVALBUTEROL 1.25 MG/0.5 ML CONCENTRATE NEB INH SCH ×4 (07:19→18:21)
[2019-11-05 07:25] LABS: BASO # 0.1 10^3/uL (0.0-0.2); BASO % 0.5 % (0.0-1.0); EOS # 0.1 10^3/uL (0.0-0.5); HEMATOCRIT 26.8 % (42.0-52.0); HEMOGLOBIN 7.9 g/dl (13.5-17.5); LYMPH % 7.6 % (24.0-44.0); MEAN CORPUSCULAR HEMOGLOBIN 25.6 pg (27.0-33.0); MEAN CORPUSCULAR HGB CONC 29.5 g/dl (32.0-36.5); MONO # 1.4 10^3/uL (0.0-0.8); MONO % 10.4 % (0.0-5.0); NEUTROPHILS # 10.3 10^3/uL (1.5-8.5); NEUTROPHILS % 79.3 % (36.0-66.0); PLATELET COUNT, AUTOMATED 263 10^3/uL (150-450); RED BLOOD COUNT 3.08 10^6/uL (4.30-6.10)
[2019-11-05] MEDS: HumaLOG INSULIN (NovoLOG) PER UNIT SC SCH ×4 (07:30→21:00)
[2019-11-05 07:52] LABS: CREATININE FOR GFR 1.35 MG/DL (0.70-1.30); GLOMERULAR FILTRATION RATE 56.5 (>49); MAGNESIUM LEVEL 1.9 MG/DL (1.8-2.4); POTASSIUM SERUM 4.1 MEQ/L (3.5-5.1)
[2019-11-05 08:00] VITALS: BP 140/82
[2019-11-05] MEDS: ENTRESTO 97-103MG TABLET (SACUBITRIL/VALSARTAN) PO SCH (09:14)
[2019-11-05] MEDS: VITAMIN D 1,000 INTERNATIONAL UNITS TABLET PO SCH (09:14)
[2019-11-05] MEDS: PANTOPRAZOLE 40MG TAB (PROTONIX) PO SCH ×2 (09:15→21:51)
[2019-11-05] MEDS: ISOSORBIDE DIN (ISORDIL) 10 MG TAB PO SCH ×3 (09:15→21:51)
[2019-11-05] MEDS: MULTIVITAMINS/MINERALS THERAP 1 TAB PO SCH (09:15)
[2019-11-05] MEDS: DOCUSATE SODIUM 100 MG CAP PO SCH ×2 (09:15→21:50)
[2019-11-05] MEDS: **hydrALAZINE HCL** 25 MG TAB PO SCH ×3 (09:15→21:51)
[2019-11-05] MEDS: NYSTATIN 100,000 UNITS/GM TOPICAL PWD 15 GM TOP SCH ×2 (09:15→21:53)
[2019-11-05] MEDS: LEVEMIR (INSULIN DETEMIR) 1 UNITS/0.01ML SC SCH (09:16)
[2019-11-05 12:00] VITALS: BP 145/74
[2019-11-05 16:00] VITALS: BP 140/70
--- NOTE | 2019-11-05 17:11 | REP ---
Chest x-ray: Two views. History: Short of breath. Comparison study: November 03, 2019. Findings: Monitoring electrodes overlie the chest. Pulmonary vasculature is cephalized and somewhat congested. The images are underpenetrated which may be interval bold to patient body habitus. No focal infiltrate is appreciated. No definite effusion. Impression: Pulmonary vascular congestion. Borderline heart size. Under penetrated radiograph. No definite infiltrate or effusion. Electronically Signed by Bar Ulrich MD 11/05/2019 05:02 P
--- NOTE | 2019-11-05 17:15 | REP ---
Right foot series: Two views. History: Right foot infection. Rule out osteomyelitis. Comparison right foot radiographs are from September 09, 2019. Findings: The patient is status post transmetatarsal amputation of the great toe. There is adjacent soft tissue swelling. Extensive vascular calcification Is noted. Midfoot and heel spurring is seen. No definite soft tissue gas is seen. No acute bony erosive change. Impression: Status post first digital ray amputation transmetatarsal. No acute bony erosive change. Electronically Signed by Bar Ulrich MD 11/06/2019 01:14 P
[2019-11-05] MEDS: LACTOBACILLUS ACIDOPHILUS CAP (BACID) PO SCH (17:21)
[2019-11-05] MEDS: cefTRIAXone SOD 2 GM in D5W MINI-BAG PLUS 50 ML IV SCH (17:29)
[2019-11-05] MEDS: RIVAROXABAN 20 MG TAB (XARELTO) PO SCH (17:30)
[2019-11-05] MEDS: BISACODYL 10 MG SUPP PR SCH ×2 (18:00→21:00)
--- NOTE | 2019-11-05 18:05 | IPN ---
DATE: 11/05/2019 The patient complains of dizziness this morning. He has diuresed for the past two days net negative balance. He did not complain of any dizziness, chest pain, pressure or tightness. He still has shortness of breath despite not ambulating. He says that he has every other day dressing changes on the right foot which his does. Right foot appears malodorous. White count is increasing to 13,000. He is afebrile overnight but history of gangrene and toe amputation in the past managed by Dr. Tenorio. The patient does not have increased pain or tenderness in the area. He has chronic 2+ to 3+ lower extremity edema, chronic venous stasis changes of bilateral lower extremities. Temperature 97.1, pulse 96, respiratory rate 20, blood pressure 145/74, 100% on two liters nasal cannula. GENERAL: Awake, alert, oriented to person and place, answering questions appropriately. The patient has mild jugular venous distention (JVD). No thyromegaly or cervical lymphadenopathy. LUNGS: Diminished with bibasilar rales. HEART: S1, S2, sinus tachycardia. ABDOMEN: Obese, soft, nontender, nondistended. EXTREMITIES: 2+ pitting edema to the sacrum. The patient has malodorous right foot that is bandaged with serous drainage seeping through the bandages. LABORATORY DATA: White count 13, hemoglobin 7.9, hematocrit 26.8, platelet count 263. Sodium 137, potassium 4.1, chloride 101, bicarbonate 31, BUN 26, creatinine 1.35. 11/03/2019 wound culture grew Corynebacteria, Staphylococcus aureus, Enterobacter sensitive to ceftriaxone. ASSESSMENT AND PLAN: This is a 64-year-old male with morbid obesity, body mass index (BMI) of 57, obstructive sleep apnea, congestive heart failure with diastolic dysfunction with preserved ejection fraction, peripheral vascular disease, right foot first digit amputation, left lower extremity deep vein thrombosis (DVT) with factor V Leiden mutation, hypertension, suspected chronic obstructive pulmonary disease (COPD), dyslipidemia, diabetes, monoclonal gammopathy of unknown significance (MGUS) follows with Dr. Pierre, chronic back pain with chronic right foot infection follows with Dr. Tenorio, who presented to the emergency room, admitted on 11/03/2019 with complaints of lower extremity edema, found to have congestive heart failure and admitted for congestive heart failure (CHF) exacerbation, diastolic dysfunction with preserved ejection fraction. ACTIVE ISSUES: 1. Acute on chronic heart failure with preserved ejection fraction and diastolic dysfunction with persistent lower extremity edema but complains of dizziness this morning.monitor for worsening azotemia. due to worsening sob, trial of bumex x 1, and repeat bmp, mg later tonight. strict i/o weight restriction and daily weights. 2. Right foot infection with history of first digit amputation and osteomyelitis. Government Contracts Manager, Dr. Tenorio, to assess for incision and drainage. Wound culture grew out Enterobacter and Staphylococcus aureus sensitive to ceftriaxone which we will start and treat for seven days. 3. Chronic deep vein thrombosis (DVT), on Xarelto 20 mg daily. 4. Acute kidney injury due to over-diuresis. Monitor renal function and continue on Entresto for now. Discontinue if worsening renal function in the morning. 5. Type 2 diabetes, on Levemir insulin 70 units subcutaneous daily, consistent-carbohydrate diet, and sliding scale. Adjust for better glycemic control. 6. Hypertension, on alprazolam 25 three times a day, isosorbide. Blood pressure is well-maintained at 140 at this time. No signs of hypotension despite acute infection. MTDD
[2019-11-05] MEDS: MIRALAX *UNIT DOSE* 17GM PACKET PO SCH ×2 (18:13→21:00)
[2019-11-05] MEDS: SENOKOT S TAB PO SCH ×2 (18:13→21:50)
[2019-11-05] MEDS ORDERED: metOLazone 5 MG TAB PO ONE (18:15)
[2019-11-05] MEDS ORDERED: BUMETANIDE 1 MG/4 ML INJ (S0171) IV ONE (18:45)
--- NOTE | 2019-11-05 19:42 | ECHO ---
DATE OF PROCEDURE: 11/05/2019 REFERRING PHYSICIAN: Dr. Belen Marie INDICATION: Edema. Height 183 cm, weight 178 kg. DIMENSIONS: IVS: 1.4 LV: 4.8 LVPW: 1.4 LA: 4.4 Aorta: 3.0 IVC: 3.0 Mitral E wave velocity: 137 A wave: 115 E prime septal: 7.6 E prime lateral: 8.0 FINDINGS: The study is of fair technical quality corresponding to patient's body habitus. The patient is in sinus rhythm. Left ventricle is normal size, and there is hyperdynamic LV systolic function, estimated ejection fraction (EF) around 70%. Based on limitation of the study, I certainly cannot rule out subtle wall motion abnormalities. Right ventricle was poorly seen but grossly does not appear hypokinetic even though is somewhat enlarged. Both atria appear at least mildly enlarged. Aortic valve is sclerotic but mobility is preserved. Same applies for mitral valve. There are mild mitral annular calcifications but mobility of leaflets is intact. Tricuspid valve appears normal. Pulmonic valve was not well seen. No pericardial effusion is noted. Inferior vena cava is markedly dilated and has limited collapse with respiration indicative of very high central venous pressure. Aortic root is normal. Aortic arch and abdominal aorta were not well seen. Doppler interrogation of aortic valve reveals no significant stenosis or insufficiency. There is also no significant mitral valvular disease. There was trace tricuspid insufficiency but quality of TR jet was not sufficient to estimate pulmonary artery pressure. Mitral inflow pattern and tissue Doppler imaging of mitral annulus revealed grade 2 diastolic dysfunction. CONCLUSIONS: 1. Study is of limited technical quality, the patient is in sinus rhythm. 2. Normal left ventricular (LV) size with mild left ventricular hypertrophy (LVH) and hyperdynamic LV systolic function. Probably grade 2 diastolic dysfunction. 3. No hemodynamically significant valvular disease. 4. Very high central venous pressure. 5. Unable to estimate pulmonary artery pressure. COMMENT: Subacute bacterial endocarditis (SBE) prophylaxis is not recommended
[2019-11-05 20:00] VITALS: BP 126/89
[2019-11-05] MEDS: SIMVASTATIN 20 MG TAB PO SCH (21:50)
[2019-11-05] MEDS: amLODIPine 10 MG TAB PO SCH (21:51)
--- NOTE | 2019-11-05 22:02 | CR ---
DATE OF CONSULTATION: 11/05/2019 CHIEF COMPLAINT: Patient is seen today for evaluation of an ulceration on the right foot. Patient has had a surgical procedure consisting of a partial 1st ray amputation of the right foot. Patient has been treated with bandaging and wound vacuum assisted closure (VAC). Patient did not tolerate the wound VAC on the left extremity. Patient states he had difficulty breathing and worsening swelling of his left extremity and was admitted to the hospital. PAST MEDICAL HISTORY: History of hypertension, diastolic congestive heart failure, peripheral vascular disease, left lower extremity deep venous thrombosis (DVT), patient has Factor V Leiden mutation, chronic obstructive pulmonary disease, chronic back pain, morbid obesity. HOME MEDICATIONS: - amlodipine 10 mg nightly - vitamin D3 1000 units by mouth daily - Colace 100 mg by mouth twice a day - furosemide 40 mg twice a day - hydralazine 25 mg by mouth three times a day - insulin - metformin 1000 mg by mouth every evening - pantoprazole 40 mg by mouth twice a day - Xarelto 20 mg by mouth every evening - simvastatin 20 mg by mouth nightly - spironolactone 25 mg daily ALLERGIES: ERYTHROMYCIN. PAST SURGICAL HISTORY: Tonsillectomy, cholecystectomy, partial 1st ray amputation right foot, drainage of right groin abscess. PHYSICAL EXAMINATION: Reveals an alert, well-oriented, 64-year-old male. Evaluation of his left lower extremity reveals an ulceration of the 1st ray of the left foot, this measures 7 cm x 3 cm x 2 cm in depth. The base of the 1st metatarsal is visible. There is some purulent discharge in the wound bed, this was cultured aerobically and anaerobically. Orders written to apply Vashe after 10 minutes of applied Drawtex over the wound followed by a sterile dressing. There is some necrotic muscle in the distal aspect of the wound, this will be surgically debrided. Patient may have breakfast tomorrow morning, however he will be nothing by mouth after breakfast, is scheduled for debridement after 5 p.m. tomorrow. His questions were answered. Consent was signed.
[2019-11-05 23:05] LABS: BASO # 0.1 10^3/uL (0.0-0.2); BASO % 0.5 % (0.0-1.0); EOS # 0.2 10^3/uL (0.0-0.5); EOS % 1.4 % (0.0-3.0); HEMATOCRIT 25.2 % (42.0-52.0); HEMOGLOBIN 7.5 g/dl (13.5-17.5); LYMPH # 1.1 10^3/uL (1.5-5.0); LYMPH % 8.7 % (24.0-44.0); MEAN CORPUSCULAR HGB CONC 29.8 g/dl (32.0-36.5); MEAN CORPUSCULAR VOLUME 87.2 fl (80.0-96.0); MONO # 1.3 10^3/uL (0.0-0.8); MONO % 9.9 % (0.0-5.0); NEUTROPHILS # 10.1 10^3/uL (1.5-8.5); NEUTROPHILS % 78.4 % (36.0-66.0); PLATELET COUNT, AUTOMATED 247 10^3/uL (150-450); RED BLOOD COUNT 2.89 10^6/uL (4.30-6.10); WHITE BLOOD COUNT 12.9 10^3/uL (4.0-10.0)
[2019-11-05 23:29] LABS: BLOOD UREA NITROGEN 28 MG/DL (7-18); C REACTIVE PROTEIN QUANTITATIV 7.45 MG/DL (0.00-0.30); CALCIUM LEVEL 7.2 MG/DL (8.8-10.2); CARBON DIOXIDE LEVEL 36 MEQ/L (21-32); CHLORIDE LEVEL 101 MEQ/L (98-107); CK-MB VALUE MASS < 1.0 NG/ML (<3.6); CPK CREATINE PHOSPHOKINASE 66 U/L (39-308); CREATININE FOR GFR 1.35 MG/DL (0.70-1.30); GLOMERULAR FILTRATION RATE 56.5 (>49); GLUCOSE, FASTING 145 MG/DL (70-100); MAGNESIUM LEVEL 1.9 MG/DL (1.8-2.4); MB/CK RELATIVE INDEX 1.52 (< OR =4); POTASSIUM SERUM 4.4 MEQ/L (3.5-5.1); SODIUM LEVEL 139 MEQ/L (136-145); TROPONIN I < 0.02 NG/ML (< 0.10)
[2019-11-05 23:59] VITALS: BP 183/83
[2019-11-06 01:06] LABS: ERYTHROCYTE SEDIMENTATION RATE 127 mm/hr (0-20)
[2019-11-06] MEDS: LEVALBUTEROL 1.25 MG/0.5 ML CONCENTRATE NEB INH PRN ×2 (03:12→07:09)
[2019-11-06] MEDS ORDERED: IPRATROPIUM 0.5MG/ALBUTEROL 2.5MG INH SOL UD 3ML (DUONEB)(J7620) NEB ONE (04:00)
[2019-11-06 04:45] VITALS: BP 128/58
[2019-11-06 05:10] VITALS: BP 132/67
[2019-11-06 05:13] LABS: BASO # 0.1 10^3/uL (0.0-0.2); BASO % 0.4 % (0.0-1.0); EOS # 0.2 10^3/uL (0.0-0.5); EOS % 1.5 % (0.0-3.0); HEMATOCRIT 25.5 % (42.0-52.0); HEMOGLOBIN 7.5 g/dl (13.5-17.5); LYMPH # 1.2 10^3/uL (1.5-5.0); MEAN CORPUSCULAR HEMOGLOBIN 25.9 pg (27.0-33.0); MEAN CORPUSCULAR HGB CONC 29.4 g/dl (32.0-36.5); MEAN CORPUSCULAR VOLUME 87.9 fl (80.0-96.0); MONO # 1.4 10^3/uL (0.0-0.8); MONO % 10.5 % (0.0-5.0); NEUTROPHILS # 10.2 10^3/uL (1.5-8.5); NEUTROPHILS % 77.7 % (36.0-66.0); PLATELET COUNT, AUTOMATED 260 10^3/uL (150-450); WHITE BLOOD COUNT 13.2 10^3/uL (4.0-10.0)
[2019-11-06 05:30] LABS: CALCIUM LEVEL 7.6 MG/DL (8.8-10.2); CREATININE FOR GFR 1.41 MG/DL (0.70-1.30); GLOMERULAR FILTRATION RATE 53.7 (>49); MAGNESIUM LEVEL 1.9 MG/DL (1.8-2.4); POTASSIUM SERUM 4.1 MEQ/L (3.5-5.1)
[2019-11-06] MEDS: HumaLOG INSULIN (NovoLOG) PER UNIT SC SCH ×4 (07:30→21:00)
[2019-11-06] MEDS: LEVALBUTEROL 1.25 MG/0.5 ML CONCENTRATE NEB INH SCH ×4 (07:39→19:53)
[2019-11-06] MEDS: LEVEMIR (INSULIN DETEMIR) 1 UNITS/0.01ML SC SCH (09:00)
[2019-11-06] MEDS: VITAMIN D 1,000 INTERNATIONAL UNITS TABLET PO SCH (09:14)
[2019-11-06] MEDS: DOCUSATE SODIUM 100 MG CAP PO SCH (09:14)
[2019-11-06] MEDS: SENOKOT S TAB PO SCH (09:14)
[2019-11-06] MEDS: MULTIVITAMINS/MINERALS THERAP 1 TAB PO SCH (09:14)
[2019-11-06] MEDS: LACTOBACILLUS ACIDOPHILUS CAP (BACID) PO SCH ×3 (09:14→17:24)
[2019-11-06] MEDS: PANTOPRAZOLE 40MG TAB (PROTONIX) PO SCH (09:14)
[2019-11-06] MEDS: MIRALAX *UNIT DOSE* 17GM PACKET PO SCH (09:14)
[2019-11-06] MEDS: ISOSORBIDE DIN (ISORDIL) 10 MG TAB PO SCH ×2 (09:15→16:00)
[2019-11-06] MEDS: **hydrALAZINE HCL** 25 MG TAB PO SCH ×2 (09:15→16:00)
[2019-11-06] MEDS: BISACODYL 10 MG SUPP PR SCH (11:14)
[2019-11-06] MEDS: NYSTATIN 100,000 UNITS/GM TOPICAL PWD 15 GM TOP SCH (11:15)
[2019-11-06 14:00] VITALS: BP 130/46
[2019-11-06] MEDS: cefTRIAXone SOD 2 GM in D5W MINI-BAG PLUS 50 ML IV SCH (17:23)
[2019-11-06 20:00] VITALS: BP 169/60
--- NOTE | 2019-11-06 20:28 | IPNPDOC ---
Text Note Date of Service The patient was seen on 11/06/19. NOTE SUBJECTIVE Mr. Boyce a significant problem of infection with bony involvement to both feet. He has already undergone right partial first ray first toe amputation. Today he is expectant of debridement to ulcer lesion to the region of his left metatarsal head. OBJECTIVE Please see vital signs below Physical exam: HEENT: Patient's neck is supple. There is no adenopathy or thyromegaly. Cardiovascular: Regular rate and rhythm with a normal S1 and S2. I do not appreciate a murmur. Respiratory: Breath sounds overall are diminished due to body habitus; he does not have remarkable, rales. He does have significant productive cough with large quantities of sputum. Abdomen: Soft, nontender, non-distended, morbidly obese. Extremities: The right foot is wrapped in compression bandage. The patient complains of some pain and discomfort with weightbearing. The patient does have some bilateral foot and ankle edema but this is greater on the right than on the left. Information of additional interest is that Wound cultures obtained from his foot lesions were positive for growth of Enterobacter, corynebacteria, and YANET. COPD with chronic respiratory failure. Patient will continue with his inhaler therapies. Remains on antibiotics in the form of high-dose ceftriaxone. Nlf-[id number] diabetes mellitus. Remains on his baseline long-acting insulin regimen. Left lower extremity DVT. Patient has a reported history of factor V Leiden. Patient remains on anticoagulation therapy with Xarelto; a dose is being held for the debridement out of concern for excessive blood loss. Anemia of chronic disease. Patient at baseline does have anemia of chronic disease. However, we note that today his hemoglobin is 7.5 from his recent baseline of 8.9. He does not exhibit hypoxia, tachycardia or hypotension. He is having debridement today as a potential source of blood loss. We will maintain 2 units of blood available. Chronic diastolic congestive heart failure. Continues stable with Bumex, metolazone and Lasix. VS,Fishbone, I+O VS, Fishbone, I+O Laboratory Tests 11/05/19 22:53 11/06/19 04:56 Vital Signs Date Time Temp Pulse Resp B/P (MAP) Pulse Ox O2 Delivery O2 Flow Rate FiO2 11/06/19 14:00 99.2 95 17 130/46 (74) 94 Nasal Cannula 3.0 I&O- Last 24 Hours up to 6 AM 11/06/19 05:59 Intake Total 830 ml Output Total 1650 ml Balance -820 ml ANABELL CASTELAN MD Nov 06, 2019 20:28
[2019-11-06] MEDS ORDERED: propofoL 200 MG/20 ML VIAL As Ordered ONE (20:44)
[2019-11-06] MEDS ORDERED: LIDOCAINE 2% INJ 100 MG/5 ML SDV (FOR ANES.) As Ordered ONE (20:44)
[2019-11-06] MEDS ORDERED: fentaNYL 100 MCG/2 ML INJECTION (J3010) As Ordered ONE (20:45)
[2019-11-06] MEDS ORDERED: MIDAZOLAM INJ 2 MG/2 ML VIAL (J2250) As Ordered ONE (20:45)
[2019-11-06] MEDS ORDERED: GENTAMICIN SULF INJ 80MG/2ML VIAL (J1580) As Ordered ONE (20:49)
[2019-11-06] MEDS ORDERED: ROPIvacaine 0.5% 30 ML INJECTION (J2795 PER 1MG) As Ordered ONE (21:20)
[2019-11-06] MEDS ORDERED: ONDANSETRON 4MG/2ML VIAL (J2405) As Ordered ONE (21:43)
[2019-11-06] MEDS ORDERED: fentaNYL 100 MCG/2 ML INJECTION (J3010) IV PRN (22:15)
[2019-11-06] MEDS ORDERED: PERCOCET 5MG/325MG TAB PO PRN (22:15)
[2019-11-06] MEDS ORDERED: MEPERIDINE INJ 25 MG/ML VIAL (J2175) IV PRN (22:15)
[2019-11-06] MEDS ORDERED: METOCLOPRAMIDE INJ 10MG/2ML VIAL (J2765) IV PRN (22:15)
[2019-11-06] MEDS ORDERED: ONDANSETRON 4MG/2ML VIAL (J2405) IV PRN (22:15)
[2019-11-06] MEDS ORDERED: LR 1,000 ML IV SCH (22:15)
[2019-11-06 22:45] VITALS: BP 126/64
[2019-11-06 23:15] VITALS: BP 126/65
[2019-11-07] VITALS (26 sets, daily range): BP systolic 75–162; BP diastolic 39–88; O2SAT 90
[2019-11-07] MEDS: SENOKOT S TAB PO SCH ×2 (00:37→09:00)
[2019-11-07] MEDS: PANTOPRAZOLE 40MG TAB (PROTONIX) PO SCH ×2 (00:37→09:00)
[2019-11-07] MEDS: DOCUSATE SODIUM 100 MG CAP PO SCH ×2 (00:38→09:00)
[2019-11-07] MEDS: ISOSORBIDE DIN (ISORDIL) 10 MG TAB PO SCH ×3 (00:38→15:17)
[2019-11-07] MEDS: **hydrALAZINE HCL** 25 MG TAB PO SCH ×3 (00:39→15:17)
[2019-11-07] MEDS: SIMVASTATIN 20 MG TAB PO SCH (00:39)
[2019-11-07] MEDS: RAMELTEON 8 MG TAB (ROZEREM) PO SCH (00:40)
[2019-11-07] MEDS: amLODIPine 10 MG TAB PO SCH (00:40)
[2019-11-07] MEDS: BISACODYL 10 MG SUPP PR SCH ×3 (00:41→10:57)
[2019-11-07] MEDS: MIRALAX *UNIT DOSE* 17GM PACKET PO SCH ×2 (00:41→09:00)
[2019-11-07] MEDS: NYSTATIN 100,000 UNITS/GM TOPICAL PWD 15 GM TOP SCH ×2 (00:42→09:00)
[2019-11-07] MEDS: LEVALBUTEROL 1.25 MG/0.5 ML CONCENTRATE NEB INH PRN ×2 (01:11→04:25)
[2019-11-07] MEDS: FUROSEMIDE 40 MG/4 ML VIAL (J1940) IV ONE ×2 (04:59→05:38)
--- NOTE | 2019-11-07 05:24 | REPVR ---
PROCEDURE INFORMATION: Exam: XR Chest, 1 View Exam date and time: 11/07/2019 5:07 AM Age: 64 years old Clinical indication: Other: SOB TECHNIQUE: Imaging protocol: XR of the chest Views: 1 view. COMPARISON: CR Chest, 2 view PA, Lat 11/05/2019 4:36 PM FINDINGS: Lungs: Diffuse interstitial vascular prominence versus combination interstitial infiltrates with more focal areas of consolidation in the lower lungs. Pleural space: Unremarkable. No pleural effusion. No pneumothorax. Heart/Mediastinum: Cardiomegaly. Indeterminate increased curvilinear density area of left aortic arch and left fawn. Bones/joints: Degenerative change of the spine. Other findings: The chest is rotated. IMPRESSION: 1. Cardiac enlargement. 2. Diffuse interstitial and partially bilateral lower lung alveolar infiltrates which could reflect lobar or other atypical pneumonia with component of vascular congestion not excluded. 3. Prominent limitation by rotation. Electronically signed by: Charline Edward On 11/07/2019 05:23:33 AM
[2019-11-07] MEDS ORDERED: FUROSEMIDE 40 MG/4 ML VIAL (J1940) IV ONE (05:30)
[2019-11-07 06:00] LABS: C REACTIVE PROTEIN QUANTITATIV 11.1 MG/DL (0.00-0.30); CALCIUM LEVEL 7.9 MG/DL (8.8-10.2); CREATININE FOR GFR 1.59 MG/DL (0.70-1.30); GLOMERULAR FILTRATION RATE 46.7 (>49); MAGNESIUM LEVEL 2.1 MG/DL (1.8-2.4); POTASSIUM SERUM 4.7 MEQ/L (3.5-5.1)
[2019-11-07 06:17] LABS: ABG BASE EXCESS 3.3 (-2.0-2.0); ABG HCO3 34.3 MEQ/L (22.0-26.0); ABG O2 SATURATION 93.3 % (95.0-99.0); ABG PARTIAL PRESSURE CO2 104.9 mmHg (35.0-45.0); ABG PARTIAL PRESSURE O2 77.7 mmHg (75.0-100.0); ABG STANDARD HCO3 27.3 MEQ/L (22.0-26.0); ABG TOTAL CO2 37.6 MEQ/L (23.0-31.0); ABG pH (ARTERIAL) 7.133 UNITS (7.350-7.450)
[2019-11-07 06:25] LABS: BASO # 0.2 10^3/uL (0.0-0.2); BASO % 0.7 % (0.0-1.0); EOS # 0.2 10^3/uL (0.0-0.5); EOS % 0.9 % (0.0-3.0); HEMATOCRIT 29.9 % (42.0-52.0); HEMOGLOBIN 8.9 g/dl (13.5-17.5); LYMPH % 4.2 % (24.0-44.0); MEAN CORPUSCULAR HEMOGLOBIN 26.3 pg (27.0-33.0); MEAN CORPUSCULAR HGB CONC 29.8 g/dl (32.0-36.5); MEAN CORPUSCULAR VOLUME 88.5 fl (80.0-96.0); MONO # 1.9 10^3/uL (0.0-0.8); MONO % 8.3 % (0.0-5.0); NEUTROPHILS # 19.8 10^3/uL (1.5-8.5); NEUTROPHILS % 84.8 % (36.0-66.0); PLATELET COUNT, AUTOMATED 364 10^3/uL (150-450); RED BLOOD COUNT 3.38 10^6/uL (4.30-6.10); WHITE BLOOD COUNT 23.3 10^3/uL (4.0-10.0)
[2019-11-07 06:45] LABS: ERYTHROCYTE SEDIMENTATION RATE > 140 mm/hr (0-20)
[2019-11-07] MEDS: HumaLOG INSULIN (NovoLOG) PER UNIT SC SCH ×3 (07:30→17:30)
[2019-11-07] MEDS: LEVALBUTEROL 1.25 MG/0.5 ML CONCENTRATE NEB INH SCH ×3 (07:37→15:17)
[2019-11-07] MEDS: LACTOBACILLUS ACIDOPHILUS CAP (BACID) PO SCH ×3 (08:00→17:10)
--- NOTE | 2019-11-07 08:09 | RO ---
DATE OF PROCEDURE: 11/06/2019 PREPROCEDURE DIAGNOSIS: Stage IV wound, right foot. POSTPROCEDURE DIAGNOSIS: Stage IV wound, right foot. PROCEDURE: Surgical debridement including muscle, right foot. SURGEON: Dr. Dyllan Tenorio. BUFFING LINE SET UP WORKER: None. ANESTHESIA: Local monitored anesthesia care (MAC). IRRIGATION: Dilute vancomycin solution 3 liters, low pressure pulsed lavage system. DRAINS UTILIZED: Quarter-inch Iodoform gauze. HARDWARE UTILIZED: None. ESTIMATED BLOOD LOSS: 5 mL. DESCRIPTION OF PROCEDURE: On 11/06/2019, this 64-year-old male was taken from his hospital room to the operating room and placed on the operating table in supine position. Following the induction of IV sedation and local and regional anesthesia, the right lower extremity was prepped and draped in the usual aseptic manner. Attention was directed to the patient's right foot where prior to debridement, there was an ulceration measuring pre-debridement 7.0 cm x 3.5 cm x approximately 1 cm in depth. The stump of the 1st metatarsal was visible. No signs of osteomyelitis from this area was noted. Granulation tissue was actually noted on the medullary shaft of the 1st metatarsal. There was some necrotic tissue noted in the wound and the muscle belly was visible. Utilizing a Stoll Dermal curet the wound was debrided of all necrotic tissue. Utilizing a low pressure pulse lavage system, three liters of dilute gentamicin solution was irrigated through the wound. Post debridement the wound measured 7.1 cm x 3.6 cm x 1 cm in depth. Quarter-inch Iodoform gauze was placed on the wound bed and a dry sterile dressing was applied. Patient having apparently tolerated the procedure well was taken from the operating room to the recovery room for further monitoring by the anesthesia department. Patient's wound care orders will be to placed Vashe on the wound, let it set for 10 minutes and then apply Drawtex rope and a sterile dressing.
[2019-11-07 08:15] LABS: ABG BASE EXCESS 0.4 (-2.0-2.0); ABG HCO3 29.6 MEQ/L (22.0-26.0); ABG O2 SATURATION 90.2 % (95.0-99.0); ABG PARTIAL PRESSURE O2 63.4 mmHg (75.0-100.0); ABG STANDARD HCO3 24.7 MEQ/L (22.0-26.0)
[2019-11-07 08:19] LABS: ABG PARTIAL PRESSURE CO2 79.2 mmHg (35.0-45.0)
[2019-11-07] MEDS: LEVEMIR (INSULIN DETEMIR) 1 UNITS/0.01ML SC SCH (09:00)
[2019-11-07] MEDS ORDERED: guaiFENesin ER 600 MG TAB PO SCH (09:00)
[2019-11-07] MEDS: MULTIVITAMINS/MINERALS THERAP 1 TAB PO SCH (09:00)
[2019-11-07] MEDS: VITAMIN D 1,000 INTERNATIONAL UNITS TABLET PO SCH (09:00)
--- NOTE | 2019-11-07 09:14 | IPNPDOC ---
Date Seen The patient was seen on 11/07/19. Progress Note I was called to bedside around 0450 because the patient had a change in respiratory status. He placed on a 15 L non-rebreather and was stating at 96 percent. Stat chest xray and lasix 40mgx1 IV was ordered. The patient appear fluid overload on exam. Initially the patient was responding appropriately. Stat labs were ordered. Chest xray showed increased vascular congestion and bilateral patchy infiltrate. Then after 30 minutes, patient did not diurese for the initial 40 Lasix infiltrated, so another 40 mg was order stat. At this time, the patient became more somnolent during exam stat ABG was ordered. pH was 7.[address]. Cho was consulted for BIPAP management and the patient was transferred to ICU for further management. VS, I&O, 24H, Ana Vital Signs/I&O Vital Signs Date Time Temp Pulse Resp B/P (MAP) Pulse Ox O2 Delivery O2 Flow Rate FiO2 11/07/19 07:35 40 11/07/19 06:54 98 38 93/46 (62) 93 NIPPV (BIPAP/CPAP) 11/07/19 06:00 97.8 5.0 I&O- Last 24 Hours up to 6 AM 11/07/19 05:59 Intake Total 580 ml Output Total 200 ml Balance 380 ml Laboratory Data 24H LABS Laboratory Tests 2 11/06/19 11:39: Bedside Glucose (Misc Panel) 160H 11/06/19 16:35: Bedside Glucose (Misc Panel) 139H 11/06/19 20:36: Bedside Glucose (Misc Panel) 158H 11/06/19 23:20: Bedside Glucose (Misc Panel) 154H 11/07/19 05:25: Anion Gap 5L, Glomerular Filtration Rate 46.7L, Lactic Acid Level 1.0, Calcium Level 7.9L, Magnesium Level 2.1, C-Reactive Protein, Quantitative 11.10H 11/07/19 06:07: Immature Granulocyte % (Auto) 1.1, Neutrophils (%) (Auto) 84.8H, Lymphocytes (%) (Auto) 4.2L, Monocytes (%) (Auto) 8.3H, Eosinophils (%) (Auto) 0.9, Basophils (%) (Auto) 0.7, Neutrophils # (Auto) 19.8H, Lymphocytes # (Auto) 1.0L, Monocytes # (Auto) 1.9H, Eosinophils # (Auto) 0.2, Basophils # (Auto) 0.2, Nucleated Red Blood Cells % (auto) 0.0, Erythrocyte Sedimentation Rate > 140H, Blood Gas Bicarbonate Standard 27.3H, Arterial Blood pH 7.133*L, Arterial Blood Partial Pressure CO2 104.9*H, Arterial Blood Partial Pressure O2 77.7, Arterial Blood Total CO2 37.6H, Arterial Blood HCO3 34.3H, Arterial Blood Base Excess 3.3H, Arterial Blood Oxygen Saturation 93.3L 11/07/19 06:35: Bedside Glucose (Misc Panel) 182H 11/07/19 07:45: Blood Gas Bicarbonate Standard 24.7, Arterial Blood pH 7.190*L, Arterial Blood Partial Pressure CO2 79.2*H, Arterial Blood Partial Pressure O2 63.4L, Arterial Blood Total CO2 32.0H, Arterial Blood HCO3 29.6H, Arterial Blood Base Excess 0.4, Arterial Blood Oxygen Saturation 90.2L CBC/BMP Laboratory Tests 11/07/19 05:25 11/07/19 06:07 Microbiology Microbiology 11/07/19 Blood Culture, Received Pending 11/07/19 Blood Culture, Received Pending 11/05/19 Gram Stain - Final, Resulted 11/05/19 Wound Culture - Preliminary, Resulted Enterobacter Cloacae Complex Corynebacterium Species 11/03/19 Wound Culture - Final, Complete Enterobacter Cloacae Complex Corynebacterium Species Staphylococcus Aureus 11/03/19 Respiratory Virus Panel (PCR) (DONI) - Final, Complete 11/03/19 Blood Culture - Preliminary, Resulted No Growth after 72 hours. All specime... 11/03/19 Blood Culture - Preliminary, Resulted No Growth after 72 hours. All specime... GME ATTESTATION GME ATTESTATION My faculty preceptor for this patient encounter was physically present during the encounter and was fully available. All aspects of the patient interview, examination, medical decision making process, and medical care plan development were reviewed and approved by the faculty preceptor. The faculty preceptor is aware and concurs with the plan as stated in the body of this note and will attest to such by his/her cosignature. ATTENDING NOTE Ms. Boyce Attending Note Attending Note Were called to bedside because patient was minimally responsive and he was placed on a non-rebreather and saturating 96 percent. Given overt volume overload on exam and a stat CXR that showed increased vascular congestion, he was given 40 IV lasix x 2 and an ABG showed acidosis with profound hypercabia and we transferred him to the ICU for BiPAP with Dr. Marquis franco. LADI LEIGH DO Nov 07, 2019 09:13 LUIS M MONTALVO MD Nov 08, 2019 06:55
--- NOTE | 2019-11-07 09:40 | CCN ---
DATE: 11/07/2019 START TIME: 829 STOP TIME: 920 I was asked to attend Mr. Boyce here in the intensive care unit. The patient has been examined and his chart reviewed. I was called earlier in the morning by the resident. Little documentation unfortunately is available to me at this point. According to the available records, this is a 64-year-old gentleman with a history of noncompliance with his multiple medical problems. He underwent debridement of a foot issue yesterday. He is known to have significant heart failure. Through the night, there was a change in his respiratory status requiring an increase in oxygen requirements. He was given IV diuretics. Chest x-ray showed significant edema. He had a change in his mental status and blood gas done at that time had a pH of 7.133, pCO of 104.9 and pO2 of 77. He was placed on noninvasive support. Repeat blood gas done about two hours later showed a decline in his pCO2 to 79.2, pH up to 7.19 and pAO2 of 63.4. Manipulations of noninvasive support have been made by myself and repeat blood gas is pending. Currently, he is somnolent, but arouse to stimuli. Actually, at times does open his eyes to voice. Heart rate 96 with a sinus mechanism. Blood pressure 104 systolic. Respiratory rate 26 to 29 without obvious accessory muscle use. HEENT: Shows membranes are moist. Trachea is in the midline. Pupils do react. Chest has some occasional rhonchi that improve with cough. There is decreased expansion, but it is symmetric and he has dependent crackles throughout. No convincing egophony or wheeze. Cardiac Exam: Distant, generally regular. Peripheral pulses are markedly diminished. There is at least 2+ pitting lower extremity edema bilaterally. Abdomen is morbidly obese, soft. There are active bowel sounds. No convincing organomegaly or masses. Extremities show chronic venous stasis changes at least to the level of the knees bilaterally. There is a surgical dressing on the right foot. Neurologically, he is sedate, but is somewhat arousable. He does move all extremities. The laboratories show a white blood cell count of 23.8, hemoglobin 8.9, platelet count 364,000, 84% segs, 0 bands. Sodium 136, potassium 4.7, chloride 99, CO2 32, BUN 36, creatinine 1.59 which is up from yesterday, glucose 177. Lactic acid 1.0. Repeat blood gas is pending. The most pressing problems requiring my immediate presence at the bedside: 1. Respiratory acidosis. 2. Hypoxemic respiratory failure. 3. Congestive heart failure with exacerbation. 4. Infected foot without sepsis. At this point, we will proceed with noninvasive support as above and optimize the settings. My hopes is that we will be able to avoid endotracheal intubation as he has shown at least a 30 drop in his pCO2. His current minute volume is between 9 and 12 liters with tidal volumes between 350 and 450 on the noninvasive mask and this is actually probably better than we would be able to do with mechanical ventilatory support. He is being diuresed by the primary service and I am in agreement with this. Antimicrobials, ulcer and deep vein thrombosis (DVT) prophylaxis are being managed by the primary service as well. There is a very high likelihood of further compromise. We await the outcome of the above interventions. I left the bedside at 0921 hours. 51 minutes of critical care time delivered at the bedside, not including procedures.
[2019-11-07 10:17] LABS: ABG pH (ARTERIAL) 7.261 UNITS (7.350-7.450)
[2019-11-07 10:18] LABS: ABG BASE EXCESS 4.7 (-2.0-2.0); ABG O2 SATURATION 94.8 % (95.0-99.0); ABG PARTIAL PRESSURE O2 72.8 mmHg (75.0-100.0); ABG STANDARD HCO3 28.6 MEQ/L (22.0-26.0); ABG TOTAL CO2 35.3 MEQ/L (23.0-31.0)
[2019-11-07] MEDS: MEROPENEM INJ 1 GM in IV 1 EA IV SCH ×2 (10:32→17:17)
[2019-11-07] MEDS ORDERED: VANCOMYCIN HCL 1,000 MG, VIAL MATE ADAPTER 1 EACH in D5W 250 ML IV ONE (12:00)
[2019-11-07] MEDS ORDERED: VANCOMYCIN HCL 750 MG, VIAL MATE ADAPTER 1 EACH in D5W 250 ML IV ONE (13:00)
[2019-11-07 13:41] LABS: VENOUS PARTIAL PRESSURE CO2 66.6 mmHg (38.0-50.0); VENOUS PARTIAL PRESSURE O2 28.5 mmHg (30.0-50.0); VENOUS PH 7.137 UNITS (7.330-7.430); VENOUS TOTAL CO2 24.1 MEQ/L (24.0-28.0)
[2019-11-07 13:42] LABS: VENOUS BASE EXCESS -7.5 (-2.0-2.0); VENOUS STANDARD HCO3 17.6 MEQ/L
[2019-11-07 14:04] LABS: ABG BASE EXCESS -1.3 (-2.0-2.0); ABG HCO3 26.1 MEQ/L (22.0-26.0); ABG O2 SATURATION 99.5 % (95.0-99.0); ABG PARTIAL PRESSURE CO2 56.4 mmHg (35.0-45.0); ABG PARTIAL PRESSURE O2 186.1 mmHg (75.0-100.0); ABG STANDARD HCO3 23.4 MEQ/L (22.0-26.0); ABG TOTAL CO2 27.8 MEQ/L (23.0-31.0); ABG pH (ARTERIAL) 7.283 UNITS (7.350-7.450)
--- NOTE | 2019-11-07 14:30 | REP ---
Portable chest, 02:12 p.m., single AP view the patient upright: Comparison is 05:01 a.m. earlier today. The patient is again rotated. The bilateral interstitial infiltrates have moved. There is no other interval change. Electronically Signed by Elpidio Patiño MD 11/07/2019 02:20 P
[2019-11-07] MEDS ORDERED: PHENYLEPHRINE HCL INJ 50 MG in D5W 495 ML IV SCH (15:00)
[2019-11-07 15:08] LABS: HEMATOCRIT 37.9 % (42.0-52.0); HEMOGLOBIN 10.8 g/dl (13.5-17.5); MEAN CORPUSCULAR HEMOGLOBIN 25.5 pg (27.0-33.0); MEAN CORPUSCULAR HGB CONC 28.5 g/dl (32.0-36.5); MEAN CORPUSCULAR VOLUME 89.4 fl (80.0-96.0); PLATELET COUNT, AUTOMATED 364 10^3/uL (150-450); RED BLOOD COUNT 4.24 10^6/uL (4.30-6.10); WHITE BLOOD COUNT 15.2 10^3/uL (4.0-10.0)
[2019-11-07 15:26] LABS: ALBUMIN 1.5 GM/DL (3.2-5.2); BILIRUBIN,TOTAL 0.4 MG/DL (0.2-1.0); CALCIUM LEVEL 7.3 MG/DL (8.8-10.2); CREATININE FOR GFR 2.1 MG/DL (0.70-1.30); GLOMERULAR FILTRATION RATE 33.9 (>49); POTASSIUM SERUM 4.7 MEQ/L (3.5-5.1); TOTAL PROTEIN 5.4 GM/DL (6.4-8.2); TROPONIN I 0.14 NG/ML (< 0.10)
--- NOTE | 2019-11-07 16:32 | ECGEPIP ---
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
--- NOTE | 2019-11-07 16:37 | ECGEPIP ---
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
[2019-11-07] MEDS ORDERED: HEPARIN DRIP 25,000 UNITS in IV 1 EA IV SCH (16:46)
[2019-11-07] MEDS ORDERED: CLOPIDOGREL 300 MG TAB (PLAVIX) PO STA (16:46)
[2019-11-07] MEDS ORDERED: LIDOCAINE 1% MDV 20ML VIAL As Ordered ONE (16:56)
[2019-11-07] MEDS ORDERED: HEPARIN SOD (PORCINE) 5000 UNITS/ML VIAL IV ONE (17:00)
[2019-11-07] MEDS ORDERED: HEPARIN SOD (PORCINE) 5000 UNITS/ML VIAL IV PRN (17:00)
[2019-11-07] MEDS ORDERED: ASPIRIN 325 MG TAB PO ONE (17:00)
[2019-11-07] MEDS ORDERED: NOREPINEPHRINE BITARTRATE 8 MG in D5W 492 ML IV PRN (18:00)
[2019-11-07] MEDS ORDERED: SODIUM CHLORIDE 0.9% INJ 10 ML SYR IV PRN (18:45)
--- NOTE | 2019-11-07 19:02 | REP ---
PICC line insertion under ultrasound guidance. The procedure was performed by JOSH Qiu, under the direct supervision of Dr. Ulrich. The risks and benefits of the procedure were explained to the patient's and informed consent was obtained both verbally and written. Directly prior to the start of the procedure, a formal timeout was completed in the procedure room. The right basilic vein was localized using ultrasound guidance. The skin was prepped and draped in the sterile fashion. 1 ml 1% lidocaine 10 mg/ml was used as a local anesthetic. Using ultrasound guidance the right basilic vein was cannulated and a 0.018 guidewire was inserted and advanced to the SVC using serial chest x-rays as guidance. The needle was removed and a 5.5 Citizen [place] dilator and peel-away sheath was inserted over the guidewire. A 5.5 Citizen [place] double lumen catheter was cut to the length of 40 cm. The dilator was removed and the catheter was inserted over the guide wire with the tip ending in the SVC. The peel-away sheath was removed and the catheter was flushed with heparinized saline as per hospital protocol. The catheter was affixed to the skin and a sterile dressing was applied. The patient tolerated the procedure well and there were no immediate complications. 0.0 minutes of fluoroscopy time was utilized for this procedure. Some fluoroscopic images are performed with last image hold technology. These images require no additional radiation. Reviewed by JOSH Benavidez 11/07/2019 06:35 P Electronically Signed by Bar Ulrich MD 11/07/2019 06:53 P
[2019-11-07] MEDS ORDERED: VANCOMYCIN HCL 1,000 MG, VIAL MATE ADAPTER 1 EACH in D5W 250 ML IV SCH (20:00)
--- NOTE | 2019-11-07 20:24 | DS.PDOC ---
Discharge Summary General Date of Admission Nov 03, 2019 at 03:12 Date of Discharge November 07, 2019 Specialist/Consultants Involve: Dyllan Tenorio Specialist/Consultants Involve Maynor Cho of the Pulmonary service Discharge Summary PROCEDURES PERFORMED DURING STAY: Echocardiogram, PICC line placement, R. foot debridement. ADMITTING DIAGNOSES: 1. Peripheral vascular disease with acute on chronic right foot wound, fluid overload with CHF exacerbation. DISCHARGE DIAGNOSES: 1. Discharge diagnoses include: ST elevation ID, hypertension, chronic diastolic congestive heart failure, peripheral vascular disease, history of left lower extremity DVT due to factor V Leiden mutation, COPD, tso-aqvvqkr-hlmamsnkj diabetes mellitus, degenerative joint disease, morbid obesity, monoclonal gammopathy of unknown significance. COMPLICATIONS/CHIEF COMPLAINT: Chf Exacerbation. HISTORY OF PRESENT ILLNESS/HOSPITAL COURSE: This is a 64-year-old male with an underlying history of ewe-izopstw-mfgveiazs diabetes mellitus and peripheral vascular disease who had developed osteomyelitis to his right foot. 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 He then completed antibiotics and rehabilitation. He 3 presented to the hospital with persistent lower extremity swelling and shortness of breath. Concern was raised for ongoing infection and possible congestive heart failure exacerbation. He was admitted to the telemetry floor. He did undergo diuresis. Patient was also seen by the podiatry service and it was determined that he would need additional debridement to the right foot. In preparation for this he did undergo cardiac evaluation by echocardiogram. Echocardiogram had shown grade 2 diastolic dysfunction with LV systolic function of 70%. The patient did have significant edema and continued with ongoing diuresis with Lasix, metolazone and Bumex to which she responded well. The patient had had mild leukocytosis. Sedimentation rate was noted to be 127 with initial C-reactive protein of 7.45.Culture data had been remarkable for Enterobacter cloacae, Corynebacterium, and oxacillin sensitive staph aureus. The patient's antibiotic regimen was high-dose ceftriaxone. Patient was evaluated then by the podiatry service, who noted presence of necrotic muscle to the wound site and recommended surgical debridement. Postoperatively the patient developed some respiratory distress. This did continue to worsen to where the patient developed acute on chronic respiratory failure and had to be placed on positive pressure ventilation. He was transitioned to the intensive care unit. The patient then began to complain of chest pain intermittently. During active complaint complaint it was noted on the monitor that his cardiac waveforms had developed the appearance of ST elevation. Initial EKG obtained did not show this. Second EKG obtained showed ST elevation to the inferior leads. Subsequent troponin was elevated at 0.14. Case was discussed with the cardiology service who strongly recommended transfer to [facility] for availability of evaluation by coronary angiogram. The patient did receive therapy with aspirin, Plavix and heparin drip. He had developed some hypotension and had been placed on pressors as well; PICC line was placed. Patient was transferred to [facility] under the care of Dr. Bri Chacon. Of additional interest, patient had a history of left lower extremity DVT due to factor V Leiden mutation. Patient was usually maintained on anticoagulation with Xarelto. This was held for his debridement surgery.. DISCHARGE MEDICATIONS: Please see below. ALLERGIES: Please see below. PHYSICAL EXAMINATION ON DISCHARGE: VITAL SIGNS: Please see below. GENERAL: The patient had some respiratory distress but was stable on CPAP. HEENT: Was otherwise supple with no adenopathy or thyromegaly. CARDIOVASCULAR EXAMINATION: Regular rate and rhythm with no appreciable murmur RESPIRATORY EXAMINATION: Intermittent coarse breath sounds and cough productive of large amounts of clear sputum ABDOMINAL EXAMINATION: Should had remarkable central obesity, but was otherwise nontender EXTREMITIES: The patient had 2-3+ pitting edema to his lower extremities, his right foot was wrapped in a dressing, but there was active drainage from the wound site NEUROLOGICAL EXAMINATION: The patient really did not have any discrete focal neuromotor or sensory deficit LABORATORY DATA: Please see below. IMAGING: PROGNOSIS: ACTIVITY: As tolerated. DIET: The patient was nothing by mouth at the time of discharge. Otherwise, he was maintained on a consistent carbohydrate diet DISCHARGE PLAN: The patient is being transferred to [facility] for coronary angiogram and additional management of his other medical problems as they are contributory. DISPOSITION: er To Acute Hosp. DISCHARGE INSTRUCTIONS: 1. . ITEMS TO FOLLOWUP ON ON OUTPATIENT: 1. . DISCHARGE CONDITION: The patient was in serious condition upon transfer. TIME SPENT ON DISCHARGE: 60 minutes. Vital Signs/I&Os Vital Signs Date Time Temp Pulse Resp B/P (MAP) Pulse Ox O2 Delivery O2 Flow Rate FiO2 11/07/19 16:00 35 11/07/19 13:00 104 28 81/44 (56) 73 NIPPV (BIPAP/CPAP) 11/07/19 12:00 97.1 1/23/20 06:00 5.0 I&O- Last 24 Hours up to 6 AM 11/07/19 05:59 Intake Total 580 ml Output Total 200 ml Balance 380 ml Laboratory Data Labs 24H Laboratory Tests 2 11/06/19 20:36: Bedside Glucose (Misc Panel) 158H 11/06/19 23:20: Bedside Glucose (Misc Panel) 154H 11/07/19 05:25: Anion Gap 5L, Glomerular Filtration Rate 46.7L, Lactic Acid Level 1.0, Calcium Level 7.9L, Magnesium Level 2.1, C-Reactive Protein, Quantitative 11.10H 11/07/19 06:07: Immature Granulocyte % (Auto) 1.1, Neutrophils (%) (Auto) 84.8H, Lymphocytes (%) (Auto) 4.2L, Monocytes (%) (Auto) 8.3H, Eosinophils (%) (Auto) 0.9, Basophils (%) (Auto) 0.7, Neutrophils # (Auto) 19.8H, Lymphocytes # (Auto) 1.0L, Monocytes # (Auto) 1.9H, Eosinophils # (Auto) 0.2, Basophils # (Auto) 0.2, Nucleated Red Blood Cells % (auto) 0.0, Erythrocyte Sedimentation Rate > 140H, Blood Gas Bicarbonate Standard 27.3H, Arterial Blood pH 7.133*L, Arterial Blood Partial Pressure CO2 104.9*H, Arterial Blood Partial Pressure O2 77.7, Arterial Blood Total CO2 37.6H, Arterial Blood HCO3 34.3H, Arterial Blood Base Excess 3.3H, Arterial Blood Oxygen Saturation 93.3L 11/07/19 06:35: Bedside Glucose (Misc Panel) 182H 11/07/19 07:45: Blood Gas Bicarbonate Standard 24.7, Arterial Blood pH 7.190*L, Arterial Blood Partial Pressure CO2 79.2*H, Arterial Blood Partial Pressure O2 63.4L, Arterial Blood Total CO2 32.0H, Arterial Blood HCO3 29.6H, Arterial Blood Base Excess 0.4, Arterial Blood Oxygen Saturation 90.2L 11/07/19 10:06: Blood Gas Bicarbonate Standard 28.6H, Arterial Blood pH 7.261L, Arterial Blood Partial Pressure CO2 75.0*H, Arterial Blood Partial Pressure O2 72.8L, Arterial Blood Total CO2 35.3H, Arterial Blood HCO3 33.0H, Arterial Blood Base Excess 4.7H, Arterial Blood Oxygen Saturation 94.8L 11/07/19 11:34: Bedside Glucose (Misc Panel) 169H 11/07/19 13:16: Blood Gas Puncture Site UNKNOWN, Blood Gas Bicarbonate Standard 17.6, Venous Blood pH 7.137L, Venous Blood Partial Pressure CO2 66.6H, Venous Blood Partial Pressure O2 28.5L, Venous Blood Total Carbon Dioxide 24.1, Venous Blood HCO3 22.0L, Venous Blood Oxygen Saturation 50.0L, Venous Blood Base Excess -7.5L 11/07/19 13:59: Blood Gas Bicarbonate Standard 23.4, Arterial Blood pH 7.283L, Arterial Blood Partial Pressure CO2 56.4H, Arterial Blood Partial Pressure O2 186.1H, Arterial Blood Total CO2 27.8, Arterial Blood HCO3 26.1H, Arterial Blood Base Excess - 1.3, Arterial Blood Oxygen Saturation 99.5H 11/07/19 14:20: Methicillin-Resist S.aureus DNA PCR NOT DETECTED 11/07/19 14:48: Nucleated Red Blood Cells % (auto) 0.2H, Anion Gap 9, Glomerular Filtration Rate 33.9L, Calcium Level 7.3L, Total Bilirubin 0.4, Aspartate Amino Transf (AST/SGOT) 12, Alanine Aminotransferase (ALT/SGPT) 10L, Alkaline Phosphatase 64, Troponin I 0.14#H, Total Protein 5.4L, Albumin 1.5L, Albumin/Globulin Ratio 0.38L 11/07/19 17:37: Bedside Glucose (Misc Panel) 99 CBC/BMP Laboratory Tests 11/07/19 05:25 11/07/19 06:07 11/07/19 14:48 FSBS Laboratory Tests Test 11/06/19 20:36 11/06/19 23:20 11/07/19 06:35 11/07/19 11:34 Range/Units Bedside Glucose (Misc Panel) 158 154 182 169 80-115 MG/DL Test 11/07/19 17:37 Range/Units Bedside Glucose (Misc Panel) 99 80-115 MG/DL Microbiology Microbiology 11/07/19 Blood Culture, Received Pending 11/07/19 Blood Culture, Received Pending 11/05/19 Gram Stain - Final, Resulted 11/05/19 Wound Culture - Preliminary, Resulted Enterobacter Cloacae Complex Staphylococcus Aureus Staphylococcus Sp Coag Neg Corynebacterium Species 11/03/19 Wound Culture - Final, Complete Enterobacter Cloacae Complex Corynebacterium Species Staphylococcus Aureus 11/03/19 Respiratory Virus Panel (PCR) (DONI) - Final, Complete 11/03/19 Blood Culture - Preliminary, Resulted No Growth after 72 hours. All specime... 11/03/19 Blood Culture - Preliminary, Resulted No Growth after 72 hours. All specime... Discharge Medications Scheduled Amlodipine Besylate (Amlodipine Besylate) 10 Mg Tablet, 10 MG PO QHS, (Reported) Cholecalciferol (Vitamin D3) (Vitamin D3) 1,000 Unit Capsule, 1 CHEW PO DAILY, (Reported) Docusate Sodium (Colace) 100 Mg Cap, 100 MG PO BID, (Reported) Furosemide (Furosemide) 40 Mg Tablet, 40 MG PO BID, (Reported) Hydralazine HCl (Hydralazine HCl) 25 Mg Tablet, 25 MG PO TID, (Reported) Insulin Degludec (Tresiba Flextouch U-200) 200 Unit/1 Ml Insuln.pen, 90 UNIT SC DAILY, (Reported) Isosorbide Dinitrate (Isosorbide Dinitrate) 10 Mg Tablet, 10 MG PO TID, (Reported) Metformin HCl (Metformin ER Osmotic) 1,000 Mg Tab.er.24, 1,000 MG PO QPM, (Reported) Multivitamins (Thera M Plus Tablet) 1 Tab Tab, 1 TAB PO DAILY, (Reported) Pantoprazole Sodium (Pantoprazole Sodium) 40 Mg Tablet.dr, 40 MG PO BID, (Rep orted) Rivaroxaban (Xarelto) 20 Mg Tablet, 20 MG PO QPM, (Reported) Sacubitril/Valsartan (Entresto 97 mg-103 mg Tablet) 1 Tab Tab, 1 TAB PO BID, (Reported) Simvastatin (Simvastatin) 20 Mg Tablet, 20 MG PO QHS, (Reported) Spironolactone (Spironolactone) 25 Mg Tablet, 25 MG PO DAILY, (Reported) Scheduled PRN Acetaminophen (Acetaminophen) 325 Mg Tablet, 650 MG PO Q4H PRN for PAIN, (Reported) Levalbuterol Hydrochloride (Xopenex Concentrate) 1.25 Mg/0.5 Ml Vial.neb, 1.25 MG INH Q2H PRN for WHEEZING, (Reported) Allergies Coded Allergies: erythromycin base (Verified Adverse Reaction, Mild, N/V, 11/03/19) ANABELL CASTELAN MD Nov 07, 2019 20:24
[2019-11-08] MEDS ORDERED: SODIUM CHLORIDE 0.9% INJ 10 ML SYR IV SCH (06:00)
--- NOTE | 2019-11-09 08:06 | ECGEPIP ---
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
== END 2019-11-07 19:02 | disposition short-term general hospital (02) | DRG 981 ==
LOC: M ED 00:43 → M ED INP 03:12 → ENRESERV 11:05 → M PCU 11:35 → M MSPAV 11-06 05:06 → M ICU 11-07 06:28
PROVIDERS: ADMIT Internal Medicine; ATTEND Internal Medicine
PROC: 0KDV0ZZ Extraction of Right Foot Muscle, Open Approach (ICD-10-PCS; principal; 2019-11-06 17:00)
PROC: 02HV33Z Insertion of Infusion Device into Superior Vena Cava, Percutaneous Approach (ICD-10-PCS; 2019-11-07)
DX: I11.0 Hypertensive heart disease with heart failure (principal); J96.91 Respiratory failure, unspecified with hypoxia; I21.3 ST elevation (STEMI) myocardial infarction of unspecified site; D68.51 Activated protein C resistance; Z68.43 Body mass index [BMI] 50.0-59.9, adult; N17.9 Acute kidney failure, unspecified; E87.2 Acidosis; L97.515 Non-pressure chronic ulcer of other part of right foot with muscle involvement without evidence of necrosis; I50.33 Acute on chronic diastolic (congestive) heart failure; E11.51 Type 2 diabetes mellitus with diabetic peripheral angiopathy without gangrene; J44.9 Chronic obstructive pulmonary disease, unspecified; B96.89 Other specified bacterial agents as the cause of diseases classified elsewhere; E78.5 Hyperlipidemia, unspecified; D72.829 Elevated white blood cell count, unspecified; B95.61 Methicillin susceptible Staphylococcus aureus infection as the cause of diseases classified elsewhere; D47.2 Monoclonal gammopathy; F17.200 Nicotine dependence, unspecified, uncomplicated; D63.8 Anemia in other chronic diseases classified elsewhere; E11.621 Type 2 diabetes mellitus with foot ulcer; K21.9 Gastro-esophageal reflux disease without esophagitis; G47.33 Obstructive sleep apnea (adult) (pediatric); E66.01 Morbid (severe) obesity due to excess calories; Z89.411 Acquired absence of right great toe; Z79.4 Long term (current) use of insulin; Z79.01 Long term (current) use of anticoagulants; Z79.899 Other long term (current) drug therapy; Z86.718 Personal history of other venous thrombosis and embolism; Z88.1 Allergy status to other antibiotic agents; Z90.49 Acquired absence of other specified parts of digestive tract